=== PATIENT | male | born 1935 | race Caucasian/White ===

== ENCOUNTER 2016-09-17 17:05 | Inpatient (IN) | payer MEDICARE ==
--- NOTE | 2016-09-17 17:33 | ED ---
General Adult HPI - General Chief complaint: Chest Pain Stated complaint: chest tightness, pain, heart Hx Time Seen by Provider: 09/17/16 17:14 Source: patient, RN notes reviewed, old records reviewed Mode of arrival: wheelchair Limitations: no limitations - History of Present Illness Initial comments: This is an 78-year-old male here with chest pain. Patient has a significant heart disease, history of heart disease, history of A. fib, patient coming in for chest pain. No recent crit headache evaluation for chest pain or some possible admission for chest pain. Patient is not currently having chest pain had chest pain earlier with symptoms radiating down left arm. Patient did have stress test within the last 2 years. No significant distress of breath no diaphoresis with pain. No modifying factors for symptoms - Related Data Home Medications Medication Instructions Recorded Confirmed Levothyroxine Sodium [Synthroid] 88 mcg PO MOTUWETHFRSA 01/30/14 09/17/16 Multivitamins, Thera [Multivitamin] 1 tab PO DAILY 01/30/14 09/17/16 Nitroglycerin Sl Tabs [Nitrostat] 0.4 mg SUBLINGUAL Q5M PRN 01/30/14 09/17/16 metFORMIN HCL [Glucophage] 1,000 mg PO DAILY@1700 01/30/14 09/17/16 Fesoterodine Fumarate [Toviaz] 4 mg PO DAILY@1700 08/19/14 09/17/16 hydrALAZINE HCL [Apresoline] 150 mg PO BID 08/19/14 09/17/16 Glimepiride [Amaryl] 0.5 mg PO W/SUPPER 08/27/14 09/17/16 Glimepiride [Amaryl] 1 mg PO AC-BRKFST 08/31/14 09/17/16 ALPRAZolam [Xanax] 0.25 mg PO BID@0800,2200 08/28/15 09/17/16 Furosemide [Lasix] 20 mg PO DAILY 08/28/15 09/17/16 Omeprazole [PriLOSEC] 20 mg PO DAILY@1700 08/28/15 09/17/16 amLODIPine [Norvasc] 5 mg PO BID@0800,2200 08/28/15 09/17/16 metFORMIN HCL [Glucophage] 500 mg PO DAILY@0800 08/28/15 09/17/16 Isosorbide Mononitrate ER [Imdur] 60 mg PO DAILY@1700 03/29/16 09/17/16 Melatonin 5 mg PO HS 03/29/16 09/17/16 sitaGLIPtin [Januvia] 100 mg PO DAILY 09/17/16 09/17/16 Previous Rx's Medication Instructions Recorded Aspirin 81 mg PO DAILY #30 chew 09/20/16 Atorvastatin [Lipitor] 40 mg PO HS #30 tab 09/20/16 Clopidogrel [Plavix] 75 mg PO DAILY #30 tab 09/20/16 Metoprolol Tartrate [Lopressor] 12.5 mg PO BID #60 tab 09/20/16 Warfarin [Coumadin] 2.5 mg PO DAILY@1800 #30 tab 09/20/16 Allergies Allergy/AdvReac Type Severity Reaction Status Date / Time albuterol Allergy Severe tachycardia Verified 09/17/16 21:12 MELISSA Inhibitors Allergy Angioedema Verified 09/17/16 21:12 aspirin Allergy Swelling Verified 09/17/16 21:12 clonidine HCl [From Catapres] Allergy facial Verified 09/17/16 21:12 swelling flurbiprofen Allergy angioedema Verified 09/17/16 21:12 hydrochlorothiazide Allergy Anaphylaxis Verified 09/17/16 21:12 levofloxacin [From Levaquin] Allergy facial and Verified 09/17/16 21:12 neck swelling losartan potassium Allergy Anaphylaxis Verified 09/17/16 21:12 [From Cozaar] ofloxacin Allergy angioedema Verified 09/17/16 21:12 doxycycline AdvReac SHORTNESS Verified 09/17/16 21:12 OF BREATH Tetracyclines AdvReac Swelling Verified 09/17/16 21:12 FEATHERS Allergy SINUS Uncoded 09/17/16 21:12 DRAINAGE NOSE AND EYES Review of Systems ROS Statement: Those systems with pertinent positive or pertinent negative responses have been documented in the HPI. ROS Other: All systems not noted in ROS Statement are negative. Past Medical History Past Medical History: Atrial Fibrillation, Coronary Artery Disease (CAD), Cancer , Diabetes Mellitus, GERD/Reflux, GI Bleed, Hyperlipidemia, Hypertension, Myocardial Infarction (MA), Osteoarthritis (OA), Prostate Disorder, Thyroid Disorder Additional Past Medical History / Comment(s): hx vocal cord(tx with radiation) and PROSTATE CANCER, varicose veins, hx ulcer, Last Myocardial Infarction Date:: 08/2014 History of Any Multi-Drug Resistant Organisms: MRSA Date of last positivie culture/infection: 01/15/2012 MDRO Source:: Unknown Past Surgical History: Coronary Bypass/CABG, Heart Catheterization With Stent, Hernia Repair, Prostate Surgery, Tonsillectomy Additional Past Surgical History / Comment(s): vocal cord biopsy with vocal cord surgery ,CABG 2013, total 4 stents, philipp cataracts Past Anesthesia/Blood Transfusion Reactions: Motion Sickness Additional Past Anesthesia/Blood Transfusion Reaction / Comment(s): hx diff intubation with previous vocal cord surgery-anesthesia record on chart Date of Last Stent Placement:: 2005 Past Psychological History: No Psychological Hx Reported Smoking Status: Former smoker Past Alcohol Use History: Occasional Additional Past Alcohol Use History / Comment(s): quit smoking 45 years ago, smoked for 20 yrs- 1PPD Past Drug Use History: None Reported - Past Family History Sister(s) Family Medical History: Cancer Father Family Medical History: Deep Vein Thrombosis (DVT) Mother Family Medical History: Cancer Additional Family Medical History / Comment(s): CERVICAL Brother(s) Family Medical History: Coronary Artery Disease (CAD) Additional Family Medical History / Comment(s): He has one brother that has with history of coronary artery disease and alcohol abuse. General Exam Limitations: no limitations General appearance: alert, in no apparent distress, anxious Head exam: Present: atraumatic, normocephalic, normal inspection Eye exam: Present: normal appearance, PERRL, EOMI. Absent: scleral icterus, conjunctival injection, periorbital swelling ENT exam: Present: normal exam, mucous membranes moist Neck exam: Present: normal inspection. Absent: tenderness, meningismus, lymphadenopathy Respiratory exam: Present: normal lung sounds bilaterally. Absent: respiratory distress, wheezes, rales, rhonchi, stridor Cardiovascular Exam: Present: regular rate, normal rhythm, normal heart sounds. Absent: systolic murmur, diastolic murmur, rubs, gallop, clicks GI/Abdominal exam: Present: soft, normal bowel sounds. Absent: distended, tenderness, guarding, rebound, rigid Extremities exam: Present: normal inspection, full ROM, normal capillary refill. Absent: tenderness, pedal edema, joint swelling, calf tenderness Back exam: Present: normal inspection Neurological exam: Present: alert, oriented X3, CN II-XII intact Psychiatric exam: Present: normal affect, normal mood Skin exam: Present: warm, dry, intact, normal color. Absent: rash Course Vital Signs 09/17/16 09/17/16 09/17/16 17:10 17:22 18:28 Temperature 98.4 F Pulse Rate 84 79 66 Respiratory 20 18 Rate Blood Pressure 168/82 174/98 143/88 O2 Sat by Pulse 97 99 98 Oximetry 09/17/16 09/17/16 09/17/16 18:58 19:25 20:33 Temperature 97.8 F Pulse Rate 64 74 68 Respiratory 16 Rate Blood Pressure 144/84 140/102 144/91 O2 Sat by Pulse 98 97 98 Oximetry - Reevaluation(s) Reevaluation #1: 09/17/16 17:32 Patient is on Ahlquist EKG Findings - EKG Comments: EKG Findings:: EKG shows a flutter rate of 69, AR 94, QRS 4:30 Medical Decision Making - Medical Decision Making 81 male the ER for evaluation of A. fib, nonaffiliated MA elevated troponin, shortness of breath and weakness. Patient's rate is controlled perfectly at this time is on anticoagulation, patient be admitted for further cardiac observation and monitoring - Lab Data Result diagrams: 09/20/16 05:42 09/20/16 05:42 Lab Results 09/17/16 09/17/16 09/17/16 Range/Units 17:35 17:35 17:35 WBC 7.2 (3.8-10.6) k/uL RBC 4.46 (4.30-5.90) m/uL Hgb 14.5 (13.0-17.5) gm/dL Hct 44.1 (39.0-53.0) % MCV 99.0 (80.0-100.0) fL MCH 32.5 (25.0-35.0) pg MCHC 32.8 (31.0-37.0) g/dL RDW 13.7 (11.5-15.5) % Plt Count 230 (150-450) k/uL Neutrophils % 67 % Lymphocytes % 16 % Monocytes % 12 % Eosinophils % 3 % Basophils % 1 % Neutrophils # 4.8 (1.3-7.7) k/uL Lymphocytes # 1.1 (1.0-4.8) k/uL Monocytes # 0.9 (0-1.0) k/uL Eosinophils # 0.2 (0-0.7) k/uL Basophils # 0.1 (0-0.2) k/uL PT (9.0-12.0) sec INR (<1.1) APTT (22.0-30.0) sec Sodium 145 (137-145) mmol/L Potassium 3.6 (3.5-5.1) mmol/L Chloride 100 (98-107) mmol/L Carbon Dioxide 30 (22-30) mmol/L Anion Gap 15 mmol/L BUN 13 (9-20) mg/dL Creatinine 0.93 (0.66-1.25) mg/dL Est GFR (MDRD) Af Amer >60 (>60 ml/min/1.73 sqM) Est GFR (MDRD) Non-Af >60 (>60 ml/min/1.73 sqM) Glucose 174 H (74-99) mg/dL Calcium 10.1 (8.4-10.2) mg/dL Magnesium 1.8 (1.6-2.3) mg/dL Total Bilirubin 0.6 (0.2-1.3) mg/dL AST 18 (17-59) U/L ALT 30 (21-72) U/L Alkaline Phosphatase 83 (38-126) U/L Total Creatine Kinase 49 L (55-170) U/L CK-MB (CK-2) 1.2 (0.0-2.4) ng/mL CK-MB (CK-2) Rel Index 2.4 Troponin I 0.082 H* (0.000-0.034) ng/mL NT-Pro-B Natriuret Pep pg/mL Total Protein 7.6 (6.3-8.2) g/dL Albumin 4.9 (3.5-5.0) g/dL Lipase 137 (23-300) U/L 09/17/16 09/17/16 Range/Units 17:35 17:35 WBC (3.8-10.6) k/uL RBC (4.30-5.90) m/uL Hgb (13.0-17.5) gm/dL Hct (39.0-53.0) % MCV (80.0-100.0) fL MCH (25.0-35.0) pg MCHC (31.0-37.0) g/dL RDW (11.5-15.5) % Plt Count (150-450) k/uL Neutrophils % % Lymphocytes % % Monocytes % % Eosinophils % % Basophils % % Neutrophils # (1.3-7.7) k/uL Lymphocytes # (1.0-4.8) k/uL Monocytes # (0-1.0) k/uL Eosinophils # (0-0.7) k/uL Basophils # (0-0.2) k/uL PT 11.0 (9.0-12.0) sec INR 1.1 (<1.1) APTT 25.3 (22.0-30.0) sec Sodium (137-145) mmol/L Potassium (3.5-5.1) mmol/L Chloride (98-107) mmol/L Carbon Dioxide (22-30) mmol/L Anion Gap mmol/L BUN (9-20) mg/dL Creatinine (0.66-1.25) mg/dL Est GFR (MDRD) Af Amer (>60 ml/min/1.73 sqM) Est GFR (MDRD) Non-Af (>60 ml/min/1.73 sqM) Glucose (74-99) mg/dL Calcium (8.4-10.2) mg/dL Magnesium (1.6-2.3) mg/dL Total Bilirubin (0.2-1.3) mg/dL AST (17-59) U/L ALT (21-72) U/L Alkaline Phosphatase (38-126) U/L Total Creatine Kinase (55-170) U/L CK-MB (CK-2) (0.0-2.4) ng/mL CK-MB (CK-2) Rel Index Troponin I (0.000-0.034) ng/mL NT-Pro-B Natriuret Pep 559 pg/mL Total Protein (6.3-8.2) g/dL Albumin (3.5-5.0) g/dL Lipase (23-300) U/L - Radiology Data Radiology results: report reviewed (Chest x-ray negative for acute disease), image reviewed Critical Care Time Critical Care Time: Yes Total Critical Care Time: 31 Disposition Clinical Impression: Chest pain, Afib, Unstable angina pectoris, NSTEMI (non-ST elevated myocardial infarction) Disposition: ADMITTED IP TO THIS HOSP Condition: Good
[2016-09-17 17:49] LABS: Basophils # (A) 0.1 k/uL (0-0.2); Basophils % (A) 1 %; CH 33.5; CHCM 34.1; Eosinophils # (A) 0.2 k/uL (0-0.7); Eosinophils % (A) 3 %; HCT 44.1 % (39.0-53.0); HDW 2.42; HGB 14.5 gm/dL (13.0-17.5); Luc # (Auto) 0.12; Luc % (Auto) 2; Lymphocytes # (A) 1.1 k/uL (1.0-4.8); Lymphocytes % (A) 16 %; MCH 32.5 pg (25.0-35.0); MCHC 32.8 g/dL (31.0-37.0); Mean Platelet Volume 8.2; Monocytes # (A) 0.9 k/uL (0-1.0); Monocytes % (A) 12 %; Neutrophils # (A) 4.8 k/uL (1.3-7.7); Neutrophils % (A) 67 %; RBC 4.46 m/uL (4.30-5.90); RDW 13.7 % (11.5-15.5); WBC 7.2 k/uL (3.8-10.6); WBC (Perox) 7.08
[2016-09-17 17:58] LABS: INR 1.1 (<1.1); Partial Thromboplastin Time 25.3 sec (22.0-30.0)
[2016-09-17 17:59] LABS: ALT 30 U/L (21-72); AST 18 U/L (17-59); Alkaline Phosphatase 83 U/L (38-126); Anion Gap 15 mmol/L; Blood Urea Nitrogen 13 mg/dL (9-20); Calcium 10.1 mg/dL (8.4-10.2); Carbon Dioxide 30 mmol/L (22-30); Chloride 100 mmol/L (98-107); Glucose 174 mg/dL (74-99); Magnesium 1.8 mg/dL (1.6-2.3); Non-African American GFR(MDRD) >60 (>60 ml/min/1.73 sqM); Potassium 3.6 mmol/L (3.5-5.1); Sodium 145 mmol/L (137-145); Total Bilirubin 0.6 mg/dL (0.2-1.3); Total Protein 7.6 g/dL (6.3-8.2)
--- NOTE | 2016-09-17 18:15 | XR ---
EXAMINATION TYPE: XR chest 1V portable DATE OF EXAM: 09/17/2016 6:10 PM COMPARISON: 08/28/2015 HISTORY: Chest tightness TECHNIQUE: Single frontal view of the chest is obtained. FINDINGS: There is no heart failure nor confluent pneumonic infiltrate. There are sternal wires. The re are chest leads. There are no hilar masses. Costophrenic angles are clear. IMPRESSION: No active cardiopulmonary disease. No change.
[2016-09-17 18:22] LABS: Creatine Kinase MB 1.2 ng/mL (0.0-2.4)
[2016-09-17 18:23] LABS: Troponin I 0.082 ng/mL (0.000-0.034)
[2016-09-17] MEDS ORDERED: ASPIRIN 81 MG CHEW PO STA (18:43)
[2016-09-17] MEDS ORDERED: NITROGLYCERIN SL TABS 0.4 MG TAB SUBLINGUAL PRN (18:43)
[2016-09-17] MEDS ORDERED: MORPHINE SULFATE 4 MG/ML SYRINGE IV PRN (18:43)
[2016-09-17] MEDS: SODIUM CHLORIDE 0.9% 1,000 ML IV SCH (20:33)
[2016-09-17 21:37] VITALS: BMI 22.8
[2016-09-17] MEDS ORDERED: ATORVASTATIN 40 MG TAB PO SCH (22:00)
[2016-09-17 22:14] LABS: Glucose,Whole Blood 264 mg/dL (75-99)
[2016-09-17] MEDS: CARVEDILOL 3.125 MG TAB PO SCH (22:31)
[2016-09-17] MEDS: ALPRAZolam 0.25 MG TAB PO SCH (22:31)
[2016-09-17] MEDS: hydrALAZINE HCL 50 MG TAB PO SCH (22:31)
[2016-09-17] MEDS: amLODIPine 5 MG TAB PO SCH (22:31)
[2016-09-17] MEDS: APIXABAN 2.5 MG TABLET PO SCH (22:31)
[2016-09-17] MEDS: MELATONIN 5 MG TABLET PO SCH (22:32)
[2016-09-17] MEDS: ISOSORBIDE MONONITRATE ER 60 MG TAB.ER.24H PO SCH (22:32)
[2016-09-17] MEDS: PANTOPRAZOLE 40 MG TABLET PO SCH (22:33)
[2016-09-17] MEDS: GLIMEPIRIDE 1 MG TAB PO SCH (22:34)
[2016-09-17] MEDS: metFORMIN 500 MG TAB PO SCH (22:34)
[2016-09-17] MEDS: OXYBUTYNIN XL 5 MG TAB.ER.24 PO SCH (22:35)
[2016-09-18 00:22] LABS: Creatine Kinase MB 1.2 ng/mL (0.0-2.4)
[2016-09-18 00:26] LABS: Troponin I 0.287 ng/mL (0.000-0.034)
[2016-09-18 05:57] LABS: Cholesterol 92 mg/dL (<200); HDL Cholesterol 39 mg/dL (40-60); Triglycerides 166 mg/dL (<150)
[2016-09-18 06:14] LABS: Troponin I 0.27 ng/mL (0.000-0.034)
[2016-09-18 06:17] LABS: Glucose,Whole Blood 115 mg/dL (75-99)
[2016-09-18] MEDS: LEVOTHYROXINE 88 MCG TAB PO SCH (06:26)
[2016-09-18] MEDS: SODIUM CHLORIDE 0.9% 1,000 ML IV SCH ×2 (06:26→17:00)
[2016-09-18] MEDS: LINAGLIPTIN 5 MG TABLET PO SCH ×2 (07:49→12:06)
[2016-09-18] MEDS: metFORMIN 500 MG TAB PO SCH ×2 (07:49→16:57)
[2016-09-18] MEDS: GLIMEPIRIDE 1 MG TAB PO SCH ×2 (07:49→16:57)
[2016-09-18] MEDS: ALPRAZolam 0.25 MG TAB PO SCH ×2 (08:00→21:32)
[2016-09-18] MEDS: hydrALAZINE HCL 50 MG TAB PO SCH ×2 (08:00→20:51)
[2016-09-18] MEDS: amLODIPine 5 MG TAB PO SCH ×2 (08:01→21:32)
[2016-09-18] MEDS: FUROSEMIDE 20 MG TAB PO SCH (08:01)
[2016-09-18] MEDS: APIXABAN 2.5 MG TABLET PO SCH (08:01)
[2016-09-18] MEDS: CARVEDILOL 3.125 MG TAB PO SCH (08:02)
[2016-09-18] MEDS: MULTIVITAMINS, THERA 1 EACH TAB PO SCH (08:02)
[2016-09-18] MEDS ORDERED: ASPIRIN 325 MG TAB PO SCH (09:00)
--- NOTE | 2016-09-18 09:19 | P.CRDCN ---
History of Present Illness Consult date: 09/18/16 Chief complaint: Chest discomfort History of present illness: This is a pleasant 80-year-old gentleman who sees Dr. TACOS Bolden as an outpatient with known history of CAD and prior CABG, hypertension, dyslipidemia, and chronic atrial fibrillation, presented to the emergency room complaining of chest discomfort. He was in the [employer]ology yesterday when he started experiencing funny feeling in the chest. He decided to go home. Then he decided to come to the emergency room. In the ER he was experiencing tightness across the chest. The discomfort radiated to his left arm. It lasted about 20 minutes. The EKG showed atrial fibrillation with non-specific changes. The cardiac enzymes came in to be abnormal. He underwent a heart catheterization in August 2015 and that showed non- dominant right coronary artery with patent DOMÍNGUEZ to LAD and patent SVG to LCX. I recommended proceeding with heart catheterization to rule out any severe underlying CAD. Please note that the patient had an episode of sinus pauses of 4 seconds this fairly morning. I am going to DC the Coreg at this point and we' ll continue monitor the heart rhythm. Past Medical History Past Medical History: Atrial Fibrillation, Coronary Artery Disease (CAD), Cancer , Diabetes Mellitus, GERD/Reflux, GI Bleed, Hyperlipidemia, Hypertension, Myocardial Infarction (AL), Osteoarthritis (OA), Prostate Disorder, Thyroid Disorder Additional Past Medical History / Comment(s): hx vocal cord(tx with radiation) and PROSTATE CANCER, varicose veins, hx ulcer, Last Myocardial Infarction Date:: 08/2014 History of Any Multi-Drug Resistant Organisms: MRSA Date of last positivie culture/infection: 01/15/2012 MDRO Source:: Unknown Past Surgical History: Coronary Bypass/CABG, Heart Catheterization With Stent, Hernia Repair, Prostate Surgery, Tonsillectomy Additional Past Surgical History / Comment(s): vocal cord biopsy with vocal cord surgery ,CABG 2011, total 4 stents, philipp cataracts Past Anesthesia/Blood Transfusion Reactions: Motion Sickness Additional Past Anesthesia/Blood Transfusion Reaction / Comment(s): hx diff intubation with previous vocal cord surgery-anesthesia record on chart Date of Last Stent Placement:: 2005 Past Psychological History: No Psychological Hx Reported Smoking Status: Former smoker Past Alcohol Use History: Occasional Additional Past Alcohol Use History / Comment(s): quit smoking 45 years ago, smoked for 20 yrs- 1PPD Past Drug Use History: None Reported - Past Family History Sister(s) Family Medical History: Cancer Father Family Medical History: Deep Vein Thrombosis (DVT) Brother(s) Family Medical History: Coronary Artery Disease (CAD) Mother Family Medical History: Cancer Additional Family Medical History / Comment(s): CERVICAL Medications and Allergies Home Medications Medication Instructions Recorded Confirmed Type Levothyroxine Sodium [Synthroid] 88 mcg PO MOTUWETHFRSA 01/30/14 09/17/16 History Multivitamins, Thera [Multivitamin] 1 tab PO DAILY 01/30/14 09/17/16 History Nitroglycerin Sl Tabs [Nitrostat] 0.4 mg SUBLINGUAL Q5M PRN 01/30/14 09/17/16 History metFORMIN HCL [Glucophage] 1,000 mg PO DAILY@1700 01/30/14 09/17/16 History Fesoterodine Fumarate [Toviaz] 4 mg PO DAILY@1700 08/19/14 09/17/16 History hydrALAZINE HCL [Apresoline] 150 mg PO BID 08/19/14 09/17/16 History Glimepiride [Amaryl] 0.5 mg PO W/SUPPER 08/27/14 09/17/16 History Glimepiride [Amaryl] 1 mg PO AC-BRKFST 08/31/14 09/17/16 History ALPRAZolam [Xanax] 0.25 mg PO BID@0800,2200 08/28/15 09/17/16 History Apixaban [Eliquis] 2.5 mg PO 0800,1700 08/28/15 09/17/16 History Atorvastatin [Lipitor] 20 mg PO HS 08/28/15 09/17/16 History Furosemide [Lasix] 20 mg PO DAILY 08/28/15 09/17/16 History Omeprazole [PriLOSEC] 20 mg PO DAILY@1700 08/28/15 09/17/16 History amLODIPine [Norvasc] 5 mg PO BID@0800,2200 08/28/15 09/17/16 History metFORMIN HCL [Glucophage] 500 mg PO DAILY@0800 08/28/15 09/17/16 History Carvedilol [Coreg] 3.125 mg PO BID@0800,2030 03/29/16 09/17/16 History Isosorbide Mononitrate ER [Imdur] 60 mg PO DAILY@1700 03/29/16 09/17/16 History Melatonin 5 mg PO HS 03/29/16 09/17/16 History sitaGLIPtin [Januvia] 100 mg PO DAILY 09/17/16 09/17/16 History Allergies Allergy/AdvReac Type Severity Reaction Status Date / Time albuterol Allergy Severe tachycardia Verified 09/17/16 21:12 MELISSA Inhibitors Allergy Angioedema Verified 09/17/16 21:12 aspirin Allergy Swelling Verified 09/17/16 21:12 clonidine HCl [From Catapres] Allergy facial Verified 09/17/16 21:12 swelling flurbiprofen Allergy angioedema Verified 09/17/16 21:12 hydrochlorothiazide Allergy Anaphylaxis Verified 09/17/16 21:12 levofloxacin [From Levaquin] Allergy facial and Verified 09/17/16 21:12 neck swelling losartan potassium Allergy Anaphylaxis Verified 09/17/16 21:12 [From Cozaar] ofloxacin Allergy angioedema Verified 09/17/16 21:12 doxycycline AdvReac SHORTNESS Verified 09/17/16 21:12 OF BREATH Tetracyclines AdvReac Swelling Verified 09/17/16 21:12 FEATHERS Allergy SINUS Uncoded 09/17/16 21:12 DRAINAGE NOSE AND EYES Physical Exam Vitals: Vital Signs Temp Pulse Pulse Resp BP BP Pulse Ox 09/18/16 04:00 98.6 F 72 18 127/95 97 09/18/16 00:00 98.3 F 68 18 109/68 98 09/17/16 23:14 95 09/17/16 20:33 97.8 F 68 16 144/91 98 09/17/16 19:25 74 140/102 97 09/17/16 18:58 64 144/84 98 Intake and Output 09/17/16 09/18/16 09/18/16 22:59 06:59 14:59 Intake Total 800 Balance 800 Intake: IV 800 Sodium Chloride 0.9% 1, 800 000 ml @ 100 mls/hr IV . Q10H [facility] Rx#:[id number] Other: Voiding Method Toilet # Voids 1 Weight 76.5 kg 76.5 kg - Constitutional General appearance: no acute distress - Respiratory Respiratory: bilateral: CTA - Cardiovascular Rhythm: irregularly irregular Heart sounds: normal: S1, S2 Results 09/17/16 17:35 09/17/16 17:35 Cardiac Enzymes 09/17/16 09/18/16 Range/Units 23:38 05:24 CK-MB (CK-2) 1.2 1.0 (0.0-2.4) ng/mL Troponin I 0.287 H* 0.270 H* (0.000-0.034) ng/mL Lipids 09/18/16 Range/Units 05:24 Triglycerides 166 H (<150) mg/dL Cholesterol 92 (<200) mg/dL HDL Cholesterol 39 L (40-60) mg/dL Current Medications Generic Name Dose Route Start Last Admin Trade Name Naveenq PRN Reason Stop Dose Admin Alprazolam 0.25 mg 09/17/16 22:00 09/18/16 08:00 Xanax PO 0.25 mg BID@0800,2200 NIYAH Administration Amlodipine Besylate 5 mg 09/17/16 22:00 09/18/16 08:01 Norvasc PO 5 mg BID@0800,2200 NIYAH Administration Apixaban 2.5 mg 09/17/16 22:00 09/18/16 08:01 Eliquis PO 2.5 mg 0800,1700 NIYAH Administration Atorvastatin Calcium 20 mg 09/17/16 22:00 09/17/16 22:31 Lipitor PO 20 mg HS NIYAH Administration Carvedilol 3.125 mg 09/17/16 22:00 09/18/16 08:02 Coreg PO 3.125 mg BID@0800,2030 NIYAH Administration Furosemide 20 mg 09/18/16 09:00 09/18/16 08:01 Lasix PO 20 mg DAILY NIYAH Administration Glimepiride 1 mg 09/18/16 07:30 09/18/16 07:49 Amaryl PO Not Given AC-BRKFST NIYAH Glimepiride 0.5 mg 09/17/16 22:00 09/17/16 22:34 Amaryl PO 0.5 mg W/SUPPER NIYAH Administration Hydralazine HCl 150 mg 09/17/16 22:00 09/18/16 08:00 Apresoline PO 150 mg BID NIYAH Administration Sodium Chloride 1,000 mls @ 100 mls/hr 09/17/16 18:45 09/18/16 06:26 Saline 0.9% IV 100 mls/hr .Q10H NIYAH Administration Isosorbide Mononitrate 60 mg 09/17/16 22:00 09/17/16 22:32 Imdur PO 60 mg DAILY@1700 NIYAH Administration Levothyroxine Sodium 88 mcg 09/18/16 06:30 09/18/16 06:26 Synthroid PO 88 mcg MOTUWETHFRSA NIYAH Administration Linagliptin 5 mg 09/18/16 09:00 09/18/16 07:49 Tradjenta PO Not Given DAILY NIYAH Melatonin 5 mg 09/17/16 22:00 09/17/16 22:32 Melatonin PO 5 mg HS NIYAH Administration Metformin HCl 500 mg 09/18/16 08:00 09/18/16 07:49 Glucophage PO Not Given DAILY@0800 NIYAH Metformin HCl 1,000 mg 09/17/16 22:00 09/17/16 22:34 Glucophage PO 1,000 mg DAILY@1700 NIYAH Administration Morphine Sulfate 4 mg 09/17/16 18:43 Morphine Sulfate (Inj) IV Q4HR PRN Chest Pain Multivitamins 1 each 09/18/16 09:00 09/18/16 08:02 Theragran PO 1 each DAILY [facility] Administration Nitroglycerin 0.4 mg 09/17/16 18:43 Nitrostat SUBLINGUAL Q5M PRN Chest Pain Oxybutynin Chloride 10 mg 09/17/16 22:00 09/17/16 22:35 Ditropan Xl PO 10 mg DAILY@1700 NIYAH Administration Pantoprazole Sodium 40 mg 09/17/16 22:00 09/17/16 22:33 Protonix PO 40 mg DAILY@1700 NIYAH Administration Intake and Output 09/17/16 09/18/16 09/18/16 22:59 06:59 14:59 Intake Total 800 Balance 800 Intake: IV 800 Sodium Chloride 0.9% 1, 800 000 ml @ 100 mls/hr IV . Q10H [facility] Rx#:[id number] Other: Voiding Method Toilet # Voids 1 Weight 76.5 kg 76.5 kg Assessment and Plan Plan: Assessment #1 acute non-STEMI #2 known CAD as described above #3 chronic atrial fibrillation #4 an episode of sinus positive for seconds #5 multiple comorbid conditions Plan #1 DC the Coreg #2 watch the rhythm very closely to rule out any tachybradycardia syndrome #3 the patient need to undergo a heart catheterization #4 follow-up with
[2016-09-18] MEDS ORDERED: ALPRAZolam 0.5 MG TAB PO PRN (09:43)
[2016-09-18] MEDS ORDERED: ASPIRIN 325 MG TAB PO STA (09:43)
[2016-09-18] MEDS ORDERED: NITROGLYCERIN SL TABS 0.4 MG TAB SUBLINGUAL PRN (09:43)
[2016-09-18] MEDS ORDERED: ATORVASTATIN 80 MG TAB PO STA (09:43)
[2016-09-18] MEDS ORDERED: ALPRAZolam 0.25 MG TAB PO PRN (09:43)
[2016-09-18] MEDS ORDERED: SODIUM CHLORIDE 0.9% 1,000 ML in EMPTY BAG 1 BAG IV ONE (09:43)
[2016-09-18 11:54] LABS: Glucose,Whole Blood 229 mg/dL (75-99)
[2016-09-18] MEDS: INSULIN LISPRO (humaLOG) 300 UNIT/3 ML VIAL SQ SCH ×3 (12:08→21:32)
--- NOTE | 2016-09-18 12:27 | P.HPIM ---
History of Present Illness H&P Date: 09/18/16 Chief Complaint: Left arm and shoulder ache This is an 80-year-old male. His primary care physician is Dr. Corona and his drug abuse program coordinator is Dr. TACOS Bolden. He has a past medical history for coronary artery disease status post CABG three-vessel in April 2012 with previous 4 cardiac stents between 2003 and 2005, diabetes mellitus type 2, hypertension, right vocal cord cell carcinoma in 2008, completed radiation, chronic atrial fibrillation on eliquis with previous cardioversion, Cobb's esophagus, prostate cancer. He was in restorationist yesterday and he developed left arm and shoulder ache and didn't feel well in general. He denied having any lightheadedness or dizziness. No nausea or vomiting. Not sure if he had any palpitations. Patient is driving himself home and he sells himself in a chair and the feeling faded away. Unfortunately, the discomfort returned later in the day but not as bad as the first episode. His ended up bringing him into [facility] emergency center for evaluation his troponins were 0.082, 0.287, 0.270. Chest x-ray showed no acute findings. Triglycerides 166, cholesterol 92, HDL 20, LDL 39. EKG showed atrial fibrillation with nonspecific changes. Patient was admitted to the selective care unit and cardiology consult was obtained with plan for heart catheterization tomorrow. Patient had a 4 second positive for which Coreg has been discontinued by cardiology. Patient was previously set up for heart catheterization on September [address] TACOS Bolden. Review of Systems All systems: negative Constitutional: Denies chills, Denies fever Eyes: denies blurred vision, denies pain Ears, nose, mouth and throat: Denies headache, Denies sore throat Cardiovascular: Reports chest pain, Denies decreased exercise tolerance, Denies dyspnea on exertion, Denies edema, Denies leg edema, Denies lightheadedness, Denies orthopnea, Denies palpitations, Denies paroxysmal nocturnal dyspnea, Denies rapid heart beat, Denies shortness of breath Respiratory: Denies cough Gastrointestinal: Denies abdominal pain, Denies diarrhea, Denies nausea, Denies vomiting Musculoskeletal: Denies myalgias Integumentary: Denies pruritus, Denies rash Neurological: Denies numbness, Denies weakness Psychiatric: Denies anxiety, Denies depression Endocrine: Denies fatigue, Denies weight change Past Medical History Past Medical History: Atrial Fibrillation, Coronary Artery Disease (CAD), Cancer , Diabetes Mellitus, GERD/Reflux, GI Bleed, Hyperlipidemia, Hypertension, Myocardial Infarction (IA), Osteoarthritis (OA), Prostate Disorder, Thyroid Disorder Additional Past Medical History / Comment(s): hx vocal cord(tx with radiation) and PROSTATE CANCER, varicose veins, Cobb's esophagus Last Myocardial Infarction Date:: 08/2014 History of Any Multi-Drug Resistant Organisms: MRSA Date of last positivie culture/infection: 01/15/2012 MDRO Source:: Unknown Past Surgical History: Coronary Bypass/CABG, Heart Catheterization With Stent, Hernia Repair, Prostate Surgery, Tonsillectomy Additional Past Surgical History / Comment(s): vocal cord biopsy with vocal cord surgery ,CABG 2011, total 4 stents, philipp cataracts Past Anesthesia/Blood Transfusion Reactions: Motion Sickness Additional Past Anesthesia/Blood Transfusion Reaction / Comment(s): hx diff intubation with previous vocal cord surgery-anesthesia record on chart Date of Last Stent Placement:: 2005 Past Psychological History: No Psychological Hx Reported Smoking Status: Former smoker Past Alcohol Use History: Occasional Additional Past Alcohol Use History / Comment(s): quit smoking 45 years ago, smoked for 20 yrs- 1PPD. No marijuana or street drug use. Occasional alcohol use. He wears a brace on the left ankle. Past Drug Use History: None Reported - Past Family History Sister(s) Family Medical History: Cancer Additional Family Medical History / Comment(s): Patient has one sister that is 89 years old with history of breast cancer and osteoarthritis of the knees. Father Family Medical History: Deep Vein Thrombosis (DVT) Additional Family Medical History / Comment(s): Father at age 75 with history of diabetes, coronary artery disease, pacemaker. Brother(s) Family Medical History: Coronary Artery Disease (CAD) Additional Family Medical History / Comment(s): He has one brother that has with history of coronary artery disease and alcohol abuse. Mother Family Medical History: Cancer Additional Family Medical History / Comment(s): Mother at age 39 from cervical cancer. Medications and Allergies Home Medications Medication Instructions Recorded Confirmed Type Levothyroxine Sodium [Synthroid] 88 mcg PO MOTUWETHFRSA 01/30/14 09/17/16 History Multivitamins, Thera [Multivitamin] 1 tab PO DAILY 01/30/14 09/17/16 History Nitroglycerin Sl Tabs [Nitrostat] 0.4 mg SUBLINGUAL Q5M PRN 01/30/14 09/17/16 History metFORMIN HCL [Glucophage] 1,000 mg PO DAILY@1700 01/30/14 09/17/16 History Fesoterodine Fumarate [Toviaz] 4 mg PO DAILY@1700 08/19/14 09/17/16 History hydrALAZINE HCL [Apresoline] 150 mg PO BID 08/19/14 09/17/16 History Glimepiride [Amaryl] 0.5 mg PO W/SUPPER 08/27/14 09/17/16 History Glimepiride [Amaryl] 1 mg PO AC-BRKFST 08/31/14 09/17/16 History ALPRAZolam [Xanax] 0.25 mg PO BID@0800,2200 08/28/15 09/17/16 History Apixaban [Eliquis] 2.5 mg PO 0800,1700 08/28/15 09/17/16 History Atorvastatin [Lipitor] 20 mg PO HS 08/28/15 09/17/16 History Furosemide [Lasix] 20 mg PO DAILY 08/28/15 09/17/16 History Omeprazole [PriLOSEC] 20 mg PO DAILY@1700 08/28/15 09/17/16 History amLODIPine [Norvasc] 5 mg PO BID@0800,2200 08/28/15 09/17/16 History metFORMIN HCL [Glucophage] 500 mg PO DAILY@0800 08/28/15 09/17/16 History Carvedilol [Coreg] 3.125 mg PO BID@0800,2030 03/29/16 09/17/16 History Isosorbide Mononitrate ER [Imdur] 60 mg PO DAILY@1700 03/29/16 09/17/16 History Melatonin 5 mg PO HS 03/29/16 09/17/16 History sitaGLIPtin [Januvia] 100 mg PO DAILY 09/17/16 09/17/16 History Allergies Allergy/AdvReac Type Severity Reaction Status Date / Time albuterol Allergy Severe tachycardia Verified 09/17/16 21:12 MELISSA Inhibitors Allergy Angioedema Verified 09/17/16 21:12 aspirin Allergy Swelling Verified 09/17/16 21:12 clonidine HCl [From Catapres] Allergy facial Verified 09/17/16 21:12 swelling flurbiprofen Allergy angioedema Verified 09/17/16 21:12 hydrochlorothiazide Allergy Anaphylaxis Verified 09/17/16 21:12 levofloxacin [From Levaquin] Allergy facial and Verified 09/17/16 21:12 neck swelling losartan potassium Allergy Anaphylaxis Verified 09/17/16 21:12 [From Cozaar] ofloxacin Allergy angioedema Verified 09/17/16 21:12 doxycycline AdvReac SHORTNESS Verified 09/17/16 21:12 OF BREATH Tetracyclines AdvReac Swelling Verified 09/17/16 21:12 FEATHERS Allergy SINUS Uncoded 09/17/16 21:12 DRAINAGE NOSE AND EYES Physical Exam Vitals: Vital Signs Temp Pulse Pulse Resp BP BP Pulse Ox 09/18/16 04:00 98.6 F 72 18 127/95 97 09/18/16 00:00 98.3 F 68 18 109/68 98 09/17/16 23:14 95 09/17/16 20:33 97.8 F 68 16 144/91 98 09/17/16 19:25 74 140/102 97 09/17/16 18:58 64 144/84 98 Intake and Output 09/17/16 09/18/16 09/18/16 22:59 06:59 14:59 Intake Total 800 Balance 800 Intake: IV 800 Sodium Chloride 0.9% 1, 800 000 ml @ 100 mls/hr IV . Q10H [facility] Rx#:[id number] Other: Voiding Method Toilet # Voids 1 Weight 76.5 kg 76.5 kg Gen: This is an 80-year-old male. He is sitting up in bed and appears to be in no acute distress. He denies any chest pain at this time. HEENT: Head is atraumatic, normocephalic. Pupils equal, round. Sclerae is anicteric. NECK: Supple. No JVD. No lymphadenopathy. No thyromegaly. LUNGS: Clear to auscultation. No wheezes or rhonchi. No intercostal retractions. HEART: Irregularly irregular. No murmur. ABDOMEN: Soft. Bowel sounds are present. No masses. No tenderness. EXTREMITIES: No pedal edema. No calf tenderness. Dorsalis pedis weak bilaterally. NEUROLOGICAL: Patient is awake, alert and oriented x3. Cranial nerves 2 through 12 are grossly intact. Results CBC & Chem 7: 09/17/16 17:35 09/17/16 17:35 Labs: Abnormal Lab Results - Last 24 Hours (Table) 09/17/16 09/17/16 09/18/16 Range/Units 22:12 23:38 05:24 POC Glucose (mg/dL) 264 H (75-99) mg/dL Total Creatine Kinase 44 L 35 L (55-170) U/L Troponin I 0.287 H* 0.270 H* (0.000-0.034) ng/mL Triglycerides (<150) mg/dL HDL Cholesterol (40-60) mg/dL 09/18/16 09/18/16 Range/Units 05:24 06:16 POC Glucose (mg/dL) 115 H (75-99) mg/dL Total Creatine Kinase (55-170) U/L Troponin I (0.000-0.034) ng/mL Triglycerides 166 H (<150) mg/dL HDL Cholesterol 39 L (40-60) mg/dL Thrombosis Risk Factor Assmnt - DVT/VTE Prophylaxis DVT/VTE Prophylaxis: Pharmacologic Prophylaxis ordered - Choose All That Apply Any of the Below Risk Factors Present?: Yes Each Factor Represents 1 point: Minor surgery planned Other Risk Factors: Yes Each Risk Factor Represents 3 Points: Age 75 years or older, Family history of DVT/PE Other congenital or acquired thrombophilia - If yes, enter type in comment: No Thrombosis Risk Factor Assessment Total Risk Factor Score: 7 Thrombosis Risk Factor Assessment Level: High Risk Assessment and Plan Plan: 1. Acute non-ST elevated myocardial infarction. Cardiology consult appreciated. Patient planned for heart catheterization tomorrow. Continue Lipitor 20 mg at bedtime, Imdur 60 mg daily. 2. Known history of coronary artery disease status post CABG and stent. Continue as in #1. 3. Episode of sinus pause for 4 seconds. Coreg discontinued by cardiology. 4. Chronic atrial fibrillation with previous cardioversion in 2011. Patient is normally on eliquis and Coreg. Coreg is on hold due to sinus pause. 5. Diabetes mellitus type 2. Patient is normally on Januvia 100 mg daily, metformin 500 mg in the morning and 1000 mg at supper, glimepiride 1 mg at breakfast and 0.5 mg with supper. Metformin is currently on hold for heart catheterization. Humalog scale before meals and at bedtime added. 6. Hypertension, hypertensive cardiovascular disease. Coreg is on hold. Continue hydralazine 150 mg twice daily, Norvasc 5 mg twice daily 7. History of GI bleed in 2013 with distal esophagitis and short segment of Cobb's esophagus, sigmoid diverticulosis, stable. 8. History of right vocal cord cell carcinoma in 2008, completed radiation and follows regularly with Dr. Parra. 9. History of prostate cancer, stable. 10. Hypothyroidism. Continue levothyroxine. 11. GI prophylaxis. Protonix daily 12. DVT prophylaxis. Patient is on eliquis. Patient will be admitted to the hospital for a minimum of 2 night stay. Discharge plan: Return home Impression and plan of care have been directed as dictated by the signing physician. Heather Bishop nurse practitioner acting as scribe for signing physician. Time with Patient: Greater than 30
[2016-09-18 16:56] LABS: Glucose,Whole Blood 125 mg/dL (75-99)
[2016-09-18] MEDS: PANTOPRAZOLE 40 MG TABLET PO SCH (16:57)
[2016-09-18] MEDS: OXYBUTYNIN XL 5 MG TAB.ER.24 PO SCH (16:57)
[2016-09-18] MEDS: ISOSORBIDE MONONITRATE ER 60 MG TAB.ER.24H PO SCH (16:57)
[2016-09-18 21:00] LABS: Glucose,Whole Blood 198 mg/dL (75-99)
[2016-09-18] MEDS: MELATONIN 5 MG TABLET PO SCH (21:32)
[2016-09-19] MEDS: SODIUM CHLORIDE 0.9% 1,000 ML IV SCH ×3 (02:06→13:40)
[2016-09-19 06:07] LABS: Glucose,Whole Blood 137 mg/dL (75-99)
[2016-09-19] MEDS: LEVOTHYROXINE 88 MCG TAB PO SCH (06:54)
[2016-09-19] MEDS: amLODIPine 5 MG TAB PO SCH ×2 (06:54→22:47)
[2016-09-19] MEDS: INSULIN LISPRO (humaLOG) 300 UNIT/3 ML VIAL SQ SCH ×4 (06:55→22:57)
[2016-09-19] MEDS: hydrALAZINE HCL 50 MG TAB PO SCH ×2 (06:55→22:47)
[2016-09-19] MEDS: ALPRAZolam 0.25 MG TAB PO SCH ×2 (08:05→22:47)
[2016-09-19] MEDS: MULTIVITAMINS, THERA 1 EACH TAB PO SCH ×2 (08:05→13:39)
[2016-09-19 08:08] VITALS: RESP 18
[2016-09-19] MEDS: metFORMIN 500 MG TAB PO SCH (10:33)
[2016-09-19] MEDS ORDERED: IV FLUID CONTINUATION 1,000 ML IV ONE (10:44)
[2016-09-19] MEDS ORDERED: diphenhydrAMINE 50 MG/ML 1 ML VIAL IVP ONE (11:09)
[2016-09-19] MEDS: MIDAZOLAM 2 MG/2 ML VIAL IV ONE ×2 (11:09→11:13)
[2016-09-19] MEDS: LIDOCAINE 2% INJ 20 MG/ML SQ ONE ×2 (11:13→11:16)
[2016-09-19] MEDS: GLIMEPIRIDE 1 MG TAB PO SCH ×2 (11:20→17:25)
[2016-09-19] MEDS ORDERED: NITROGLYCERIN SL TABS 0.4 MG TAB SUBLINGUAL ONE (11:22)
[2016-09-19] MEDS ORDERED: METOPROLOL TARTRATE 5 MG/5 ML VIAL IVP ONE (11:29)
[2016-09-19] MEDS ORDERED: BIVALIRUDIN 250 MG in SODIUM CHLORIDE 0.9% 50 ML IV ONE (11:53)
[2016-09-19] MEDS ORDERED: BIVALIRUDIN BOLUS 250 MG/50 ML IV ONE (11:53)
[2016-09-19] MEDS: NITROGLYCERIN 1000MCG/10ML SYRINGE INTRACORON ONE ×2 (12:11→12:19)
[2016-09-19] MEDS ORDERED: IOHEXOL 350 MG/ML 100 ML BOTTLE INJ ONE (12:20)
[2016-09-19] MEDS ORDERED: CLOPIDOGREL 75 MG TAB PO ONE (12:36)
[2016-09-19] MEDS ORDERED: SODIUM CHLORIDE 0.9% 1,000 ML IV SCH (13:15)
[2016-09-19] MEDS: FUROSEMIDE 20 MG TAB PO SCH (13:39)
[2016-09-19] MEDS: LINAGLIPTIN 5 MG TABLET PO SCH (13:39)
[2016-09-19 13:48] LABS: Glucose,Whole Blood 162 mg/dL (75-99)
--- NOTE | 2016-09-19 14:06 | P.PN ---
Subjective This is an 80-year-old male. His primary care physician is Dr. Corona and his factorer is Dr. TACOS Bolden. He has a past medical history for coronary artery disease status post CABG three-vessel in April 2012 with previous 4 cardiac stents between 2003 and 2005, diabetes mellitus type 2, hypertension, right vocal cord cell carcinoma in 2008, completed radiation, chronic atrial fibrillation on eliquis with previous cardioversion, Cobb's esophagus, prostate cancer. He was in buddhism yesterday and he developed left arm and shoulder ache and didn't feel well in general. He denied having any lightheadedness or dizziness. No nausea or vomiting. Not sure if he had any palpitations. Patient is driving himself home and he sells himself in a chair and the feeling faded away. Unfortunately, the discomfort returned later in the day but not as bad as the first episode. His ended up bringing him into [facility] emergency center for evaluation his troponins were 0.082, 0.287, 0.270. Chest x-ray showed no acute findings. Triglycerides 166, cholesterol 92, HDL 20, LDL 39. EKG showed atrial fibrillation with nonspecific changes. Patient was admitted to the selective care unit and cardiology consult was obtained with plan for heart catheterization tomorrow. Patient had a 4 second positive for which Coreg has been discontinued by cardiology. Patient was previously set up for heart catheterization on September [address] TACOS Bolden. 09/19: She underwent heart catheterization and stent placement today. He denies any chest pain or shortness of breath. He has been started on Plavix. Objective - Vital Signs Vital signs: Vital Signs Temp 97 F L 09/19/16 08:07 Pulse 75 09/19/16 08:07 Resp 18 09/19/16 08:07 BP 135/71 09/19/16 08:07 Pulse Ox 98 09/19/16 08:07 Intake & Output 09/18/16 09/19/16 09/19/16 18:59 06:59 18:59 Intake Total 1680 765 Balance 1680 765 Weight 137 kg 78.018 kg Intake: IV 300 765 Sodium Chloride 0.9% 1, 300 765 000 ml @ 100 mls/hr IV . Q10H [facility] Rx#:[id number] Intake, IV Titration 300 Amount Sodium Chloride 0.9% 1, 300 000 ml In Empty Bag 1 bag @ 1 ML/KG/HR 76.5 mls/hr IV .Q13H5M ONE Rx#: [id number] Oral 1080 Other: Voiding Method Toilet Toilet Toilet # Voids 1 - Exam Gen: This is an 80-year-old male. He is sitting up in bed and appears to be in no acute distress. He denies any chest pain at this time. HEENT: Head is atraumatic, normocephalic. Pupils equal, round. Sclerae is anicteric. NECK: Supple. No JVD. No lymphadenopathy. No thyromegaly. LUNGS: Clear to auscultation. No wheezes or rhonchi. No intercostal retractions. HEART: Irregularly irregular. No murmur. ABDOMEN: Soft. Bowel sounds are present. No masses. No tenderness. EXTREMITIES: No pedal edema. No calf tenderness. Dorsalis pedis weak bilaterally. NEUROLOGICAL: Patient is awake, alert and oriented x3. Cranial nerves 2 through 12 are grossly intact. - Labs CBC & Chem 7: 09/17/16 17:35 09/17/16 17:35 Labs: Abnormal Lab Results - Last 24 Hours (Table) 09/18/16 09/18/16 09/18/16 Range/Units 05:24 11:36 16:53 POC Glucose (mg/dL) 229 H 125 H (75-99) mg/dL Hemoglobin A1c 8.0 H (4.2-6.1) % 09/18/16 09/19/16 Range/Units 20:59 06:03 POC Glucose (mg/dL) 198 H 137 H (75-99) mg/dL Hemoglobin A1c (4.2-6.1) % Assessment and Plan Plan: 1. Acute non-ST elevated myocardial infarction. Cardiology consult appreciated. S/p heart catheterization and stent. Continue Lipitor 20 mg at bedtime, Imdur 60 mg daily, Plavix. 2. Known history of coronary artery disease status post CABG and stent. Continue as in #1. 3. Episode of sinus pause for 4 seconds. Coreg discontinued by cardiology. 4. Chronic atrial fibrillation with previous cardioversion in 2011. Patient is normally on eliquis and Coreg. Coreg is on hold due to sinus pause. 5. Diabetes mellitus type 2. Patient is normally on Januvia 100 mg daily, metformin 500 mg in the morning and 1000 mg at supper, glimepiride 1 mg at breakfast and 0.5 mg with supper. Metformin is currently on hold for heart catheterization. Humalog scale before meals and at bedtime added. 6. Hypertension, hypertensive cardiovascular disease. Coreg is on hold. Continue hydralazine 150 mg twice daily, Norvasc 5 mg twice daily 7. History of GI bleed in 2013 with distal esophagitis and short segment of Cobb's esophagus, sigmoid diverticulosis, stable. 8. History of right vocal cord cell carcinoma in 2008, completed radiation and follows regularly with Dr. Parra. 9. History of prostate cancer, stable. 10. Hypothyroidism. Continue levothyroxine. 11. GI prophylaxis. Protonix daily 12. DVT prophylaxis. Discharge plan: Return home Impression and plan of care have been directed as dictated by the signing physician. Heather Bishop nurse practitioner acting as scribe for signing physician. Time with Patient: Greater than 30
[2016-09-19] MEDS ORDERED: ATROPINE SULFATE 0.1 MG/ML 10ML SYRINGE ONE (15:09)
[2016-09-19 16:37] LABS: Glucose,Whole Blood 184 mg/dL (75-99)
--- NOTE | 2016-09-19 17:23 | CC ---
DATE OF SERVICE: 09/19/2016 PROCEDURE: Coronary angiography, selective injection of bypass grafts. PERFORMED BY: Dr. Roverto Bolden. CLINICAL INFORMATION: Mr. Lamont Mishra is an 80-year-old gentleman with a history of type 2 diabetes, hypertension, hypercholesterolemia, CAD, previous PCI and bypass surgery. He also has persistent atrial fibrillation. He was seen by me recently in the office and was advised to have electrical cardioversion. However, patient presented to the hospital with episode of chest pain suggestive of angina with a mild elevation of troponin suggestive of [id number]. He was advised cardiac catheterization. Previous catheterization in August revealed that one of the vein grafts may have been occluded. PROCEDURE NOTE: Under local anesthesia and strict aseptic precautions, a 6 Burkinan introducer was placed in the right femoral artery. There was heavy calcification and I had a lot of difficulty advancing the sheath. I used a stiff Amplatz wire to advance the sheath. Using a standard left Merry catheter, I performed selective coronary angiography of the left system. I used an AR-2 catheter to perform selective injection of the 2 vein grafts and also the [place] RCA. A Diego catheter was used to do a DOMÍNGUEZ injection. Left ventriculogram was not performed and LV pressures were not checked. CORONARY ANGIOGRAPHIC FINDINGS: Left main coronary artery. A short, patent vessel free of significant disease with mild to moderate calcification. It bifurcates into LAD and circumflex. Left anterior descending coronary artery. This vessel is totally occluded in the mid portion after septal and diagonal branch, and this is a chronic occlusion. The DOMÍNGUEZ is patent. Left posterior circumflex coronary artery. Heavily calcified, very dominant vessel. It has an ostial lesion of 70%, eccentric, and a proximal lesion of another 70%, also eccentric. Then the vessel runs down the AV groove and gives off distal posterolateral branches. The obtuse marginal branches are occluded, but there are 2 small obtuse marginal branches that are evident. The 2 obtuse marginal branches have been grafted. Right coronary artery. Non-dominant vessel; has a 90% ostial lesion, and a conus branch also has a tight lesion. Very limited antegrade flow is noted. Saphenous vein graft to the first obtuse marginal. This graft is widely patent at its origin and course, and the opacified obtuse marginal has mild diffuse disease but no significant stenosis. Saphenous vein graft to obtuse marginal 2. This graft is also widely patent at its origin, course and insertion site. Opacified obtuse marginal has diffuse disease but no critical stenosis. Left internal mammary artery graft to LAD: This graft is widely patent at origin, course and insertion site. The opacified LAD is diffusely diseased but has no significant stenosis. Runs all the way towards the apex. Left ventriculogram: This was not performed. FINAL IMPRESSION: This patient has an ostial circumflex and proximal circumflex lesion of about 70% to 80%, calcified and eccentric. The vein grafts and DOMÍNGUEZ are open. RCA is non-dominant, diffusely diseased. LAD is totally occluded with a patent DOMÍNGUEZ. RECOMMENDATIONS: I recommend intervention of the ostial and proximal circumflex and proceeded to perform this in the same setting.
[2016-09-19] MEDS: ISOSORBIDE MONONITRATE ER 60 MG TAB.ER.24H PO SCH (17:24)
[2016-09-19] MEDS: OXYBUTYNIN XL 5 MG TAB.ER.24 PO SCH (17:24)
[2016-09-19] MEDS: PANTOPRAZOLE 40 MG TABLET PO SCH (17:25)
--- NOTE | 2016-09-19 17:25 | PTCA ---
DATE OF SERVICE: 09/19/2016 PROCEDURE: Percutaneous transluminal coronary angioplasty and stenting of ostial and proximal circumflex. PERFORMED BY: Dr. Roverto Bolden. PROCEDURE NOTE: Existing 6 Omani introducer was used to perform the procedure. A standard left Merry-type guide catheter was used to cannulate the left coronary artery. A BMW wire was kept in the distal aspect of the circumflex. Predilatation was performed using a 2.5 caliber, 8 mm long NC Trek balloon, and 2 inflations were given at the ostium and the proximal lesion. I then deployed a 12 mm long, 3.0 caliber Xience stent at 14 atmospheres. Deployment occurred in the proximal lesion. An additional 8 mm long, 3.0 caliber Xience stent was deployed, telescoping it to the previous stent, and this was kept in the ostium of the circumflex. Excellent angiographic result was achieved. Both stents were then dilated using a 3.5 caliber, 20 mm long NC Trek balloon for 45 seconds. Twelve atmospheres pressure was used. Excellent angiographic result without complication was noted. The sheath was sutured and he was sent to the room in stable condition. Findings and results were discussed with the patient and family. He will be on aspirin 81 mg and Plavix 75 mg daily. He received 600 mg of Plavix orally and also received Angiomax bolus and drip as per protocol. Excellent angiographic result without complication was achieved.
[2016-09-19 20:49] LABS: Glucose,Whole Blood 168 mg/dL (75-99)
[2016-09-19] MEDS ORDERED: ATORVASTATIN 40 MG TAB PO SCH (21:00)
[2016-09-19] MEDS ORDERED: ATORVASTATIN 20 MG TAB PO SCH (21:00)
[2016-09-19] MEDS: MELATONIN 5 MG TABLET PO SCH (22:46)
[2016-09-19] MEDS: METOPROLOL TARTRATE 12.5 MG TAB PO SCH (22:47)
[2016-09-19 22:58] LABS: Glucose,Whole Blood 166 mg/dL (75-99)
[2016-09-20] MEDS: SODIUM CHLORIDE 0.9% 1,000 ML IV SCH (05:43)
[2016-09-20 06:21] LABS: Glucose,Whole Blood 137 mg/dL (75-99)
[2016-09-20] MEDS: INSULIN LISPRO (humaLOG) 300 UNIT/3 ML VIAL SQ SCH ×2 (06:21→12:11)
[2016-09-20] MEDS: GLIMEPIRIDE 1 MG TAB PO SCH ×2 (06:23→07:08)
[2016-09-20] MEDS: LEVOTHYROXINE 88 MCG TAB PO SCH (06:23)
[2016-09-20 06:39] LABS: Basophils % (A) 1 %; CH 32.7; CHCM 33.6; Eosinophils # (A) 0.2 k/uL (0-0.7); Eosinophils % (A) 3 %; HCT 38.8 % (39.0-53.0); HDW 2.38; HGB 12.9 gm/dL (13.0-17.5); Luc # (Auto) 0.13; Luc % (Auto) 2; Lymphocytes # (A) 0.8 k/uL (1.0-4.8); Lymphocytes % (A) 11 %; MCH 32.5 pg (25.0-35.0); MCHC 33.2 g/dL (31.0-37.0); MCV 97.9 fL (80.0-100.0); Mean Platelet Volume 7.5; Monocytes # (A) 0.7 k/uL (0-1.0); Monocytes % (A) 10 %; Neutrophils # (A) 5.3 k/uL (1.3-7.7); Neutrophils % (A) 74 %; RBC 3.96 m/uL (4.30-5.90); RDW 13.6 % (11.5-15.5); WBC 7.1 k/uL (3.8-10.6); WBC (Perox) 7.56
[2016-09-20 06:50] LABS: Anion Gap 10 mmol/L; Blood Urea Nitrogen 16 mg/dL (9-20); Calcium 9.5 mg/dL (8.4-10.2); Carbon Dioxide 29 mmol/L (22-30); Chloride 104 mmol/L (98-107); Glucose 137 mg/dL (74-99); Non-African American GFR(MDRD) >60 (>60 ml/min/1.73 sqM); Potassium 3.9 mmol/L (3.5-5.1); Sodium 143 mmol/L (137-145)
[2016-09-20] MEDS: FUROSEMIDE 20 MG TAB PO SCH (08:47)
[2016-09-20] MEDS: hydrALAZINE HCL 50 MG TAB PO SCH (08:47)
[2016-09-20] MEDS: amLODIPine 5 MG TAB PO SCH (08:47)
[2016-09-20] MEDS: ALPRAZolam 0.25 MG TAB PO SCH (08:47)
[2016-09-20] MEDS: LINAGLIPTIN 5 MG TABLET PO SCH (08:48)
[2016-09-20] MEDS: METOPROLOL TARTRATE 12.5 MG TAB PO SCH (08:48)
[2016-09-20] MEDS ORDERED: CLOPIDOGREL 75 MG TAB PO SCH (09:00)
[2016-09-20] MEDS ORDERED: ASPIRIN 81 MG CHEW PO SCH ×2 (09:00)
--- NOTE | 2016-09-20 11:22 | P.PN ---
Subjective Principal diagnosis: Non-STEMI This is a pleasant 80-year-old gentleman who sees Dr. TACOS Bolden as an outpatient with known history of CAD and prior CABG, hypertension, dyslipidemia, and chronic atrial fibrillation, presented to the emergency room complaining of chest discomfort. He ruled in for non-Q-wave myocardial infarction. Patient was taken to the cardiac catheterization lab yesterday where he underwent angioplasty with stent placement of the circumflex artery. He was seen and examined this morning, denied any chest pain or difficulty in breathing. EKG was performed which revealed atrial fibrillation with no acute changes from post -PCI. Patient will be discharged home today. His Eliquis will be discontinued and patient will be discharged home on a baby aspirin, Plavix 75 mg daily, and Coumadin 2-1/2 mg daily. There was a question as to whether or not patient was ALLERGIC to aspirin, he states that he did have angioedema, uncertain as to which medication actually caused it, he had however taken a baby aspirin for years without any problem. He was recommended by Dr. Mara Bolden to take a baby aspirin. Objective - Vital Signs Vital signs: Vital Signs Temp 97.1 F L 09/20/16 08:51 Pulse 77 09/20/16 08:51 Resp 18 09/20/16 08:51 BP 103/51 09/20/16 08:51 Pulse Ox 94 L 09/20/16 08:51 Intake & Output 09/19/16 09/20/16 09/20/16 18:59 06:59 18:59 Intake Total 257 900 180 Output Total 1440 2150 Balance -1183 -1250 180 Weight 78.018 kg 75 kg Intake: IV 137 Intake, IV Titration 900 Amount Sodium Chloride 0.9% 1, 900 000 ml @ 75 mls/hr IV . [id number] Rx#:[id number] Oral 120 180 Output: Urine 1440 2150 Other: Voiding Method Toilet Toilet Toilet # Voids 0 1 - Exam PHYSICAL EXAMINATION: HEENT: Head is atraumatic, normocephalic. Pupils equal, round. Neck is supple. There is no elevated jugular venous pressure. HEART EXAMINATION: Heart S1 and S2 irregular irregular CHEST EXAMINATION: Lungs are clear to auscultation and precussion. No chest wall tenderness is noted on palpation or with deep breathing. ABDOMEN: Soft, nontender. Bowel sounds are heard. No organomegaly noted. Right groin soft, no evidence of any hematoma. EXTREMITIES: 2+ peripheral pulses with no evidence of peripheral edema and no calf tenderness noted. NEUROLOGIC patient is awake, alert and oriented -3. . - Labs CBC & Chem 7: 09/20/16 05:42 09/20/16 05:42 Labs: Abnormal Lab Results - Last 24 Hours (Table) 09/19/16 09/19/16 09/19/16 Range/Units 13:43 16:28 20:28 RBC (4.30-5.90) m/uL Hgb (13.0-17.5) gm/dL Hct (39.0-53.0) % Lymphocytes # (1.0-4.8) k/uL Glucose (74-99) mg/dL POC Glucose (mg/dL) 162 H 184 H 168 H (75-99) mg/dL 09/19/16 09/20/16 09/20/16 Range/Units 22:56 05:42 05:42 RBC 3.96 L (4.30-5.90) m/uL Hgb 12.9 L (13.0-17.5) gm/dL Hct 38.8 L (39.0-53.0) % Lymphocytes # 0.8 L (1.0-4.8) k/uL Glucose 137 H (74-99) mg/dL POC Glucose (mg/dL) 166 H (75-99) mg/dL 09/20/16 Range/Units 06:07 RBC (4.30-5.90) m/uL Hgb (13.0-17.5) gm/dL Hct (39.0-53.0) % Lymphocytes # (1.0-4.8) k/uL Glucose (74-99) mg/dL POC Glucose (mg/dL) 137 H (75-99) mg/dL Assessment and Plan (1) Presence of stent in left circumflex coronary artery Status: Acute (2) Chronic a-fib Status: Acute (3) NSTEMI (non-ST elevated myocardial infarction) Status: Acute (4) Diabetes Status: Acute (5) HTN (hypertension) Status: Acute (6) Hyperlipemia Status: Acute Plan: From cardiology's perspective, patient may be able to be discharged home today. A follow-up appointment will be made for the patient with Dr. Mara Bolden on September 26 in the morning. Patient will be discharged home on aspirin 81 mg daily, Lipitor 40 mg daily, Plavix 75 mg daily, Coumadin 2.5 mg daily, Lopressor 12-1/2 mg one tablet by mouth twice a day, metformin will be resumed in 48 hours, continue glipizide, sublingual nitroglycerin as needed for chest pain. Patient has been provided prescriptions for the new medications and educated regarding them as well. DNP note has been reviewed, I agree with a documented findings and plan of care. Patient was seen and examined.
--- NOTE | 2016-09-20 11:32 | P.DS ---
Providers Date of admission: 09/17/16 18:43 Expected date of discharge: 09/20/16 Attending physician: Ray Corona Primary care physician: [facility] Course: This is an 80-year-old male. His primary care physician is Dr. Corona and his motor tester is Dr. TACOS Bolden. He has a past medical history for coronary artery disease status post CABG three-vessel in April 2012 with previous 4 cardiac stents between 2003 and 2005, diabetes mellitus type 2, hypertension, right vocal cord cell carcinoma in 2008, completed radiation, chronic atrial fibrillation on eliquis with previous cardioversion, Cobb's esophagus, prostate cancer. He was in jainism yesterday and he developed left arm and shoulder ache and didn't feel well in general. He denied having any lightheadedness or dizziness. No nausea or vomiting. Not sure if he had any palpitations. Patient is driving himself home and he sells himself in a chair and the feeling faded away. Unfortunately, the discomfort returned later in the day but not as bad as the first episode. His ended up bringing him into [facility] emergency center for evaluation his troponins were 0.082, 0.287, 0.270. Chest x-ray showed no acute findings. Triglycerides 166, cholesterol 92, HDL 20, LDL 39. EKG showed atrial fibrillation with nonspecific changes. Patient was admitted to the selective care unit and cardiology consult was obtained with plan for heart catheterization tomorrow. Patient had a 4 second positive for which Coreg has been discontinued by cardiology. Patient was previously set up for heart catheterization on September [address] TACOS Bolden. 09/19: He underwent heart catheterization finding of axial circumflex and proximal circumflex lesion of 70-80%. The vein graft and DOMÍNGUEZ are open. RCA is nondominant diffusely diseased. LAD is totally occluded with patent DOMÍNGUEZ. He underwent stenting of the ostial and proximal circumflex today. He denies any chest pain or shortness of breath. He has been started on Plavix. 09/20: Patient has been cleared by cardiology for discharge. Cardiology has ordered meds for home. Patient has been started on Coumadin along with Plavix. He is off Coreg and started on low-dose metoprolol 12.5 mg twice daily. Lipitor dosing increased to 40 mg daily. Patient is being discharged home today in stable condition. He denies having any chest pain or shortness of breath and is anxious to go home. Discharge Diagnoses: 1. Acute non-ST elevated myocardial infarction. 2. Known history of coronary artery disease status post CABG and stent. 3. Episode of sinus pause for 4 seconds. Coreg discontinued by cardiology. 4. Chronic atrial fibrillation with previous cardioversion in 2011. 5. Diabetes mellitus type 2. 6. Hypertension, hypertensive cardiovascular disease. 7. History of GI bleed in 2013 with distal esophagitis and short segment of Cobb's esophagus, sigmoid diverticulosis, stable. 8. History of right vocal cord carcinoma in 2008, completed radiation and follows regularly with Dr. Parra. 9. History of prostate cancer, stable. 10. Hypothyroidism. Discharge plan: Return home Impression and plan of care have been directed as dictated by the signing physician. Heather Bishop nurse practitioner acting as scribe for signing physician. Patient Condition at Discharge: Good Plan - Discharge Summary New Discharge Prescriptions: Aspirin 81 mg PO DAILY #30 chew Atorvastatin [Lipitor] 40 mg PO HS #30 tab Clopidogrel [Plavix] 75 mg PO DAILY #30 tab Metoprolol Tartrate [Lopressor] 12.5 mg PO BID #60 tab Warfarin [Coumadin] 2.5 mg PO DAILY@1800 #30 tab Discharge Medication List Levothyroxine Sodium [Synthroid] 88 mcg PO MOTUWETHFRSA 01/30/14 [History] Multivitamins, Thera [Multivitamin] 1 tab PO DAILY 01/30/14 [History] Nitroglycerin Sl Tabs [Nitrostat] 0.4 mg SUBLINGUAL Q5M PRN 01/30/14 [History] metFORMIN HCL [Glucophage] 1,000 mg PO DAILY@1700 01/30/14 [History] Fesoterodine Fumarate [Toviaz] 4 mg PO DAILY@1700 08/19/14 [History] hydrALAZINE HCL [Apresoline] 150 mg PO BID 08/19/14 [History] Glimepiride [Amaryl] 0.5 mg PO W/SUPPER 08/27/14 [History] Glimepiride [Amaryl] 1 mg PO AC-BRKFST 08/31/14 [History] ALPRAZolam [Xanax] 0.25 mg PO BID@0800,2200 08/28/15 [History] Furosemide [Lasix] 20 mg PO DAILY 08/28/15 [History] Omeprazole [PriLOSEC] 20 mg PO DAILY@1700 08/28/15 [History] amLODIPine [Norvasc] 5 mg PO BID@0800,2200 08/28/15 [History] metFORMIN HCL [Glucophage] 500 mg PO DAILY@0800 08/28/15 [History] Isosorbide Mononitrate ER [Imdur] 60 mg PO DAILY@1700 03/29/16 [History] Melatonin 5 mg PO HS 03/29/16 [History] sitaGLIPtin [Januvia] 100 mg PO DAILY 09/17/16 [History] Aspirin 81 mg PO DAILY #30 chew 09/20/16 [Rx] Atorvastatin [Lipitor] 40 mg PO HS #30 tab 09/20/16 [Rx] Clopidogrel [Plavix] 75 mg PO DAILY #30 tab 09/20/16 [Rx] Metoprolol Tartrate [Lopressor] 12.5 mg PO BID #60 tab 09/20/16 [Rx] Warfarin [Coumadin] 2.5 mg PO DAILY@1800 #30 tab 09/20/16 [Rx] Follow up Appointment(s)/Referral(s): Cindy Bolden MD [STAFF PHYSICIAN] - 09/26/16 8:15 am Ray Corona MD [Primary Care Provider] - 09/28/16 10:00 am Patient Instructions/Handouts: After Heart Catheterization - Contact [employer] Discharge Disposition: HOME SELF-CARE
[2016-09-20 11:57] VITALS: BP 110/72; PULSE 85; TEMP 97.5
[2016-09-20 12:00] LABS: Glucose,Whole Blood 150 mg/dL (75-99)
[2016-09-20] MEDS: MULTIVITAMINS, THERA 1 EACH TAB PO SCH (12:11)
[2016-09-20] MEDS ORDERED: WARFARIN 2.5 MG TAB PO SCH (18:00)
== END 2016-09-20 13:22 | disposition home or self-care (01) | DRG 247 ==
LOC: EC 17:05 → 6SEL 18:43
PROVIDERS: ADMIT Internal Medicine Geriatric Medicine; ATTEND Internal Medicine Geriatric Medicine
PROC: B2111ZZ Fluoroscopy of Multiple Coronary Arteries using Low Osmolar Contrast (ICD-10-PCS; 2016-09-19)
PROC: B2131ZZ Fluoroscopy of Multiple Coronary Artery Bypass Grafts using Low Osmolar Contrast (ICD-10-PCS; 2016-09-19)
PROC: 027035Z Dilation of Coronary Artery, One Artery with Two Drug-eluting Intraluminal Devices, Percutaneous Approach (ICD-10-PCS; principal; 2016-09-19 10:25)
PROC: 4A023N7 Measurement of Cardiac Sampling and Pressure, Left Heart, Percutaneous Approach (ICD-10-PCS; 2016-09-19 10:25)
DX: I21.4 Non-ST elevation (NSTEMI) myocardial infarction (principal); I11.9 Hypertensive heart disease without heart failure; I48.2 Chronic atrial fibrillation; E11.9 Type 2 diabetes mellitus without complications; E03.9 Hypothyroidism, unspecified; E78.5 Hyperlipidemia, unspecified; I25.2 Old myocardial infarction; K21.9 Gastro-esophageal reflux disease without esophagitis; K22.70 Barrett's esophagus without dysplasia; K57.30 Diverticulosis of large intestine without perforation or abscess without bleeding; M19.90 Unspecified osteoarthritis, unspecified site; I83.90 Asymptomatic varicose veins of unspecified lower extremity; N42.9 Disorder of prostate, unspecified; I25.10 Atherosclerotic heart disease of native coronary artery without angina pectoris; I45.5 Other specified heart block; Z79.02 Long term (current) use of antithrombotics/antiplatelets; Z79.84 Long term (current) use of oral hypoglycemic drugs; Z79.899 Other long term (current) drug therapy; Z88.1 Allergy status to other antibiotic agents; Z88.8 Allergy status to other drugs, medicaments and biological substances; Z85.21 Personal history of malignant neoplasm of larynx; Z85.46 Personal history of malignant neoplasm of prostate; Z87.891 Personal history of nicotine dependence; Z95.1 Presence of aortocoronary bypass graft; Z95.5 Presence of coronary angioplasty implant and graft; Z82.49 Family history of ischemic heart disease and other diseases of the circulatory system
CPT/HCPCS: 36415; 71010; 80048; 80053; 80061; 82550; 82553; 83036; 83690; 83735; 83880; 84484; 85025; 85610; 85730; 93005; 93455; 94760; 99285

== ENCOUNTER → 2016-10-05 | Outpatient (CLI) | payer MEDICARE ==
[2016-10-05 09:27] LABS: Basophils # (A) 0.1 k/uL (0-0.2); Basophils % (A) 1 %; CH 32.3; CHCM 33.1; Eosinophils # (A) 0.2 k/uL (0-0.7); Eosinophils % (A) 3 %; HCT 41.1 % (39.0-53.0); HDW 2.46; HGB 13.6 gm/dL (13.0-17.5); Luc # (Auto) 0.13; Luc % (Auto) 2; Lymphocytes % (A) 12 %; MCH 32.5 pg (25.0-35.0); MCHC 33.1 g/dL (31.0-37.0); MCV 98.1 fL (80.0-100.0); Mean Platelet Volume 7.1; Monocytes # (A) 0.6 k/uL (0-1.0); Monocytes % (A) 8 %; Neutrophils # (A) 6.3 k/uL (1.3-7.7); Neutrophils % (A) 76 %; RBC 4.19 m/uL (4.30-5.90); RDW 13.4 % (11.5-15.5); WBC 8.3 k/uL (3.8-10.6); WBC (Perox) 8.63
[2016-10-05 12:58] LABS: ALT 30 U/L (21-72); AST 15 U/L (17-59); Alkaline Phosphatase 86 U/L (38-126); Anion Gap 12 mmol/L; Blood Urea Nitrogen 11 mg/dL (9-20); Calcium 9.1 mg/dL (8.4-10.2); Carbon Dioxide 27 mmol/L (22-30); Chloride 104 mmol/L (98-107); Cholesterol 99 mg/dL (<200); Glucose 139 mg/dL (74-99); HDL Cholesterol 44 mg/dL (40-60); Non-African American GFR(MDRD) >60 (>60 ml/min/1.73 sqM); Potassium 3.5 mmol/L (3.5-5.1); Sodium 143 mmol/L (137-145); Total Bilirubin 0.4 mg/dL (0.2-1.3); Total Protein 6.2 g/dL (6.3-8.2); Triglycerides 232 mg/dL (<150)
[2016-10-05 13:21] LABS: Vitamin B12 293 pg/mL
[2016-10-05 15:50] LABS: Hemoglobin A1C 8.4 % (4.2-6.1)
[2016-10-09 09:13] LABS: Mis test requested (Non-blood) UPEP
== END | disposition home or self-care (01) ==
LOC: LABWHC1 08:17
PROVIDERS: ATTEND Internal Medicine Geriatric Medicine
DX: E03.9 Hypothyroidism, unspecified (principal); E11.9 Type 2 diabetes mellitus without complications; E78.00 Pure hypercholesterolemia, unspecified; R79.9 Abnormal finding of blood chemistry, unspecified; I10 Essential (primary) hypertension
CPT/HCPCS: 36415; 80053; 80061; 82306; 82607; 83036; 84166; 84439; 84443; 85025

== ENCOUNTER → 2017-09-14 | Outpatient (CLI) | payer MEDICARE ==
[2017-09-14 09:31] LABS: Basophils # (A) 0.1 k/uL (0-0.2); Basophils % (A) 1 %; Eosinophils # (A) 0.3 k/uL (0-0.7); Eosinophils % (A) 4 %; HCT 40.9 % (39.0-53.0); HGB 13.4 gm/dL (13.0-17.5); Lymphocytes % (A) 15 %; MCH 31.6 pg (25.0-35.0); MCHC 32.7 g/dL (31.0-37.0); MCV 96.6 fL (80.0-100.0); Monocytes # (A) 0.6 k/uL (0-1.0); Monocytes % (A) 9 %; Neutrophils # (A) 4.5 k/uL (1.3-7.7); Neutrophils % (A) 68 %; Platelet Count 275 k/uL (150-450); RBC 4.23 m/uL (4.30-5.90); RDW 15.2 % (11.5-15.5); WBC 6.6 k/uL (3.8-10.6)
[2017-09-14 09:40] LABS: ALT 34 U/L (21-72); AST 18 U/L (17-59); Albumin 4.1 g/dL (3.5-5.0); Alkaline Phosphatase 69 U/L (38-126); Anion Gap 13 mmol/L; Blood Urea Nitrogen 17 mg/dL (9-20); Calcium 9.9 mg/dL (8.4-10.2); Carbon Dioxide 28 mmol/L (22-30); Chloride 101 mmol/L (98-107); Cholesterol 95 mg/dL (<200); Glucose 129 mg/dL (74-99); HDL Cholesterol 44 mg/dL (40-60); LDL Cholesterol,Calculated 30 mg/dL (0-99); Potassium 3.8 mmol/L (3.5-5.1); Sodium 142 mmol/L (137-145); Total Bilirubin 0.5 mg/dL (0.2-1.3); Total Protein 6.6 g/dL (6.3-8.2); Triglycerides 106 mg/dL (<150)
[2017-09-14 09:56] LABS: T4, Free (Free Thyroxine) 1.36 ng/dL (0.78-2.19)
[2017-09-14 18:52] LABS: Hemoglobin A1C 7.5 % (4.0-6.0)
== END | disposition home or self-care (01) ==
LOC: LABWHC1 08:53
PROVIDERS: ATTEND Internal Medicine Geriatric Medicine
DX: E03.9 Hypothyroidism, unspecified (principal); E78.00 Pure hypercholesterolemia, unspecified; E11.42 Type 2 diabetes mellitus with diabetic polyneuropathy; I48.0 Paroxysmal atrial fibrillation; R79.9 Abnormal finding of blood chemistry, unspecified
CPT/HCPCS: 36415; 80053; 80061; 83036; 84439; 84443; 85025

== ENCOUNTER → 2018-01-17 | Outpatient (CLI) | payer MEDICARE ==
[2018-01-17 10:23] LABS: Basophils # (A) 0.1 k/uL (0-0.2); Basophils % (A) 1 %; Eosinophils # (A) 0.2 k/uL (0-0.7); Eosinophils % (A) 3 %; HCT 37.8 % (39.0-53.0); HGB 12.8 gm/dL (13.0-17.5); Lymphocytes # (A) 0.8 k/uL (1.0-4.8); Lymphocytes % (A) 13 %; MCH 31.2 pg (25.0-35.0); MCHC 33.8 g/dL (31.0-37.0); MCV 92.4 fL (80.0-100.0); Mean Platelet Volume 7.5; Monocytes # (A) 0.6 k/uL (0-1.0); Monocytes % (A) 11 %; Neutrophils % (A) 69 %; Platelet Count 215 k/uL (150-450); RBC 4.09 m/uL (4.30-5.90); RDW 14.5 % (11.5-15.5); WBC 5.8 k/uL (3.8-10.6)
[2018-01-17 10:33] LABS: ALT 19 U/L (21-72); AST 18 U/L (17-59); Alkaline Phosphatase 74 U/L (38-126); Anion Gap 11 mmol/L; Blood Urea Nitrogen 18 mg/dL (9-20); Calcium 9.5 mg/dL (8.4-10.2); Carbon Dioxide 30 mmol/L (22-30); Chloride 103 mmol/L (98-107); Cholesterol 96 mg/dL (<200); Glucose 145 mg/dL (74-99); HDL Cholesterol 43 mg/dL (40-60); LDL Cholesterol,Calculated 30 mg/dL (0-99); Potassium 3.6 mmol/L (3.5-5.1); Sodium 144 mmol/L (137-145); Total Bilirubin 0.5 mg/dL (0.2-1.3); Total Protein 6.3 g/dL (6.3-8.2); Triglycerides 113 mg/dL (<150)
[2018-01-17 10:49] LABS: T4, Free (Free Thyroxine) 1.18 ng/dL (0.78-2.19)
[2018-01-17 11:06] LABS: Prostate Specific Antigen <0.10 ng/mL (0.00-4.00)
[2018-01-17 20:10] LABS: Hemoglobin A1C 8.5 % (4.0-6.0)
== END | disposition home or self-care (01) ==
LOC: LABWHC1 09:27
PROVIDERS: ATTEND Internal Medicine Geriatric Medicine
DX: E11.42 Type 2 diabetes mellitus with diabetic polyneuropathy (principal); E78.00 Pure hypercholesterolemia, unspecified; N40.0 Benign prostatic hyperplasia without lower urinary tract symptoms; E03.9 Hypothyroidism, unspecified
CPT/HCPCS: 36415; 80053; 80061; 82043; 82570; 83036; 84153; 84439; 84443; 85025

== ENCOUNTER → 2018-05-24 | Outpatient (CLI) | payer MEDICARE ==
[2018-05-24 08:54] LABS: Basophils # (A) 0.1 k/uL (0-0.2); Basophils % (A) 1 %; Eosinophils # (A) 0.3 k/uL (0-0.7); Eosinophils % (A) 4 %; HCT 40.2 % (39.0-53.0); HGB 13.2 gm/dL (13.0-17.5); Lymphocytes % (A) 14 %; MCH 31.2 pg (25.0-35.0); MCHC 32.8 g/dL (31.0-37.0); MCV 95.2 fL (80.0-100.0); Mean Platelet Volume 8.1; Monocytes # (A) 0.6 k/uL (0-1.0); Monocytes % (A) 9 %; Neutrophils # (A) 4.8 k/uL (1.3-7.7); Neutrophils % (A) 70 %; Platelet Count 239 k/uL (150-450); RBC 4.22 m/uL (4.30-5.90); RDW 14.2 % (11.5-15.5); WBC 6.9 k/uL (3.8-10.6)
[2018-05-24 09:41] LABS: ALT 31 U/L (21-72); AST 20 U/L (17-59); Alkaline Phosphatase 65 U/L (38-126); Anion Gap 11 mmol/L; Blood Urea Nitrogen 12 mg/dL (9-20); Calcium 9.1 mg/dL (8.4-10.2); Carbon Dioxide 29 mmol/L (22-30); Chloride 100 mmol/L (98-107); Cholesterol 96 mg/dL (<200); Glucose 109 mg/dL (74-99); HDL Cholesterol 45 mg/dL (40-60); LDL Cholesterol,Calculated 18 mg/dL (0-99); Potassium 3.7 mmol/L (3.5-5.1); Sodium 140 mmol/L (137-145); Total Bilirubin 0.6 mg/dL (0.2-1.3); Total Protein 6.6 g/dL (6.3-8.2); Triglycerides 164 mg/dL (<150)
[2018-05-24 09:55] LABS: T4, Free (Free Thyroxine) 1.18 ng/dL (0.78-2.19)
== END ==
LOC: LABWHC1 08:38
PROVIDERS: ATTEND Internal Medicine Geriatric Medicine
DX: E11.42 Type 2 diabetes mellitus with diabetic polyneuropathy (principal); I48.0 Paroxysmal atrial fibrillation; E11.65 Type 2 diabetes mellitus with hyperglycemia
CPT/HCPCS: 36415; 80053; 80061; 82043; 82570; 83036; 84439; 84443; 85025

== ENCOUNTER 2018-06-17 01:52 | Inpatient (IN) | payer MEDICARE ==
--- NOTE | 2018-06-17 02:10 | ED ---
General Adult HPI - General Chief complaint: Chest Pain Stated complaint: Chest Pain Source: patient Limitations: no limitations - History of Present Illness Initial comments: Dictation was produced using [employer] dictation software. please excuse any grammatical, word or spelling errors. Chief Complaint: 82-year-old male past medical history of atrial fibrillation, coronary artery disease, diabetes, other comorbidities presents with episode of chest pressure. History of Present Illness: Patient states that over the last couple days he's been feeling more malaise. He states she's been having exacerbation of his reflux. He's been taking more antacids over the last 2-3 days. Patient also been complaining of a lingering cough. Denies any overt sick contacts. Today he was at home when he was at rest. He experienced a short episode of anterior chest pressure. Denies any radiation to the shoulder or the neck. Patient states that he has had multiple cardiac interventions secondary to silent MIs. Has a history of atrial fibrillation for which she takes Coumadin. Patient has history of atrial fibrillation and is on rate controlling medications. Patient states he has been taking his medications per usual. Denies any constitutional symptoms. Patient denies any history of COPD or asthma. Denies any symptoms of orthopnea. The ROS documented in this emergency department record has been reviewed and confirmed by me. Those systems with pertinent positive or negative responses have been documented in the HPI. All other systems are other negative and/or noncontributory. - Related Data Home Medications Medication Instructions Recorded Confirmed Levothyroxine Sodium [Synthroid] 88 mcg PO MOTUWETHFRSA 01/30/14 09/17/16 Multivitamins, Thera [Multivitamin 1 tab PO DAILY 01/30/14 09/17/16 (formulary)] Nitroglycerin Sl Tabs [Nitrostat] 0.4 mg SUBLINGUAL Q5M PRN 01/30/14 09/17/16 metFORMIN HCL [Glucophage] 1,000 mg PO DAILY@1700 01/30/14 09/17/16 Fesoterodine Fumarate [Toviaz] 4 mg PO DAILY@1700 08/19/14 09/17/16 hydrALAZINE HCL [Apresoline] 150 mg PO BID 08/19/14 09/17/16 Glimepiride [Amaryl] 0.5 mg PO W/SUPPER 08/27/14 09/17/16 Glimepiride [Amaryl] 1 mg PO AC-BRKFST 08/31/14 09/17/16 ALPRAZolam [Xanax] 0.25 mg PO BID@0800,2200 08/28/15 09/17/16 Furosemide [Lasix] 20 mg PO DAILY 08/28/15 09/17/16 Omeprazole [PriLOSEC] 20 mg PO DAILY@1700 08/28/15 09/17/16 amLODIPine [Norvasc] 5 mg PO BID@0800,2200 08/28/15 09/17/16 metFORMIN HCL [Glucophage] 500 mg PO DAILY@0800 08/28/15 09/17/16 Isosorbide Mononitrate ER [Imdur] 60 mg PO DAILY@1700 03/29/16 09/17/16 Melatonin 5 mg PO HS 03/29/16 09/17/16 sitaGLIPtin [Januvia] 100 mg PO DAILY 09/17/16 09/17/16 Previous Rx's Medication Instructions Recorded Aspirin 81 mg PO DAILY #30 chew 09/20/16 Atorvastatin [Lipitor] 40 mg PO HS #30 tab 09/20/16 Clopidogrel [Plavix] 75 mg PO DAILY #30 tab 09/20/16 Metoprolol Tartrate [Lopressor] 12.5 mg PO BID #60 tab 09/20/16 Warfarin [Coumadin] 2.5 mg PO DAILY@1800 #30 tab 09/20/16 Allergies Allergy/AdvReac Type Severity Reaction Status Date / Time albuterol Allergy Severe tachycardia Verified 09/17/16 21:12 MELISSA Inhibitors Allergy Angioedema Verified 09/17/16 21:12 aspirin Allergy Swelling Verified 09/17/16 21:12 clonidine HCl [From Catapres] Allergy facial Verified 09/17/16 21:12 swelling flurbiprofen Allergy angioedema Verified 09/17/16 21:12 hydrochlorothiazide Allergy Anaphylaxis Verified 09/17/16 21:12 levofloxacin [From Levaquin] Allergy facial and Verified 09/17/16 21:12 neck swelling losartan potassium Allergy Anaphylaxis Verified 09/17/16 21:12 [From Cozaar] ofloxacin Allergy angioedema Verified 09/17/16 21:12 doxycycline AdvReac SHORTNESS Verified 09/17/16 21:12 OF BREATH Tetracyclines AdvReac Swelling Verified 09/17/16 21:12 FEATHERS Allergy SINUS Uncoded 09/17/16 21:12 DRAINAGE NOSE AND EYES Review of Systems ROS Statement: Those systems with pertinent positive or pertinent negative responses have been documented in the HPI. ROS Other: All systems not noted in ROS Statement are negative. Past Medical History Past Medical History: Coronary Artery Disease (CAD), Diabetes Mellitus, Hypertension Additional Past Medical History / Comment(s): hx vocal cord(tx with radiation) and PROSTATE CANCER, varicose veins, Cobb's esophagus Last Myocardial Infarction Date:: 08/2014 History of Any Multi-Drug Resistant Organisms: MRSA Date of last positivie culture/infection: 01/15/2012 MDRO Source:: Unknown Past Surgical History: Coronary Bypass/CABG Additional Past Surgical History / Comment(s): vocal cord biopsy with vocal cord surgery ,CABG 2011, total 4 stents, philipp cataracts Past Anesthesia/Blood Transfusion Reactions: Motion Sickness Additional Past Anesthesia/Blood Transfusion Reaction / Comment(s): hx diff intubation with previous vocal cord surgery-anesthesia record on chart Date of Last Stent Placement:: 2005 Past Psychological History: No Psychological Hx Reported Smoking Status: Former smoker Past Alcohol Use History: Occasional Past Drug Use History: None Reported - Past Family History Sister(s) Family Medical History: Cancer Additional Family Medical History / Comment(s): Patient has one sister that is 89 years old with history of breast cancer and osteoarthritis of the knees. Father Family Medical History: Deep Vein Thrombosis (DVT) Additional Family Medical History / Comment(s): Father at age 75 with history of diabetes, coronary artery disease, pacemaker. Brother(s) Family Medical History: Coronary Artery Disease (CAD) Additional Family Medical History / Comment(s): He has one brother that has with history of coronary artery disease and alcohol abuse. Mother Family Medical History: Cancer Additional Family Medical History / Comment(s): CERVICAL General Exam - General Exam Comments Initial Comments: PHYSICAL EXAM: General Impression: Alert and oriented x3, not in acute distress HEENT: Normocephalic atraumatic, extra-ocular movements intact, pupils equal and reactive to light bilaterally, mucous membranes moist. Cardiovascular: Heart regular rate and rhythm, S1&S2 audible, no murmurs, rubs or gallops Chest: Bilateral lung wheezing mild and with end expiration Abdomen: Bowel sounds present, abdomen soft, non-tender, non-distended, no organomegaly Musculoskeletal: Pulses present and equal in all extremities, no peripheral edema Motor: Power 5/5 bilaterally, no focal deficits noted Neurological: CN II-XII grossly intact, no focal motor or sensory deficits noted Skin: Intact with no visualized rashes Psych: Normal affect and mood Limitations: no limitations Course Vital Signs 06/17/18 01:54 Temperature 98.5 F Pulse Rate 127 H Respiratory 20 Rate Blood Pressure 156/100 O2 Sat by Pulse 99 Oximetry Medical Decision Making - Medical Decision Making ED course: 82-year-old male presents with episode of chest pressure today. He has been having constitutional symptoms the last 2-3 days. Patient also has been having a cough. Physical examination is positive for wheezing. All signs upon arrival shows findings within acceptable limits. I bedside patient will have atrial fibrillation with rates in the 110s and 120s intermittently. Patient appears to be in no acute distress. EMS reports that by the time they arrived patient's chest pressure had subsided. Patient's clinical presentation consistent with atypical chest pain with typical features. Patient has extensive cardiac history. Laboratory evaluation obtained showing no acute processes. Cardiac enzymes are negative. Patient reevaluated with no chest pain at this moment. Patient is ALLERGIC to aspirin and given 300 mg by mouth Plavix. Patient be admitted for observation with cardiology consult. EKG Interpretation: A 12 lead EKG was obtained. It was interpreted by myself and attending physician. There is a P wave before every QRS complex. Rate is 103. Rhythm is atrial fibrillation, QRS 80, QTc 448. QT is not prolonged. No ST segment depression or elevation. . Overall, this EKG is unremarkable - Lab Data Result diagrams: 06/17/18 02:15 06/17/18 02:15 Lab Results 06/17/18 06/17/18 06/17/18 Range/Units 02:15 02:15 02:15 WBC 8.8 (3.8-10.6) k/uL RBC 4.33 (4.30-5.90) m/uL Hgb 13.7 (13.0-17.5) gm/dL Hct 41.3 (39.0-53.0) % MCV 95.5 (80.0-100.0) fL MCH 31.6 (25.0-35.0) pg MCHC 33.1 (31.0-37.0) g/dL RDW 14.3 (11.5-15.5) % Plt Count 227 (150-450) k/uL Neutrophils % 72 % Lymphocytes % 12 % Monocytes % 10 % Eosinophils % 3 % Basophils % 1 % Neutrophils # 6.3 (1.3-7.7) k/uL Lymphocytes # 1.1 (1.0-4.8) k/uL Monocytes # 0.9 (0-1.0) k/uL Eosinophils # 0.3 (0-0.7) k/uL Basophils # 0.1 (0-0.2) k/uL PT (9.0-12.0) sec INR (<1.2) APTT (22.0-30.0) sec Sodium 139 (137-145) mmol/L Potassium 3.6 (3.5-5.1) mmol/L Chloride 101 (98-107) mmol/L Carbon Dioxide 26 (22-30) mmol/L Anion Gap 12 mmol/L BUN 17 (9-20) mg/dL Creatinine 0.83 (0.66-1.25) mg/dL Est GFR (CKD-EPI)AfAm >90 (>60 ml/min/1.73 sqM) Est GFR (CKD-EPI)NonAf 81 (>60 ml/min/1.73 sqM) Glucose 147 H (74-99) mg/dL Calcium 9.4 (8.4-10.2) mg/dL Magnesium 1.6 (1.6-2.3) mg/dL Total Bilirubin 0.6 (0.2-1.3) mg/dL AST 22 (17-59) U/L ALT 28 (21-72) U/L Alkaline Phosphatase 100 (38-126) U/L Total Creatine Kinase 55 (55-170) U/L CK-MB (CK-2) 1.8 (0.0-2.4) ng/mL CK-MB (CK-2) Rel Index 3.3 Troponin I <0.012 (0.000-0.034) ng/mL Total Protein 7.1 (6.3-8.2) g/dL Albumin 4.4 (3.5-5.0) g/dL 06/17/18 Range/Units 02:15 WBC (3.8-10.6) k/uL RBC (4.30-5.90) m/uL Hgb (13.0-17.5) gm/dL Hct (39.0-53.0) % MCV (80.0-100.0) fL MCH (25.0-35.0) pg MCHC (31.0-37.0) g/dL RDW (11.5-15.5) % Plt Count (150-450) k/uL Neutrophils % % Lymphocytes % % Monocytes % % Eosinophils % % Basophils % % Neutrophils # (1.3-7.7) k/uL Lymphocytes # (1.0-4.8) k/uL Monocytes # (0-1.0) k/uL Eosinophils # (0-0.7) k/uL Basophils # (0-0.2) k/uL PT 27.3 H (9.0-12.0) sec INR 3.0 H (<1.2) APTT 36.1 H (22.0-30.0) sec Sodium (137-145) mmol/L Potassium (3.5-5.1) mmol/L Chloride (98-107) mmol/L Carbon Dioxide (22-30) mmol/L Anion Gap mmol/L BUN (9-20) mg/dL Creatinine (0.66-1.25) mg/dL Est GFR (CKD-EPI)AfAm (>60 ml/min/1.73 sqM) Est GFR (CKD-EPI)NonAf (>60 ml/min/1.73 sqM) Glucose (74-99) mg/dL Calcium (8.4-10.2) mg/dL Magnesium (1.6-2.3) mg/dL Total Bilirubin (0.2-1.3) mg/dL AST (17-59) U/L ALT (21-72) U/L Alkaline Phosphatase (38-126) U/L Total Creatine Kinase (55-170) U/L CK-MB (CK-2) (0.0-2.4) ng/mL CK-MB (CK-2) Rel Index Troponin I (0.000-0.034) ng/mL Total Protein (6.3-8.2) g/dL Albumin (3.5-5.0) g/dL Disposition Clinical Impression: Chest pain Disposition: ADMITTED IP TO THIS HOSP Condition: Fair Referrals: Ray Corona MD [Primary Care Provider] - 1-2 days Decision Time: 03:31
[2018-06-17 02:37] LABS: HCT 41.3 % (39.0-53.0); HGB 13.7 gm/dL (13.0-17.5); MCV 95.5 fL (80.0-100.0); RBC 4.33 m/uL (4.30-5.90); WBC 8.8 k/uL (3.8-10.6)
[2018-06-17 02:38] LABS: Basophils # (A) 0.1 k/uL (0-0.2); Basophils % (A) 1 %; Eosinophils # (A) 0.3 k/uL (0-0.7); Eosinophils % (A) 3 %; Lymphocytes # (A) 1.1 k/uL (1.0-4.8); Lymphocytes % (A) 12 %; MCH 31.6 pg (25.0-35.0); MCHC 33.1 g/dL (31.0-37.0); Mean Platelet Volume 7.4; Monocytes # (A) 0.9 k/uL (0-1.0); Monocytes % (A) 10 %; Neutrophils # (A) 6.3 k/uL (1.3-7.7); Neutrophils % (A) 72 %; Platelet Count 227 k/uL (150-450); RDW 14.3 % (11.5-15.5)
--- NOTE | 2018-06-17 02:43 | XR ---
EXAMINATION TYPE: XR chest 2V DATE OF EXAM: 06/17/2018 COMPARISON: 09/17/2016 HISTORY: Chest pain TECHNIQUE: Frontal and lateral views of the chest are obtained. FINDINGS: There is no heart failure nor confluent pneumonic infiltrate. Heart size is normal. There are sternal wires. There are chest leads. Costophrenic angles are clear. Bony thorax appears intact. IMPRESSION: No active cardiopulmonary disease. No change compared to 09/17/2016.
[2018-06-17 02:51] LABS: Prothrombin Time 27.3 sec (9.0-12.0)
[2018-06-17 02:52] LABS: Partial Thromboplastin Time 36.1 sec (22.0-30.0)
[2018-06-17 03:01] LABS: Albumin 4.4 g/dL (3.5-5.0)
[2018-06-17 03:02] LABS: ALT 28 U/L (21-72); AST 22 U/L (17-59); Alkaline Phosphatase 100 U/L (38-126); Anion Gap 12 mmol/L; Blood Urea Nitrogen 17 mg/dL (9-20); Calcium 9.4 mg/dL (8.4-10.2); Carbon Dioxide 26 mmol/L (22-30); Chloride 101 mmol/L (98-107); Glucose 147 mg/dL (74-99); Magnesium 1.6 mg/dL (1.6-2.3); Potassium 3.6 mmol/L (3.5-5.1); Sodium 139 mmol/L (137-145); Total Bilirubin 0.6 mg/dL (0.2-1.3); Total Protein 7.1 g/dL (6.3-8.2)
[2018-06-17 03:11] LABS: Creatine Kinase 55 U/L (55-170)
[2018-06-17 03:24] LABS: Creatine Kinase MB 1.8 ng/mL (0.0-2.4); Troponin I <0.012 ng/mL (0.000-0.034)
[2018-06-17] MEDS ORDERED: CLOPIDOGREL 75 MG TAB PO STA (03:29)
[2018-06-17] MEDS ORDERED: NALOXONE 0.4 MG/ML 1 ML VIAL IV PRN (03:31)
[2018-06-17] MEDS ORDERED: NITROGLYCERIN SL TABS 0.4 MG TAB SUBLINGUAL PRN ×2 (03:32→10:26)
[2018-06-17 08:17] VITALS: BMI 25.7
[2018-06-17 08:19] LABS: Creatine Kinase 46 U/L (55-170)
[2018-06-17 08:31] LABS: Creatine Kinase MB 1.4 ng/mL (0.0-2.4); Troponin I <0.012 ng/mL (0.000-0.034)
[2018-06-17] MEDS ORDERED: METOPROLOL TARTRATE 12.5 MG TAB PO SCH (09:00)
[2018-06-17] MEDS ORDERED: METOPROLOL TARTRATE 12.5 MG TAB PO STA (10:27)
--- NOTE | 2018-06-17 10:32 | CONS ---
CONSULTATION CHIEF COMPLAINT: Chest pain. This is an 82-year-old gentleman with history of coronary artery disease, status post CABG, hypertension, dyslipidemia, chronic atrial fibrillation who presented to hospital complaining of chest discomfort. He describes it at as chest pressure associated with some epigastric discomfort. This has been going on for the last several days and he had taken TUMS without much of an improvement in his symptoms. He comes in and is admitted with a diagnosis of unstable angina At the time of my evaluation this morning, he appears comfortable at rest and free of chest pain. His INR is at 3.0. EKG shows sinus atrial fibrillation with nonspecific ST-T wave changes. The first set of troponin is negative. Potassium is 3.6, creatinine is 0.9, hemoglobin is normal at 13.7. Patient's clinical presentation is consistent with a diagnosis of unstable angina. Patient has known coronary artery disease and had angioplasty of sokaogon circumflex coronary artery in 2017. Patient had bypass surgery with DOMÍNGUEZ to LAD and venous graft to circumflex. His last cardiac catheterization was in February of 2017. His sokaogon LAD is totally occluded and venous graft to OM 1 and OM 2 were widely patent. Right coronary artery was a small nondominant vessel. PAST MEDICAL HISTORY: Significant for coronary artery disease, status post CABG, hypertension, chronic atrial fibrillation. MEDICATIONS: Include amlodipine 5 mg b.i.d., Lipitor 40 q. daily, Plavix 75 q. daily, Amaryl, Apresoline, Imdur, Synthroid, Lopressor, and Coumadin. He had multiple drug allergies they are reviewed and charted. FAMILY HISTORY: Negative for premature coronary artery disease. SOCIAL HISTORY: Negative for current smoking, EtOH abuse, or drug abuse. REVIEW OF SYSTEMS: HEENT is unremarkable. CARDIAC: As described above. RESPIRATORY: Negative. GI: Negative. GENITOURINARY: Negative. ALLERGY/IMMUNOLOGY: Negative. SKIN: Negative. MUSCULOSKELETAL: Significant for arthritis. PSYCHOSOCIAL: Negative. ENDOCRINE: Negative. DERM: Negative. CONSTITUTIONAL: Negative. HEMATOLOGIC: Negative. The rest of the system review is not relevant. PHYSICAL EXAM: Patient is comfortable at rest. Afebrile. Heart rate is 70 beats per minute. Blood pressure is 160/79, respiratory rate is 18. Chest exam reveals diminished air entry at the bases. Heart exam reveals first and second heart sounds. No gallop. Abdomen is soft, nontender. Exam of extremities did not reveal any edema. Peripheral pulses are felt. ASSESSMENT: 1. Unstable angina. 2. Coronary artery disease, status post CABG, status post prior angioplasty of sokaogon circumflex coronary artery. 3. Ksq-dfjxpbv-krthjbtne diabetes. 4. Uncontrolled hypertension. 5. Chronic atrial fibrillation. PLAN: Patient will benefit from a cardiac catheterization. His INR is elevated. We can probably go through cardiac cath either tomorrow or the day after and if Dr. Roverto Bolden is here, he will do it. If not, I am going to perform his heart catheterization. MMODL / IJN: [id number] /
[2018-06-17] MEDS: CLOPIDOGREL 75 MG TAB PO SCH (11:00)
[2018-06-17] MEDS: FUROSEMIDE 20 MG TAB PO SCH (11:10)
[2018-06-17] MEDS: amLODIPine 5 MG TAB PO SCH ×2 (11:11→22:08)
[2018-06-17] MEDS: hydrALAZINE HCL 50 MG TAB PO SCH ×2 (11:11→22:08)
[2018-06-17] MEDS: DOXAZOSIN 4 MG TAB PO SCH (11:11)
[2018-06-17] MEDS: AMOXIC-POT CLAV 875-125MG 1 EACH TAB PO SCH ×2 (11:12→22:27)
[2018-06-17] MEDS: GLIMEPIRIDE 1 MG TAB PO SCH ×2 (11:15→17:51)
[2018-06-17] MEDS: LEVOTHYROXINE 88 MCG TAB PO SCH (11:15)
--- NOTE | 2018-06-17 13:06 | ECHOF ---
Referral Reason:chest pain MEASUREMENTS -------- HEIGHT: 182.9 cm WEIGHT: 83.9 kg BP: IVSd: 1.4 cm (0.6 - 1.1) LVIDd: 3.1 cm (3.9 - 5.3) LVPWd: 1.4 cm (0.6 - 1.1) IVSs: 1.7 cm LVIDs: 1.9 cm LVPWs: 1.4 cm LAESV Index (A-L): 35.76 ml/m Ao Diam: 3.5 cm (2.0 - 3.7) AV Cusp: 2.1 cm (1.5 - 2.6) LA Diam: 3.7 cm (2.7 - 3.8) MV EXCURSION: 11.800 mm (> 18.000) MV EF SLOPE: 90 mm/s (70 - 150) EPSS: 0.5 cm RAP: 5.00 mmHg RVSP: 41.26 mmHg FINDINGS -------- Atrial fibrillation. This was a technically good study. The left ventricular size is normal. There is moderate concentric left ventricular hypertrophy. O verall left ventricular systolic function is low-normal with, an EF between 50 - 55 %. Basal inferi or LV wall motion is hypokinetic. The right ventricle is normal in size and function. LA is moderately dilated 34-39 ml/m2 The right atrium is normal in size. The aortic valve is trileaflet and appears structurally normal. The mitral valve leaflets are mildly thickened. Mild mitral regurgitation is present. [id number] tricuspid regurgitation present. There is mild pulmonary hypertension. The right ventricular systolic pressure, as measured by Doppler, is 41.26mmHg. Pulmonic valve appears structurally normal. The aortic root size is normal. Normal inferior vena cava with normal inspiratory collapse consistent with estimated right atrial pre ssure of 5 mmHg. The pericardium is normal. CONCLUSIONS -------- 1. Atrial fibrillation. 2. This was a technically good study. 3. The left ventricular size is normal. 4. There is moderate concentric left ventricular hypertrophy. 5. Overall left ventricular systolic function is low-normal with, an EF between 50 - 55 %. 6. Basal inferior LV wall motion is hypokinetic. 7. The right ventricle is normal in size and function. 8. LA is moderately dilated 34-39 ml/m2 9. The right atrium is normal in size. 10. The aortic valve is trileaflet and appears structurally normal. 11. The mitral valve leaflets are mildly thickened. 12. Mild mitral regurgitation is present. 13. [id number] tricuspid regurgitation present. 14. There is mild pulmonary hypertension. 15. The right ventricular systolic pressure, as measured by Doppler, is 41.26mmHg. 16. Pulmonic valve appears structurally normal. 17. The aortic root size is normal. 18. Normal inferior vena cava with normal inspiratory collapse consistent with estimated right atrial pressure of 5 mmHg. 19. The pericardium is normal. CLERICAL ASSISTANT: Gayathri Stahl RDCS
--- NOTE | 2018-06-17 15:05 | P.HPIM ---
History of Present Illness H&P Date: 06/17/18 This is an 82-year-old male. His primary care physician is Dr. Corona and his peat shredder tender is Dr. TACOS Bolden. He has a past medical history for coronary artery disease status post CABG three-vessel in April 2012 with previous 4 cardiac stents between 2003 and 2005, acute non-ST elevated myocardial infarction in September 2016 status post 2 stents, cardioversion 2 in 2013 for chronic atrial fibrillation currently on Coumadin, diabetes mellitus type 2, hypertension, right vocal cord cell carcinoma in 2008, completed radiation, Cobb's esophagus, prostate cancer. Patient states that he has a discomfort in his chest for the past 3 days along with a little cough. He has been taking and assess after he eats due to heartburn. He denies having any fever or chills but states he has sweats in the morning and he thought it was related to a blood sugar drop. He has had 2 episodes over 3 weeks worries had low blood sugar, 57. He has been following with Dr. Swapnil Bolden for this. Patient presented to [facility] emergency center with the above concerns. EKG was atrial fibrillation with RVR at [address] changes. INR 3.0. Troponins have been negative on 2 draws. Patient was placed on the selective care unit and cardiology consult requested. Echocardiogram reveals atrial fibrillation, moderate concentric left ventricular hypertrophy, EF 50-55%, only moderately dilated 34-39, mild mitral regurgitation, moderate tricuspid regurgitation, mild pulmonary hypertension. Patient has been seen by Dr. Parker, cardiology, with recommendations for heart catheterization on Sunday or Sunday with Dr. TACOS Bolden. Review of Systems All systems: negative Constitutional: Reports sweats, Denies chills, Denies fever, Denies poor appetite, Denies weakness Eyes: denies blurred vision, denies pain Ears, nose, mouth and throat: Denies headache, Denies sore throat Cardiovascular: Reports chest pain, Denies dyspnea on exertion, Denies leg edema , Denies lightheadedness, Denies shortness of breath, Denies syncope Respiratory: Denies cough, Denies cough with sputum, Denies dyspnea, Denies excessive sputum, Denies hemoptysis, Denies home oxygen, Denies wheezing Gastrointestinal: Denies abdominal pain, Denies diarrhea, Denies loss of appetite, Denies nausea, Denies vomiting Genitourinary: Denies dysuria Musculoskeletal: Denies myalgias Integumentary: Denies pruritus, Denies rash Neurological: Denies numbness, Denies weakness Psychiatric: Denies anxiety, Denies depression Endocrine: Denies fatigue, Denies weight change Past Medical History Past Medical History: Coronary Artery Disease (CAD), Diabetes Mellitus, Hypertension Additional Past Medical History / Comment(s): hx vocal cord(tx with radiation) and PROSTATE CANCER, varicose veins, Cobb's esophagus Last Myocardial Infarction Date:: 08/2014 History of Any Multi-Drug Resistant Organisms: MRSA Date of last positivie culture/infection: 01/15/2012 MDRO Source:: Unknown Past Surgical History: Coronary Bypass/CABG Additional Past Surgical History / Comment(s): vocal cord biopsy with vocal cord surgery ,CABG 2011, total 4 stents, [place] cataracts Past Anesthesia/Blood Transfusion Reactions: Motion Sickness Additional Past Anesthesia/Blood Transfusion Reaction / Comment(s): hx diff intubation with previous vocal cord surgery-anesthesia record on chart Date of Last Stent Placement:: 2005 Past Psychological History: No Psychological Hx Reported Smoking Status: Former smoker Past Alcohol Use History: Occasional Additional Past Alcohol Use History / Comment(s): quit smoking 45 years ago, smoked for 20 yrs- 1PPD. No marijuana or street drug use. Occasional alcohol use. He wears a brace on the left ankle. Past Drug Use History: None Reported - Past Family History Sister(s) Family Medical History: Cancer Additional Family Medical History / Comment(s): Patient has one sister that is 89 years old with history of breast cancer and osteoarthritis of the knees. Father Family Medical History: Deep Vein Thrombosis (DVT) Additional Family Medical History / Comment(s): Father at age 75 with history of diabetes, coronary artery disease, pacemaker. Brother(s) Family Medical History: Coronary Artery Disease (CAD) Additional Family Medical History / Comment(s): He has one brother that has with history of coronary artery disease and alcohol abuse. Mother Family Medical History: Cancer Additional Family Medical History / Comment(s): Mother at age 39 from cervical cancer. Medications and Allergies Home Medications Medication Instructions Recorded Confirmed Type Levothyroxine Sodium [Synthroid] 88 mcg PO MOTUWETHFRSA 01/30/14 06/17/18 History Multivitamins, Thera [Multivitamin 1 tab PO DAILY@1700 01/30/14 06/17/18 History (formulary)] Nitroglycerin Sl Tabs [Nitrostat] 0.4 mg SUBLINGUAL Q5M PRN 01/30/14 06/17/18 History metFORMIN HCL [Glucophage] 1,000 mg PO DAILY@1700 01/30/14 06/17/18 History Fesoterodine Fumarate [Toviaz] 4 mg PO DAILY@1700 08/19/14 06/17/18 History hydrALAZINE HCL [Apresoline] 100 mg PO TID@0800,1700,2200 08/19/14 06/17/18 History Glimepiride [Amaryl] 1 mg PO DAILY PRN 08/31/14 06/17/18 History ALPRAZolam [Xanax] 0.25 mg PO BID@0800,2200 08/28/15 06/17/18 History Furosemide [Lasix] 20 mg PO DAILY 08/28/15 06/17/18 History Omeprazole [PriLOSEC] 20 mg PO DAILY@1700 08/28/15 06/17/18 History amLODIPine [Norvasc] 2.5 - 5 mg PO BID@0800,2200 08/28/15 06/17/18 History metFORMIN HCL [Glucophage] 500 mg PO DAILY@0800 08/28/15 06/17/18 History Isosorbide Mononitrate ER [Imdur] 60 mg PO DAILY@1700 03/29/16 06/17/18 History Melatonin 5 mg PO HS 03/29/16 06/17/18 History sitaGLIPtin [Januvia] 100 mg PO DAILY 09/17/16 06/17/18 History Atorvastatin [Lipitor] 40 mg PO HS #30 tab 09/20/16 06/17/18 Rx Clopidogrel [Plavix] 75 mg PO DAILY #30 tab 09/20/16 06/17/18 Rx Amoxic-Pot Clav 875-125Mg 1 tab PO Q12HR #14 tablet 06/17/18 Rx [Augmentin 875-125] Metoprolol Tartrate [Lopressor] 12.5 mg PO BID@0800,1700 06/17/18 06/17/18 History Repaglinide [Prandin] 0.5 mg PO DAILY 06/17/18 06/17/18 History Warfarin [Coumadin] 7.5 mg PO DAILY@1700 06/17/18 06/17/18 History methylPREDNISolone Dose Pack 4 mg PO DIRECTED #21 package 06/17/18 Rx [Medrol Dose Pack] Allergies Allergy/AdvReac Type Severity Reaction Status Date / Time albuterol Allergy Severe tachycardia Verified 06/17/18 07:09 MELISSA Inhibitors Allergy Angioedema Verified 06/17/18 07:09 aspirin Allergy Swelling Verified 06/17/18 07:09 clonidine HCl [From Catapres] Allergy facial Verified 06/17/18 07:09 swelling flurbiprofen Allergy angioedema Verified 06/17/18 07:09 hydrochlorothiazide Allergy Anaphylaxis Verified 06/17/18 07:09 levofloxacin [From Levaquin] Allergy facial and Verified 06/17/18 07:09 neck swelling losartan potassium Allergy Anaphylaxis Verified 06/17/18 07:09 [From Cozaar] ofloxacin Allergy angioedema Verified 06/17/18 07:09 doxycycline AdvReac SHORTNESS Verified 06/17/18 07:09 OF BREATH rivaroxaban [From Xarelto] AdvReac gi bleed Verified 06/17/18 07:09 Tetracyclines AdvReac Swelling Verified 06/17/18 07:09 FEATHERS Allergy SINUS Uncoded 09/17/16 21:12 DRAINAGE NOSE AND EYES Physical Exam Vitals: Vital Signs Temp Pulse Resp BP Pulse Ox 06/17/18 07:07 75 20 164/79 96 06/17/18 05:00 77 20 142/96 96 06/17/18 03:49 92 20 133/86 93 L 06/17/18 01:54 98.5 F 127 H 20 156/100 99 Intake and Output 06/16/18 06/17/18 06/17/18 22:59 06:59 14:59 Intake Total 50 Balance 50 Intake: Amount of Fluid Infused ( 50 ml) Other: Weight 83.915 kg Gen: This is an 82-year-old male. He is sitting up in bed and appears to be in no acute distress. He denies any chest pain at this time. HEENT: Head is atraumatic, normocephalic. Pupils equal, round. Sclerae is anicteric. NECK: Supple. No JVD. No lymphadenopathy. No thyromegaly. LUNGS: Clear to auscultation. No wheezes or rhonchi. No intercostal retractions. HEART: Irregularly irregular. No murmur. ABDOMEN: Soft. Bowel sounds are present. No masses. No tenderness. EXTREMITIES: No pedal edema. No calf tenderness. Dorsalis pedis weak bilaterally. NEUROLOGICAL: Patient is awake, alert and oriented x3. Cranial nerves 2 through 12 are grossly intact. Results CBC & Chem 7: 06/17/18 02:15 06/17/18 02:15 Labs: Abnormal Lab Results - Last 24 Hours (Table) 06/17/18 06/17/18 06/17/18 Range/Units 02:15 02:15 07:43 PT 27.3 H (9.0-12.0) sec INR 3.0 H (<1.2) APTT 36.1 H (22.0-30.0) sec Glucose 147 H (74-99) mg/dL Total Creatine Kinase 46 L (55-170) U/L Thrombosis Risk Factor Assmnt - DVT/VTE Prophylaxis DVT/VTE Prophylaxis: Pharmacologic Prophylaxis ordered Assessment and Plan Plan: 1. Chest plain with normal troponins. Cardiology consult appreciated. Patient planned for heart catheterization tomorrow or Sunday. Continue Lipitor 20 mg at bedtime, Imdur 60 mg daily, Plavix 75 mg daily, Lopressor 25 mg twice daily. 2. Known history of coronary artery disease status post CABG and stents. Continue as in #1. 3. Hypothyroidism. Continue levothyroxine 88 g unspecified days. TSH and free T4 ordered. 4. Chronic atrial fibrillation with previous cardioversion in 2011 presented with A. fib with RVR. Patient is normally on Coumadin and Lopressor. 5. Diabetes mellitus type 2. Patient is normally on Januvia 100 mg daily, metformin 500 mg in the morning and 1000 mg at supper, glimepiride 1 mg at breakfast as needed. Prandin 0.5 mg daily. Humalog scale before meals and at bedtime added. 6. Hypertension, hypertensive cardiovascular disease. Lopressor 25 mg twice daily. Continue hydralazine 150 mg twice daily, Norvasc 5 mg twice daily, hydralazine 100 mg 3 times daily 7. History of GI bleed in 2013 with distal esophagitis and short segment of Cobb's esophagus, sigmoid diverticulosis, stable. 8. History of right vocal cord cell carcinoma in 2009, completed radiation and follows regularly with Dr. Parra. 9. History of prostate cancer, stable. 10. GI prophylaxis. Protonix daily 11. DVT prophylaxis. Patient is on Coumadin. Patient placed as an observation status. Discharge plan: Return home Impression and plan of care have been directed as dictated by the signing physician. Heather Bishop nurse practitioner acting as scribe for signing physician.
[2018-06-17 15:07] LABS: Creatine Kinase 44 U/L (55-170)
[2018-06-17 15:20] LABS: Creatine Kinase MB 1.4 ng/mL (0.0-2.4); Troponin I <0.012 ng/mL (0.000-0.034)
[2018-06-17] MEDS: MULTIVITAMINS, THERA 1 EACH TAB PO SCH (16:42)
[2018-06-17] MEDS: PANTOPRAZOLE 40 MG TABLET PO SCH (16:42)
[2018-06-17] MEDS: TROSPIUM CHLORIDE 20 MG TABLET PO SCH (16:42)
[2018-06-17 17:21] LABS: Glucose,Whole Blood 143 mg/dL (75-99)
[2018-06-17] MEDS: ISOSORBIDE MONONITRATE ER 60 MG TAB.ER.24H PO SCH (17:52)
[2018-06-17] MEDS ORDERED: WARFARIN 2.5 MG TAB PO SCH (18:00)
[2018-06-17] MEDS: ALPRAZolam 0.25 MG TAB PO SCH (22:07)
[2018-06-17] MEDS: ATORVASTATIN 40 MG TAB PO SCH (22:08)
[2018-06-17] MEDS: METOPROLOL TARTRATE 25 MG TAB PO SCH (22:08)
[2018-06-17] MEDS: MELATONIN 5 MG TABLET PO SCH (22:27)
[2018-06-18 02:28] LABS: Cholesterol 108 mg/dL (<200); HDL Cholesterol 46 mg/dL (40-60); LDL Cholesterol,Calculated 22 mg/dL (0-99); Triglycerides 202 mg/dL (<150)
[2018-06-18 06:06] LABS: Glucose,Whole Blood 117 mg/dL (75-99)
[2018-06-18] MEDS: GLIMEPIRIDE 1 MG TAB PO SCH ×3 (06:29→17:23)
[2018-06-18] MEDS: LEVOTHYROXINE 88 MCG TAB PO SCH (06:29)
[2018-06-18 06:36] LABS: INR 2.4 (<1.2); Prothrombin Time 21.4 sec (9.0-12.0)
[2018-06-18] MEDS ORDERED: ALPRAZolam 0.25 MG TAB PO PRN (08:25)
[2018-06-18] MEDS ORDERED: ALPRAZolam 0.5 MG TAB PO PRN (08:25)
[2018-06-18] MEDS ORDERED: ATORVASTATIN 80 MG TAB PO STA (08:25)
[2018-06-18] MEDS ORDERED: NITROGLYCERIN SL TABS 0.4 MG TAB SUBLINGUAL PRN (08:25)
[2018-06-18] MEDS ORDERED: SODIUM CHLORIDE 0.9% 1,000 ML in EMPTY BAG 1 BAG IV ONE (08:25)
[2018-06-18] MEDS: hydrALAZINE HCL 50 MG TAB PO SCH ×2 (08:42→19:59)
[2018-06-18] MEDS: CLOPIDOGREL 75 MG TAB PO SCH (08:43)
[2018-06-18] MEDS: amLODIPine 5 MG TAB PO SCH ×2 (08:43→22:24)
[2018-06-18] MEDS: ISOSORBIDE MONONITRATE ER 60 MG TAB.ER.24H PO SCH (08:43)
[2018-06-18] MEDS: DOXAZOSIN 4 MG TAB PO SCH (08:43)
[2018-06-18] MEDS: AMOXIC-POT CLAV 875-125MG 1 EACH TAB PO SCH ×2 (08:43→19:59)
[2018-06-18] MEDS: FUROSEMIDE 20 MG TAB PO SCH (08:43)
[2018-06-18] MEDS: METOPROLOL TARTRATE 25 MG TAB PO SCH ×2 (08:44→19:59)
[2018-06-18] MEDS: ALPRAZolam 0.25 MG TAB PO SCH ×2 (11:58→22:24)
[2018-06-18] MEDS: LACTOBACILLUS ACIDOPH & BULGAR 1 EACH PACKET PO SCH (11:58)
[2018-06-18 12:10] LABS: Glucose,Whole Blood 172 mg/dL (75-99)
--- NOTE | 2018-06-18 12:27 | P.PN ---
Subjective Progress Note Date: 06/18/18 This is an 82-year-old male. His primary care physician is Dr. Corona and his line supply is Dr. TACOS Bolden. He has a past medical history for coronary artery disease status post CABG three-vessel in April 2012 with previous 4 cardiac stents between 2003 and 2005, acute non-ST elevated myocardial infarction in September 2016 status post 2 stents, cardioversion 2 in 2013 for chronic atrial fibrillation currently on Coumadin, diabetes mellitus type 2, hypertension, right vocal cord cell carcinoma in 2008, completed radiation, Cobb's esophagus, prostate cancer. Patient states that he has a discomfort in his chest for the past 3 days along with a little cough. He has been taking and assess after he eats due to heartburn. He denies having any fever or chills but states he has sweats in the morning and he thought it was related to a blood sugar drop. He has had 2 episodes over 3 weeks worries had low blood sugar, 57. He has been following with Dr. Swapnil Bolden for this. Patient presented to [facility] emergency center with the above concerns. EKG was atrial fibrillation with RVR at [address] changes. INR 3.0. Troponins have been negative on 2 draws. Patient was placed on the selective care unit and cardiology consult requested. Echocardiogram reveals atrial fibrillation, moderate concentric left ventricular hypertrophy, EF 50-55%, only moderately dilated 34-39, mild mitral regurgitation, moderate tricuspid regurgitation, mild pulmonary hypertension. Patient has been seen by Dr. Parker, cardiology, with recommendations for heart catheterization on Sunday or Sunday with Dr. TACOS Bolden. 06/18: Kaveh have been negative on 3 draws. Patient is scheduled for heart catheterization tomorrow. INR is 2.4 and patient did not receive Coumadin last night. Patient does relate that he is having frequent bowel movements but small in caliber. MiraLAX and probiotic ordered. Patient to increase fiber at home. Objective - Vital Signs Vital signs: ROS: Constitutional: No fever, no chills, no night sweats. No weight change. No weakness, fatigue or lethargy. No daytime sleepiness. EENT: No headache. No blurred vision or double vision, no loss of vision. No loss of Hearing, no ringing in the ears, no dizziness. No nasal drainage or congestion. No epistaxis. No sore throat. Lungs: No shortness of breath, cough, no sputum production. No wheezing. Cardiovascular: No chest pain, no lower extremity edema. No palpitations. No paroxysmal nocturnal dyspnea. No orthopnea. No lightheadedness or dizziness. No syncopal episodes. Abdominal: No abdominal pain. No nausea, vomiting. No diarrhea. No constipation. No bloody or tarry stools.. No loss of appetite. Genitourinary: No dysuria, increased frequency, urgency. No urinary retention. Musculoskeletal: No myalgias. No muscle weakness, no gait dysfunction, no frequent falls. No back pain. No neck pain. Integumentary: No wounds, no lesions. No rash or pruritus. No unusual bruising. No change in hair or nails. Psychiatric: No depression. No anxiety. No mood swings. Endocrine: Blood sugars as above. No weight change. No excessive sweating or thirst. No cold intolerance. No weight change. Vital Signs Temp 96.7 F L 06/18/18 04:00 Pulse 77 06/18/18 04:00 Resp 16 06/18/18 04:00 BP 119/71 06/18/18 04:00 Pulse Ox 93 L 06/18/18 04:00 Intake & Output 06/17/18 06/18/18 06/18/18 18:59 06:59 18:59 Intake Total 290 600 Balance 290 600 Weight 79.3 kg Intake: Amount of Fluid Infused ( 50 ml) Oral 240 600 Other: # Voids 1 - Exam Gen: This is an 82-year-old male. He is sitting up in bed and appears to be in no acute distress. He denies any chest pain at this time. HEENT: Head is atraumatic, normocephalic. Pupils equal, round. Sclerae is anicteric. NECK: Supple. No JVD. No lymphadenopathy. No thyromegaly. LUNGS: Clear to auscultation. No wheezes or rhonchi. No intercostal retractions. HEART: Irregularly irregular. No murmur. ABDOMEN: Soft. Bowel sounds are present. No masses. No tenderness. EXTREMITIES: No pedal edema. No calf tenderness. Dorsalis pedis weak bilaterally. NEUROLOGICAL: Patient is awake, alert and oriented x3. Cranial nerves 2 through 12 are grossly intact. - Labs CBC & Chem 7: 06/17/18 02:15 06/17/18 02:15 Labs: Abnormal Lab Results - Last 24 Hours (Table) 06/17/18 06/17/18 06/17/18 Range/Units 02:19 07:43 14:23 PT (9.0-12.0) sec INR (<1.2) POC Glucose (mg/dL) (75-99) mg/dL Total Creatine Kinase 46 L 44 L (55-170) U/L Triglycerides 202 H (<150) mg/dL 06/17/18 06/18/18 06/18/18 Range/Units 16:49 06:04 06:08 PT 21.4 H (9.0-12.0) sec INR 2.4 H (<1.2) POC Glucose (mg/dL) 143 H 117 H (75-99) mg/dL Total Creatine Kinase (55-170) U/L Triglycerides (<150) mg/dL Assessment and Plan Plan: 1. Chest plain with normal troponins. Cardiology consult appreciated. Patient planned for heart catheterization on Sunday. Continue Lipitor 20 mg at bedtime, Imdur 60 mg daily, Plavix 75 mg daily, Lopressor 25 mg twice daily. 2. Known history of coronary artery disease status post CABG and stents. Continue as in #1. 3. Hypothyroidism. Continue levothyroxine 88 g unspecified days. TSH and free T4 ordered. 4. Chronic atrial fibrillation with previous cardioversion in 2011 presented with A. fib with RVR. Patient is normally on Coumadin and Lopressor. 5. Diabetes mellitus type 2. Patient is normally on Januvia 100 mg daily, metformin 500 mg in the morning and 1000 mg at supper, glimepiride 1 mg at breakfast as needed. Prandin 0.5 mg daily. Humalog scale before meals and at bedtime added. 6. Hypertension, hypertensive cardiovascular disease. Lopressor 25 mg twice daily. Continue hydralazine 150 mg twice daily, Norvasc 5 mg twice daily, hydralazine 100 mg 3 times daily 7. History of GI bleed in 2013 with distal esophagitis and short segment of Cobb's esophagus, sigmoid diverticulosis, stable. 8. History of right vocal cord cell carcinoma in 2008, completed radiation and follows regularly with Dr. Parra. 9. History of prostate cancer, stable. 10. GI prophylaxis. Protonix daily 11. DVT prophylaxis. Patient is on Coumadin. 12. Generalized anxiety disorder, stable. Continue home dose of Xanax as needed. Discharge plan: Return home Impression and plan of care have been directed as dictated by the signing physician. Heather Bishop nurse practitioner acting as scribe for signing physician.
--- NOTE | 2018-06-18 13:41 | P.PN ---
Subjective Progress Note Date: 06/18/18 this is an 82-year-old gentleman with known history of coronary artery disease and prior bypass surgery, hypertension, hyperlipidemia, chronic persistent atrial fibrillation who presented to the hospital with complaints of chest discomfort. Patient was seen in consultation by Dr. Anand and advised to undergo cardiac catheterization by Dr. Mara Bolden, because of the elevated INR the decision was made to schedule the patient for Sunday of this week. He was seen and examined this morning, denied any chest discomfort and breathing overall has been stable. Blood pressure 98/54, heart rate in the 70s, 94% on room air. INR today was 2.4. Objective - Vital Signs Vital signs: Vital Signs Temp 96.7 F L 06/18/18 04:00 Pulse 78 06/18/18 11:51 Resp 16 06/18/18 11:51 BP 91/54 06/18/18 11:51 Pulse Ox 94 L 06/18/18 11:51 Intake & Output 06/17/18 06/18/18 06/18/18 18:59 06:59 18:59 Intake Total 290 600 Balance 290 600 Weight 79.3 kg Intake: Amount of Fluid Infused ( 50 ml) Oral 240 600 Other: # Voids 1 - Exam PHYSICAL EXAMINATION: GENERAL: 82-year-old gentleman in no acute distress at the time of my examination HEENT: Head is atraumatic, normocephalic. Pupils equal, round. Sclera anicteric. Conjunctiva are clear. Mucous membranes of the mouth are moist. Neck is supple. There is no elevated jugular venous pressure. No carotid bruit is heard. HEART EXAMINATION: Heart S1, S2 normal. No murmur or gallop heard. CHEST EXAMINATION: Lungs are clear to auscultation and precussion. No chest wall tenderness is noted on palpation or with deep breathing. ABDOMEN: Soft, nontender. Bowel sounds are heard. No organomegaly noted. EXTREMITIES: 2+ peripheral pulses with no evidence of peripheral edema and no calf tenderness noted. NEUROLOGIC patient is awake, alert and oriented ?-3. . - Labs CBC & Chem 7: 06/17/18 02:15 06/17/18 02:15 Labs: Abnormal Lab Results - Last 24 Hours (Table) 06/17/18 06/17/18 06/17/18 Range/Units 02:19 14:23 16:49 PT (9.0-12.0) sec INR (<1.2) POC Glucose (mg/dL) 143 H (75-99) mg/dL Total Creatine Kinase 44 L (55-170) U/L Triglycerides 202 H (<150) mg/dL 06/18/18 06/18/18 06/18/18 Range/Units 06:04 06:08 12:09 PT 21.4 H (9.0-12.0) sec INR 2.4 H (<1.2) POC Glucose (mg/dL) 117 H 172 H (75-99) mg/dL Total Creatine Kinase (55-170) U/L Triglycerides (<150) mg/dL Assessment and Plan Plan: Assessment and plan #1 unstable angina #2 known history of coronary artery disease with prior bypass surgery, status post prior angioplasty of [place] circumflex #3 [id number] diabetes #4 hypertension #5 hyperlipidemia #6 chronic persistent atrial fibrillation Plan We will continue to hold the patient's Coumadin, check PT/INR early tomorrow morning. Schedule patient for cardiac catheterization tomorrow with Dr. Mara Bolden. Risks and benefits were explained to the patient in detail and he is willing to pursue DNP note has been reviewed, I agree with a documented findings and plan of care. Patient was seen and examined.
[2018-06-18 17:08] LABS: Glucose,Whole Blood 138 mg/dL (75-99)
[2018-06-18] MEDS: POLYETHYLENE GLYCOL 3350 17 GM POWD.PACK PO SCH (17:20)
[2018-06-18] MEDS: TROSPIUM CHLORIDE 20 MG TABLET PO SCH (17:21)
[2018-06-18] MEDS: MULTIVITAMINS, THERA 1 EACH TAB PO SCH (17:22)
[2018-06-18] MEDS: PANTOPRAZOLE 40 MG TABLET PO SCH (17:22)
[2018-06-18] MEDS: ATORVASTATIN 40 MG TAB PO SCH (19:59)
[2018-06-18 21:06] LABS: Glucose,Whole Blood 216 mg/dL (75-99)
[2018-06-18] MEDS: MELATONIN 5 MG TABLET PO SCH (22:24)
[2018-06-19] MEDS ORDERED: ATORVASTATIN 80 MG TAB PO ONE (06:00)
[2018-06-19 06:26] LABS: Glucose,Whole Blood 136 mg/dL (75-99)
[2018-06-19] MEDS: LEVOTHYROXINE 88 MCG TAB PO SCH (06:34)
[2018-06-19] MEDS: ASPIRIN 325 MG TAB PO ONE ×2 (06:37→08:44)
[2018-06-19 06:51] LABS: INR 1.5 (<1.2); Prothrombin Time 14.3 sec (9.0-12.0)
[2018-06-19 07:01] LABS: Potassium 3.7 mmol/L (3.5-5.1)
[2018-06-19] MEDS: amLODIPine 5 MG TAB PO SCH ×2 (07:03→21:59)
[2018-06-19] MEDS: AMOXIC-POT CLAV 875-125MG 1 EACH TAB PO SCH ×2 (07:03→21:57)
[2018-06-19] MEDS: hydrALAZINE HCL 50 MG TAB PO SCH ×2 (07:04→21:57)
[2018-06-19] MEDS: METOPROLOL TARTRATE 25 MG TAB PO SCH ×2 (07:04→21:59)
[2018-06-19] MEDS: DOXAZOSIN 4 MG TAB PO SCH (07:04)
[2018-06-19] MEDS: CLOPIDOGREL 75 MG TAB PO SCH (07:05)
[2018-06-19] MEDS: POLYETHYLENE GLYCOL 3350 17 GM POWD.PACK PO SCH (08:08)
[2018-06-19] MEDS: LACTOBACILLUS ACIDOPH & BULGAR 1 EACH PACKET PO SCH (08:08)
[2018-06-19] MEDS: ALPRAZolam 0.25 MG TAB PO SCH ×2 (08:43→21:59)
[2018-06-19] MEDS: FUROSEMIDE 20 MG TAB PO SCH (08:43)
[2018-06-19] MEDS ORDERED: LACTOBACILLUS ACIDOPH & BULGAR 1 EACH PACKET PO SCH (09:00)
[2018-06-19 10:43] VITALS: RESP 18
[2018-06-19 12:10] LABS: Glucose,Whole Blood 138 mg/dL (75-99)
--- NOTE | 2018-06-19 13:39 | P.PN ---
Subjective Progress Note Date: 06/19/18 This is an 82-year-old male. His primary care physician is Dr. Corona and his boat hop is Dr. TACOS Bolden. He has a past medical history for coronary artery disease status post CABG three-vessel in April 2012 with previous 4 cardiac stents between 2003 and 2005, acute non-ST elevated myocardial infarction in September 2016 status post 2 stents, cardioversion 2 in 2013 for chronic atrial fibrillation currently on Coumadin, diabetes mellitus type 2, hypertension, right vocal cord cell carcinoma in 2008, completed radiation, Cobb's esophagus, prostate cancer. Patient states that he has a discomfort in his chest for the past 3 days along with a little cough. He has been taking and assess after he eats due to heartburn. He denies having any fever or chills but states he has sweats in the morning and he thought it was related to a blood sugar drop. He has had 2 episodes over 3 weeks worries had low blood sugar, 57. He has been following with Dr. Swapnil Bolden for this. Patient presented to [facility] emergency center with the above concerns. EKG was atrial fibrillation with RVR at [address] changes. INR 3.0. Troponins have been negative on 2 draws. Patient was placed on the selective care unit and cardiology consult requested. Echocardiogram reveals atrial fibrillation, moderate concentric left ventricular hypertrophy, EF 50-55%, only moderately dilated 34-39, mild mitral regurgitation, moderate tricuspid regurgitation, mild pulmonary hypertension. Patient has been seen by Dr. Parker, cardiology, with recommendations for heart catheterization on Sunday or Sunday with Dr. TACOS Bolden. 06/18: Troponins have been negative on 3 draws. Patient is scheduled for heart catheterization tomorrow. INR is 2.4 and patient did not receive Coumadin last night. Patient does relate that he is having frequent bowel movements but small in caliber. MiraLAX and probiotic ordered. Patient to increase fiber at home. 06/19: Patient remains chest pain-free. Amaryl will be held this morning as he is nothing by mouth for heart catheterization today. INR is 1.5. Sugars are between 136 and 216. Patient denies any new concerns or complaints. ROS: Constitutional: No fever, no chills, no night sweats. No weight change. No weakness, fatigue or lethargy. No daytime sleepiness. EENT: No headache. No blurred vision or double vision, no loss of vision. No loss of Hearing, no ringing in the ears, no dizziness. No nasal drainage or congestion. No epistaxis. No sore throat. Lungs: No shortness of breath, cough, no sputum production. No wheezing. Cardiovascular: No chest pain, no lower extremity edema. No palpitations. No paroxysmal nocturnal dyspnea. No orthopnea. No lightheadedness or dizziness. No syncopal episodes. Abdominal: No abdominal pain. No nausea, vomiting. No diarrhea. No constipation. No bloody or tarry stools.. No loss of appetite. Genitourinary: No dysuria, increased frequency, urgency. No urinary retention. Musculoskeletal: No myalgias. No muscle weakness, no gait dysfunction, no frequent falls. No back pain. No neck pain. Integumentary: No wounds, no lesions. No rash or pruritus. No unusual bruising. No change in hair or nails. Psychiatric: No depression. No anxiety. No mood swings. Objective - Vital Signs Vital signs: Vital Signs Temp 98.5 F 06/19/18 04:00 Pulse 80 06/19/18 04:00 Resp 16 06/19/18 04:00 BP 117/67 06/19/18 04:00 Pulse Ox 94 L 06/19/18 04:00 Intake & Output 06/18/18 06/19/18 06/19/18 18:59 06:59 18:59 Intake Total 1040 711 Balance 1040 711 Weight 80.2 kg Intake: IV 711 0.9 @79mls/hr 711 Intake, IV Titration 320 Amount Sodium Chloride 0.9% 1, 320 000 ml In Empty Bag 1 bag @ 1 ML/KG/HR 79.3 mls/hr IV .[id number] ONE Rx#: [id number] Oral 720 Other: Voiding Method Toilet # Voids 1 - Exam Gen: This is an 82-year-old male. He is sitting up in chair and appears to be in no acute distress. He denies any chest pain at this time. HEENT: Head is atraumatic, normocephalic. Pupils equal, round. Sclerae is anicteric. NECK: Supple. No JVD. No lymphadenopathy. No thyromegaly. LUNGS: Clear to auscultation. No wheezes or rhonchi. No intercostal retractions. HEART: Irregularly irregular. No murmur. ABDOMEN: Soft. Bowel sounds are present. No masses. No tenderness. EXTREMITIES: No pedal edema. No calf tenderness. Dorsalis pedis weak bilaterally. NEUROLOGICAL: Patient is awake, alert and oriented x3. Cranial nerves 2 through 12 are grossly intact. - Labs CBC & Chem 7: 06/17/18 02:15 06/19/18 06:28 Labs: Abnormal Lab Results - Last 24 Hours (Table) 06/18/18 06/18/18 06/18/18 Range/Units 12:09 17:00 21:05 PT (9.0-12.0) sec INR (<1.2) Glucose (74-99) mg/dL POC Glucose (mg/dL) 172 H 138 H 216 H (75-99) mg/dL 06/19/18 06/19/18 06/19/18 Range/Units 06:24 06:28 06:28 PT 14.3 H (9.0-12.0) sec INR 1.5 H (<1.2) Glucose 125 H (74-99) mg/dL POC Glucose (mg/dL) 136 H (75-99) mg/dL Assessment and Plan Plan: 1. Chest plain with normal troponins. Cardiology consult appreciated. Patient planned for heart catheterization today. Continue Lipitor 20 mg at bedtime, Imdur 60 mg daily, Plavix 75 mg daily, Lopressor 25 mg twice daily. 2. Known history of coronary artery disease status post CABG and stents. Continue as in #1. 3. Hypothyroidism. Continue levothyroxine 88 g unspecified days. TSH and free T4 ordered. 4. Chronic atrial fibrillation with previous cardioversion in 2011 presented with A. fib with RVR. Patient is normally on Coumadin and Lopressor. 5. Diabetes mellitus type 2. Patient is normally on Januvia 100 mg daily, metformin 500 mg in the morning and 1000 mg at supper, glimepiride 1 mg at breakfast as needed. Prandin 0.5 mg daily. Humalog scale before meals and at bedtime added. 6. Hypertension, hypertensive cardiovascular disease. Lopressor 25 mg twice daily. Continue hydralazine 150 mg twice daily, Norvasc 5 mg twice daily, hydralazine 100 mg 3 times daily 7. History of GI bleed in 2013 with distal esophagitis and short segment of Cobb's esophagus, sigmoid diverticulosis, stable. 8. History of right vocal cord cell carcinoma in 2008, completed radiation and follows regularly with Dr. Parra. 9. History of prostate cancer, stable. 10. GI prophylaxis. Protonix daily 11. DVT prophylaxis. Patient is on Coumadin. 12. Generalized anxiety disorder, stable. Continue home dose of Xanax as needed. 13. Bronchitis. Augmentin and Medrol Dosepak Discharge plan: Return home Impression and plan of care have been directed as dictated by the signing physician. Heather Bishop nurse practitioner acting as scribe for signing physician.
[2018-06-19] MEDS ORDERED: SODIUM CHLORIDE 0.9% 1,000 ML IV SCH (13:55)
[2018-06-19 13:59] LABS: Hemoglobin A1C 7.8 % (4.0-6.0)
[2018-06-19] MEDS ORDERED: IV FLUID CONTINUATION 1,000 ML IV ONE (14:24)
[2018-06-19] MEDS ORDERED: LIDOCAINE 1% INJ 10MG/ML (20 ML MDV) ONE (14:28)
[2018-06-19] MEDS ORDERED: MIDAZOLAM 2 MG/2 ML VIAL ONE (14:28)
[2018-06-19] MEDS ORDERED: diphenhydrAMINE 50 MG/ML 1 ML VIAL ONE (14:28)
[2018-06-19] MEDS ORDERED: MIDAZOLAM 2 MG/2 ML VIAL IV ONE (14:30)
[2018-06-19] MEDS ORDERED: diphenhydrAMINE 50 MG/ML 1 ML VIAL IVP ONE (14:30)
[2018-06-19] MEDS ORDERED: LIDOCAINE 1% INJ 10MG/ML (20 ML MDV) SQ ONE (14:47)
[2018-06-19] MEDS ORDERED: IOPAMIDOL-370 100ML BTL INJ ONE ×2 (15:08→15:20)
[2018-06-19] MEDS ORDERED: NITROGLYCERIN SL TABS 0.4 MG TAB SUBLINGUAL ONE ×2 (15:18→15:19)
[2018-06-19] MEDS ORDERED: amLODIPine 5 MG TAB ONE (15:22)
[2018-06-19] MEDS ORDERED: amLODIPine 5 MG TAB PO ONE (15:23)
[2018-06-19 17:07] LABS: Glucose,Whole Blood 218 mg/dL (75-99)
[2018-06-19] MEDS: ISOSORBIDE MONONITRATE ER 60 MG TAB.ER.24H PO SCH (17:13)
[2018-06-19] MEDS: PANTOPRAZOLE 40 MG TABLET PO SCH (17:13)
[2018-06-19] MEDS: MULTIVITAMINS, THERA 1 EACH TAB PO SCH (17:13)
[2018-06-19] MEDS: GLIMEPIRIDE 1 MG TAB PO SCH (17:14)
[2018-06-19] MEDS: TROSPIUM CHLORIDE 20 MG TABLET PO SCH (17:14)
[2018-06-19] MEDS ORDERED: WARFARIN 5 MG TAB PO ONE (19:45)
--- NOTE | 2018-06-19 20:01 | CC ---
CARDIAC CATHETERIZATION REPORT DATE OF SERVICE: 06/19/2018. PROCEDURE: Coronary angiography and selective injection of bypass grafts. PERFORMED BY: Dr. Mara Bolden. Moderate conscious sedation time was 33 minutes. Patient was administered Versed and Benadryl and his oxygen saturation, hemodynamics and EKG were watched closely. CLINICAL INFORMATION: Mr. Lamont Mishra is an 82-year-old gentleman with history of CAD, previous myocardial infarction, type 2 diabetes, hypertension, hyperlipidemia. Several years ago he underwent aortocoronary bypass surgery with 3 grafts. The DOMÍNGUEZ was placed to the LAD and 2 separate vein grafts were placed to the 2 branches of obtuse marginal branch of circumflex. His RCA was nondominant and was not grafted. In September of 2016, I performed coronary angiography and went and stented the [place] tribe circumflex in its ostium and proximal portion. Since then he has done well. He also has chronic persistent atrial fibrillation for which he is on Eliquis and Plavix. He is ALLERGIC TO ASPIRIN. He came into the hospital with symptoms suggestive of unstable angina with a negative troponin, but because of his symptoms and known previous intervention, he was advised cardiac catheterization. The patient also has peripheral artery disease with heavy calcification and access issues were there during the last procedure as well. PROCEDURE NOTE: Under local anesthesia and strict aseptic precautions, a 6-Lebanese introducer was placed in the right femoral artery. There was heavy calcification and I used a stiff Amplatz wire to gain access and gradually used a 5-Lebanese and 6-Lebanese dilators. A 6-Lebanese introducer was placed in the right femoral artery. I used a standard left Merry catheter to perform selective coronary angiography of the left coronary artery. I used a AR 2 catheter to perform selective coronary angiography of the 2 vein grafts in the [place] tribe RCA. A Diego catheter was used to do a DOMÍNGUEZ injection. LV gram was not performed and LV pressures were not checked. CORONARY ANGIOGRAPHY FINDINGS: LEFT MAIN CORONARY ARTERY: This is a short, patent, disease-free vessel that immediately bifurcates into LAD and circumflex. There is some calcification in the distal left main noted. LEFT ANTERIOR DESCENDING CORONARY ARTERY: This vessel is totally occluded in the midportion, but in the proximal portion, there is some progression of disease with nearly 60-70 percent narrowing. After a septal and diagonal branch the LAD is totally occluded. There is a calcification in the LAD in the proximal portion also just at the bifurcation. LEFT POSTERIOR CIRCUMFLEX CORONARY ARTERY: The ostium of circumflex and proximal portion of circumflex was stented in September 2016. This area is widely patent. In the mid circumflex, there is about a 50% lesion with brisk flow. The obtuse marginal branches are totally occluded. RIGHT CORONARY ARTERY: This vessel is nondominant, has diffuse disease and appears to be a nondominant vessel with limited antegrade flow. There is some disease at the ostium. The conus branch has mild diffuse disease and the amount of myocardium supplied by the RCA appears to be small and there is diffuse disease in the nondominant RCA. LEFT INTERNAL MAMMARY ARTERY GRAFT TO LAD: This graft is widely patent in its origin, course, and insertion site. Opacified LAD has mild diffuse disease but no significant lesions are noted. SAPHENOUS VEIN GRAFT TO THE OBTUSE MARGINAL BRANCH OF CIRCUMFLEX: This graft is widely patent at its origin, course and insertion site. Beyond the insertion there is diffuse disease in the obtuse marginal, but no focal stenosis is noted. The obtuse marginal branch after the insertion site as well as the additional branch proximal to the anastomotic site has now very limited flow and this represents a progression of disease within the [place] tribe branches, but the graft itself is free of significant disease. There is therefore progression of disease after the insertion site of the obtuse marginal graft. SAPHENOUS VEIN GRAFT TO THE OBTUSE MARGINAL 2: This graft is widely patent at its origin, course and insertion site. Beyond the insertion site there is some diffuse disease within the [place] tribe branches. However, the graft itself has minor irregularities but the body of the graft has minor irregularities but the [place] obtuse marginal after the insertion site has developed some additional disease. There is progression of disease in the [place] tribe obtuse marginal beyond insertion site. LEFT VENTRICULOGRAM: This was not performed. FINAL IMPRESSION: This patient has totally occluded mid LAD, previously stented ostial circumflex and proximal circumflex is widely patent. The vein graft to the obtuse marginal are patent, but beyond the insertion site there is progression of disease within the obtuse marginal branches compared to the previous study from September. RCA is nondominant, has diffuse disease, but is a nondominant vessel without significant amount of myocardium being supplied by it. LV gram was not performed and LV pressures were not checked. RECOMMENDATION: Findings were discussed with the patient and family members. I am recommending aggressive medical therapy with the understanding that he will still have angina with moderate effort given the diffuse nature of disease in the s[place] tribe branches. However, aggressive medical therapy with risk factor modification is advised and patient can be discharged tomorrow. The sheath was pulled manually and hemostasis was secured and FemoStop applied. CHARMAINE / CARA: [id number] /
[2018-06-19] MEDS: MELATONIN 5 MG TABLET PO SCH (21:57)
[2018-06-19] MEDS: ATORVASTATIN 40 MG TAB PO SCH (21:58)
[2018-06-20] MEDS: INSULIN ASPART 100 UNIT/ML 1 ML 10 ML VIAL SQ SCH ×2 (06:45→06:56)
[2018-06-20 06:51] LABS: Glucose,Whole Blood 121 mg/dL (75-99)
[2018-06-20] MEDS: LEVOTHYROXINE 88 MCG TAB PO SCH (06:59)
[2018-06-20 07:31] LABS: INR 1.3 (<1.2); Prothrombin Time 12.6 sec (9.0-12.0)
[2018-06-20] MEDS: POLYETHYLENE GLYCOL 3350 17 GM POWD.PACK PO SCH (08:40)
[2018-06-20] MEDS: amLODIPine 5 MG TAB PO SCH (08:40)
[2018-06-20] MEDS: AMOXIC-POT CLAV 875-125MG 1 EACH TAB PO SCH (08:40)
[2018-06-20] MEDS: METOPROLOL TARTRATE 25 MG TAB PO SCH (08:41)
[2018-06-20] MEDS: CLOPIDOGREL 75 MG TAB PO SCH (08:41)
[2018-06-20] MEDS: hydrALAZINE HCL 50 MG TAB PO SCH (08:41)
[2018-06-20] MEDS: LACTOBACILLUS ACIDOPH & BULGAR 1 EACH PACKET PO SCH (08:41)
[2018-06-20] MEDS: FUROSEMIDE 20 MG TAB PO SCH (08:42)
[2018-06-20] MEDS: DOXAZOSIN 4 MG TAB PO SCH (08:42)
[2018-06-20] MEDS: ALPRAZolam 0.25 MG TAB PO SCH (08:46)
[2018-06-20 08:53] LABS: Basophils # (A) 0.1 k/uL (0-0.2); Basophils % (A) 1 %; Eosinophils # (A) 0.2 k/uL (0-0.7); Eosinophils % (A) 4 %; HCT 34.6 % (39.0-53.0); HGB 11.6 gm/dL (13.0-17.5); Lymphocytes # (A) 0.6 k/uL (1.0-4.8); Lymphocytes % (A) 10 %; MCH 32.4 pg (25.0-35.0); MCHC 33.6 g/dL (31.0-37.0); MCV 96.3 fL (80.0-100.0); Mean Platelet Volume 7.7; Monocytes # (A) 0.7 k/uL (0-1.0); Monocytes % (A) 11 %; Neutrophils # (A) 4.4 k/uL (1.3-7.7); Neutrophils % (A) 73 %; Platelet Count 231 k/uL (150-450); RBC 3.59 m/uL (4.30-5.90); RDW 14.3 % (11.5-15.5)
[2018-06-20 11:54] VITALS: BP 111/71; PULSE 76; TEMP 97.5
--- NOTE | 2018-06-20 12:04 | P.DS ---
Providers Date of admission: 06/19/18 08:13 Attending physician: Ray Corona Consults: 06/17/18 02:16 Consult Physician Routine Consulting Provider: Cindy Bolden Consult Reason/Comments: chest pain Do you want consulting provider notified?: Yes, Notify in am Primary care physician: Ray Corona [facility] Course: This is an 82-year-old male. His primary care physician is Dr. Corona and his graduate engineer is Dr. TACOS Bolden. He has a past medical history for coronary artery disease status post CABG three-vessel in April 2012 with previous 4 cardiac stents between 2003 and 2005, acute non-ST elevated myocardial infarction in September 2016 status post 2 stents, cardioversion 2 in 2013 for chronic atrial fibrillation currently on Coumadin, diabetes mellitus type 2, hypertension, right vocal cord cell carcinoma in 2008, completed radiation, Cobb's esophagus, prostate cancer. Patient states that he has a discomfort in his chest for the past 3 days along with a little cough. He has been taking and assess after he eats due to heartburn. He denies having any fever or chills but states he has sweats in the morning and he thought it was related to a blood sugar drop. He has had 2 episodes over 3 weeks worries had low blood sugar, 57. He has been following with Dr. Swapnil Bolden for this. Patient presented to [facility] emergency center with the above concerns. EKG was atrial fibrillation with RVR at [address] changes. INR 3.0. Troponins have been negative on 2 draws. Patient was placed on the selective care unit and cardiology consult requested. Echocardiogram reveals atrial fibrillation, moderate concentric left ventricular hypertrophy, EF 50-55%, only moderately dilated 34-39, mild mitral regurgitation, moderate tricuspid regurgitation, mild pulmonary hypertension. Patient has been seen by Dr. Parker, cardiology, with recommendations for heart catheterization on Sunday or Sunday with Dr. TACOS Bolden. 06/18: Troponins have been negative on 3 draws. Patient is scheduled for heart catheterization tomorrow. INR is 2.4 and patient did not receive Coumadin last night. Patient does relate that he is having frequent bowel movements but small in caliber. MiraLAX and probiotic ordered. Patient to increase fiber at home. 06/19: Patient remains chest pain-free. Amaryl will be held this morning as he is nothing by mouth for heart catheterization today. INR is 1.5. Sugars are between 136 and 216. Patient denies any new concerns or complaints. ROS: Constitutional: No fever, no chills, no night sweats. No weight change. No weakness, fatigue or lethargy. No daytime sleepiness. EENT: No headache. No blurred vision or double vision, no loss of vision. No loss of Hearing, no ringing in the ears, no dizziness. No nasal drainage or congestion. No epistaxis. No sore throat. Lungs: No shortness of breath, cough, no sputum production. No wheezing. Cardiovascular: No chest pain, no lower extremity edema. No palpitations. No paroxysmal nocturnal dyspnea. No orthopnea. No lightheadedness or dizziness. No syncopal episodes. Abdominal: No abdominal pain. No nausea, vomiting. No diarrhea. No constipation. No bloody or tarry stools.. No loss of appetite. Genitourinary: No dysuria, increased frequency, urgency. No urinary retention. Musculoskeletal: No myalgias. No muscle weakness, no gait dysfunction, no frequent falls. No back pain. No neck pain. Integumentary: No wounds, no lesions. No rash or pruritus. No unusual bruising. No change in hair or nails. Psychiatric: No depression. No anxiety. No mood swings. Exam Gen: This is an 82-year-old male. He is sitting up in chair and appears to be in no acute distress. He denies any chest pain at this time. HEENT: Head is atraumatic, normocephalic. Pupils equal, round. Sclerae is anicteric. NECK: Supple. No JVD. No lymphadenopathy. No thyromegaly. LUNGS: Clear to auscultation. No wheezes or rhonchi. No intercostal retractions. HEART: Irregularly irregular. No murmur. ABDOMEN: Soft. Bowel sounds are present. No masses. No tenderness. EXTREMITIES: No pedal edema. No calf tenderness. Dorsalis pedis weak bilaterally. NEUROLOGICAL: Patient is awake, alert and oriented x3. Cranial nerves 2 through 12 are grossly intact. Assessment and Plan Plan: 1. Chest plain with normal troponins. Cardiac cath did not show any new blockage the original graft still patent with small blockage and it only does not require any intervention ideology decided to continue medical management for now.. Continue Lipitor 20 mg at bedtime, Imdur 60 mg daily, Plavix 75 mg daily, Lopressor 25 mg twice daily. 2. Known history of coronary artery disease status post CABG and stents. Continue as in #1. 3. Hypothyroidism. Continue levothyroxine 88 g unspecified days. TSH and free T4 ordered. 4. Chronic atrial fibrillation with previous cardioversion in 2011 presented with A. shai with RVR. Patient is normally on Coumadin and Lopressor. 5. Diabetes mellitus type 2. Patient is normally on Januvia 100 mg daily, metformin 500 mg in the morning and 1000 mg at supper, glimepiride 1 mg at breakfast as needed. Prandin 0.5 mg daily. Humalog scale before meals and at bedtime added. 6. Hypertension, hypertensive cardiovascular disease. Lopressor 25 mg twice daily. Continue hydralazine 150 mg twice daily, Norvasc 5 mg twice daily, hydralazine 100 mg 3 times daily 7. History of GI bleed in 2013 with distal esophagitis and short segment of Cobb's esophagus, sigmoid diverticulosis, stable. 8. History of right vocal cord cell carcinoma in 2008, completed radiation and follows regularly with Dr. Parra. 9. History of prostate cancer, stable. 10. GI prophylaxis. Protonix daily 11. DVT prophylaxis. Patient is on Coumadin. 12. Generalized anxiety disorder, stable. Continue home dose of Xanax as needed. 13. Bronchitis. Augmentin and Medrol Dosepak, will finish Medrol Dosepak incomplete but patient will continue Augmentin for total of 7 days. Discharge planning: Patient be discharged home today with follow-up with Dr. Corona and cardiology in the next few days continue secondary prevention and recheck on his bronchitis in the next 3-5 days. Patient Condition at Discharge: Fair Plan - Discharge Summary New Discharge Prescriptions: New Amoxic-Pot Clav 875-125Mg [Augmentin 875-125] 1 tab PO Q12HR #14 tablet methylPREDNISolone Dose Pack [Medrol Dose Pack] 4 mg PO DIRECTED #21 package Amoxic-Pot Clav 875-125Mg [Augmentin 875-125] 1 each PO Q12HR #14 tab Doxazosin [Cardura] 4 mg PO DAILY #30 tab Polyethylene Glycol 3350 [Miralax] 17 gm PO DAILY #0 powd.pack Continue Nitroglycerin Sl Tabs [Nitrostat] 0.4 mg SUBLINGUAL Q5M PRN PRN Reason: Chest Pain Levothyroxine Sodium [Synthroid] 88 mcg PO MOTUWETHFRSA metFORMIN HCL [Glucophage] 1,000 mg PO DAILY@1700 Multivitamins, Thera [Multivitamin (formulary)] 1 tab PO DAILY@1700 Fesoterodine Fumarate [Toviaz] 4 mg PO DAILY@1700 hydrALAZINE HCL [Apresoline] 100 mg PO TID@0800,1700,2200 Glimepiride [Amaryl] 1 mg PO DAILY PRN PRN Reason: Blood Sugar - High amLODIPine [Norvasc] 2.5 - 5 mg PO BID@0800,2200 ALPRAZolam [Xanax] 0.25 mg PO BID@0800,2200 Omeprazole [PriLOSEC] 20 mg PO DAILY@1700 Furosemide [Lasix] 20 mg PO DAILY metFORMIN HCL [Glucophage] 500 mg PO DAILY@0800 Isosorbide Mononitrate ER [Imdur] 60 mg PO DAILY@1700 Melatonin 5 mg PO HS sitaGLIPtin [Januvia] 100 mg PO DAILY Atorvastatin [Lipitor] 40 mg PO HS #30 tab Clopidogrel [Plavix] 75 mg PO DAILY #30 tab Metoprolol Tartrate [Lopressor] 12.5 mg PO BID@0800,1700 Repaglinide [Prandin] 0.5 mg PO DAILY Warfarin [Coumadin] 7.5 mg PO DAILY@1700 Discharge Medication List Levothyroxine Sodium [Synthroid] 88 mcg PO MOTUWETHFRSA 01/30/14 [History] Multivitamins, Thera [Multivitamin (formulary)] 1 tab PO DAILY@17001/30/14 [ History] Nitroglycerin Sl Tabs [Nitrostat] 0.4 mg SUBLINGUAL Q5M PRN 01/30/14 [History] metFORMIN HCL [Glucophage] 1,000 mg PO DAILY@17001/30/14 [History] Fesoterodine Fumarate [Toviaz] 4 mg PO DAILY@1700 08/19/14 [History] hydrALAZINE HCL [Apresoline] 100 mg PO TID@0800,1700,2200 08/19/14 [History] Glimepiride [Amaryl] 1 mg PO DAILY PRN 08/31/14 [History] ALPRAZolam [Xanax] 0.25 mg PO BID@0800,0 08/28/15 [History] Furosemide [Lasix] 20 mg PO DAILY 08/28/15 [History] Omeprazole [PriLOSEC] 20 mg PO DAILY@1700 08/28/15 [History] amLODIPine [Norvasc] 2.5 - 5 mg PO BID@0800,219908/28/15 [History] metFORMIN HCL [Glucophage] 500 mg PO DAILY@0800 08/28/15 [History] Isosorbide Mononitrate ER [Imdur] 60 mg PO DAILY@1700 03/29/16 [History] Melatonin 5 mg PO HS 03/29/16 [History] sitaGLIPtin [Januvia] 100 mg PO DAILY 09/17/16 [History] Atorvastatin [Lipitor] 40 mg PO HS #30 tab 09/20/16 [Rx] Clopidogrel [Plavix] 75 mg PO DAILY #30 tab 09/20/16 [Rx] Amoxic-Pot Clav 875-125Mg [Augmentin 875-125] 1 tab PO Q12HR #14 tablet [Rx] Metoprolol Tartrate [Lopressor] 12.5 mg PO BID@0800,1700 06/17/18 [History] Repaglinide [Prandin] 0.5 mg PO DAILY 06/17/18 [History] Warfarin [Coumadin] 7.5 mg PO DAILY@1700 06/17/18 [History] methylPREDNISolone Dose Pack [Medrol Dose Pack] 4 mg PO DIRECTED #21 package 06/17/18 [Rx] Amoxic-Pot Clav 875-125Mg [Augmentin 875-125] 1 each PO Q12HR #14 tab 06/20/18 [ Rx] Doxazosin [Cardura] 4 mg PO DAILY #30 tab 06/20/18 [Rx] Polyethylene Glycol 3350 [Miralax] 17 gm PO DAILY #0 powd.pack 06/20/18 [Rx] Follow up Appointment(s)/Referral(s): Cindy Bolden MD [STAFF PHYSICIAN] - 06/26/18 9:30 am (Sunday) Ray Corona MD [Primary Care Provider] - 06/26/18 11:45 am (SUNDAY WITH COMPLETIONS ENGINEER) Patient Instructions/Handouts: *Surgery [facility] - After Heart Catheterization - Behavioral Health Professional Instructions, Left Heart Catheterization (DC) Discharge Disposition: HOME WITH HOME HEALTH SERVICES
[2018-06-20 12:31] LABS: Glucose,Whole Blood 168 mg/dL (75-99)
--- NOTE | 2018-06-20 15:21 | P.PN ---
Subjective Progress Note Date: 06/20/18 This is a pleasant 82-year-old gentleman with known history of coronary artery disease and prior bypass surgery, hypertension, hyperlipidemia, chronic persistent atrial fibrillation who presented to the hospital with complaints of chest discomfort. Patient was seen in consultation by Dr. Anand and advised to undergo cardiac catheterization by Dr. Mara Bolden, because of the elevated INR the decision was made to schedule the patient for Sunday. Cardiac catheterization findings include totally occluded mid LAD, previously stented ostial circumflex and proximal circumflex is widely patent. The vein graft to the obtuse marginal are patent, but beyond the insertion site there is progression of disease within the obtuse marginal branch as compared to the previous study from September. RCA is nondominant, has diffuse disease but is nondominant vessel without significant amount of myocardium being supplied by it. LV gram was not performed and only pressures were not checked. Patient was advised maximize medical therapy and aggressive risk factor modification. Upon examination today, patient is resting comfortably in bed. Denies further complaints of chest discomfort but realizes that he may continue to have chest discomfort due to the nature of his disease. He is anticipating discharge today. Objective - Vital Signs Vital signs: Vital Signs Temp 97.5 F L 06/20/18 11:52 Pulse 76 06/20/18 11:58 Resp 18 06/20/18 11:58 BP 111/71 06/20/18 11:52 Pulse Ox 93 L 06/20/18 11:52 Intake & Output 06/19/18 06/20/18 06/20/18 18:59 06:59 18:59 Intake Total 1025 480 Output Total 525 Balance 500 480 Weight 78.1 kg Intake: IV 803 0.9 @79mls/hr 553 Oral 222 480 Output: Urine 525 Other: Voiding Method Toilet Urinal Urinal # Voids 3 1 - Exam PHYSICAL EXAMINATION: HEENT: Head is atraumatic, normocephalic. Pupils equal, round. Neck is supple. There is no elevated jugular venous pressure. HEART EXAMINATION: Heart sounds irregularly irregular, S1 and S2 normal. No murmur or gallop heard. CHEST EXAMINATION: Lungs are clear to auscultation and precussion. No chest wall tenderness is noted on palpation or with deep breathing. ABDOMEN: Soft, nontender. Bowel sounds are heard. No organomegaly noted. EXTREMITIES: 2+ peripheral pulses with no evidence of peripheral edema and no calf tenderness noted. Right femoral puncture site is soft without ecchymosis or hematoma.. NEUROLOGIC patient is awake, alert and oriented x3. . . - Labs CBC & Chem 7: 06/20/18 06:45 06/19/18 06:28 Labs: Abnormal Lab Results - Last 24 Hours (Table) 06/19/18 06/20/18 06/20/18 Range/Units 17:03 06:44 06:45 RBC 3.59 L (4.30-5.90) m/uL Hgb 11.6 L (13.0-17.5) gm/dL Hct 34.6 L (39.0-53.0) % Lymphocytes # 0.6 L (1.0-4.8) k/uL PT 12.6 H (9.0-12.0) sec INR 1.3 H (<1.2) POC Glucose (mg/dL) 218 H (75-99) mg/dL 06/20/18 06/20/18 Range/Units 06:50 12:29 RBC (4.30-5.90) m/uL Hgb (13.0-17.5) gm/dL Hct (39.0-53.0) % Lymphocytes # (1.0-4.8) k/uL PT (9.0-12.0) sec INR (<1.2) POC Glucose (mg/dL) 121 H 168 H (75-99) mg/dL Assessment and Plan Assessment: #1 unstable angina #2 known history of coronary artery disease with prior bypass surgery, status post prior angioplasty of [place] circumflex, with diffuse disease in [place] branches #3 [id number] diabetes #4 hypertension #5 hyperlipidemia #6 chronic persistent atrial fibrillation Plan: From overseamer perspective, we recommend aggressive medical therapy with risk factor modification. Patient has been advised that he will still have angina with moderate effort given the nature of his disease. From our standpoint, patient may be discharged home today. He will follow-up as an outpatient with Dr. Bolden. The above dictated assessment and findings were discussed with signing physician. The impression and plan of care have been directed as dictated. Shanelle Perez, Nurse Practitioner, acting as scribe for signing physician.
[2018-06-20] MEDS ORDERED: WARFARIN 7.5 MG TAB PO SCH (18:00)
== END 2018-06-20 13:24 | disposition home or self-care (01) | DRG 287 ==
LOC: EC 01:52 → 3OBS 03:31 → 6SEL 06:51 → OBSVTOIN 06-19 08:13
PROVIDERS: ADMIT Internal Medicine Geriatric Medicine; ATTEND Internal Medicine Geriatric Medicine
PROC: B213YZZ Fluoroscopy of Multiple Coronary Artery Bypass Grafts using Other Contrast (ICD-10-PCS; 2018-06-19)
PROC: B211YZZ Fluoroscopy of Multiple Coronary Arteries using Other Contrast (ICD-10-PCS; 2018-06-19)
PROC: B218YZZ Fluoroscopy of Left Internal Mammary Bypass Graft using Other Contrast (ICD-10-PCS; principal; 2018-06-19 14:23)
DX: I25.110 Atherosclerotic heart disease of native coronary artery with unstable angina pectoris (principal); I25.82 Chronic total occlusion of coronary artery; I08.1 Rheumatic disorders of both mitral and tricuspid valves; I27.20 Pulmonary hypertension, unspecified; I48.2 Chronic atrial fibrillation; E11.9 Type 2 diabetes mellitus without complications; I11.9 Hypertensive heart disease without heart failure; E78.5 Hyperlipidemia, unspecified; F41.1 Generalized anxiety disorder; R79.1 Abnormal coagulation profile; T45.515A Adverse effect of anticoagulants, initial encounter; E03.9 Hypothyroidism, unspecified; K22.70 Barrett's esophagus without dysplasia; K21.9 Gastro-esophageal reflux disease without esophagitis; J40 Bronchitis, not specified as acute or chronic; I25.2 Old myocardial infarction; I83.90 Asymptomatic varicose veins of unspecified lower extremity; Z79.02 Long term (current) use of antithrombotics/antiplatelets; Z79.84 Long term (current) use of oral hypoglycemic drugs; Z79.01 Long term (current) use of anticoagulants; Z79.82 Long term (current) use of aspirin; Z79.890 Hormone replacement therapy; Z79.899 Other long term (current) drug therapy; Z87.891 Personal history of nicotine dependence; Z85.21 Personal history of malignant neoplasm of larynx; Z95.1 Presence of aortocoronary bypass graft; Z95.5 Presence of coronary angioplasty implant and graft; Z85.46 Personal history of malignant neoplasm of prostate; Z92.3 Personal history of irradiation; Z86.14 Personal history of Methicillin resistant Staphylococcus aureus infection; Z87.19 Personal history of other diseases of the digestive system; Z98.42 Cataract extraction status, left eye; Z98.41 Cataract extraction status, right eye; Z88.6 Allergy status to analgesic agent; Z88.1 Allergy status to other antibiotic agents; Z88.8 Allergy status to other drugs, medicaments and biological substances; Z80.3 Family history of malignant neoplasm of breast; Z82.61 Family history of arthritis; Z82.49 Family history of ischemic heart disease and other diseases of the circulatory system; Z81.1 Family history of alcohol abuse and dependence; Z83.3 Family history of diabetes mellitus; Z83.2 Family history of diseases of the blood and blood-forming organs and certain disorders involving the immune mechanism; Z80.49 Family history of malignant neoplasm of other genital organs
CPT/HCPCS: 36415; 71046; 80048; 80053; 80061; 82550; 82553; 83036; 83735; 84443; 84484; 85025; 85610; 85730; 93005; 93306; 93455; 99285

== ENCOUNTER → 2018-08-05 | Outpatient (CLI) | payer MEDICARE ==
[2018-08-05 16:09] LABS: Albumin 4.2 g/dL (3.80-4.90); Albumin/Globulin Ratio 2.8 (1.20-2.10); Anion Gap 6.7 mmol/L (4.00-12.00); Calcium 9.1 mg/dL (8.7-10.3); Carbon Dioxide 28.3 mmol/L (21.6-31.8); Globulin 1.5 g/dL (2.1-3.7); Potassium 3.5 mmol/L (3.5-5.5); Total Bilirubin 0.9 mg/dL (0.3-1.2); Total Protein 5.7 g/dL (6.2-8.2)
[2018-08-05 17:19] LABS: Hemoglobin A1C 7.7 % (4.0-6.0)
== END | disposition home or self-care (01) ==
LOC: LABWHC1 07:59
PROVIDERS: ATTEND Internal Medicine Geriatric Medicine
DX: E11.42 Type 2 diabetes mellitus with diabetic polyneuropathy (principal)
CPT/HCPCS: 36415; 80053; 83036

== ENCOUNTER → 2018-11-25 | Outpatient (CLI) | payer MEDICARE ==
[2018-11-25 09:21] LABS: Basophils # (A) 0.1 k/uL (0-0.2); Basophils % (A) 1 %; Eosinophils # (A) 0.2 k/uL (0-0.7); Eosinophils % (A) 3 %; HCT 35.6 % (39.0-53.0); HGB 11.5 gm/dL (13.0-17.5); Lymphocytes # (A) 0.6 k/uL (1.0-4.8); Lymphocytes % (A) 10 %; MCHC 32.3 g/dL (31.0-37.0); MCV 89.8 fL (80.0-100.0); Monocytes # (A) 0.6 k/uL (0-1.0); Monocytes % (A) 9 %; Neutrophils # (A) 4.6 k/uL (1.3-7.7); Neutrophils % (A) 74 %; Platelet Count 235 k/uL (150-450); RBC 3.96 m/uL (4.30-5.90); RDW 15.6 % (11.5-15.5); WBC 6.2 k/uL (3.8-10.6)
[2018-11-25 09:22] LABS: INR 2.2 (<1.2); Prothrombin Time 21.8 sec (9.0-12.0)
[2018-11-25 16:26] LABS: T4, Free (Free Thyroxine) 1.2 ng/dL (0.80-1.80)
[2018-11-25 16:38] LABS: Albumin 4.3 g/dL (3.80-4.90); Albumin/Globulin Ratio 2.87 (1.60-3.17); Anion Gap 13.6 mmol/L (4.00-12.00); Calcium 9.4 mg/dL (8.7-10.3); Carbon Dioxide 26.4 mmol/L (21.6-31.8); Globulin 1.5 g/dL (1.6-3.3); LDL Cholesterol,Calculated 30.2 mg/dL (0.0-131.0); Potassium 3.7 mmol/L (3.5-5.5); Total Bilirubin 0.6 mg/dL (0.2-1.2); Total Protein 5.8 g/dL (6.2-8.2); VLDL Calculation 24.8 mg/dL (5.00-40.00)
[2018-11-25 18:46] LABS: Hemoglobin A1C 7.7 % (4.0-6.0)
== END | disposition home or self-care (01) ==
LOC: LABWHC1 08:24
PROVIDERS: ATTEND Internal Medicine Geriatric Medicine
DX: E03.9 Hypothyroidism, unspecified (principal); E11.9 Type 2 diabetes mellitus without complications; I48.2 Chronic atrial fibrillation
CPT/HCPCS: 36415; 80053; 80061; 83036; 84439; 84443; 85025; 85610

== ENCOUNTER 2019-01-27 08:27 | Day surgery (SDC) | payer MEDICARE ==
[2019-01-22 13:22] VITALS: BMI 24.4
--- NOTE | 2019-01-26 21:56 | HP ---
HISTORY AND PHYSICAL CHIEF COMPLAINT: Chronic laryngitis, squamous cell carcinoma of the larynx. HISTORY OF PRESENT ILLNESS: This patient is a pleasant 83-year-old male who was recently seen in my office complaining having recent chronic laryngitis. 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 He has since passed his 5 year anniversary since completion of his radiation and has done well and maintained his weight. Recently he noticed that he was experiencing intermittent laryngitis, which has become more chronic. He denies any dysphagia, referred otalgia or any pain in his throat. Of course, he has not been exposed to any type of tobacco either first-hand or secondhand. At the time that the patient was seen in my office an attempted indirect laryngoscopy was not complete because of a hyperactive gag reflex and a overhanging epiglottis. It was therefore recommend the patient undergo a suspension microlaryngoscopy with possible biopsy of any lesions found in the larynx at the time of the surgery. PAST MEDICAL HISTORY: Past medical history reveals that he has: ALLERGIES: TO TETRACYCLINES, ALBUTEROL, LEVAQUIN, DOXYCYCLINE, COZAAR, OFLOXACIN, and HYDROCHLOROTHIAZIDE. HE IS ALSO ALLERGIC TO ASPIRIN. CURRENT MEDICATIONS: Include Plavix, Norvasc, metoprolol, Xanax, metformin, Amaryl, Januvia, Lasix, Synthroid, Prandin, Prandin, Cardura. He has history of type 1 diabetes mellitus and hypertension and ASHD. REVIEW OF SYSTEMS: CARDIOVASCULAR: Is positive for hypertension and ASHD. RESPIRATORY is negative. GASTROINTESTINAL: Positive for GERD. The patient is currently on Prilosec. METABOLIC, ENDOCRINE system is positive for type 1 diabetes mellitus, hypothyroidism, and hypercholesteremia. MUSCULOSKELETAL SYSTEM is positive for osteoarthritis. The remainder of the review of systems is unremarkable. Additional medications include Prilosec, Imdur, Toviaz, multivitamins, hydralazine, and warfarin. PHYSICAL EXAMINATION: GENERAL: This patient is a very pleasant 83-year-old male who was alert and cooperative. It is interesting to note that this patient on previous surgeries has been noted to be a somewhat difficult intubation because of inability to flex his neck in a slight receding chin line. HEENT examination: Patient is normocephalic. Tympanic membranes are normal. Middle ear spaces are free of any fluid or infection. Pupils equal, round, react to light and accommodation. Extraocular movements are within normal limits. Intranasal examination reveals moderate to severe septal deviation with compensatory hypertrophy of the inferior turbinates and a moderate amount of mucus on the mucous membranes and draining down the posterior pharynx. Examination of oropharynx including indirect laryngoscopy (which is incomplete) reveals no evidence of any suspicious lesions on the right or left piriform sinus or base of tongue or epiglottis. Both true vocal cords are not fully visualized because of the overhanging epiglottis and because of a hyperactive gag reflex. Deep palpation of the neck is negative for neck masses or lymphadenopathy. Cranial nerves 2 through 12 and remainder of the head and neck exam are within normal limits. CHEST/CARDIOVASCULAR: Both lung [place] are clear to percussion and auscultation. The patient is in regular sinus rhythm. S1 and S2 are present. No murmurs S3s or S4s. Peripheral pulses are bilaterally symmetrical and within normal limits. ABDOMEN: There is no evidence of any masses, megaly, or tenderness. Abdomen soft. SKIN is unremarkable. MUSCULOSKELETAL and NEUROLOGICAL are within normal limits. RECTAL examination exam is deferred at this time because the patient has this done on a regular basis at his family physician's office. The remainder of physical exam is unremarkable. 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 PLAN: The patient is scheduled undergo a suspension microlaryngoscopy with possible biopsy of any lesions found in the larynx/hypopharynx under general anesthesia in a.m. Attention RNs in the pre-surgical area: I have not ordered any pre-surgical prophylactic antibiotics for this patient. If the pharmacy department sends any pre- surgical prophylactic antibiotics to the pre-surgical area for this patient, that medication should be returned to the pharmacy and the order should be cancelled. Please make sure that the patient's account is credited appropriately. I have discussed the risks, benefits and alternative therapies for the above-mentioned procedure and for both sedation/analgesia as well as necessary blood product administration, if indicated, as they pertain to this patient. The patient has indicated his or her understanding and acceptance of the risks and procedures discussed. MMODL / IJN: [id number] /
[~2019-01-27 08:27] MED LIST: HYDROmorphone 0.5 MG/0.5 ML SYRINGE IVP PRN; LACTATED RINGERS 1,000 ML IV SCH; MIDAZOLAM 2 MG/2 ML VIAL IV PRN; ONDANSETRON 4 MG/2 ML VIAL IVP ONE; Pre Op ABX Message 1 EACH MISC MISCELLANE ONE
[2019-01-27] MEDS ORDERED: LIDOCAINE 2% (PF) 20 MG/ML 5 ML VIAL INHALATION ONE (08:51)
[2019-01-27] MEDS ORDERED: LIDOCAINE 1% 20 ML VIAL (10MG/ML) FOR IV START INTRADERMA ONE (09:22)
[2019-01-27 09:30] LABS: Glucose,Whole Blood 138 mg/dL (75-99)
[2019-01-27 09:41] LABS: INR 2.7 (<1.2); Prothrombin Time 26.1 sec (9.0-12.0)
[2019-01-27] MEDS ORDERED: DEXAMETHASONE SOD PHOS (MDV) 100 MG/10 ML VIAL ONE (09:56)
[2019-01-27] MEDS ORDERED: GLYCOPYRROLATE 0.2 MG/ML 2 ML VIAL ONE (09:56)
[2019-01-27] MEDS ORDERED: PROPOFOL 10 MG/ML 20 ML VIAL IV ONE (09:56)
[2019-01-27] MEDS ORDERED: SUCCINYLCHOLINE CHLORIDE 100 MG/5 ML SYR IV ONE (09:56)
[2019-01-27] MEDS ORDERED: fentaNYL (PF) 50 MCG/ML 2 ML AMP ONE (09:56)
[2019-01-27] MEDS ORDERED: LIDOCAINE 1% INJ 10MG/ML (20 ML MDV) ONE (09:56)
[2019-01-27] MEDS ORDERED: ROCURONIUM BROMIDE 10 MG/ML 10 ML VIAL IV ONE (09:56)
[2019-01-27] MEDS ORDERED: NEOSTIGMINE 1 MG/ML 10 ML VIAL ONE (09:56)
[2019-01-27 10:49] VITALS: TEMP 97.9
[2019-01-27 11:07] VITALS: RESP 16
[2019-01-27] MEDS ORDERED: LACTATED RINGERS 1,000 ML IV ONE (11:07)
[2019-01-27 11:52] VITALS: BP 122/72; PULSE 47
[2019-01-27 12:02] LABS: Glucose,Whole Blood 122 mg/dL (75-99)
--- NOTE | 2019-01-27 23:41 | OP ---
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 ANESTHESIA: General. OPERATIVE PROCEDURE: Suspension microlaryngoscopy. SURGEON: Dr. Parra. COMPLICATIONS: None. ESTIMATED BLOOD LOSS: Zero. PROCEDURE: The patient was placed on operating table in supine position and after uneventful induction and endotracheal intubation, satisfactory general anesthesia was obtained. Next, the patient was draped in usual customary fashion, following which, the laryngoscope was introduced into the patient's oropharynx in the usual fashion and the entire hypopharynx including the right and left piriform sinuses, base of tongue, vallecula, and epiglottis were inspected and found to be free of any suspicious lesions. It was noted that there was significant mucus pooling and postradiation changes of the mucous membrane. Next, the tip of the laryngoscope was introduced into the introduced into the laryngeal introitus. Next, the Flinto apparatus was attached to the handle of the laryngoscope and the laryngoscope was suspended on the patient's chest. Next, using the Zeiss operating microscope and under magnified visualization, inspection of the patient's larynx proper revealed no suspicious lesions on the right or left true vocal cord. There was, however, some mild erythema of the mucous membranes and soft tissues which may be secondary to the patient's GERD (gastroesophageal reflux disorder). The patient was given 10 mg of Decadron intraoperatively to reduce any postop operative laryngeal edema. At this point, the procedure was terminated. There were no intraoperative complications. No suspicious lesions were found at this examination. The patient tolerated the procedure well and was returned to the recovery room in satisfactory condition. MMODL / IJN: [id number] /
== END 2019-01-27 12:06 | disposition home or self-care (01) ==
LOC: OR 08:27
PROVIDERS: ATTEND Otolaryngology
DX: J37.0 Chronic laryngitis (principal); E10.9 Type 1 diabetes mellitus without complications; I10 Essential (primary) hypertension; I25.10 Atherosclerotic heart disease of native coronary artery without angina pectoris; E03.9 Hypothyroidism, unspecified; M19.90 Unspecified osteoarthritis, unspecified site; E78.00 Pure hypercholesterolemia, unspecified; K21.9 Gastro-esophageal reflux disease without esophagitis; Z92.3 Personal history of irradiation; Z85.21 Personal history of malignant neoplasm of larynx; Z88.6 Allergy status to analgesic agent; Z88.1 Allergy status to other antibiotic agents; Z88.8 Allergy status to other drugs, medicaments and biological substances; Z79.84 Long term (current) use of oral hypoglycemic drugs; Z79.02 Long term (current) use of antithrombotics/antiplatelets; Z79.890 Hormone replacement therapy; Z79.899 Other long term (current) drug therapy
CPT/HCPCS: 94640; 85610; 31526; J2710; J2405; J2001 ×2; J3010; J1100; J0330; J2704

== ENCOUNTER → 2019-03-27 | Outpatient (CLI) | payer MEDICARE ==
[2019-03-27 08:59] LABS: Anisocytosis Slight; Basophils # (A) 0.1 k/uL (0-0.2); Basophils % (A) 1 %; Eosinophils # (A) 0.3 k/uL (0-0.7); Eosinophils % (A) 5 %; HCT 34.4 % (39.0-53.0); HGB 11.3 gm/dL (13.0-17.5); Lymphocytes # (A) 0.7 k/uL (1.0-4.8); Lymphocytes % (A) 11 %; MCH 29.4 pg (25.0-35.0); MCV 89.2 fL (80.0-100.0); Mean Platelet Volume 8.1; Monocytes # (A) 0.6 k/uL (0-1.0); Monocytes % (A) 9 %; Neutrophils # (A) 4.6 k/uL (1.3-7.7); Neutrophils % (A) 71 %; Platelet Count 214 k/uL (150-450); RBC 3.85 m/uL (4.30-5.90); RDW 16.3 % (11.5-15.5); WBC 6.5 k/uL (3.8-10.6)
[2019-03-27 16:49] LABS: T4, Free (Free Thyroxine) 1.3 ng/dL (0.80-1.80)
[2019-03-27 16:55] LABS: African American GFR (CKD) 79.2 (60.0-200.0); Albumin 4.3 g/dL (3.80-4.90); Albumin/Globulin Ratio 2.53 (1.60-3.17); Anion Gap 8.7 mmol/L (4.00-12.00); Calcium 9.1 mg/dL (8.7-10.3); Carbon Dioxide 28.3 mmol/L (21.6-31.8); Globulin 1.7 g/dL (1.6-3.3); LDL Cholesterol,Calculated 28.8 mg/dL (0.0-131.0); Potassium 3.8 mmol/L (3.5-5.5); Total Bilirubin 0.5 mg/dL (0.3-1.2); VLDL Calculation 21.2 mg/dL (5.00-40.00)
[2019-03-27 19:00] LABS: Hemoglobin A1C 7.6 % (4.0-6.0)
== END | disposition home or self-care (01) ==
LOC: LABWHC1 08:01
PROVIDERS: ATTEND Internal Medicine Geriatric Medicine
DX: I25.810 Atherosclerosis of coronary artery bypass graft(s) without angina pectoris (principal); E03.9 Hypothyroidism, unspecified; E78.2 Mixed hyperlipidemia; E11.40 Type 2 diabetes mellitus with diabetic neuropathy, unspecified
CPT/HCPCS: 36415; 80053; 80061; 83036; 84439; 84443; 85025

== ENCOUNTER → 2019-05-28 | Outpatient (CLI) | payer MEDICARE ==
[2019-05-28 16:55] LABS: Anisocytosis Slight; Basophils # (A) 0.1 k/uL (0-0.2); Basophils % (A) 1 %; Eosinophils # (A) 0.3 k/uL (0-0.7); Eosinophils % (A) 4 %; HCT 33.9 % (39.0-53.0); HGB 11.3 gm/dL (13.0-17.5); Lymphocytes # (A) 0.7 k/uL (1.0-4.8); Lymphocytes % (A) 12 %; MCH 29.4 pg (25.0-35.0); MCHC 33.2 g/dL (31.0-37.0); MCV 88.6 fL (80.0-100.0); Mean Platelet Volume 7.6; Monocytes # (A) 0.7 k/uL (0-1.0); Monocytes % (A) 12 %; Neutrophils # (A) 4.2 k/uL (1.3-7.7); Neutrophils % (A) 68 %; Platelet Count 269 k/uL (150-450); RBC 3.83 m/uL (4.30-5.90); WBC 6.2 k/uL (3.8-10.6)
[2019-05-28 23:20] LABS: African American GFR (CKD) 70.6 (60.0-200.0); Albumin 4.3 g/dL (3.80-4.90); Albumin/Globulin Ratio 2.53 (1.60-3.17); Anion Gap 12.2 mmol/L (4.00-12.00); BUN/Creat Ratio 14.55 Ratio (12.00-20.00); Calcium 9.5 mg/dL (8.7-10.3); Carbon Dioxide 27.8 mmol/L (21.6-31.8); Globulin 1.7 g/dL (1.6-3.3); Potassium 3.9 mmol/L (3.5-5.5); Total Bilirubin 0.5 mg/dL (0.2-1.2)
--- NOTE | 2019-05-29 18:08 | XR ---
EXAMINATION TYPE: XR chest 2V DATE OF EXAM: 05/28/2019 COMPARISON: 06/17/2018 HISTORY: Cough and congestion TECHNIQUE: Frontal and lateral views of the chest are obtained. FINDINGS: There is increased coarse interstitial density in the left lung compared to the right. The re is no heart failure. There is no pleural effusion. There are sternal wires. There is slight anteri or wedging of mid thoracic vertebra. Unchanged. There is osteopenia. IMPRESSION: Slight increased interstitial density on the left side compared to old exam consistent w ith mild interstitial pneumonia. No heart failure seen.
== END | disposition home or self-care (01) ==
LOC: LABWHC1 15:35
PROVIDERS: ATTEND Nurse Practitioner Family
DX: J98.4 Other disorders of lung (principal); J06.9 Acute upper respiratory infection, unspecified
CPT/HCPCS: 36415; 71046; 80053; 85025

== ENCOUNTER → 2019-07-15 | Outpatient (CLI) | payer MEDICARE ==
[2019-07-15 16:49] LABS: African American GFR (CKD) 79.2 (60.0-200.0); Albumin 4.1 g/dL (3.80-4.90); Albumin/Globulin Ratio 2.41 (1.60-3.17); Anion Gap 8.1 mmol/L (4.00-12.00); Calcium 8.8 mg/dL (8.7-10.3); Carbon Dioxide 28.9 mmol/L (21.6-31.8); Chol/HDL Ratio 2.19; Globulin 1.7 g/dL (1.6-3.3); LDL Cholesterol,Calculated 28.4 mg/dL (0.0-131.0); Potassium 3.8 mmol/L (3.5-5.5); Total Bilirubin 0.7 mg/dL (0.3-1.2); Total Protein 5.8 g/dL (6.2-8.2); VLDL Calculation 15.6 mg/dL (5.00-40.00)
[2019-07-15 17:27] LABS: Hemoglobin A1C 7.6 % (4.0-6.0)
== END | disposition home or self-care (01) ==
LOC: LABWHC1 09:17
PROVIDERS: ATTEND Internal Medicine Geriatric Medicine
DX: Z00.00 Encounter for general adult medical examination without abnormal findings (principal); E11.42 Type 2 diabetes mellitus with diabetic polyneuropathy; I48.0 Paroxysmal atrial fibrillation
CPT/HCPCS: 36415; 80053; 80061; 83036; 84443

== ENCOUNTER → 2019-07-24 | Outpatient (CLI) | payer MEDICARE ==
--- NOTE | 2019-07-24 15:10 | XR ---
EXAMINATION TYPE: XR chest 2V DATE OF EXAM: 07/24/2019 COMPARISON: NONE HISTORY: Shortness of breath TECHNIQUE: Frontal and lateral views of the chest are obtained. FINDINGS: Scattered senescent parenchymal changes noted. Hyperinflation compatible with COPD. Left hilar mass with Large left upper lobe opacity ,retraction of the left hemidiaphragm and left ple ural effusion. Suspect underlying neoplasm with associated volume loss. Postobstructive pneumonitis n ot excluded. CT of the chest is recommended. Heart size is stable. Mediastinal structures are stable and grossly unremarkable. No evidence for hilar prominence. Degenerative changes dorsal spine. IMPRESSION: 1. Left hilar mass with Large left upper lobe opacity ,retraction of the left hemidiaphragm and left pleural effusion. Suspect underlying neoplasm with associated volume loss. Postobstructive pneumoniti s not excluded. CT of the chest is recommended.
== END | disposition home or self-care (01) ==
LOC: RADXRMAIN 14:35
PROVIDERS: ATTEND Internal Medicine Geriatric Medicine
DX: J90 Pleural effusion, not elsewhere classified (principal); R91.8 Other nonspecific abnormal finding of lung field; J98.59 Other diseases of mediastinum, not elsewhere classified
CPT/HCPCS: 71046

== ENCOUNTER → 2019-07-30 | Outpatient (CLI) | payer MEDICARE ==
[2019-07-30 10:59] LABS: African American GFR (CKD) >90 (>60 ml/min/1.73 sqM); Blood Urea Nitrogen 13 mg/dL (9-20); Non-African American GFR(CKD) 78 (>60 ml/min/1.73 sqM)
--- NOTE | 2019-07-30 12:03 | CT ---
EXAMINATION TYPE: CT chest w con DATE OF EXAM: 07/30/2019 COMPARISON: 08/31/2014 HISTORY: Worsening pneumonia, unresponsive to treatment CT DLP: 347.2 mGycm Automated exposure control for dose reduction was used. CONTRAST: CT scan of the chest is performed with IV Contrast, patient injected with 100 mL of Isovue 300. FINDINGS: LUNGS: There is a large area of left upper lobe consolidation extending to the hilum. Air bronchogram s are noted. Small moderate left-sided pleural effusion noted. There is a 1 cm pleural based nodule right middle lobe. Underlying COPD suspected. Additional areas of subsegmental consolidation are more typical of atelect asis. MEDIASTINUM: Heart is enlarged and there is dense coronary artery calcification. Small pericardial ef fusion is seen and there are sternotomy wires atherosclerotic change aorta. OTHER: Kyphosis of the spine with hypertrophic and degenerative changes noted. Bilateral adrenal gla nd nodularity measuring approximately 1.2 cm. IMPRESSION: 1. Large area of consolidation involving the left upper lobe extending to the left hilum. Air broncho grams are seen in the artery may be related to narrowing of the secondary branch of the left upper lo be bronchus. This could be related to the inflammatory change or atelectasis. Neoplastic process not excluded consider bronchoscopy. 2. Small to moderate left pleural effusion. 3. There is a 1 cm peripheral based right middle lobe nodule which does have somewhat irregular borde rs for which PET scan is recommended to assess for malignancy. 4. Global cardiomegaly with dense coronary artery calcification. 5. Nonspecific bilateral adrenal gland nodularity measuring approximately 1.2 cm 2 small to character ize.
== END | disposition home or self-care (01) ==
LOC: RADCTMAIN 10:07
PROVIDERS: ATTEND Internal Medicine Geriatric Medicine
DX: J90 Pleural effusion, not elsewhere classified (principal); I25.10 Atherosclerotic heart disease of native coronary artery without angina pectoris; I11.0 Hypertensive heart disease with heart failure; I50.9 Heart failure, unspecified
CPT/HCPCS: 82565; 84520; 71260; 36415; Q9967

== ENCOUNTER 2019-08-12 08:27 | Inpatient (IN) | payer MEDICARE ==
--- NOTE | 2019-08-12 09:44 | ED ---
Chest Pain HPI - General Chief Complaint: Chest Pain Stated Complaint: Chest pressure Time Seen by Provider: 08/12/19 08:30 Source: patient, EMS Mode of arrival: EMS Limitations: no limitations - History of Present Illness Initial Comments: The patient is an 83-year-old male past history of coronary artery disease with bypass, diabetes, hypertension and hyperlipidemia presents to emergency room with reported chest pain. The patient states that the pain came on this morning after he had awoken from sleep. He describes it as chest pressure with asso ciated shortness of breath. History of CABG with stent placement. States that he normally does not get chest pain. Admits to a nonproductive cough and chills. No recent travel or sick contacts. He does have a known left upper lobe mass. He was supposed to be seen by Dr. Morgan today in office however because the symptoms called EMS instead. He is on Coumadin for A. fib. Denies missing any doses. The calf pain or swelling. No history of DVT or PE. Denies any nausea or vomiting. No hemoptysis. Patient did take 2 of his nitro at home which took his pain from a 7 to 0. He arrives and is saturating 84% on room air. He denies oxygen at home. There are no other alleviating, precipitating or modifying factors - Related Data Home Medications Medication Instructions Recorded Confirmed Levothyroxine Sodium [Synthroid] 88 mcg PO MOTUWETHFRSA 01/30/14 08/12/19 Multivitamins, Thera [Multivitamin 1 tab PO DAILY@1700 01/30/14 08/12/19 (formulary)] metFORMIN HCL [Glucophage] 1,000 mg PO DAILY@17001/30/14 08/12/19 Fesoterodine Fumarate [Toviaz] 4 mg PO DAILY@1700 08/19/14 08/12/19 hydrALAZINE HCL [Apresoline] 100 mg PO TID@0800,1700,2200 08/19/14 08/12/19 ALPRAZolam [Xanax] 0.25 mg PO BID@0800,2200 08/28/15 08/12/19 Furosemide [Lasix] 20 mg PO DAILY@0800 08/28/15 08/12/19 metFORMIN HCL [Glucophage] 500 mg PO DAILY@0800 08/28/15 08/12/19 Isosorbide Mononitrate ER [Imdur] 60 mg PO DAILY@1700 03/29/16 08/12/19 Melatonin 5 mg PO HS 03/29/16 08/12/19 sitaGLIPtin [Januvia] 100 mg PO DAILY@0800 09/17/16 08/12/19 Warfarin [Coumadin] 7.5 mg PO SUTUTHFRSA 06/17/18 08/12/19 Repaglinide [Prandin] 1 mg PO DAILY 01/22/19 08/12/19 Atorvastatin [Lipitor] 40 mg PO HS@2200 08/12/19 08/12/19 Metoprolol Tartrate [Lopressor] 50 mg PO BID 08/12/19 08/12/19 Pantoprazole Sodium [Protonix] 40 mg PO DAILY@0800 08/12/19 08/12/19 Warfarin [Coumadin] 3.75 mg PO MOWE 08/12/19 08/12/19 amLODIPine [Norvasc] 2.5 mg PO BID@0800,2200 08/12/19 08/12/19 Previous Rx's Medication Instructions Recorded Clopidogrel [Plavix] 75 mg PO DAILY #30 tab 09/20/16 Doxazosin [Cardura] 4 mg PO DAILY #30 tab 06/20/18 Amoxicillin/Potassium Clav 1 each PO Q12HR #20 tab 08/16/19 [Augmentin 875-125 Tablet] Docusate [Colace] 100 mg PO BID cap 08/16/19 predniSONE 0 mg PO DIRECTED #30 tab 08/16/19 Allergies Allergy/AdvReac Type Severity Reaction Status Date / Time clonidine HCl [From Catapres] Allergy facial Verified 08/12/19 09:25 swelling hydrochlorothiazide Allergy Anaphylaxis Verified 08/12/19 09:25 levofloxacin [From Levaquin] Allergy facial and Verified 08/12/19 09:25 neck swelling losartan potassium Allergy Anaphylaxis Verified 08/12/19 09:25 [From Cozaar] albuterol AdvReac Severe tachycardia Verified 08/12/19 09:25 MLEISSA Inhibitors AdvReac Angioedema Verified 08/12/19 09:25 aspirin AdvReac angioedema Verified 08/12/19 09:25 doxycycline AdvReac SHORTNESS Verified 08/12/19 09:25 OF BREATH flurbiprofen AdvReac angioedema Verified 08/12/19 09:25 ofloxacin AdvReac angioedema Verified 08/12/19 09:25 rivaroxaban [From Xarelto] AdvReac gi bleed Verified 08/12/19 09:25 Tetracyclines AdvReac Swelling Verified 08/12/19 09:25 FEATHERS AdvReac SINUS Uncoded 08/12/19 09:25 DRAINAGE NOSE AND EYES Review of Systems ROS Statement: Those systems with pertinent positive or pertinent negative responses have been documented in the HPI. ROS Other: All systems not noted in ROS Statement are negative. EKG Findings - EKG Comments: EKG Findings:: EKG demonstrates H fibrillation with a rate of 91. QRS 90. QTC of 462. No acute ST segment elevations or depressions concerning for ischemic changes. EKG compared to old EKG and appears with similar morphology Past Medical History Past Medical History: Atrial Fibrillation, Coronary Artery Disease (CAD), Cancer, Diabetes Mellitus, Hyperlipidemia, Hypertension, Myocardial Infarction (NC), Thyroid Disorder Additional Past Medical History / Comment(s): current hoarseness, dysphagia, hx vocal cord ca(tx with radiation) 2009 and PROSTATE CANCER 2001, varicose veins, Cobb's esophagus, wears brace on left ankle, uses a cane Last Myocardial Infarction Date:: unknown History of Any Multi-Drug Resistant Organisms: MRSA Date of last positivie culture/infection: 01/15/2012 MDRO Source:: Unknown Past Surgical History: Coronary Bypass/CABG, Heart Catheterization With Stent Additional Past Surgical History / Comment(s): vocal cord biopsy with vocal cord [id number], total 6-7 stents, philipp cataracts, cardioversion Past Anesthesia/Blood Transfusion Reactions: Previous Problems w/ Anesthesia Additional Past Anesthesia/Blood Transfusion Reaction / Comment(s): hx diff intubation with previous vocal cord surgery Date of Last Stent Placement:: ?2017 Past Psychological History: Anxiety Smoking Status: Former smoker - Past Family History Sister(s) Family Medical History: Cancer Additional Family Medical History / Comment(s): Patient has one sister that is 89 years old with history of breast cancer and osteoarthritis of the knees. Father Family Medical History: Deep Vein Thrombosis (DVT) Additional Family Medical History / Comment(s): Father at age 75 with history of diabetes, coronary artery disease, pacemaker. Brother(s) Family Medical History: Coronary Artery Disease (CAD) Additional Family Medical History / Comment(s): He has one brother that has with history of coronary artery disease and alcohol abuse. Mother Family Medical History: Cancer Additional Family Medical History / Comment(s): Mother at age 39 from cervical cancer. General Exam Limitations: no limitations General appearance: alert, in no apparent distress Head exam: Present: atraumatic, normocephalic, normal inspection Eye exam: Present: normal appearance, PERRL, EOMI. Absent: scleral icterus, conjunctival injection, periorbital swelling ENT exam: Present: normal exam, mucous membranes moist Neck exam: Present: normal inspection. Absent: tenderness, meningismus, lymphadenopathy Respiratory exam: Present: wheezes, rales, accessory muscle use, decreased breath sounds (on the left). Absent: respiratory distress, rhonchi, stridor Cardiovascular Exam: Present: regular rate, normal rhythm, normal heart sounds. Absent: systolic murmur, diastolic murmur, rubs, gallop, clicks GI/Abdominal exam: Present: soft, normal bowel sounds. Absent: distended, tenderness, guarding, rebound, rigid Extremities exam: Present: normal inspection, full ROM, normal capillary refill. Absent: tenderness, pedal edema, joint swelling, calf tenderness Back exam: Present: normal inspection Neurological exam: Present: alert, oriented X3, CN II-XII intact Psychiatric exam: Present: normal affect, normal mood Skin exam: Present: warm, dry, intact, normal color. Absent: rash Course Vital Signs 08/12/19 08/12/19 08/12/19 08:28 09:26 10:00 Temperature 97.9 F Pulse Rate 84 82 Respiratory 20 18 20 Rate Blood Pressure 137/98 139/81 O2 Sat by Pulse 91 L 94 L Oximetry 08/12/19 08/12/19 11:00 13:30 Temperature Pulse Rate 81 87 Respiratory 18 20 Rate Blood Pressure 126/81 O2 Sat by Pulse 92 L 93 L Oximetry Chest Pain MDM - MDM Plan the patient is placed into room 8. A thorough history and physical exam is performed. He is saturating 84% on room air and therefore is placed on 5 L of oxygen. Peripheral IV is established by EMS. He is pain-free at this time. I did recommend laboratory studies which demonstrated a hemoglobin 11.1. INR is subtherapeutic at 1.9. Sodium low at 126 and a chloride of 89. Creatinine is 0.6. Magnesium 1.4. BNP 1240. Troponin is negative. Chest x-ray does demonstrate worsening moderate sized left pleural effusion worsening left hilar masslike consolidation with an underlying central neoplasm possible new right medial basilar infiltrate and/or atelectasis. I did recommend hospital admission for which the patient did agree. A call discuss case with Dr. Mcknight who accepted admission. He does request I order ultrasound for thoracentesis an d place Dr. Graves on consult. I do provide the patient with antibiotics and steroids. He is unable to receive breathing treatments because of this history of reaction to albuterol. I will hold his Coumadin for planned procedure. He will be allowed to eat today. The patient remained in stable condition awaiting transport to the floor Disposition Clinical Impression: Hypoxia, Pleural effusion, Chest pain, Pneumonia Disposition: ADMITTED IP TO THIS HOSP Condition: Good Is patient prescribed a controlled substance at d/c from ED?: No Decision to Admit Reason: Admit from EC Decision Date: 08/12/19 Decision Time: 12:39
[2019-08-12 10:03] LABS: Basophils % (A) 0 %; Eosinophils # (A) 0.1 k/uL (0-0.7); Eosinophils % (A) 1 %; HCT 33.6 % (39.0-53.0); HGB 11.1 gm/dL (13.0-17.5); Lymphocytes # (A) 0.4 k/uL (1.0-4.8); Lymphocytes % (A) 4 %; MCH 28.4 pg (25.0-35.0); MCV 86.2 fL (80.0-100.0); Mean Platelet Volume 6.7; Monocytes # (A) 0.8 k/uL (0-1.0); Monocytes % (A) 9 %; Neutrophils # (A) 7.4 k/uL (1.3-7.7); Neutrophils % (A) 84 %; Platelet Count 335 k/uL (150-450); RDW 15.3 % (11.5-15.5); WBC 8.8 k/uL (3.8-10.6)
[2019-08-12 10:14] LABS: ALT 20 U/L (21-72); AST 29 U/L (17-59); African American GFR (CKD) >90 (>60 ml/min/1.73 sqM); Albumin 3.6 g/dL (3.5-5.0); Alkaline Phosphatase 75 U/L (38-126); Anion Gap 12 mmol/L; Blood Urea Nitrogen 12 mg/dL (9-20); Calcium 8.9 mg/dL (8.4-10.2); Carbon Dioxide 25 mmol/L (22-30); Chloride 89 mmol/L (98-107); Glucose 188 mg/dL (74-99); Magnesium 1.4 mg/dL (1.6-2.3); Non-African American GFR(CKD) 89 (>60 ml/min/1.73 sqM); Sodium 126 mmol/L (137-145); Total Bilirubin 1.1 mg/dL (0.2-1.3); Total Protein 6.4 g/dL (6.3-8.2)
[2019-08-12 10:16] LABS: Potassium 4.5 mmol/L (3.5-5.1)
--- NOTE | 2019-08-12 10:23 | XR ---
EXAMINATION TYPE: XR chest 2V DATE OF EXAM: 08/12/2019 COMPARISON: Chest x-ray July 24, 2019. CT chest July 30, 2019 And older studies. HISTORY: Chest pain and hypoxia. TECHNIQUE: Frontal and lateral views of the chest are obtained. FINDINGS: There is Chronic emphysematous change with moderate left-sided pleural effusion both increased in size from pr ior and persistent left suprahilar masslike consolidation. Underlying central mass or neoplasm needs to be considered. New right medial basilar acute infiltrate and atelectasis. Overlying sternal wires and mediastinal clips redemonstrated. The cardiac silhouette size remains enlarged with atherosclerot ic aorta. The osseous structures are intact. IMPRESSION: Worsening moderate size left pleural effusion. Worsening left suprahilar masslike consol idation, underlying central neoplasm excluded. New right medial basilar infiltrate and/or atelectasis and chronic emphysematous change along with cardiomegaly are all redemonstrated.
[2019-08-12 10:58] LABS: D-Dimer 0.48 mg/L FEU (<0.60); INR 1.9 (<1.2); Partial Thromboplastin Time 37.5 sec (22.0-30.0); Prothrombin Time 18.4 sec (9.0-12.0)
[2019-08-12] MEDS ORDERED: methylPREDNISolone SOD SUCCI 125 MG/2 ML VIAL IV STA (12:39)
[2019-08-12] MEDS ORDERED: NALOXONE 0.4 MG/ML 1 ML VIAL IV PRN (12:41)
[2019-08-12] MEDS ORDERED: VANCOMYCIN 1,500 MG in SODIUM CHLORIDE 0.9% 250 ML IVPB STA (12:49)
[2019-08-12 17:38] LABS: Glucose,Whole Blood 234 mg/dL (75-99)
[2019-08-12] MEDS: INSULIN ASPART (NovoLOG) 100 UNIT/ML VIAL SQ SCH ×2 (17:46→21:14)
[2019-08-12] MEDS: ISOSORBIDE MONONITRATE ER 60 MG TAB.ER.24H PO SCH (17:47)
[2019-08-12] MEDS: hydrALAZINE HCL 50 MG TAB PO SCH ×2 (17:47→21:06)
[2019-08-12] MEDS: PIPERACILLIN-TAZOBACTAM 3.375 GM in SODIUM CHLORIDE 0.9% 100 ML IVPB SCH ×2 (17:49→23:21)
[2019-08-12] MEDS: methylPREDNISolone SOD SUCCI 40 MG/ML 1 ML VIAL IV SCH ×2 (17:50→23:11)
[2019-08-12] MEDS: LEVOTHYROXINE 88 MCG TAB PO SCH (17:51)
[2019-08-12] MEDS ORDERED: Magnesium Replacement Protocol 1 EACH MISC MISCELLANE PRN (18:27)
[2019-08-12 20:40] LABS: Glucose,Whole Blood 281 mg/dL (75-99)
[2019-08-12] MEDS: MAGNESIUM SULFATE-D5W PMX 1 GM in DEXTROSE/WATER 1 100ML.BAG IVPB SCH ×2 (21:06→23:12)
[2019-08-12] MEDS: ALPRAZolam 0.25 MG TAB PO SCH (21:06)
[2019-08-12] MEDS: amLODIPine 2.5 MG TAB PO SCH (21:06)
[2019-08-12] MEDS: ATORVASTATIN 40 MG TAB PO SCH (21:06)
[2019-08-12] MEDS: METOPROLOL TARTRATE 50 MG TAB PO SCH (21:06)
[2019-08-12] MEDS: TROSPIUM CHLORIDE 20 MG TABLET PO SCH (21:14)
[2019-08-13] MEDS: VANCOMYCIN 1,500 MG in SODIUM CHLORIDE 0.9% 250 ML IVPB SCH ×3 (00:54→23:37)
[2019-08-13 06:14] LABS: Basophils % (A) 0 %; Eosinophils % (A) 0 %; HCT 32.4 % (39.0-53.0); HGB 10.9 gm/dL (13.0-17.5); Lymphocytes # (A) 0.3 k/uL (1.0-4.8); Lymphocytes % (A) 4 %; MCH 28.8 pg (25.0-35.0); MCHC 33.7 g/dL (31.0-37.0); MCV 85.6 fL (80.0-100.0); Mean Platelet Volume 5.9; Monocytes # (A) 0.3 k/uL (0-1.0); Monocytes % (A) 4 %; Neutrophils # (A) 6.7 k/uL (1.3-7.7); Neutrophils % (A) 91 %; Platelet Count 364 k/uL (150-450); RBC 3.78 m/uL (4.30-5.90); RDW 15.1 % (11.5-15.5); WBC 7.3 k/uL (3.8-10.6)
[2019-08-13 06:22] LABS: Glucose,Whole Blood 223 mg/dL (75-99)
[2019-08-13 06:23] LABS: INR 1.8 (<1.2); Prothrombin Time 17.4 sec (9.0-12.0)
[2019-08-13 06:34] LABS: African American GFR (CKD) >90 (>60 ml/min/1.73 sqM); Anion Gap 9 mmol/L; Blood Urea Nitrogen 16 mg/dL (9-20); Calcium 8.7 mg/dL (8.4-10.2); Carbon Dioxide 27 mmol/L (22-30); Chloride 90 mmol/L (98-107); Glucose 220 mg/dL (74-99); Magnesium 1.9 mg/dL (1.6-2.3); Non-African American GFR(CKD) 86 (>60 ml/min/1.73 sqM); Potassium 4.8 mmol/L (3.5-5.1); Sodium 126 mmol/L (137-145)
[2019-08-13] MEDS: MAGNESIUM SULFATE-D5W PMX 1 GM in DEXTROSE/WATER 1 100ML.BAG IVPB SCH ×3 (06:50→10:23)
[2019-08-13] MEDS: REPAGLINIDE 1 MG TAB PO SCH (06:56)
[2019-08-13] MEDS: LEVOTHYROXINE 88 MCG TAB PO SCH (06:56)
[2019-08-13] MEDS: INSULIN ASPART (NovoLOG) 100 UNIT/ML VIAL SQ SCH ×4 (06:57→20:36)
--- NOTE | 2019-08-13 08:06 | US ---
EXAMINATION TYPE: US chest DATE OF EXAM: 08/13/2019 COMPARISON: NONE CLINICAL HISTORY: Markings for thoracentesis by pulmonary staff. TECHNIQUE: Targeted ultrasound of the posterior lower bilateral hemithoraces EXAM MEASUREMENTS: Left Pleural Effusion pocket size: 12.8 cm Left skin surface to fluid distance: 2.0 cm Right side NOT marked for possible thoracentesis outside the dept. Left side marked for possible thoracentesis outside the dept. Pulmonologists are able to review the images in the patient?s EMR. IMPRESSIONS: Recurrent left pleural effusion, moderate. No significant right pleural effusion.
[2019-08-13] MEDS ORDERED: PHYTONADIONE ORAL 5 MG/5 ML ORAL.SYRG PO STA (08:38)
[2019-08-13] MEDS: FUROSEMIDE 20 MG TAB PO SCH (09:29)
[2019-08-13] MEDS: PANTOPRAZOLE 40 MG TABLET PO SCH (09:29)
[2019-08-13] MEDS: METOPROLOL TARTRATE 50 MG TAB PO SCH ×2 (09:29→20:36)
[2019-08-13] MEDS: LINAGLIPTIN 5 MG TABLET PO SCH (09:29)
[2019-08-13] MEDS: hydrALAZINE HCL 50 MG TAB PO SCH ×3 (09:30→20:36)
[2019-08-13] MEDS: ALPRAZolam 0.25 MG TAB PO SCH ×2 (09:30→20:37)
[2019-08-13] MEDS: DOXAZOSIN 4 MG TAB PO SCH (09:30)
[2019-08-13] MEDS: methylPREDNISolone SOD SUCCI 40 MG/ML 1 ML VIAL IV SCH ×3 (09:30→23:31)
[2019-08-13] MEDS: PIPERACILLIN-TAZOBACTAM 3.375 GM in SODIUM CHLORIDE 0.9% 100 ML IVPB SCH ×3 (09:31→23:33)
[2019-08-13] MEDS: amLODIPine 2.5 MG TAB PO SCH ×2 (09:43→20:36)
--- NOTE | 2019-08-13 11:58 | P.CNPUL ---
History of Present Illness Consult date: 08/13/19 Requesting physician: Ray Corona Reason for consult: dyspnea, pleural effusion, abnormal CXR/CT Chief complaint: Shortness of breath, chest pain History of present illness: This 83-year-old white male patient of Dr. Corona, with past medical history of chronic atrial fibrillation on Coumadin, coronary artery disease with previous bypass grafting, diabetes mellitus with peripheral neuropathy, hypothyroidism, hypercholesterolemia, BPH, osteoarthritis, remote history of smoking, in remission for the last 60 years, did smoke for approximately 20 years, 1 pack a day, denies any history of chronic lung disease. Patient was seen by his primary care physician with complaints of cough, and left upper lobe lung mass was found on diagnostic imaging and patient was referred to Dr. Morgan for possi ble bronchoscopy and biopsy. Patient actually had an appointment with Dr. Morgan yesterday on 08/12/2019, however in view of his increasing shortness of breath and chest pain he ended up, to the emergency department. Patient has had a nonproductive cough and chills, denies any hemoptysis. In addition he has been having chest pain at home and has been taking nitro. His pulse ox is 84% on room air and he normally does not wear oxygen. 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 Parra. Chest x-ray in the ER showed a worsening moderate-sized left pleural effusion, and worsening left suprahilar masslike consolidation underlying central neoplasm not excluded, new right medial basilar infiltrate and/or atelectasis. Lab work showed no leukocytosis, white blood cell count was 8.8, hemoglobin 11.1, INR is 1.9, d-dimer was negative at 0.48, sodium was 126, potassium is 4.5, chloride was 89, CO2 is 25, BUN is 12 creatinine 0.65, magnesium was 1.4, AST is 29, ALT was 20, alk phos was 75, troponins negative 3, proBNP was 1240. Ultrasound of the chest was completed showing left pleural effusion pocket of 12.8 cm. Review of Systems All systems: negative Constitutional: Reports chills, Denies fever Eyes: denies blurred vision, denies pain Ears, nose, mouth and throat: Denies headache, Denies sore throat Cardiovascular: Reports chest pain, Reports irregular heart beat, Denies shortness of breath Respiratory: Reports dyspnea, Denies cough Gastrointestinal: Denies abdominal pain, Denies diarrhea, Denies nausea, Denies vomiting Musculoskeletal: Denies myalgias Integumentary: Denies pruritus, Denies rash Neurological: Denies numbness, Denies weakness Psychiatric: Denies anxiety, Denies depression Endocrine: Denies fatigue, Denies weight change Past Medical History Past Medical History: Atrial Fibrillation, Coronary Artery Disease (CAD), Cancer, Diabetes Mellitus, GERD/Reflux, GI Bleed, Hyperlipidemia, Hypertension, Myocardial Infarction (AK), Pneumonia, Thyroid Disorder, Vascular Disorder Additional Past Medical History / Comment(s): 2009 R vocal cord cancer with radiation, occasional dysphagia, Cobb's esophagus, peptic ulcer, lower GI bleed, 2001 prostate cancer with surgery, NIDDM type II, bronchitis, varicosities. Last Myocardial Infarction Date:: 2016 History of Any Multi-Drug Resistant Organisms: MRSA Date of last positivie culture/infection: 01/15/2012 MDRO Source:: lung Past Surgical History: Adenoidectomy, Coronary Bypass/CABG, Heart Catheterization, Heart Catheterization With Stent, Hernia Repair, Prostate Surgery, Tonsillectomy Additional Past Surgical History / Comment(s): R vocal cord biopsy, microlaryngoscopies, triple endoscopy, 2011 CABG 3 vessel, PCIs with stents, cardioversions x 2, prostatectomy, philipp cataracts, EGD, colonoscopy, bilateral cataract removals/lens implants, Past Anesthesia/Blood Transfusion Reactions: Previous Problems w/ Anesthesia Additional Past Anesthesia/Blood Transfusion Reaction / Comment(s): hx diff [facility] with previous vocal cord surgery Date of Last Stent Placement:: 2016 Smoking Status: Former smoker - Past Family History Sister(s) Family Medical History: Cancer, Osteoarthritis (OA) Additional Family Medical History / Comment(s): Patient has one sister that is 84 years old with history of breast cancer and osteoarthritis of the knees. Father Family Medical History: Coronary Artery Disease (CAD), Diabetes Mellitus, Deep Vein Thrombosis (DVT) Additional Family Medical History / Comment(s): Father at age 75 with history of diabetes, coronary artery disease, pacemaker. Brother(s) Family Medical History: Coronary Artery Disease (CAD) Additional Family Medical History / Comment(s): He has one brother that has with history of coronary artery disease and alcohol abuse. Mother Family Medical History: Cancer Additional Family Medical History / Comment(s): Mother at age 39 from cervical cancer. Medications and Allergies Home Medications Medication Instructions Recorded Confirmed Type Levothyroxine Sodium [Synthroid] 88 mcg PO MOTUWETHFRSA 01/30/14 08/12/19 History Multivitamins, Thera [Multivitamin 1 tab PO DAILY@1700 01/30/14 08/12/19 History (formulary)] metFORMIN HCL [Glucophage] 1,000 mg PO DAILY@1700 01/30/14 08/12/19 History Fesoterodine Fumarate [Toviaz] 4 mg PO DAILY@1700 08/19/14 08/12/19 History hydrALAZINE HCL [Apresoline] 100 mg PO TID@0800,1700,2200 08/19/14 08/12/19 History ALPRAZolam [Xanax] 0.25 mg PO BID@0800,2200 08/28/15 08/12/19 History Furosemide [Lasix] 20 mg PO DAILY@0800 08/28/15 08/12/19 History metFORMIN HCL [Glucophage] 500 mg PO DAILY@0800 08/28/15 08/12/19 History Isosorbide Mononitrate ER [Imdur] 60 mg PO DAILY@1700 03/29/16 08/12/19 History Melatonin 5 mg PO HS 03/29/16 08/12/19 History sitaGLIPtin [Januvia] 100 mg PO DAILY@0800 09/17/16 08/12/19 History Clopidogrel [Plavix] 75 mg PO DAILY #30 tab 09/20/16 08/12/19 Rx Warfarin [Coumadin] 7.5 mg PO SUTUTHFRSA 06/17/18 08/12/19 History Doxazosin [Cardura] 4 mg PO DAILY #30 tab 06/20/18 08/12/19 Rx Repaglinide [Prandin] 1 mg PO DAILY 01/22/19 08/12/19 History Atorvastatin [Lipitor] 40 mg PO HS@2200 08/12/19 08/12/19 History Metoprolol Tartrate [Lopressor] 50 mg PO BID 08/12/19 08/12/19 History Pantoprazole Sodium [Protonix] 40 mg PO DAILY@0800 08/12/19 08/12/19 History Warfarin [Coumadin] 3.75 mg PO MOWE 08/12/19 08/12/19 History amLODIPine [Norvasc] 2.5 mg PO BID@0800,2200 08/12/19 08/12/19 History Allergies Allergy/AdvReac Type Severity Reaction Status Date / Time clonidine HCl [From Catapres] Allergy facial Verified 08/12/19 09:25 swelling hydrochlorothiazide Allergy Anaphylaxis Verified 08/12/19 09:25 levofloxacin [From Levaquin] Allergy facial and Verified 08/12/19 09:25 neck swelling losartan potassium Allergy Anaphylaxis Verified 08/12/19 09:25 [From Cozaar] albuterol AdvReac Severe tachycardia Verified 08/12/19 09:25 MELISSA Inhibitors AdvReac Angioedema Verified 08/12/19 09:25 aspirin AdvReac angioedema Verified 08/12/19 09:25 doxycycline AdvReac SHORTNESS Verified 08/12/19 09:25 OF BREATH flurbiprofen AdvReac angioedema Verified 08/12/19 09:25 ofloxacin AdvReac angioedema Verified 08/12/19 09:25 rivaroxaban [From Xarelto] AdvReac gi bleed Verified 08/12/19 09:25 Tetracyclines AdvReac Swelling Verified 08/12/19 09:25 FEATHERS AdvReac SINUS Uncoded 08/12/19 09:25 DRAINAGE NOSE AND EYES Physical Exam Vitals: Vital Signs Temp Pulse Pulse Resp BP BP Pulse Ox 08/13/19 04:00 98.7 F 92 17 116/77 93 L 08/13/19 00:00 98.5 F 83 20 125/77 92 L 08/12/19 20:00 98.8 F 102 H 22 135/78 90 L 08/12/19 16:00 97.5 F L 87 22 154/94 93 L 08/12/19 15:05 82 20 132/86 92 L 08/12/19 13:30 87 20 126/81 93 L Intake and Output 08/12/19 08/13/19 08/13/19 22:59 06:59 14:59 Intake Total 790 480 Output Total 400 200 Balance -400 590 480 Intake: Intake, IV Titration 550 Amount Magnesium Sulfate-D5w Pmx 200 1 gm In Dextrose/Water 1 100ml.bag @ 100 mls/hr IVPB Q1H NIYAH Rx#: [id number] Piperacillin-Tazobactam 3 100 .375 gm In Sodium Chloride 0.9% 100 ml @ 25 mls/hr IVPB Q8HR NIYAH Rx# :[id number] Vancomycin 1,500 mg In 250 Sodium Chloride 0.9% 250 ml @ 125 mls/hr IVPB Q12H NIYAH Rx#:[id number] Oral 240 480 Output: Urine 400 200 Other: Voiding Method Urinal Toilet Urinal # Voids 1 4 # Bowel Movements 1 Weight 79.2 kg GENERAL EXAM: Alert, very pleasant, 83-year-old white male, on 6 L of oxygen with a pulse ox of 93%, mildly short of breath with conversation comfortable in no apparent distress. HEAD: Normocephalic/atraumatic. EYES: Normal reaction of pupils, equal size. Conjunctiva pink, sclera white. NOSE: Clear with pink turbinates. THROAT: No erythema or exudates. NECK: No masses, no JVD, no thyroid enlargement, no adenopathy. Possible shotty adenopathy in the left supraclavicular area CHEST: No chest wall deformity. Symmetrical expansion. LUNGS: Equal air entry with diminished breath sounds over left lower lobe, and diffuse crackles over right lower lobe, and left upper lobe CVS: Irregular rate and rhythm, normal S1 and S2, no gallops, no murmurs, no rubs ABDOMEN: Soft, nontender. No hepatosplenomegaly, normal bowel sounds, no guarding or rigidity. EXTREMITIES: No clubbing, no edema, no cyanosis, 2+ pulses and upper and lower extremities. MUSCULOSKELETAL: Muscle strength and tone normal. SPINE: No scoliosis or deformity SKIN: No rashes CENTRAL NERVOUS SYSTEM: Alert and oriented -3. No focal deficits, tone is normal in all 4 extremities. PSYCHIATRIC: Alert and oriented -3. Appropriate affect. Intact judgment and insight. Results - Laboratory Findings CBC and BMP: 08/13/19 05:47 08/13/19 05:47 PT/INR, D-dimer PT 17.4 sec (9.0-12.0) H 08/13/19 05:47 INR 1.8 (<1.2) H 08/13/19 05:47 D-Dimer 0.48 mg/L FEU (<0.60) 08/12/19 08:38 Abnormal lab findings: Abnormal Labs 08/12/19 08/12/19 08/12/19 08:38 08:38 08:38 RBC 3.90 L Hgb 11.1 L Hct 33.6 L Lymphocytes # 0.4 L PT 18.4 H INR 1.9 H APTT 37.5 H Sodium 126 L Chloride 89 L Creatinine 0.65 L Glucose 188 H POC Glucose (mg/dL) Magnesium 1.4 L ALT 20 L Total Protein 08/12/19 08/12/19 08/13/19 17:04 20:38 05:47 RBC 3.78 L Hgb 10.9 L Hct 32.4 L Lymphocytes # 0.3 L PT INR APTT Sodium Chloride Creatinine Glucose POC Glucose (mg/dL) 234 H 281 H Magnesium ALT Total Protein 08/13/19 08/13/19 08/13/19 05:47 05:47 05:47 RBC Hgb Hct Lymphocytes # PT 17.4 H INR 1.8 H APTT Sodium 126 L Chloride 90 L Creatinine Glucose 220 H POC Glucose (mg/dL) Magnesium ALT Total Protein 6.0 L 08/13/19 06:21 RBC Hgb Hct Lymphocytes # PT INR APTT Sodium Chloride Creatinine Glucose POC Glucose (mg/dL) 223 H Magnesium ALT Total Protein - Diagnostic Findings Chest x-ray: report reviewed, image reviewed Additional studies: Ultrasound of the chest reviewed, EKG reviewed Assessment and Plan Plan: Assessment: #1. Acute hypoxic respiratory failure secondary to large left-sided pleural effusion and left upper lobe mass extending to the left hilum, suspicious for underlying malignancy. Most recent CT chest on 07/30/2019 showed the above- mentioned left upper lobe mass, and an additional 1 cm pleural-based nodule in the right middle lobe #2. Dyspnea, cough and chest pain, likely related to the above. Troponins were negative 3, EKG without acute ischemic changes #3. Remote history of smoking, in remission for the past 60 years, patient did smoke a pack a day for 20 years #4. 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 History of prostate cancer with surgical resection #6. Coronary artery disease with previous bypass and stenting #7. 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 Hypothyroidism #9. Hypercholesterolemia #10. Previous episode of myocardial infarction #11. Chronic atrial fibrillation on Coumadin #12. BPH #13. GERD/reflux #14. Previous history of MRSA infection Plan: We'll give the patient 5 mg of vitamin K, we will proceed with left-sided thoracentesis and pleural fluid will be sent for cytology, cultures, and pleural fluid analysis. Patient will also need bronchoscopy with biopsies were investigation of the left upper lobe mass, suspicious for malignancy. Hold Coumadin. The plan was discussed with the patient and he is agreeable to proceed. Denies any chest pain today, denies any hemoptysis, denies any recent weight loss. I performed a history & physical examination of the patient and discussed their management with my nurse practitioner, Griselda Funez. I reviewed the nurse practitioner's note and agree with the documented findings and plan of care. Lung sounds are positive for diminished breath sounds over left lower lobe. The findings and the impression was discussed with the patient. I attest to the documentation by the nurse practitioner. Time with Patient: Greater than 30
[2019-08-13 12:26] LABS: Glucose,Whole Blood 257 mg/dL (75-99)
--- NOTE | 2019-08-13 14:06 | P.HPIM ---
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 fib, mild COPD, known to have peripheral neuropathy with dropping foot in the left side with history of diabetes hypertension hyperlipidemia who was complaining of intractable cough for the last few weeks ended up been treated for pneumonia 3 around with no effect chest x-ray showed slight abnormality and up X of the left side was referred to have a CT came back with the slight abnormality with quite bit vague. Patient was supposed to see Dr. Morgan for consultation and possible bronchoscopy and biopsy ended up having more dyspnea and shortness of breath cough wheezes and worsening respiratory failure his brought him to the emergency department at [facility] where was seen and evaluated he was running low on pulse ox and mild tachycardia as well chest x-ray showed large pleural effusion of the left side with large mass on the left upper lobe had mild hyponatremia and significant hypomagnesemia suspicions for pneumonia as well patient was started on IV antibiotic steroid O2 updraft treatment admit patient to the hospital will consult pulmonary plan to do thoracentesis and possible biopsy. Review of Systems CONSTITUTIONAL: Well-developed no acute respiratory distress. EYES: No icterus sclerae, no conjunctivitis. EARS, NOSE, MOUTH, THROAT, and FACE: No sore throat, lymphadenopathy, carotid bruits or deformity. RESPIRATORY: Positive shortness of breath cough wheezes with pleural effusion mass in the left side of the lung. CARDIOVASCULAR: Positive PND orthopnea no angina. GASTROINTESTINAL: No Abd pain, Nausea or vomiting, no Diarrhea or constipation, No GI Bleed, no distention or masses. GENITOURINARY: Negative for Hematuria or UTI, no kidney stones. INTEGUMENT/BREAST: Negative for any muscular injury with mild osteoarthritis.. HEMATOLOGIC/LYMPHATIC: Negative for bleed or purpura. MUSCULOSKELTAL: Negative for Myalgia or arthralgia. NEURLOGICAL: No LOC, Sz or syncope, blurred vision dizziness or abnormality.. BEHAVIORAL/PSYCH: Negative. ENDOCRINE: Negative. 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 Last Myocardial Infarction Date:: 2016 History of Any Multi-Drug Resistant Organisms: MRSA Date of last positivie culture/infection: 01/15/2012 MDRO Source:: lung Past Surgical History: Adenoidectomy, Coronary Bypass/CABG, Heart Catheterization, Heart Catheterization With Stent, Hernia Repair, Prostate Surgery, Tonsillectomy Additional Past Surgical History / Comment(s): R vocal cord biopsy, microlaryngoscopies, triple endoscopy, 2011 CABG 3 vessel, PCIs with stents, cardioversions x 2, prostatectomy, philipp cataracts, EGD, colonoscopy, bilateral cataract removals/lens implants, Past Anesthesia/Blood Transfusion Reactions: Previous Problems w/ Anesthesia Additional Past Anesthesia/Blood Transfusion Reaction / Comment(s): hx diff intubation with previous vocal cord surgery Date of Last Stent Placement:: 2016 Smoking Status: Former smoker - Past Family History Sister(s) Family Medical History: Cancer, Osteoarthritis (OA) Additional Family Medical History / Comment(s): Patient has one sister that is 84 years old with history of breast cancer and osteoarthritis of the knees. Father Family Medical History: Coronary Artery Disease (CAD), Diabetes Mellitus, Deep Vein Thrombosis (DVT) Additional Family Medical History / Comment(s): Father at age 75 with history of diabetes, coronary artery disease, pacemaker. Brother(s) Family Medical History: Coronary Artery Disease (CAD) Additional Family Medical History / Comment(s): He has one brother that has with history of coronary artery disease and alcohol abuse. Mother Family Medical History: Cancer Additional Family Medical History / Comment(s): Mother at age 39 from cervical cancer. Medications and Allergies Home Medications Medication Instructions Recorded Confirmed Type Levothyroxine Sodium [Synthroid] 88 mcg PO MOTUWETHFRSA 01/30/14 08/12/19 History Multivitamins, Thera [Multivitamin 1 tab PO DAILY@169901/30/14 08/12/19 History (formulary)] metFORMIN HCL [Glucophage] 1,000 mg PO DAILY@169901/30/14 08/12/19 History Fesoterodine Fumarate [Toviaz] 4 mg PO DAILY@1700 08/19/14 08/12/19 History hydrALAZINE HCL [Apresoline] 100 mg PO TID@0800,1700,2200 08/19/14 08/12/19 History ALPRAZolam [Xanax] 0.25 mg PO BID@0800,2200 08/28/15 08/12/19 History Furosemide [Lasix] 20 mg PO DAILY@0800 08/28/15 08/12/19 History metFORMIN HCL [Glucophage] 500 mg PO DAILY@0800 08/28/15 08/12/19 History Isosorbide Mononitrate ER [Imdur] 60 mg PO DAILY@1700 03/29/16 08/12/19 History Melatonin 5 mg PO HS 03/29/16 08/12/19 History sitaGLIPtin [Januvia] 100 mg PO DAILY@0800 09/17/16 08/12/19 History Clopidogrel [Plavix] 75 mg PO DAILY #30 tab 09/20/16 08/12/19 Rx Warfarin [Coumadin] 7.5 mg PO SUTUTHFRSA 06/17/18 08/12/19 History Doxazosin [Cardura] 4 mg PO DAILY #30 tab 06/20/18 08/12/19 Rx Repaglinide [Prandin] 1 mg PO DAILY 01/22/19 08/12/19 History Atorvastatin [Lipitor] 40 mg PO HS@2200 08/12/19 08/12/19 History Metoprolol Tartrate [Lopressor] 50 mg PO BID 08/12/19 08/12/19 History Pantoprazole Sodium [Protonix] 40 mg PO DAILY@0800 08/12/19 08/12/19 History Warfarin [Coumadin] 3.75 mg PO MOWE 08/12/19 08/12/19 History amLODIPine [Norvasc] 2.5 mg PO BID@0800,2200 08/12/19 08/12/19 History Allergies Allergy/AdvReac Type Severity Reaction Status Date / Time clonidine HCl [From Catapres] Allergy facial Verified 08/12/19 09:25 swelling hydrochlorothiazide Allergy Anaphylaxis Verified 08/12/19 09:25 levofloxacin [From Levaquin] Allergy facial and Verified 08/12/19 09:25 neck swelling losartan potassium Allergy Anaphylaxis Verified 08/12/19 09:25 [From Cozaar] albuterol AdvReac Severe tachycardia Verified 08/12/19 09:25 MELISSA Inhibitors AdvReac Angioedema Verified 08/12/19 09:25 aspirin AdvReac angioedema Verified 08/12/19 09:25 doxycycline AdvReac SHORTNESS Verified 08/12/19 09:25 OF BREATH flurbiprofen AdvReac angioedema Verified 08/12/19 09:25 ofloxacin AdvReac angioedema Verified 08/12/19 09:25 rivaroxaban [From Xarelto] AdvReac gi bleed Verified 08/12/19 09:25 Tetracyclines AdvReac Swelling Verified 08/12/19 09:25 FEATHERS AdvReac SINUS Uncoded 08/12/19 09:25 DRAINAGE NOSE AND EYES Physical Exam Vitals: Vital Signs Temp Pulse Resp BP Pulse Ox 08/12/19 15:05 82 20 132/86 92 L 08/12/19 13:30 87 20 126/81 93 L 08/12/19 11:00 81 18 92 L 08/12/19 10:00 82 20 139/81 94 L 08/12/19 09:26 18 08/12/19 08:28 97.9 F 84 20 137/98 91 L Intake and Output 08/12/19 08/12/19 08/12/19 06:59 14:59 22:59 Other: Weight 81.647 kg General Appearance: Alert, cooperative, no distress, appears stated age. Neck HEENT: Supple, no lymphadenopathy, no thyroid enlargement, no carotid bruits. Lungs: Decreased breath some bilaterally worse in the left side not able to hear any breath sounds all the way to the [place], positive rhonchi and crackles in the left upper side also had mild crackle on the right base. Chest Wall: Decrease expansion with deep inspiration no tenderness and no deformity was found on exam, no costochondral pain or discomfort. Heart: Irregular rate and rhythm, S1, S2 positive history positive systolic murmur no rub or gallop. Back: Symmetric, no curvature, ROM normal, no CVA tenderness. Abdomen: Soft, non-tender, bowel sounds active all four quadrants, no masses, no organomegaly. Extremities: Extremities normal, atraumatic, no cyanosis or edema. Positive dropping foot the left side with brace. Pulses: 2+ and symmetric. Skin: Skin color, texture, tugor normal, no rashes or lesions. Neurologic: Alert oriented x3 cranial nerves II through XII intact, positive dropping foot in the left side with brace with slight weakness in the left leg compared to the side, slight decreased sensation and the lower extremity from the knee down with significant neuropathy worse on the left. Results CBC & Chem 7: 08/13/19 05:47 08/13/19 05:47 Labs: Abnormal Lab Results - Last 24 Hours (Table) 08/12/19 08/12/19 08/12/19 Range/Units 08:38 08:38 08:38 RBC 3.90 L (4.30-5.90) m/uL Hgb 11.1 L (13.0-17.5) gm/dL Hct 33.6 L (39.0-53.0) % Lymphocytes # 0.4 L (1.0-4.8) k/uL PT 18.4 H (9.0-12.0) sec INR 1.9 H (<1.2) APTT 37.5 H (22.0-30.0) sec Sodium 126 L (137-145) mmol/L Chloride 89 L (98-107) mmol/L Creatinine 0.65 L (0.66-1.25) mg/dL Glucose 188 H (74-99) mg/dL POC Glucose (mg/dL) (75-99) mg/dL Magnesium 1.4 L (1.6-2.3) mg/dL ALT 20 L (21-72) U/L 08/12/19 Range/Units 17:04 RBC (4.30-5.90) m/uL Hgb (13.0-17.5) gm/dL Hct (39.0-53.0) % Lymphocytes # (1.0-4.8) k/uL PT (9.0-12.0) sec INR (<1.2) APTT (22.0-30.0) sec Sodium (137-145) mmol/L Chloride (98-107) mmol/L Creatinine (0.66-1.25) mg/dL Glucose (74-99) mg/dL POC Glucose (mg/dL) 234 H (75-99) mg/dL Magnesium (1.6-2.3) mg/dL ALT (21-72) U/L Thrombosis Risk Factor Assmnt - DVT/VTE Prophylaxis DVT/VTE Prophylaxis: Pharmacologic Prophylaxis ordered, Mechanical Prophylaxis ordered - Choose All That Apply Any of the Below Risk Factors Present?: Yes Other Risk Factors: Yes Each Risk Factor Represents 2 Points: Malignancy Each Risk Factor Represents 3 Points: Age 75 years or older, Family history of DVT/PE Other congenital or acquired thrombophilia - If yes, enter type in comment: No Thrombosis Risk Factor Assessment Total Risk Factor Score: 8 Thrombosis Risk Factor Assessment Level: High Risk Assessment and Plan Plan: 1 acute hypoxic respiratory failure: Secondary to large pleural effusion, lung mass and possible gram-negative pneumonia. 2 large pleural effusion of the left side: Patient be going for thoracentesis and analysis for any malignant cell. 3 large mass in the left upper lobe: Patient will be going for biopsy with bronchoscopy with pulmonary if pleural effusion analysis came back negative for cancer cell. 4 gram-negative pneumonia: Patient will be on double antibiotic with vancomycin and Zosyn for now consult pulmonary if any results from sputum culture possible changes antibiotic currently. 5 A. fib with RVR: Patient remain on warfarin INR has been therapeutic continue beta alexis will hold warfarin for now till after the testing is complete. 6 chronic systolic congestive heart failure: Seen cardiology regular basis still been treated for cardiomyopathy. Still on metoprolol 50 twice a day, furosemide 20 mg daily, isosorbide 60 mg a day and hydralazine 100 mg 3 times a day 7 type 2 diabetes continue patient on insulin continue Accu-Chek with sliding scale coverage, continue patient on metformin along with Prandin and Januvia and insulin. 8 hypothyroidism: Continue levothyroxine 88 g daily. 9 hyperlipidemia: Remain on atorvastatin 40 mg daily. 10 hypertension: Remain on Cardura 40 mg a day, amlodipine 2.5 mg twice a day, metoprolol 50 mg twice a day, hydralazine 100 mg 3 times a day. 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 12 DVT prophylaxis: Remain on anticoagulation. 13 GI prophylaxis: Remain on pantoprazole 40 mg daily. CODE STATUS: Full code. Admit patient to inpatient status for more than 2 nights.
--- NOTE | 2019-08-13 15:32 | XR ---
EXAMINATION TYPE: XR chest 1V portable DATE OF EXAM: 08/13/2019 COMPARISON: 08/12/2019 HISTORY: Post left thoracentesis TECHNIQUE: Single frontal view of the chest is obtained. FINDINGS: Bilateral areas of consolidation and pleural effusion are noted. Large area of consolidati on noted on the left is stable. No sizable pneumothorax. Postsurgical changes and atherosclerotic jm nge aorta. Underlying venous congestion not excluded. Findings suspicious for underlying COPD and chr onic interstitial lung disease. IMPRESSION: 1. No pneumothorax postthoracentesis. Small amount residual pleural fluid and large area of consolida tion persist.
--- NOTE | 2019-08-13 15:34 | P.PN ---
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 fib, mild COPD, known to have peripheral neuropathy with dropping foot in the left side with history of diabetes hypertension hyperlipidemia who was complaining of intractable cough for the last few weeks ended up been treated for pneumonia 3 around with no effect chest x-ray showed slight abnormality and up X of the left side was referred to have a CT came back with the slight abnormality with quite bit vague. Patient was supposed to see Dr. Morgan for consultation and possible bronchoscopy and biopsy ended up having more dyspnea and shortness of breath cough wheezes and worsening respiratory failure his brought him to the emergency department at [facility] where was seen and evaluated he was running low on pulse ox and mild tachycardia as well chest x-ray showed large pleural effusion of the left side with large mass on the left upper lobe had mild hyponatremia and significant hypomagnesemia suspicions for pneumonia as well patient was started on IV antibiotic steroid O2 updraft treatment admit patient to the hospital will consult pulmonary plan to do thoracentesis and possible biopsy. 08/13: Patient has been seen by Dr. Tracey with plan for thoracentesis today and depending on results possible bronchoscopy for tomorrow. Patient has been afebrile, blood pressure 116/77, pulse 92, pulse ox 93% on 5 L nasal cannula. Patient has less wheezing noted today from yesterday. Blood sugars are running in the 200s secondary to steroids. WBC 7.3, hemoglobin 10.9, platelet count 364. Sodium 126, potassium 4.8, chloride 90, CO2 27, BUN 16, creatinine 0.71. Chest ultrasound revealed left pleural effusion 12.8 cm. Review of Systems CONSTITUTIONAL: Well-developed no acute respiratory distress. Denies fever, denies chills. EYES: No icterus sclerae, no conjunctivitis. EARS, NOSE, MOUTH, THROAT, and FACE: No sore throat, lymphadenopathy, carotid bruits or deformity. RESPIRATORY: Positive shortness of breath cough wheezes with pleural effusion mass in the left side of the lung. CARDIOVASCULAR: Positive PND orthopnea no angina. GASTROINTESTINAL: No Abd pain, Nausea or vomiting, no Diarrhea or constipation, No GI Bleed, no distention or masses. GENITOURINARY: Negative for Hematuria or UTI, no kidney stones. INTEGUMENT/BREAST: Negative for any muscular injury with mild osteoarthritis.. HEMATOLOGIC/LYMPHATIC: Negative for bleed or purpura. MUSCULOSKELTAL: Negative for Myalgia or arthralgia. NEURLOGICAL: No LOC, Sz or syncope, blurred vision dizziness or abnormality.. BEHAVIORAL/PSYCH: Negative. ENDOCRINE: Negative. Objective - Vital Signs Vital signs: Vital Signs Temp 98.7 F 08/13/19 04:00 Pulse 92 08/13/19 04:00 Resp 20 08/13/19 04:00 BP 116/77 08/13/19 04:00 Pulse Ox 93 L 08/13/19 04:00 Intake & Output 08/12/19 08/13/19 08/13/19 18:59 06:59 18:59 Intake Total 790 600 Output Total 200 400 Balance -200 390 600 Weight 81.647 kg 79.2 kg Intake: Intake, IV Titration 550 Amount Magnesium Sulfate-D5w Pmx 200 1 gm In Dextrose/Water 1 100ml.bag @ 100 mls/hr IVPB Q1H [facility] Rx#: [id number] Piperacillin-Tazobactam 3 100 .375 gm In Sodium Chloride 0.9% 100 ml @ 25 mls/hr IVPB Q8HR [facility] Rx# :[id number] Vancomycin 1,500 mg In 250 Sodium Chloride 0.9% 250 ml @ 125 mls/hr IVPB Q12H [facility] Rx#:[id number] Oral 240 600 Output: Urine 200 400 Other: Voiding Method Urinal Toilet Urinal # Voids 4 0 # Bowel Movements 1 - Exam General Appearance: Alert, cooperative, no distress, appears stated age. A shunt resting and recliner. Appears to be comfortable. Neck HEENT: Supple, no lymphadenopathy, no thyroid enlargement, no carotid bruits. Lungs: Decreased breath some bilaterally worse in the left side not able to hear any breath sounds all the way to the [place], positive rhonchi and crackles in the left upper side also had mild crackle on the right base. Chest Wall: Decrease expansion with deep inspiration no tenderness and no deformity was found on exam, no costochondral pain or discomfort. Heart: Irregular rate and rhythm, S1, S2 positive history positive systolic murmur no rub or gallop. Back: Symmetric, no curvature, ROM normal, no CVA tenderness. Abdomen: Soft, non-tender, bowel sounds active all four quadrants, no masses, no organomegaly. Extremities: Extremities normal, atraumatic, no cyanosis or edema. Positive dropping foot the left side with brace. Pulses: 2+ and symmetric. Skin: Skin color, texture, tugor normal, no rashes or lesions. Neurologic: Alert oriented x3 cranial nerves II through XII intact, positive dropping foot in the left side with brace with slight weakness in the left leg compared to the side, slight decreased sensation and the lower extremity from the knee down with significant neuropathy worse on the left. - Labs CBC & Chem 7: 08/13/19 05:47 08/13/19 05:47 Labs: Abnormal Lab Results - Last 24 Hours (Table) 08/12/19 08/12/19 08/13/19 Range/Units 17:04 20:38 05:47 RBC 3.78 L (4.30-5.90) m/uL Hgb 10.9 L (13.0-17.5) gm/dL Hct 32.4 L (39.0-53.0) % Lymphocytes # 0.3 L (1.0-4.8) k/uL PT (9.0-12.0) sec INR (<1.2) Sodium (137-145) mmol/L Chloride (98-107) mmol/L Glucose (74-99) mg/dL POC Glucose (mg/dL) 234 H 281 H (75-99) mg/dL Total Protein (6.3-8.2) g/dL 08/13/19 08/13/19 08/13/19 Range/Units 05:47 05:47 05:47 RBC (4.30-5.90) m/uL Hgb (13.0-17.5) gm/dL Hct (39.0-53.0) % Lymphocytes # (1.0-4.8) k/uL PT 17.4 H (9.0-12.0) sec INR 1.8 H (<1.2) Sodium 126 L (137-145) mmol/L Chloride 90 L (98-107) mmol/L Glucose 220 H (74-99) mg/dL POC Glucose (mg/dL) (75-99) mg/dL Total Protein 6.0 L (6.3-8.2) g/dL 08/13/19 08/13/19 Range/Units 06:21 11:37 RBC (4.30-5.90) m/uL Hgb (13.0-17.5) gm/dL Hct (39.0-53.0) % Lymphocytes # (1.0-4.8) k/uL PT (9.0-12.0) sec INR (<1.2) Sodium (137-145) mmol/L Chloride (98-107) mmol/L Glucose (74-99) mg/dL POC Glucose (mg/dL) 223 H 257 H (75-99) mg/dL Total Protein (6.3-8.2) g/dL Assessment and Plan Plan: 1 acute hypoxic respiratory failure: Secondary to large pleural effusion, lung mass and possible gram-negative pneumonia. Consult with Dr. Bo lopez. Patient is scheduled for left thoracentesis and may require bronchoscopy depending on results of thoracentesis. Coumadin on hold 2 large pleural effusion of the left side: Patient be going for thoracentesis and analysis for any malignant cell. 3 large mass in the left upper lobe: Patient will be going for biopsy with bronchoscopy with pulmonary if pleural effusion analysis came back negative for cancer cell. 4 gram-negative pneumonia: Patient will be on double antibiotic with vancomycin and Zosyn for now consult pulmonary if any results from sputum culture possible changes antibiotic currently. 5 A. fib with RVR: Patient remain on warfarin INR has been therapeutic continue beta alxeis will hold warfarin for now till after the testing is complete. 6 chronic systolic congestive heart failure: Seen cardiology regular basis still been treated for cardiomyopathy. Still on metoprolol 50 twice a day, furosemide 20 mg daily, isosorbide 60 mg a day and hydralazine 100 mg 3 times a day 7 type 2 diabetes continue patient on insulin continue Accu-Chek with sliding scale coverage, continue patient on metformin along with Prandin and Januvia and insulin. 8 hypothyroidism: Continue levothyroxine 88 g daily. 9 hyperlipidemia: Remain on atorvastatin 40 mg daily. 10 hypertension: Remain on Cardura 40 mg a day, amlodipine 2.5 mg twice a day, metoprolol 50 mg twice a day, hydralazine 100 mg 3 times a day. 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 12 DVT prophylaxis: Remain on anticoagulation. 13 GI prophylaxis: Remain on pantoprazole 40 mg daily. CODE STATUS: Full code. Discharge plan: Most likely home Impression and plan of care have been directed as dictated by the signing physician. Heather Bishop nurse practitioner acting as scribe for signing physician.
[2019-08-13] MEDS: ISOSORBIDE MONONITRATE ER 60 MG TAB.ER.24H PO SCH (16:27)
[2019-08-13 16:53] LABS: Glucose,Whole Blood 226 mg/dL (75-99)
--- NOTE | 2019-08-13 17:33 | OP ---
OPERATIVE REPORT PROCEDURE PERFORMED: Left-sided thoracentesis. PREOPERATIVE DIAGNOSIS: Left pleural effusion. POSTOPERATIVE DIAGNOSIS: Left pleural effusion. ANESTHESIA USED: 2 mL of 1% lidocaine. PROCEDURE: The patient was placed in a sitting upright position. The area below the left scapula was prepared in a sterile fashion and drapes were applied. At the level of the 8th intercostal space and tip of the scapula, and that is the level where the marking from the ultrasound was placed, the area was locally anesthetized with lidocaine. Then a 26- gauge needle was inserted at the same site and advanced into the pleural space until the fluid was localized with the needle. After localization with the needle, a small tiny incision was made at the same site, and a thoracentesis catheter and needle were used, advanced into the same site, into the pleural space, and as soon as the fluid was obtained, the catheter was advanced off the needle into the pleural space, and the needle was pulled out of the pleural space. Freely flowing fluid was removed. The fluid was dark yellow in color, and it was freely flowing. I removed roughly about 1000 mL of fluid from the pleural space. Fluid was sent for different diagnostic studies. Chest x-ray was ordered postoperatively. No evidence of any immediate complications. MMODL / IJN: [id number] /
[2019-08-13] MEDS: TROSPIUM CHLORIDE 20 MG TABLET PO SCH (17:42)
[2019-08-13 20:34] LABS: Glucose,Whole Blood 317 mg/dL (75-99)
[2019-08-13 20:34] LABS: Glucose,Whole Blood 345 mg/dL (75-99)
[2019-08-13] MEDS: ATORVASTATIN 40 MG TAB PO SCH (20:36)
[2019-08-13 21:01] LABS: Appearance,BF Hazy; Color,BF Yellow; Nucleated Cells, Body Fluid 880 /uL; RBC, Body Fluid 2475 /uL
[2019-08-13 21:02] LABS: Mononuclear WBC,Body Fluid 96 %; Polynuclear WBC,Body Fluid 4 %; Total Cells Counted,Body Fluid 100
[2019-08-14 01:36] LABS: Glucose, BF Source Pleural Fluid; Glucose, Body Fluid 241 mg/dL; LDH, Body Fluid Source Pleural Fluid
[2019-08-14 06:07] LABS: Glucose,Whole Blood 250 mg/dL (75-99)
[2019-08-14] MEDS: INSULIN ASPART (NovoLOG) 100 UNIT/ML VIAL SQ SCH ×4 (07:06→21:10)
[2019-08-14] MEDS: REPAGLINIDE 1 MG TAB PO SCH (07:06)
[2019-08-14] MEDS: LEVOTHYROXINE 88 MCG TAB PO SCH (07:06)
[2019-08-14] MEDS: ALPRAZolam 0.25 MG TAB PO SCH ×2 (08:51→21:09)
[2019-08-14] MEDS: amLODIPine 2.5 MG TAB PO SCH ×2 (08:51→21:09)
[2019-08-14] MEDS: PANTOPRAZOLE 40 MG TABLET PO SCH (08:51)
[2019-08-14] MEDS: hydrALAZINE HCL 50 MG TAB PO SCH ×3 (08:51→21:09)
[2019-08-14] MEDS: LINAGLIPTIN 5 MG TABLET PO SCH (08:51)
[2019-08-14] MEDS: METOPROLOL TARTRATE 50 MG TAB PO SCH ×2 (08:51→21:09)
[2019-08-14] MEDS: FUROSEMIDE 20 MG TAB PO SCH (08:51)
[2019-08-14] MEDS: DOXAZOSIN 4 MG TAB PO SCH (08:51)
[2019-08-14] MEDS: methylPREDNISolone SOD SUCCI 40 MG/ML 1 ML VIAL IV SCH ×3 (08:52→23:49)
[2019-08-14] MEDS: PIPERACILLIN-TAZOBACTAM 3.375 GM in SODIUM CHLORIDE 0.9% 100 ML IVPB SCH ×3 (08:52→23:56)
--- NOTE | 2019-08-14 10:40 | P.PN ---
Subjective Progress Note Date: 08/14/19 Principal diagnosis: Dyspnea, pleural effusion, left upper lobe mass This 83-year-old white male patient of Dr. Corona, with past medical history of chronic atrial fibrillation on Coumadin, coronary artery disease with previous bypass grafting, diabetes mellitus with peripheral neuropathy, hypothyroidism, hypercholesterolemia, BPH, osteoarthritis, remote history of smoking, in r emission for the last 60 years, did smoke for approximately 20 years, 1 pack a day, denies any history of chronic lung disease. Patient was seen by his primary care physician with complaints of cough, and left upper lobe lung mass was found on diagnostic imaging and patient was referred to Dr. Morgan for possible bronchoscopy and biopsy. Patient actually had an appointment with Dr. Morgan yesterday on 08/12/2019, however in view of his increasing shortness of breath and chest pain he ended up, to the emergency department. Patient has had a nonproductive cough and chills, denies any hemoptysis. In addition he has been having chest pain at home and has been taking nitro. His pulse ox is 84% on room air and he normally does not wear oxygen. 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 Parra. Chest x-ray in the ER showed a worsening moderate-sized left pleural effusion, and worsening left suprahilar masslike consolidation underlying central neoplasm not excluded, new right medial basilar infiltrate and/or atelectasis. Lab work showed no leukocytosis, white blood cell count was 8.8, hemoglobin 11.1, INR is 1.9, d-dimer was negative at 0.48, sodium was 126, potassium is 4.5, chloride was 89, CO2 is 25, BUN is 12 creatinine 0.65, magnesium was 1.4, AST is 29, ALT was 20, alk phos was 75, troponins negative 3, proBNP was 1240. Ultrasound of the chest was completed showing left pleural effusion pocket of 12.8 cm. On 08/14/2019 patient seen in follow-up on selective care unit. That is post left-sided thoracentesis yesterday would removal of 1 L of pleural fluid which was sent for analysis, which shows transudative fluid, with many mesothelial cells. Cytology is pending. Cultures are pending, patient has been afebrile, no complaints of chest pain, his breathing has improved since the thoracentesis, lung sounds reveal diminished breath sounds over left lower and middle lobe. Patient remains on antibiotic coverage with Zosyn and vancomycin. No cough or congestion, awaiting today's labs to check patient's INR, for possibility of b ronchoscopy and biopsies of the left upper lobe mass possibly tomorrow Objective - Vital Signs Vital signs: Vital Signs Temp 97.7 F 08/13/19 23:37 Pulse 62 08/14/19 03:30 Resp 20 08/14/19 03:30 BP 123/78 08/14/19 03:30 Pulse Ox 95 08/14/19 03:30 Intake & Output 08/13/19 08/14/19 08/14/19 18:59 06:59 18:59 Intake Total 840 350 240 Balance 840 350 240 Weight 78.4 kg Intake: Intake, IV Titration 350 Amount Piperacillin-Tazobactam 3 100 .375 gm In Sodium Chloride 0.9% 100 ml @ 25 mls/hr IVPB Q8HR [facility] Rx# :[id number] Vancomycin 1,500 mg In 250 Sodium Chloride 0.9% 250 ml @ 125 mls/hr IVPB Q12H [facility] Rx#:[id number] Oral 840 240 Other: Voiding Method Toilet Toilet Urinal Urinal # Voids 1 2 # Bowel Movements 1 - Exam GENERAL EXAM: Alert, very pleasant, 83-year-old white male, on 5 L of oxygen with a pulse ox of 93%, mildly short of breath with conversation comfortable in no apparent distress. HEAD: Normocephalic/atraumatic. EYES: Normal reaction of pupils, equal size. Conjunctiva pink, sclera white. NOSE: Clear with pink turbinates. THROAT: No erythema or exudates. NECK: No masses, no JVD, no thyroid enlargement, no adenopathy. Possible shotty adenopathy in the left supraclavicular area CHEST: No chest wall deformity. Symmetrical expansion. LUNGS: Equal air entry with diminished breath sounds over left lower lobe, and diffuse crackles over right lower lobe, and left upper lobe CVS: Irregular rate and rhythm, normal S1 and S2, no gallops, no murmurs, no rubs ABDOMEN: Soft, nontender. No hepatosplenomegaly, normal bowel sounds, no guarding or rigidity. EXTREMITIES: No clubbing, no edema, no cyanosis, 2+ pulses and upper and lower extremities. MUSCULOSKELETAL: Muscle strength and tone normal. SPINE: No scoliosis or deformity SKIN: No rashes CENTRAL NERVOUS SYSTEM: Alert and oriented -3. No focal deficits, tone is nor mal in all 4 extremities. PSYCHIATRIC: Alert and oriented -3. Appropriate affect. Intact judgment and insight. - Labs CBC & Chem 7: 08/13/19 05:47 08/13/19 05:47 Labs: Abnormal Lab Results - Last 24 Hours (Table) 08/13/19 08/13/19 08/13/19 Range/Units 11:37 16:51 20:32 POC Glucose (mg/dL) 257 H 226 H 345 H (75-99) mg/dL 08/13/19 08/14/19 Range/Units 20:33 06:05 POC Glucose (mg/dL) 317 H 250 H (75-99) mg/dL Microbiology - Last 24 Hours (Table) 08/13/19 15:04 Gram Stain - Preliminary Pleural Fluid Body Fluid Culture - Preliminary 08/13/19 15:04 Acid Fast Bacilli Culture - Preliminary Pleural Fluid 08/13/19 15:04 Anaerobic Culture - Preliminary Pleural Fluid 08/13/19 15:04 Fungal Culture - Preliminary Pleural Fluid 08/12/19 12:54 Blood Culture - Preliminary Blood No Growth after 24 hours Assessment and Plan Plan: Assessment: #1. Acute hypoxic respiratory failure secondary to large left-sided pleural effusion and left upper lobe mass extending to the left hilum, suspicious for underlying malignancy. Most recent CT chest on 07/30/2019 showed the above- mentioned left upper lobe mass, and an additional 1 cm pleural-based nodule in the right middle lobe. Patient is status post left sided thoracentesis on 08/13/2019 would removal of 1 L of pleural fluid, was transudative in nature, cytology and cultures pending #2. Dyspnea, cough and chest pain, likely related to the above. Troponins were negative 3, EKG without acute ischemic changes #3. Remote history of smoking, in remission for the past 60 years, patient did smoke a pack a day for 20 years #4. 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 History of prostate cancer with surgical resection #6. Coronary artery disease with previous bypass and stenting #7. 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 Hypothyroidism #9. Hypercholesterolemia #10. Previous episode of myocardial infarction #11. Chronic atrial fibrillation on Coumadin #12. BPH #13. GERD/reflux #14. Previous history of MRSA infection Plan: Awaiting the results of the pleural fluid cytology, the fluid was transudative. Awaiting today's labs, to check the INR. Patient's breathing has improved since the thoracentesis, is clinically stable, may consider bronchoscopy with left upper lobe biopsy inpatient. We'll continue to follow. I performed a history & physical examination of the patient and discussed their management with my nurse practitioner, Griselda Funez. I reviewed the nurse practitioner's note and agree with the documented findings and plan of care. Lung sounds are positive for diminished breath sounds over left lower lobe. The findings and the impression was discussed with the patient. I attest to the documentation by the nurse practitioner. Time with Patient: Less than 30
[2019-08-14] MEDS ORDERED: VANCOMYCIN TROUGH DUE 1 EACH MISC MISCELLANE ONE (11:00)
[2019-08-14 11:47] LABS: INR 1.2 (<1.2); Prothrombin Time 12.7 sec (9.0-12.0)
[2019-08-14 11:59] LABS: Glucose,Whole Blood 209 mg/dL (75-99)
[2019-08-14] MEDS: VANCOMYCIN 1,500 MG in SODIUM CHLORIDE 0.9% 250 ML IVPB SCH ×2 (13:00→23:49)
--- NOTE | 2019-08-14 13:37 | P.PN ---
Subjective Progress Note Date: 08/14/19 Principal diagnosis: Severe dyspnea and respiratory failure, large pleural effusion, large left apical mass most likely cancer, A. 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 fib, mild COPD, known to have peripheral neuropathy with dropping foot in the left side with history of diabetes hypertension hyperlipidemia who was complaining of intractable cough for the last few weeks ended up been treated for pneumonia 3 around with no effect chest x-ray showed slight abnormality and up X of the left side was referred to have a CT came back with the slight abnormality with quite bit vague. Patient was supposed to see Dr. Morgan for consultation and possible bronchoscopy and biopsy ended up having more dyspnea and shortness of breath cough wheezes and worsening respiratory failure his brought him to the emergency department at [facility] where was seen and evaluated he was running low on pulse ox and mild tachycardia as well chest x-ray showed large pleural effusion of the left side with large mass on the left upper lobe had mild hyponatremia and significant hypomagnesemia suspicions for pneumonia as well patient was started on IV antibiotic steroid O2 updraft treatment admit patient to the hospital will consult pulmonary plan to do thoracentesis and possible biopsy. 08/14: Patient had thoracentesis yesterday came back as transudate, results still pending at this point specially for cell analysis, patient remain off an ticoagulation for now we'll plan for bronchoscopy with Dr. Soriano tomorrow before going back on anticoagulation. I have full explanation to the patient is process was bone on expectation and prognosis. Objective - Vital Signs Vital signs: Vital Signs Temp 97.7 F 08/13/19 23:37 Pulse 62 08/14/19 03:30 Resp 20 08/14/19 03:30 BP 123/78 08/14/19 03:30 Pulse Ox 95 08/14/19 03:30 Intake & Output 08/13/19 08/14/19 08/14/19 18:59 06:59 18:59 Intake Total 840 350 480 Balance 840 350 480 Weight 78.4 kg Intake: Intake, IV Titration 350 Amount Piperacillin-Tazobactam 3 100 .375 gm In Sodium Chloride 0.9% 100 ml @ 25 mls/hr IVPB Q8HR [facility] Rx# :[id number] Vancomycin 1,500 mg In 250 Sodium Chloride 0.9% 250 ml @ 125 mls/hr IVPB Q12H [facility] Rx#:[id number] Oral 840 480 Other: Voiding Method Toilet Toilet Urinal Urinal # Voids 1 2 0 # Bowel Movements 1 - Exam Review of Systems CONSTITUTIONAL: Well-developed no acute respiratory distress. EYES: No icterus sclerae, no conjunctivitis. EARS, NOSE, MOUTH, THROAT, and FACE: No sore throat, lymphadenopathy, carotid bruits or deformity. RESPIRATORY: Positive shortness of breath cough wheezes with pleural effusion mass in the left side of the lung. CARDIOVASCULAR: Positive PND orthopnea no angina. GASTROINTESTINAL: No Abd pain, Nausea or vomiting, no Diarrhea or constipation, No GI Bleed, no distention or masses. GENITOURINARY: Negative for Hematuria or UTI, no kidney stones. INTEGUMENT/BREAST: Negative for any muscular injury with mild osteoarthritis.. HEMATOLOGIC/LYMPHATIC: Negative for bleed or purpura. MUSCULOSKELTAL: Negative for Myalgia or arthralgia. NEURLOGICAL: No LOC, Sz or syncope, blurred vision dizziness or abnormality.. BEHAVIORAL/PSYCH: Negative. ENDOCRINE: Negative. Physical Exam General Appearance: Alert, cooperative, no distress, appears stated age. Neck HEENT: Supple, no lymphadenopathy, no thyroid enlargement, no carotid bruits. Lungs: Decreased breath some bilaterally worse in the left side not able to hear any breath sounds all the way to the [place], positive rhonchi and crackles in the left upper side also had mild crackle on the right base. Chest Wall: Decrease expansion with deep inspiration no tenderness and no deformity was found on exam, no costochondral pain or discomfort. Heart: Irregular rate and rhythm, S1, S2 positive history positive systolic murmur no rub or gallop. Back: Symmetric, no curvature, ROM normal, no CVA tenderness. Abdomen: Soft, non-tender, bowel sounds active all four quadrants, no masses, no organomegaly. Extremities: Extremities normal, atraumatic, no cyanosis or edema. Positive dropping foot the left side with brace. Pulses: 2+ and symmetric. Skin: Skin color, texture, tugor normal, no rashes or lesions. Neurologic: Alert oriented x3 cranial nerves II through XII intact, positive dropping foot in the left side with brace with slight weakness in the left leg compared to the side, slight decreased sensation and the lower extremity from the knee down with significant neuropathy worse on the left. - Labs CBC & Chem 7: 08/13/19 05:47 08/13/19 05:47 Labs: Abnormal Lab Results - Last 24 Hours (Table) 08/13/19 08/13/19 08/13/19 Range/Units 16:51 20:32 20:33 PT (9.0-12.0) sec INR (<1.2) POC Glucose (mg/dL) 226 H 345 H 317 H (75-99) mg/dL 08/14/19 08/14/19 08/14/19 Range/Units 06:05 11:07 11:58 PT 12.7 H (9.0-12.0) sec INR 1.2 H (<1.2) POC Glucose (mg/dL) 250 H 209 H (75-99) mg/dL Microbiology - Last 24 Hours (Table) 08/13/19 15:04 Gram Stain - Preliminary Pleural Fluid Body Fluid Culture - Preliminary 08/13/19 15:04 Acid Fast Bacilli Culture - Preliminary Pleural Fluid 08/13/19 15:04 Anaerobic Culture - Preliminary Pleural Fluid 08/13/19 15:04 Fungal Culture - Preliminary Pleural Fluid 08/12/19 12:54 Blood Culture - Preliminary Blood No Growth after 24 hours Assessment and Plan Plan: 1 respiratory failure: Patient is doing much better after thoracentesis continue antibiotic for treatment of pneumonia as well continue COPD management still seen pulmonary. 2 large pleural effusion: Post thoracentesis is doing well continue current management. 3 severe pneumonia possibly gram-negative: Patient remain on vancomycin and Zosyn for now. 4 possible lung cancer: Will be going for bronchoscopy tomorrow with biopsy. 5 A. fib: Pulse rate remained well-controlled patient is off anticoagulation to his complete testing. 6 CHF: Remain on [place] along with but beta alexis patient still on diuretics. 7 Atherosclerotic heart disease: 8 CK D: Still stable at this point with no significant change in GFR. 9 Left sided dropping foot: Secondary to severe neuropathy and back problem has not changed lately.
--- NOTE | 2019-08-14 14:05 | CDI ---
Documentation Clarification Form Date: 08/14/2019 2:00:35 PM From: Samantha Calderon RN, CCDS Admit Date: 08/12/2019 12:41:00 PM Patient Name: Lamont Mishra Visit Number: [id number] ATTENTION: The Clinical Documentation Specialists (CDI) and [facility] Coding Staff appreciate your assistance in clarifying documentation. Please respond to the clarification below the line at the bottom and electronically sign. The CDI & [facility] Coding staff will review the response and follow-up if needed. Please note: Queries are made part of the Legal Health Record. If you have any questions, please contact the author of this message via ITS. Dr. Ray Shelton declining Hgb and Hct have been noted and lacks specificity to accurately reflect your patients severity of condition and clarification is needed. History/Risk Factors: chronic atrial fib on home Coumadin, chronic systolic CHF, DM2, HTN, hx of vocal cord CA Clinical indicators: Hemoglobin: 11.1/10.9 Hematocrit: 33.6/32.4 Treatment: monitoring labs In order to capture the severity of condition, please clarify the clinical significance of the declining Hgb and Hct and etiology if known: Acute on chronic blood loss anemia Chronic blood loss anemia Iron deficiency anemia Drug induced anemia Anemia due to malignancy Nutritional anemia Anemia of chronic disease Unable to determine Other, please specify (Last Revision: June 2017) Iron deficiency anemia, _Anemia of chronic disease _ MTDD
[2019-08-14] MEDS: TROSPIUM CHLORIDE 20 MG TABLET PO SCH (16:32)
[2019-08-14] MEDS: ISOSORBIDE MONONITRATE ER 60 MG TAB.ER.24H PO SCH (16:32)
[2019-08-14 16:34] LABS: Glucose,Whole Blood 360 mg/dL (75-99)
[2019-08-14] MEDS: DOCUSATE 100 MG CAP PO SCH ×2 (16:43→21:09)
[2019-08-14 20:55] LABS: Glucose,Whole Blood 218 mg/dL (75-99)
[2019-08-14] MEDS: ATORVASTATIN 40 MG TAB PO SCH (21:09)
[2019-08-15 06:22] LABS: Glucose,Whole Blood 160 mg/dL (75-99)
[2019-08-15 06:45] LABS: INR 1.2 (<1.2); Prothrombin Time 12.8 sec (9.0-12.0)
[2019-08-15 06:59] LABS: African American GFR (CKD) >90 (>60 ml/min/1.73 sqM); Anion Gap 9 mmol/L; Blood Urea Nitrogen 17 mg/dL (9-20); Calcium 8.7 mg/dL (8.4-10.2); Carbon Dioxide 28 mmol/L (22-30); Chloride 97 mmol/L (98-107); Glucose 154 mg/dL (74-99); Non-African American GFR(CKD) 84 (>60 ml/min/1.73 sqM); Potassium 4.6 mmol/L (3.5-5.1); Sodium 134 mmol/L (137-145)
[2019-08-15] MEDS: LEVOTHYROXINE 88 MCG TAB PO SCH (08:20)
[2019-08-15] MEDS: INSULIN ASPART (NovoLOG) 100 UNIT/ML VIAL SQ SCH ×4 (08:21→20:57)
[2019-08-15] MEDS: REPAGLINIDE 1 MG TAB PO SCH (08:21)
[2019-08-15] MEDS: PIPERACILLIN-TAZOBACTAM 3.375 GM in SODIUM CHLORIDE 0.9% 100 ML IVPB SCH ×3 (11:26→22:51)
[2019-08-15] MEDS: VANCOMYCIN 1,500 MG in SODIUM CHLORIDE 0.9% 250 ML IVPB SCH ×2 (11:49→22:51)
[2019-08-15 12:26] LABS: Glucose,Whole Blood 184 mg/dL (75-99)
[2019-08-15] MEDS ORDERED: INSULIN REGULAR 100 UNIT/ML VIAL SQ ONE (13:00)
[2019-08-15] MEDS ORDERED: KETAMINE 10 MG/ML 20 ML VIAL ONE (13:21)
[2019-08-15] MEDS ORDERED: PROPOFOL 10 MG/ML 20 ML VIAL IV ONE (13:21)
[2019-08-15] MEDS ORDERED: MIDAZOLAM 2 MG/2 ML VIAL ONE (13:21)
[2019-08-15] MEDS ORDERED: IV FLUID CONTINUATION 250 ML IV ONE (13:23)
[2019-08-15 13:34] VITALS: RESP 20
[2019-08-15] MEDS ORDERED: LIDOCAINE 2% INJ 20 MG/ML INTRATRACH ONE (13:34)
[2019-08-15] MEDS ORDERED: SODIUM CHLORIDE 0.9% 500 ML 1,000 ML IV ONE (14:07)
--- NOTE | 2019-08-15 14:16 | P.PN ---
Subjective Progress Note Date: 08/15/19 Principal diagnosis: Dyspnea, pleural effusion, left upper lobe mass This 83-year-old white male patient of Dr. Corona, with past medical history of chronic atrial fibrillation on Coumadin, coronary artery disease with previous bypass grafting, diabetes mellitus with peripheral neuropathy, hypothyroidism, hypercholesterolemia, BPH, osteoarthritis, remote history of smoking, in r emission for the last 60 years, did smoke for approximately 20 years, 1 pack a day, denies any history of chronic lung disease. Patient was seen by his primary care physician with complaints of cough, and left upper lobe lung mass was found on diagnostic imaging and patient was referred to Dr. Morgan for possible bronchoscopy and biopsy. Patient actually had an appointment with Dr. Morgan yesterday on 08/12/2019, however in view of his increasing shortness of breath and chest pain he ended up, to the emergency department. Patient has had a nonproductive cough and chills, denies any hemoptysis. In addition he has been having chest pain at home and has been taking nitro. His pulse ox is 84% on room air and he normally does not wear oxygen. 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 Parra. Chest x-ray in the ER showed a worsening moderate-sized left pleural effusion, and worsening left suprahilar masslike consolidation underlying central neoplasm not excluded, new right medial basilar infiltrate and/or atelectasis. Lab work showed no leukocytosis, white blood cell count was 8.8, hemoglobin 11.1, INR is 1.9, d-dimer was negative at 0.48, sodium was 126, potassium is 4.5, chloride was 89, CO2 is 25, BUN is 12 creatinine 0.65, magnesium was 1.4, AST is 29, ALT was 20, alk phos was 75, troponins negative 3, proBNP was 1240. Ultrasound of the chest was completed showing left pleural effusion pocket of 12.8 cm. On 08/14/2019 patient seen in follow-up on selective care unit. That is post left-sided thoracentesis yesterday would removal of 1 L of pleural fluid which was sent for analysis, which shows transudative fluid, with many mesothelial cells. Cytology is pending. Cultures are pending, patient has been afebrile, no complaints of chest pain, his breathing has improved since the thoracentesis, lung sounds reveal diminished breath sounds over left lower and middle lobe. Patient remains on antibiotic coverage with Zosyn and vancomycin. No cough or congestion, awaiting today's labs to check patient's INR, for possibility of b ronchoscopy and biopsies of the left upper lobe mass possibly tomorrow On 08/15/2019 patient seen in follow-up on selective care unit, he sitting up in the chair, in no acute distress, no worsening dyspnea, no fever or chills, remains on 2 L of oxygen, with a pulse ox of 93%, hemodynamically stable, lung sounds reveal diminished breath sounds at the bases, no rhonchi, no wheezing, pleural fluid cultures are pending, pleural fluid cytology was exudative in nature based on the pleural fluid protein in the total serum protein. Patient has been nothing by mouth after midnight, Coumadin on hold, today's INR 1.2, and patient is awaiting his bronchoscopy with biopsy of the left upper lobe mass Objective - Vital Signs Vital signs: Vital Signs Temp 97.6 F 08/15/19 08:15 Pulse 93 08/15/19 11:30 Resp 20 08/15/19 11:30 BP 145/85 08/15/19 11:30 Pulse Ox 93 L 08/15/19 11:30 Intake & Output 08/14/19 08/15/19 08/15/19 18:59 06:59 18:59 Intake Total 480 250 400 Output Total 700 Balance 480 -450 400 Weight 79.2 kg Intake: IV 400 Intake, IV Titration 250 Amount Vancomycin 1,500 mg In 250 Sodium Chloride 0.9% 250 ml @ 125 mls/hr IVPB Q12H [facility] Rx#:[id number] Oral 480 Output: Urine 700 Other: Voiding Method Toilet Toilet Toilet Urinal Urinal Urinal # Voids 1 3 - Exam GENERAL EXAM: Alert, very pleasant, 83-year-old white male, on 2 L of oxygen with a pulse ox of 93%, mildly short of breath with conversation comfortable in no apparent distress. HEAD: Normocephalic/atraumatic. EYES: Normal reaction of pupils, equal size. Conjunctiva pink, sclera white. NOSE: Clear with pink turbinates. THROAT: No erythema or exudates. NECK: No masses, no JVD, no thyroid enlargement, no adenopathy. Possible shotty adenopathy in the left supraclavicular area CHEST: No chest wall deformity. Symmetrical expansion. LUNGS: Equal air entry with diminished breath sounds over left lower lobe, and diffuse crackles over right lower lobe, and left upper lobe CVS: Irregular rate and rhythm, normal S1 and S2, no gallops, no murmurs, no rubs ABDOMEN: Soft, nontender. No hepatosplenomegaly, normal bowel sounds, no guarding or rigidity. EXTREMITIES: No clubbing, no edema, no cyanosis, 2+ pulses and upper and lower extremities. MUSCULOSKELETAL: Muscle strength and tone normal. SPINE: No scoliosis or deformity SKIN: No rashes CENTRAL NERVOUS SYSTEM: Alert and oriented -3. No focal deficits, tone is normal in all 4 extremities. PSYCHIATRIC: Alert and oriented -3. Appropriate affect. Intact judgment and insight. - Labs CBC & Chem 7: 08/13/19 05:47 08/15/19 06:18 Labs: Abnormal Lab Results - Last 24 Hours (Table) 08/14/19 08/14/19 08/15/19 Range/Units 16:32 20:54 06:18 PT 12.8 H (9.0-12.0) sec INR 1.2 H (<1.2) Sodium (137-145) mmol/L Chloride (98-107) mmol/L Glucose (74-99) mg/dL POC Glucose (mg/dL) 360 H 218 H (75-99) mg/dL 08/15/19 08/15/19 08/15/19 Range/Units 06:18 06:20 11:56 PT (9.0-12.0) sec INR (<1.2) Sodium 134 L (137-145) mmol/L Chloride 97 L (98-107) mmol/L Glucose 154 H (74-99) mg/dL POC Glucose (mg/dL) 160 H 184 H (75-99) mg/dL Microbiology - Last 24 Hours (Table) 08/13/19 15:04 Gram Stain - Preliminary Pleural Fluid Body Fluid Culture - Preliminary 08/13/19 15:04 Acid Fast Bacilli Smear - Final Pleural Fluid Acid Fast Bacilli Culture - Preliminary 08/13/19 15:04 Anaerobic Culture - Preliminary Pleural Fluid 08/12/19 12:54 Blood Culture - Preliminary Blood No Growth after 48 hours Assessment and Plan Plan: Assessment: #1. Acute hypoxic respiratory failure secondary to large left-sided pleural effusion and left upper lobe mass extending to the left hilum, suspicious for underlying malignancy. Most recent CT chest on 07/30/2019 showed the above- mentioned left upper lobe mass, and an additional 1 cm pleural-based nodule in the right middle lobe. Patient is status post left sided thoracentesis on 08/13/2019 would removal of 1 L of pleural fluid, was exudative based on the pleural fluid protein, cytology and cultures pending #2. Dyspnea, cough and chest pain, likely related to the above. Troponins were negative 3, EKG without acute ischemic changes #3. Remote history of smoking, in remission for the past 60 years, patient did smoke a pack a day for 20 years #4. 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 History of prostate cancer with surgical resection #6. Coronary artery disease with previous bypass and stenting #7. 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 Hypothyroidism #9. Hypercholesterolemia #10. Previous episode of myocardial infarction #11. Chronic atrial fibrillation on Coumadin #12. BPH #13. GERD/reflux #14. Previous history of MRSA infection Plan: We'll proceed with bronchoscopy and biopsy of the left upper lobe mass today, may resume Coumadin tonight after bronchoscopy if doing well, will continue with current medical treatment, pleural fluid cytology is still pending, cultures are pending. We will continue to follow, likely patient has remained stable, there have been no fever or chills, no worsening dyspnea. May consider discharge home in next 24 hours if continues to do well after the bronchoscopy. And he will need to follow-up in the office with Dr. Morgan/Dr. Soriano in regards to the transbronchial biopsies of the left upper lobe I performed a history & physical examination of the patient and discussed their management with my nurse practitioner, Griselda Funez. I reviewed the nurse practitioner's note and agree with the documented findings and plan of care. Lung sounds are positive for diminished breath sounds over left lower lobe. The findings and the impression was discussed with the patient. I attest to the documentation by the nurse practitioner. Time with Patient: Less than 30
--- NOTE | 2019-08-15 14:40 | P.PN ---
Subjective Progress Note Date: 08/15/19 Principal diagnosis: Severe dyspnea and respiratory failure, large pleural effusion, large left apical mass most likely cancer, A. 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 fib, mild COPD, known to have peripheral neuropathy with dropping foot in the left side with history of diabetes hypertension hyperlipidemia who was complaining of intractable cough for the last few weeks ended up been treated for pneumonia 3 around with no effect chest x-ray showed slight abnormality and up X of the left side was referred to have a CT came back with the slight abnormality with quite bit vague. Patient was supposed to see Dr. Morgan for consultation and possible bronchoscopy and biopsy ended up having more dyspnea and shortness of breath cough wheezes and worsening respiratory failure his brought him to the emergency department at [facility] where was seen and evaluated he was running low on pulse ox and mild tachycardia as well chest x-ray showed large pleural effusion of the left side with large mass on the left upper lobe had mild hyponatremia and significant hypomagnesemia suspicions for pneumonia as well patient was started on IV antibiotic steroid O2 updraft treatment admit patient to the hospital will consult pulmonary plan to do thoracentesis and possible biopsy. 08/14: Patient had thoracentesis yesterday came back as transudate, results still pending at this point specially for cell analysis, patient remain off an ticoagulation for now we'll plan for bronchoscopy with Dr. Soriano tomorrow before going back on anticoagulation. I have full explanation to the patient is process was bone on expectation and prognosis. 08/15 patient surrounded by's family sons and his answer all the question he is going for bronchoscopy today no pathology from the pleural fluid at this point the expectation with the bronchoscopy and biopsy to be with positive lung cancer and the management need to be discussed after the result is complete. Objective - Vital Signs Vital signs: Vital Signs Temp 97.6 F 08/15/19 08:15 Pulse 93 08/15/19 11:30 Resp 20 08/15/19 11:30 BP 145/85 08/15/19 11:30 Pulse Ox 93 L 08/15/19 11:30 Intake & Output 08/14/19 08/15/19 08/15/19 18:59 06:59 18:59 Intake Total 480 250 400 Output Total 700 Balance 480 -450 400 Weight 79.2 kg Intake: IV 400 Intake, IV Titration 250 Amount Vancomycin 1,500 mg In 250 Sodium Chloride 0.9% 250 ml @ 125 mls/hr IVPB Q12H [facility] Rx#:[id number] Oral 480 Output: Urine 700 Other: Voiding Method Toilet Toilet Toilet Urinal Urinal Urinal # Voids 1 3 - Exam Review of Systems CONSTITUTIONAL: Well-developed no acute respiratory distress. EYES: No icterus sclerae, no conjunctivitis. EARS, NOSE, MOUTH, THROAT, and FACE: No sore throat, lymphadenopathy, carotid bruits or deformity. RESPIRATORY: Positive shortness of breath cough wheezes with pleural effusion mass in the left side of the lung. CARDIOVASCULAR: Positive PND orthopnea no angina. GASTROINTESTINAL: No Abd pain, Nausea or vomiting, no Diarrhea or constipation, No GI Bleed, no distention or masses. GENITOURINARY: Negative for Hematuria or UTI, no kidney stones. INTEGUMENT/BREAST: Negative for any muscular injury with mild osteoarthritis.. HEMATOLOGIC/LYMPHATIC: Negative for bleed or purpura. MUSCULOSKELTAL: Negative for Myalgia or arthralgia. NEURLOGICAL: No LOC, Sz or syncope, blurred vision dizziness or abnormality.. BEHAVIORAL/PSYCH: Negative. ENDOCRINE: Negative. Physical Exam General Appearance: Alert, cooperative, no distress, appears stated age. Neck HEENT: Supple, no lymphadenopathy, no thyroid enlargement, no carotid bruits. Lungs: Decreased breath some bilaterally worse in the left side not able to hear any breath sounds all the way to the [place], positive rhonchi and crackles in the left upper side also had mild crackle on the right base. Chest Wall: Decrease expansion with deep inspiration no tenderness and no deformity was found on exam, no costochondral pain or discomfort. Heart: Irregular rate and rhythm, S1, S2 positive history positive systolic murmur no rub or gallop. Back: Symmetric, no curvature, ROM normal, no CVA tenderness. Abdomen: Soft, non-tender, bowel sounds active all four quadrants, no masses, no organomegaly. Extremities: Extremities normal, atraumatic, no cyanosis or edema. Positive dropping foot the left side with brace. Pulses: 2+ and symmetric. Skin: Skin color, texture, tugor normal, no rashes or lesions. Neurologic: Alert oriented x3 cranial nerves II through XII intact, positive dropping foot in the left side with brace with slight weakness in the left leg compared to the side, slight decreased sensation and the lower extremity from the knee down with significant neuropathy worse on the left. - Labs CBC & Chem 7: 08/13/19 05:47 08/15/19 06:18 Labs: Abnormal Lab Results - Last 24 Hours (Table) 08/14/19 08/14/19 08/15/19 Range/Units 16:32 20:54 06:18 PT 12.8 H (9.0-12.0) sec INR 1.2 H (<1.2) Sodium (137-145) mmol/L Chloride (98-107) mmol/L Glucose (74-99) mg/dL POC Glucose (mg/dL) 360 H 218 H (75-99) mg/dL 08/15/19 08/15/19 08/15/19 Range/Units 06:18 06:20 11:56 PT (9.0-12.0) sec INR (<1.2) Sodium 134 L (137-145) mmol/L Chloride 97 L (98-107) mmol/L Glucose 154 H (74-99) mg/dL POC Glucose (mg/dL) 160 H 184 H (75-99) mg/dL Microbiology - Last 24 Hours (Table) 08/13/19 15:04 Gram Stain - Preliminary Pleural Fluid Body Fluid Culture - Preliminary 08/13/19 15:04 Acid Fast Bacilli Smear - Final Pleural Fluid Acid Fast Bacilli Culture - Preliminary 08/13/19 15:04 Anaerobic Culture - Preliminary Pleural Fluid 08/12/19 12:54 Blood Culture - Preliminary Blood No Growth after 48 hours Assessment and Plan Plan: 1 acute hypoxic respiratory failure: Secondary to large pleural effusion, lung mass and possible gram-negative pneumonia. 2 large pleural effusion of the left side: Patient be going for thoracentesis and analysis for any malignant cell. 3 large mass in the left upper lobe: Patient will be going for biopsy with bronchoscopy with pulmonary if pleural effusion analysis came back negative for cancer cell. 4 gram-negative pneumonia: Patient will be on double antibiotic with vancomycin and Zosyn for now consult pulmonary if any results from sputum culture possible changes antibiotic currently. 5 A. fib with RVR: Patient remain on warfarin INR has been therapeutic continue beta alexis will hold warfarin for now till after the testing is complete. 6 chronic systolic congestive heart failure: Seen cardiology regular basis still been treated for cardiomyopathy. Still on metoprolol 50 twice a day, furosemide 20 mg daily, isosorbide 60 mg a day and hydralazine 100 mg 3 times a day 7 type 2 diabetes continue patient on insulin continue Accu-Chek with sliding scale coverage, continue patient on metformin along with Prandin and Januvia and insulin. 8 hypothyroidism: Continue levothyroxine 88 g daily. 9 hyperlipidemia: Remain on atorvastatin 40 mg daily. 10 hypertension: Remain on Cardura 40 mg a day, amlodipine 2.5 mg twice a day, metoprolol 50 mg twice a day, hydralazine 100 mg 3 times a day. 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 Patient is going for bronchoscopy today continue current antibiotic continue current management for COPD and infection if his stable between today and Sunday might be discharged home to follow the result of his biopsy as an outpatient
--- NOTE | 2019-08-15 15:49 | FL ---
EXAMINATION TYPE: FL barium swallow w video DATE OF EXAM: 08/15/2019 MODIFIED SWALLOW / DEGLUTITION STUDY CLINICAL HISTORY: Dysphagia. TECHNIQUE: Deglutition study is performed utilizing thin liquid barium, honey and nectar thick liqui d barium, barium thick applesauce, and barium coated cracker. 1 minute and 22 seconds fluoroscopy nani e was utilized with 0 fluoroscopic images saved as the examination was video recorded. COMPARISON: None. FINDINGS: The oral and pharyngeal phases show satisfactory initiation and propagation with all modali ties tested. There is trace and transient repeat penetration with the thin consistency. With the nec tar thick consistency there is a single episode of deep penetration without cough reflex. This was ej ected without aspiration. Cricopharyngeal spasm is seen. Moderate vallecular residual with nectar thi ck consistency, barium thick applesauce and barium coated cracker. Normal mastication is seen with so lid modalities tested. There is no evidence of penetration or aspiration with any modality tested. No significant pharyngeal residue was appreciated. IMPRESSION: 1. Single episode of deep laryngeal penetration without eliciting a cough reflex subsequently ejected without aspiration. 2. Repeat trace and transient laryngeal penetration with the thin barium consistency. 3. Moderate vallecular residual with increased viscosity consistencies. Please refer to speech therap ist notes for further details if necessary.
[2019-08-15] MEDS: ALPRAZolam 0.25 MG TAB PO SCH ×2 (17:21→20:57)
[2019-08-15] MEDS: METOPROLOL TARTRATE 50 MG TAB PO SCH ×2 (17:22→20:57)
[2019-08-15] MEDS: DOXAZOSIN 4 MG TAB PO SCH (17:22)
[2019-08-15] MEDS: DOCUSATE 100 MG CAP PO SCH ×2 (17:22→20:57)
[2019-08-15] MEDS: PANTOPRAZOLE 40 MG TABLET PO SCH (17:22)
[2019-08-15] MEDS: amLODIPine 2.5 MG TAB PO SCH ×2 (17:22→20:57)
[2019-08-15] MEDS: FUROSEMIDE 20 MG TAB PO SCH (17:22)
[2019-08-15] MEDS: LINAGLIPTIN 5 MG TABLET PO SCH (17:22)
[2019-08-15] MEDS: hydrALAZINE HCL 50 MG TAB PO SCH ×3 (17:22→20:57)
[2019-08-15] MEDS: methylPREDNISolone SOD SUCCI 40 MG/ML 1 ML VIAL IV SCH ×3 (17:22→22:51)
[2019-08-15] MEDS: ISOSORBIDE MONONITRATE ER 60 MG TAB.ER.24H PO SCH (17:32)
[2019-08-15 17:33] LABS: Glucose,Whole Blood 180 mg/dL (75-99)
[2019-08-15] MEDS: TROSPIUM CHLORIDE 20 MG TABLET PO SCH (18:59)
[2019-08-15 20:50] LABS: Glucose,Whole Blood 279 mg/dL (75-99)
[2019-08-15] MEDS: ATORVASTATIN 40 MG TAB PO SCH (20:57)
--- NOTE | 2019-08-15 22:00 | OP ---
OPERATIVE REPORT OPERATIVE REPORT: Bronchoscopy, bronchoalveolar lavage of the left upper lobe, and multiple endobronchial biopsies of left upper lobe bronchus. PREOPERATIVE DIAGNOSIS: Left upper lobe mass. POSTOPERATIVE DIAGNOSIS: Left upper lobe mass. ANESTHESIA USED: IV conscious sedation. PROCEDURE DESCRIPTION: The patient was prepared according to the bronchoscopy protocol. Oxygen was applied via Ventimask over his mouth. The patient was placed in a supine position, and we monitored his oxygen saturation continuously. Blood pressure was intermittently monitored and cardiac rhythm was continuously monitored. After adequate IV conscious sedation, the bronchoscope was inserted through the left naris down to the area of the vocal cords. The vocal cords were noted to be patent; however, they were not symmetrical. There is evidence of some previous changes in the left vocal cord area, believed related to previous surgery on the left vocal cord. The right vocal cord was noted to be completely normal. Lidocaine was applied over the vocal cords, and the bronchoscope was advanced further down. Thorough examination was done of the trachea, sean, right upper lobe, right middle lobe, right lower lobe, left upper lobe, and I could not fully visualize the left upper lobe because of the evidence of very irregular mucosa and prominent mucosa noted to be almost subtotally occluding the left upper lobe bronchus and partially including the lingula. I was able to visualize the left lower lobe bronchus; however, it was extrinsically compressed and I could not go down further to the basilar segments. Then washing/lavage of the left upper lobe was done and multiple endobronchial biopsies were done of the left upper lobe bronchus. The visibility was not optimal. Patient was noted to have significant oozing from each biopsy, and visibility was not at best, not to mention the patient was developing tachycardia and he was in atrial fibrillation. He was also noted to have desaturation intermittently. Multiple biopsies were done from the left upper lobe and these were sent for different diagnostic studies. No brushings were done. Procedure was well tolerated. No evidence of any immediate complications. However, if the bronchoscopy is to be repeated, would strongly recommend repeating the bronchoscopy and biopsy in the operating room. MMODL / IJN: [id number] /
[2019-08-16 06:17] LABS: Glucose,Whole Blood 215 mg/dL (75-99)
[2019-08-16] MEDS: LEVOTHYROXINE 88 MCG TAB PO SCH (06:21)
[2019-08-16] MEDS: INSULIN ASPART (NovoLOG) 100 UNIT/ML VIAL SQ SCH ×2 (06:21→12:23)
[2019-08-16] MEDS: REPAGLINIDE 1 MG TAB PO SCH (06:21)
[2019-08-16 07:17] LABS: INR 1.2 (<1.2); Prothrombin Time 12.2 sec (9.0-12.0)
[2019-08-16] MEDS: hydrALAZINE HCL 50 MG TAB PO SCH (07:56)
[2019-08-16] MEDS: FUROSEMIDE 20 MG TAB PO SCH (07:56)
[2019-08-16] MEDS: METOPROLOL TARTRATE 50 MG TAB PO SCH (07:56)
[2019-08-16] MEDS: ALPRAZolam 0.25 MG TAB PO SCH (07:56)
[2019-08-16] MEDS: DOCUSATE 100 MG CAP PO SCH (07:56)
[2019-08-16] MEDS: amLODIPine 2.5 MG TAB PO SCH (07:56)
[2019-08-16] MEDS: PANTOPRAZOLE 40 MG TABLET PO SCH (07:56)
[2019-08-16] MEDS: LINAGLIPTIN 5 MG TABLET PO SCH (07:56)
[2019-08-16] MEDS: DOXAZOSIN 4 MG TAB PO SCH (07:56)
[2019-08-16] MEDS: PIPERACILLIN-TAZOBACTAM 3.375 GM in SODIUM CHLORIDE 0.9% 100 ML IVPB SCH (07:56)
[2019-08-16] MEDS: methylPREDNISolone SOD SUCCI 40 MG/ML 1 ML VIAL IV SCH (07:57)
[2019-08-16 08:54] VITALS: TEMP 97.7
[2019-08-16 11:06] VITALS: BP 126/75; PULSE 85
[2019-08-16 12:06] LABS: Glucose,Whole Blood 144 mg/dL (75-99)
--- NOTE | 2019-08-16 12:49 | P.PN ---
Subjective Progress Note Date: 08/16/19 Principal diagnosis: Dyspnea, pleural effusion, left upper lobe mass This 83-year-old white male patient of Dr. Corona, with past medical history of chronic atrial fibrillation on Coumadin, coronary artery disease with previous bypass grafting, diabetes mellitus with peripheral neuropathy, hypothyroidism, hypercholesterolemia, BPH, osteoarthritis, remote history of smoking, in r emission for the last 60 years, did smoke for approximately 20 years, 1 pack a day, denies any history of chronic lung disease. Patient was seen by his primary care physician with complaints of cough, and left upper lobe lung mass was found on diagnostic imaging and patient was referred to Dr. Morgan for possible bronchoscopy and biopsy. Patient actually had an appointment with Dr. Morgan yesterday on 08/12/2019, however in view of his increasing shortness of breath and chest pain he ended up, to the emergency department. Patient has had a nonproductive cough and chills, denies any hemoptysis. In addition he has been having chest pain at home and has been taking nitro. His pulse ox is 84% on room air and he normally does not wear oxygen. 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 Parra. Chest x-ray in the ER showed a worsening moderate-sized left pleural effusion, and worsening left suprahilar masslike consolidation underlying central neoplasm not excluded, new right medial basilar infiltrate and/or atelectasis. Lab work showed no leukocytosis, white blood cell count was 8.8, hemoglobin 11.1, INR is 1.9, d-dimer was negative at 0.48, sodium was 126, potassium is 4.5, chloride was 89, CO2 is 25, BUN is 12 creatinine 0.65, magnesium was 1.4, AST is 29, ALT was 20, alk phos was 75, troponins negative 3, proBNP was 1240. Ultrasound of the chest was completed showing left pleural effusion pocket of 12.8 cm. On 08/14/2019 patient seen in follow-up on selective care unit. That is post left-sided thoracentesis yesterday would removal of 1 L of pleural fluid which was sent for analysis, which shows transudative fluid, with many mesothelial cells. Cytology is pending. Cultures are pending, patient has been afebrile, no complaints of chest pain, his breathing has improved since the thoracentesis, lung sounds reveal diminished breath sounds over left lower and middle lobe. Patient remains on antibiotic coverage with Zosyn and vancomycin. No cough or congestion, awaiting today's labs to check patient's INR, for possibility of b ronchoscopy and biopsies of the left upper lobe mass possibly tomorrow On 08/15/2019 patient seen in follow-up on selective care unit, he sitting up in the chair, in no acute distress, no worsening dyspnea, no fever or chills, remains on 2 L of oxygen, with a pulse ox of 93%, hemodynamically stable, lung sounds reveal diminished breath sounds at the bases, no rhonchi, no wheezing, pleural fluid cultures are pending, pleural fluid cytology was exudative in nature based on the pleural fluid protein in the total serum protein. Patient has been nothing by mouth after midnight, Coumadin on hold, today's INR 1.2, and patient is awaiting his bronchoscopy with biopsy of the left upper lobe mass On 08/16/2019 patient seen in follow-up on selective care unit, he is awake and alert, in no acute distress. He is on room air, with a pulse ox of 92-94%, afebrile, hemodynamically stable, lungs reveal minimal crackles over left lower lobe, no rhonchi, or wheezing, patient had a bronchoscopy with left upper lobe biopsy yesterday, biopsy results are pending, BAL cultures are pending, pleural fluid cultures are pending as well. Pleural fluid cytology from 08/14/2019 are still pending as well. From pulmonary perspective patient is stable for discharge home today with outpatient follow-up in regards to the results of the biopsy and the pleural fluid cytology Objective - Vital Signs Vital signs: Vital Signs Temp 97.7 F 08/16/19 08:00 Pulse 85 08/16/19 11:05 Resp 20 08/16/19 11:05 BP 126/75 08/16/19 11:05 Pulse Ox 92 L 08/16/19 11:05 Intake & Output 08/15/19 08/16/19 08/16/19 18:59 06:59 18:59 Intake Total 700 336 Balance 700 336 Weight 79.4 kg Intake: IV 400 Intake, IV Titration 100 100 Amount Piperacillin-Tazobactam 3 100 100 .375 gm In Sodium Chloride 0.9% 100 ml @ 25 mls/hr IVPB Q8HR [facility] Rx# :[id number] Oral 200 236 Other: Voiding Method Toilet Toilet Urinal # Voids 3 1 1 - Exam GENERAL EXAM: Alert, very pleasant, 83-year-old white male, on 2 L of oxygen with a pulse ox of 93%, mildly short of breath with conversation comfortable in no apparent distress. HEAD: Normocephalic/atraumatic. EYES: Normal reaction of pupils, equal size. Conjunctiva pink, sclera white. NOSE: Clear with pink turbinates. THROAT: No erythema or exudates. NECK: No masses, no JVD, no thyroid enlargement, no adenopathy. Possible shotty adenopathy in the left supraclavicular area CHEST: No chest wall deformity. Symmetrical expansion. LUNGS: Equal air entry with diminished breath sounds over left lower lobe, and diffuse crackles over right lower lobe, and left upper lobe CVS: Irregular rate and rhythm, normal S1 and S2, no gallops, no murmurs, no rubs ABDOMEN: Soft, nontender. No hepatosplenomegaly, normal bowel sounds, no guarding or rigidity. EXTREMITIES: No clubbing, no edema, no cyanosis, 2+ pulses and upper and lower extremities. MUSCULOSKELETAL: Muscle strength and tone normal. SPINE: No scoliosis or deformity SKIN: No rashes CENTRAL NERVOUS SYSTEM: Alert and oriented -3. No focal deficits, tone is normal in all 4 extremities. PSYCHIATRIC: Alert and oriented -3. Appropriate affect. Intact judgment and insight. - Labs CBC & Chem 7: 08/13/19 05:47 08/15/19 06:18 Labs: Abnormal Lab Results - Last 24 Hours (Table) 08/15/19 08/15/19 08/16/19 Range/Units 17:23 20:49 06:15 PT (9.0-12.0) sec INR (<1.2) POC Glucose (mg/dL) 180 H 279 H 215 H (75-99) mg/dL 08/16/19 08/16/19 Range/Units 06:26 12:04 PT 12.2 H (9.0-12.0) sec INR 1.2 H (<1.2) POC Glucose (mg/dL) 144 H (75-99) mg/dL Microbiology - Last 24 Hours (Table) 08/15/19 13:35 Gram Stain - Preliminary Bronchoalviolar Lavage - Left Bronchial Washings Culture - Preliminary 08/13/19 15:04 Gram Stain - Preliminary Pleural Fluid Body Fluid Culture - Preliminary 08/12/19 12:54 Blood Culture - Preliminary Blood No Growth after 72 hours Assessment and Plan Plan: Assessment: #1. Acute hypoxic respiratory failure secondary to large left-sided pleural effusion and left upper lobe mass extending to the left hilum, suspicious for underlying malignancy. Most recent CT chest on 07/30/2019 showed the above- mentioned left upper lobe mass, and an additional 1 cm pleural-based nodule in the right middle lobe. Patient is status post left sided thoracentesis on 08/13/2019 with removal of 1 L of pleural fluid, was exudative based on the pleural fluid protein, cytology and cultures pending. Patient is status post bronchoscopy with left upper lobe biopsy on 08/15/2019, absolute results are pending #2. Dyspnea, cough and chest pain, likely related to the above. Troponins were negative 3, EKG without acute ischemic changes #3. Remote history of smoking, in remission for the past 60 years, patient did smoke a pack a day for 20 years #4. 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 History of prostate cancer with surgical resection #6. Coronary artery disease with previous bypass and stenting #7. 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 Hypothyroidism #9. Hypercholesterolemia #10. Previous episode of myocardial infarction #11. Chronic atrial fibrillation on Coumadin #12. BPH #13. GERD/reflux #14. Previous history of MRSA infection Plan: Patient is stable, no complaints of shortness of breath, he is on room air, no acute events overnight, no complaints of cough and shortness of breath and wheezing overnight, his Coumadin can be resumed today, his INR today is 1.2, his left upper lobe transbronchial biopsy results are pending, pleural fluid cytology results are still pending, and cultures are negative thus far, final cultures are pending, pulmonary perspective patient is stable for discharge home today with outpatient follow-up with Dr. Morgan with Dr. Townsend in the office in 1 or 2 weeks in regards to the results of the biopsies of the left upper lobe mass and the pleural fluid cytology I performed a history & physical examination of the patient and discussed their management with my nurse practitioner, Griselda Funez. I reviewed the nurse practitioner's note and agree with the documented findings and plan of care. Lung sounds are positive for diminished breath sounds over left lower lobe. The findings and the impression was discussed with the patient. I attest to the documentation by the nurse practitioner. Time with Patient: Less than 30
[2019-08-16] MEDS: VANCOMYCIN 1,500 MG in SODIUM CHLORIDE 0.9% 250 ML IVPB SCH (12:50)
[2019-08-17] MEDS ORDERED: VANCOMYCIN TROUGH DUE 1 EACH MISC MISCELLANE ONE (11:00)
--- NOTE | 2019-08-20 11:56 | CDI ---
Documentation Clarification Form Date: 08/20/19 From: [address] Phone: If you have a question about this query, please contact Riya Funes Sweater Operator at [phone] between 8am and 5pm. Admit Date: 08/12/19 Discharge Date: 08/16/19 Patient Name: Lamont Mishra Visit Number: [id number] ATTENTION: The Clinical Documentation Specialists (CDI) and [facility] Coding Staff appreciate your assistance in clarifying documentation. Please respond to the clarification below the line at the bottom and electronically sign. The CDI & [facility] Coding staff will review the response and follow-up if needed. Please note: Queries are made part of the Legal Health Record. If you have any questions, please contact the author of this message via ITS. Dear Dr. Ray Corona The final diagnosis of the pleural effusion cytology report states: Positive for non-small cell carcinoma, most consistent with poorly differentiated adenocarcinoma. Documentation states: Large pleural effusion of the left side: Patient be going for thoracentesis and analysis for any malignant cell is documented in your 08/12 - 08/[address] Soriano documented large left sided pleural effusion and left upper lobe mass extending to the left hilum, suspicious for underlying malignancy in his consult note and progress notes. Patient history/risk factors: History of smoking, Clinical Indicators: Shortness of breath, chest pain, hypoxia, Treatment: Bronchoscopy with BAL and biopsies, IV Solu-Medrol In your professional opinion, do you agree with the cytology report specifying the pleural effusion as non-small cell carcinoma, most consistent with poorly differentiated adenocarcinoma? Yes No Other (please specify) Unable to determine YES, THIS IS IN THE DISCHARGE SUMMARY!!! MTDD
--- NOTE | 2019-08-20 12:08 | CDI ---
Documentation Clarification Form Date: 08/20/19 From: Ashley Lane Phone: If you have a question about this query, please contact Riya Funes, Crew Dispatcher at [phone] between 8am and 5pm. Admit Date: 08/12/19 Discharge Date: 08/16/19 Patient Name: Lamont Mishra Visit Number: [id number] ATTENTION: The Clinical Documentation Specialists (CDI) and [facility] Coding Staff appreciate your assistance in clarifying documentation. Please respond to the clarification below the line at the bottom and electronically sign. The CDI & [facility] Coding staff will review the response and follow-up if needed. Please note: Queries are made part of the Legal Health Record. If you have any questions, please contact the author of this message via ITS. Dear Dr. Ray Corona The final diagnosis of the left upper lobe transbronchial pathology report states: Poorly differentiated non-small cell carcinoma, most consistent with poorly differentiated adenocarcinoma. Documentation states: Large left apical mass most likely cancer is documented in your 08/15 progress note. Patient history/risk factors: History of smoking, history of vocal cord cancer, history of prostate cancer Clinical Indicators: Short of breath, cough, chest pain, pleural effusion Treatment: Bronchoscopy with BAL and endobronchial and left upper lobe biopsies In your professional opinion, do you agree with the pathology report specifying the left upper lobe lung mass as poorly differentiated non-small cell carcinoma, most consistent with poorly differentiated adenocarcinoma? Yes No Other (please specify) Unable to determine YES, SEE D/C SUMMARY!!!!! MTDD
--- NOTE | 2019-08-26 15:49 | P.DS ---
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 fib, mild COPD, known to have peripheral neuropathy with dropping foot in the left side with history of diabetes hypertension hyperlipidemia who was complaining of intractable cough for the last few weeks ended up been treated for pneumonia 3 around with no effect chest x-ray showed slight abnormality and up X of the left side was referred to have a CT came back with the slight abnormality with quite bit vague. Patient was supposed to see Dr. Morgan for consultation and possible bronchoscopy and biopsy ended up having more dyspnea and shortness of breath cough wheezes and worsening respiratory failure his brought him to the emergency department at [facility] where was seen and evaluated he was running low on pulse ox and mild tachycardia as well chest x-ray showed large pleural effusion of the left side with large mass on the left upper lobe had mild hyponatremia and significant hypomagnesemia suspicions for pneumonia as well patient was started on IV antibiotic steroid O2 updraft treatment admit patient to the hospital will consult pulmonary plan to do thoracentesis and possible biopsy. 08/13: Patient has been seen by Dr. Tracey with plan for thoracentesis today and depending on results possible bronchoscopy for tomorrow. Patient has been afebrile, blood pressure 116/77, pulse 92, pulse ox 93% on 5 L nasal cannula. Patient has less wheezing noted today from yesterday. Blood sugars are running in the 200s secondary to steroids. WBC 7.3, hemoglobin 10.9, platelet count 364. Sodium 126, potassium 4.8, chloride 90, CO2 27, BUN 16, creatinine 0.71. Chest ultrasound revealed left pleural effusion 12.8 cm. 08/14: Patient had thoracentesis yesterday came back as transudate, results still pending at this point specially for cell analysis, patient remain off anticoagulation for now we'll plan for bronchoscopy with Dr. Soriano tomorrow before going back on anticoagulation. I have full explanation to the patient is process was bone on expectation and prognosis. 08/15 patient surrounded by's family sons and his answer all the question he is going for bronchoscopy today no pathology from the pleural fluid at this point the expectation with the bronchoscopy and biopsy to be with positive lung cancer and the management need to be discussed after the result is complete. 08/16: Patient is now status post thoracentesis and bronchoscopy and pathologies are pending. Pleural fluid is exudative. He has been resumed on Coumadin. Pulse ox is currently 94% on 2 L nasal cannula. He has been afebrile, heart rate 95, blood pressure 153/82. INR 1.2. Blood sugars running 215. Modified barium swallow was completed with recommendations for mechanical soft and thin liquids. Additionally recommendations are for base the tongue exercises, vocal cord adduction exercises, sitting upright at 90, double swallow, small bites and sips. Speech therapy is recommended ENT consultation. patient will be discharged home in stable condition. Pathology report is not available at the time of discharge. Transbronchial lung biopsy [facility] pathology report: Poorly differentiated non-small cell carcinoma, most consistent with poorly differentiated adenocarcinoma. Discharge diagnoses: 1. Acute hypoxic respiratory failure: Secondary to large pleural effusion, lung mass and possible gram-negative pneumonia. 2. Large pleural effusion of the left side. Status post thoracentesis. 3. Large mass in the left upper lobe. Status post biopsy with bronchoscopy positive for non-small cell carcinoma, most consistent with poorly differentiated adenocarcinoma. 4. Gram-negative pneumonia 5. Chronic atrial fibrillation 6. Chronic systolic heart failure 7. type 2 diabetes 8. Hypothyroidism 9. Hyperlipidemia 10. 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 12. History of prostate cancer. 13. History of coronary artery disease status post CABG and stents Discharge plan: home Impression and plan of care have been directed as dictated by the signing physician. Heather Bishop nurse practitioner acting as scribe for signing physician. Patient Condition at Discharge: Good Plan - Discharge Summary Discharge Rx Participant: No New Discharge Prescriptions: New Amoxicillin/Potassium Clav [Augmentin 875-125 Tablet] 1 each PO Q12HR #20 tab Docusate [Colace] 100 mg PO BID cap predniSONE 0 mg PO DIRECTED #30 tab Continue Levothyroxine Sodium [Synthroid] 88 mcg PO MOTUWETHFRSA metFORMIN HCL [Glucophage] 1,000 mg PO DAILY@1700 Multivitamins, Thera [Multivitamin (formulary)] 1 tab PO DAILY@1700 Fesoterodine Fumarate [Toviaz] 4 mg PO DAILY@1700 hydrALAZINE HCL [Apresoline] 100 mg PO TID@0800,1700,2200 ALPRAZolam [Xanax] 0.25 mg PO BID@0800,2200 Furosemide [Lasix] 20 mg PO DAILY@0800 metFORMIN HCL [Glucophage] 500 mg PO DAILY@0800 Isosorbide Mononitrate ER [Imdur] 60 mg PO DAILY@1700 Melatonin 5 mg PO HS sitaGLIPtin [Januvia] 100 mg PO DAILY@0800 Clopidogrel [Plavix] 75 mg PO DAILY #30 tab Warfarin [Coumadin] 7.5 mg PO SUTUTHFRSA Doxazosin [Cardura] 4 mg PO DAILY #30 tab Repaglinide [Prandin] 1 mg PO DAILY amLODIPine [Norvasc] 2.5 mg PO BID@0800,2200 Atorvastatin [Lipitor] 40 mg PO HS@2200 Metoprolol Tartrate [Lopressor] 50 mg PO BID Pantoprazole Sodium [Protonix] 40 mg PO DAILY@0800 Warfarin [Coumadin] 3.75 mg PO MOWE Discharge Medication List Levothyroxine Sodium [Synthroid] 88 mcg PO MOTUWETHFRSA 01/30/14 [History] Multivitamins, Thera [Multivitamin (formulary)] 1 tab PO DAILY@17001/30/14 [History] metFORMIN HCL [Glucophage] 1,000 mg PO DAILY@17001/30/14 [History] Fesoterodine Fumarate [Toviaz] 4 mg PO DAILY@1700 08/19/14 [History] hydrALAZINE HCL [Apresoline] 100 mg PO TID@0800,1700,2200 08/19/14 [History] ALPRAZolam [Xanax] 0.25 mg PO BID@0800,2200 08/28/15 [History] Furosemide [Lasix] 20 mg PO DAILY@0800 08/28/15 [History] metFORMIN HCL [Glucophage] 500 mg PO DAILY@0800 08/28/15 [History] Isosorbide Mononitrate ER [Imdur] 60 mg PO DAILY@1700 03/29/16 [History] Melatonin 5 mg PO HS 03/29/16 [History] sitaGLIPtin [Januvia] 100 mg PO DAILY@0800 09/17/16 [History] Clopidogrel [Plavix] 75 mg PO DAILY #30 tab 09/20/16 [Rx] Warfarin [Coumadin] 7.5 mg PO SUTUTHFRSA 06/17/18 [History] Doxazosin [Cardura] 4 mg PO DAILY #30 tab 06/20/18 [Rx] Repaglinide [Prandin] 1 mg PO DAILY 01/22/19 [History] Atorvastatin [Lipitor] 40 mg PO HS@2200 08/12/19 [History] Metoprolol Tartrate [Lopressor] 50 mg PO BID 08/12/19 [History] Pantoprazole Sodium [Protonix] 40 mg PO DAILY@0800 08/12/19 [History] Warfarin [Coumadin] 3.75 mg PO MOWE 08/12/19 [History] amLODIPine [Norvasc] 2.5 mg PO BID@0800,2200 08/12/19 [History] Amoxicillin/Potassium Clav [Augmentin 875-125 Tablet] 1 each PO Q12HR #20 tab 08/16/19 [Rx] Docusate [Colace] 100 mg PO BID cap 08/16/19 [Rx] predniSONE 0 mg PO DIRECTED #30 tab 08/16/19 [Rx] Follow up Appointment(s)/Referral(s): Yasir Soriano MD [STAFF PHYSICIAN] - 1 Week (please call and make follow up appointment Sunday for 1-2 weeks away) Ray Corona MD [Primary Care Provider] - 1 Week (Please call and make follow up appointment Sunday) Patient Instructions/Handouts: Aspiration Precautions (DC), Thoracentesis (DC) Activity/Diet/Wound Care/Special Instructions: Follow up with ENT. Diet: Mechanical soft and thin liquids. Speech therapy recommendations: Base the tongue exercises, vocal cord adduction exercises, sitting upright at 90, double swallow, small bites and sips. Discharge Disposition: HOME SELF-CARE
== END 2019-08-16 14:15 | disposition home or self-care (01) | DRG 180 ==
LOC: EC 08:27 → 3SCARD 12:41
PROVIDERS: ADMIT Internal Medicine Geriatric Medicine; ATTEND Internal Medicine Geriatric Medicine
PROC: 0W9B3ZX Drainage of Left Pleural Cavity, Percutaneous Approach, Diagnostic (ICD-10-PCS; 2019-08-13)
PROC: 0BBG8ZZ Excision of Left Upper Lung Lobe, Via Natural or Artificial Opening Endoscopic (ICD-10-PCS; 2019-08-15)
PROC: 0B9G8ZX Drainage of Left Upper Lung Lobe, Via Natural or Artificial Opening Endoscopic, Diagnostic (ICD-10-PCS; principal; 2019-08-15 07:30)
PROC: 0BB88ZX Excision of Left Upper Lobe Bronchus, Via Natural or Artificial Opening Endoscopic, Diagnostic (ICD-10-PCS; 2019-08-15 07:30)
DX: C34.12 Malignant neoplasm of upper lobe, left bronchus or lung (principal); J15.6 Pneumonia due to other Gram-negative bacteria; J96.01 Acute respiratory failure with hypoxia; E87.1 Hypo-osmolality and hyponatremia; I42.9 Cardiomyopathy, unspecified; I48.20 Chronic atrial fibrillation, unspecified; I50.22 Chronic systolic (congestive) heart failure; J44.0 Chronic obstructive pulmonary disease with (acute) lower respiratory infection; J91.0 Malignant pleural effusion; D63.8 Anemia in other chronic diseases classified elsewhere; E11.42 Type 2 diabetes mellitus with diabetic polyneuropathy; I11.0 Hypertensive heart disease with heart failure; E03.9 Hypothyroidism, unspecified; E83.42 Hypomagnesemia; E11.65 Type 2 diabetes mellitus with hyperglycemia; I25.10 Atherosclerotic heart disease of native coronary artery without angina pectoris; E78.00 Pure hypercholesterolemia, unspecified; E78.5 Hyperlipidemia, unspecified; I25.2 Old myocardial infarction; K21.9 Gastro-esophageal reflux disease without esophagitis; K22.70 Barrett's esophagus without dysplasia; N40.0 Benign prostatic hyperplasia without lower urinary tract symptoms; T38.0X5A Adverse effect of glucocorticoids and synthetic analogues, initial encounter; F41.9 Anxiety disorder, unspecified; I83.90 Asymptomatic varicose veins of unspecified lower extremity; M19.90 Unspecified osteoarthritis, unspecified site; M21.372 Foot drop, left foot; D50.9 Iron deficiency anemia, unspecified; R01.1 Cardiac murmur, unspecified; Z79.01 Long term (current) use of anticoagulants; Z79.02 Long term (current) use of antithrombotics/antiplatelets; Z79.84 Long term (current) use of oral hypoglycemic drugs; Z79.890 Hormone replacement therapy; Z79.899 Other long term (current) drug therapy; Z79.52 Long term (current) use of systemic steroids; Z85.21 Personal history of malignant neoplasm of larynx; Z85.46 Personal history of malignant neoplasm of prostate; Z86.14 Personal history of Methicillin resistant Staphylococcus aureus infection; Z87.11 Personal history of peptic ulcer disease; Z87.891 Personal history of nicotine dependence; Z92.3 Personal history of irradiation; Z95.1 Presence of aortocoronary bypass graft; Z95.5 Presence of coronary angioplasty implant and graft; Z87.01 Personal history of pneumonia (recurrent); Z88.1 Allergy status to other antibiotic agents; Z88.8 Allergy status to other drugs, medicaments and biological substances; Z91.048 Other nonmedicinal substance allergy status; Z98.42 Cataract extraction status, left eye; Z98.41 Cataract extraction status, right eye; Z96.1 Presence of intraocular lens; Z90.79 Acquired absence of other genital organ(s); Z83.3 Family history of diabetes mellitus; Z82.49 Family history of ischemic heart disease and other diseases of the circulatory system; Z82.61 Family history of arthritis; Z80.3 Family history of malignant neoplasm of breast; Z80.49 Family history of malignant neoplasm of other genital organs
CPT/HCPCS: 31624; 31625; 36415; 71045; 71046; 74230; 76604; 80048; 80053; 80202; 82945; 83615; 83735; 83880; 84155; 84157; 84484; 85025; 85379; 85610; 85730; 87040; 87070; 87075; 87102; 87116; 87205; 87206; 87252; 87496; 87498; 87502; 87529; 87634; 87798; 88108; 88305; 88341; 88342; 89050; 93005; 96365; 96375; 99285

== ENCOUNTER → 2019-08-30 | Outpatient (CLI) | payer MEDICARE ==
--- NOTE | 2019-09-02 09:29 | PE ---
Nuclear medicine PET/CT HISTORY: Lung mass, initial Patient received 13.7 mCi F-18 FDG intravenously in delayed scanning was performed from the skull bas e to the mid thighs. Localization and attenuation correction CT scan was performed. Correlation to chest CT 07/30/2019 Neck and chest: Patient is post median sternotomy. There is a left pleural effusion. Pleural-based ma ss in the left upper lobe is present and measures approximately 11 cm in AP dimension, there is assoc iated hypermetabolic uptake, SUV 7. There is groundglass opacity in the right lower lung, only mild u ptake. Retrocaval pretracheal node shows only mild uptake, SUV 2.7. Right hilar node shows uptake, EVANS V 3.1. Along the anterior aspect of the right ventricle near the pulmonary outflow tract there is a f ocus of activity present SUV 4.1. Along the posterior left hemithorax there are foci of activity pres ent at the dependent portion of the pleural effusion, SUV only approximately 2-2.2 ABDOMEN: No evident adrenal mass or hypermetabolic uptake. No retroperitoneal adenopathy. No evident liver mass. Gallbladder, pancreas, spleen are within normal limits. No there is a small hiatal hernia . There is uptake associated with the bowel which may be physiologic. Within the left hemipelvis and anterior pelvis uptake is intense, could be physiologic. Osseous structures show no suspicious hypermetabolic uptake. Urine contamination noted over the penis . IMPRESSION: Pleural effusion and hypermetabolic uptake within the chest as described. Additional find ings above.
== END | disposition home or self-care (01) ==
LOC: RADPETMAIN 11:09
PROVIDERS: ATTEND Internal Medicine Critical Care Medicine
DX: J90 Pleural effusion, not elsewhere classified (principal); R91.1 Solitary pulmonary nodule
CPT/HCPCS: 78815; A9552

== ENCOUNTER 2019-09-03 08:15 | Inpatient (IN) | payer MEDICARE ==
[2019-09-03] MEDS ORDERED: SODIUM CHLORIDE 0.9% 1,000 ML IV STA (08:38)
--- NOTE | 2019-09-03 08:44 | ED ---
General Adult HPI - General Stated complaint: Respitory stress Time Seen by Provider: 09/03/19 08:23 - History of Present Illness Initial comments: Dictation was produced using [employer] dictation software. please excuse any grammatical, word or spelling errors. Chief Complaint: 83-year-old male recently diagnosed lung disease presents with shortness of breath and hypoxia. History of Present Illness: 83-year-old male. He was recently diagnosed with lung disease. Patient was brought in by . Patient has been progressively more short of breath last couple days. Patient is on oxygen at home however has been hypoxic despite home oxygen. Patient's history of pleural effusion requiring thoracentesis. Patient also has history of diabetes, dyslipidemia, hypertension, atrial fibrillation. Patient denies any pain complaints at this time. The ROS documented in this emergency department record has been reviewed and confirmed by me. Those systems with pertinent positive or negative responses have been documented in the HPI. All other systems are other negative and/or noncontributory. PHYSICAL EXAM: General Impression: Alert and oriented x3, dyspneic HEENT: Normocephalic atraumatic, extra-ocular movements intact, pupils equal and reactive to light bilaterally, mucous membranes moist. Cardiovascular: Heart regular rate and rhythm, S1&S2 audible, no murmurs, rubs or gallops Chest: Diminished lung sounds to the left lower lung base. Abdomen: Bowel sounds present, abdomen soft, non-tender, non-distended, no organomegaly Musculoskeletal: Pulses present and equal in all extremities, no peripheral edema Motor: no focal deficits noted Neurological: CN II-XII grossly intact, no focal motor or sensory deficits noted Skin: Intact with no visualized rashes Psych: Normal affect and mood ED course: 83-year-old male presents with chief complaint of dyspnea and hypoxia. Laboratory evaluation obtained. Hemoglobin 10.7. No leukocytosis. INR is greater than 10.0. Blood gases shows pH is 7.29 with a pCO2 of 61. Slipped flex respiratory acidosis. Sodium 133. No anion gap acidosis. Glucose 184, troponin 0.015, prematurity peptide is 2000. X-ray was obtained showing large left-sided opacity. CT was ordered for more diagnostic imaging. There is a new right lower lobe patchy infiltrate concerning for pneumonia. He is also redemonstration of left upper lobe mass. Discussed patient case with Dr. Soriano who is familiar with patient. He requests that cardiothoracic surgery be consulted for possible Pleurx catheter. Patient stable at bedside. Patient is not as dyspneic as upon initial arrival while at rest. Patient oxygen supplementation as downgraded to nasal cannula.pending discussion with on-call hospitalist for Dr. Corona. EKG interpretation: Ventricular rate 106, A. fib with RVR, QS 80, QTc 441. No MD prolongation, no QTC prolongation, no ST or T-wave changes noted. EKG compared to 08/12/2019 showing no changes. Overall, this EKG is unremarkable - Related Data Home Medications Medication Instructions Recorded Confirmed Levothyroxine Sodium [Synthroid] 88 mcg PO MOTUWETHFRSA 01/30/14 09/03/19 Multivitamins, Thera [Multivitamin 1 tab PO DAILY@169901/30/14 09/03/19 (formulary)] metFORMIN HCL [Glucophage] 1,000 mg PO DAILY@1700 01/30/14 09/03/19 Fesoterodine Fumarate [Toviaz] 4 mg PO DAILY@169908/19/14 09/03/19 hydrALAZINE HCL [Apresoline] 100 mg PO TID@0800,1700,0 08/19/14 09/03/19 ALPRAZolam [Xanax] 0.25 mg PO BID@0800,0 08/28/15 09/03/19 Furosemide [Lasix] 20 mg PO DAILY@0800 08/28/15 09/03/19 metFORMIN HCL [Glucophage] 500 mg PO DAILY@0800 08/28/15 09/03/19 Isosorbide Mononitrate ER [Imdur] 60 mg PO DAILY@1700 03/29/16 09/03/19 Melatonin 5 mg PO HS@0 03/29/16 09/03/19 sitaGLIPtin [Januvia] 100 mg PO DAILY@0800 09/17/16 09/03/19 Warfarin [Coumadin] 7.5 mg PO DAILY@1700 06/17/18 09/03/19 Repaglinide [Prandin] 1 mg PO DAILY@0800 01/22/19 09/03/19 Atorvastatin [Lipitor] 40 mg PO HS@0 08/12/19 09/03/19 Metoprolol Tartrate [Lopressor] 50 mg PO BID@0800,1700 08/12/19 09/03/19 Pantoprazole Sodium [Protonix] 40 mg PO DAILY@0800 08/12/19 09/03/19 amLODIPine [Norvasc] 2.5 mg PO BID@0800,2200 08/12/19 09/03/19 Doxazosin [Cardura] 4 mg PO DAILY@0800 09/03/19 09/03/19 Previous Rx's Medication Instructions Recorded Clopidogrel [Plavix] 75 mg PO DAILY #30 tab 09/20/16 Allergies Allergy/AdvReac Type Severity Reaction Status Date / Time clonidine HCl [From Catapres] Allergy facial Verified 09/03/19 10:50 swelling hydrochlorothiazide Allergy Anaphylaxis Verified 09/03/19 10:50 levofloxacin [From Levaquin] Allergy facial and Verified 09/03/19 10:50 neck swelling losartan potassium Allergy Anaphylaxis Verified 09/03/19 10:50 [From Cozaar] albuterol AdvReac Severe tachycardia Verified 09/03/19 10:50 MELISSA Inhibitors AdvReac Angioedema Verified 09/03/19 10:50 aspirin AdvReac angioedema Verified 09/03/19 10:50 doxycycline AdvReac SHORTNESS Verified 09/03/19 10:50 OF BREATH flurbiprofen AdvReac angioedema Verified 09/03/19 10:50 ofloxacin AdvReac angioedema Verified 09/03/19 10:50 rivaroxaban [From Xarelto] AdvReac gi bleed Verified 09/03/19 10:50 Tetracyclines AdvReac Swelling Verified 09/03/19 10:50 FEATHERS AdvReac SINUS Uncoded 08/12/19 09:25 DRAINAGE NOSE AND EYES Review of Systems ROS Statement: Those systems with pertinent positive or pertinent negative responses have been documented in the HPI. ROS Other: All systems not noted in ROS Statement are negative. Past Medical History Past Medical History: Atrial Fibrillation, Coronary Artery Disease (CAD), Cancer, Diabetes Mellitus, Hyperlipidemia, Hypertension, Myocardial Infarction (CT), Thyroid Disorder Additional Past Medical History / Comment(s): current hoarseness, dysphagia, hx vocal cord ca(tx with radiation) 2009 and PROSTATE CANCER 2001, varicose veins, Cobb's esophagus, wears brace on left ankle, uses a cane Last Myocardial Infarction Date:: unknown History of Any Multi-Drug Resistant Organisms: MRSA Date of last positivie culture/infection: 01/15/2012 MDRO Source:: Unknown Past Surgical History: Coronary Bypass/CABG, Heart Catheterization With Stent Additional Past Surgical History / Comment(s): vocal cord biopsy with vocal cord [id number], total 6-7 stents, philipp cataracts, cardioversion Past Anesthesia/Blood Transfusion Reactions: Previous Problems w/ Anesthesia Additional Past Anesthesia/Blood Transfusion Reaction / Comment(s): hx diff intubation with previous vocal cord surgery Date of Last Stent Placement:: ?2017 Past Psychological History: Anxiety Smoking Status: Former smoker - Past Family History Sister(s) Family Medical History: Cancer Additional Family Medical History / Comment(s): Patient has one sister that is 89 years old with history of breast cancer and osteoarthritis of the knees. Father Family Medical History: Deep Vein Thrombosis (DVT) Additional Family Medical History / Comment(s): Father at age 75 with history of diabetes, coronary artery disease, pacemaker. Brother(s) Family Medical History: Coronary Artery Disease (CAD) Additional Family Medical History / Comment(s): He has one brother that has with history of coronary artery disease and alcohol abuse. Mother Family Medical History: Cancer Additional Family Medical History / Comment(s): Mother at age 39 from cervical cancer. Course Vital Signs 09/03/19 09/03/19 09/03/19 08:20 08:52 09:00 Temperature 98.0 F Pulse Rate 103 H 102 H 98 Respiratory 28 H 28 H 30 H Rate Blood Pressure 138/85 127/83 O2 Sat by Pulse 97 94 L 95 Oximetry 09/03/19 09/03/19 09/03/19 09:10 09:20 09:25 Temperature Pulse Rate 110 H 97 Respiratory 40 H 27 H 16 Rate Blood Pressure 125/76 O2 Sat by Pulse 96 97 Oximetry 09/03/19 09/03/19 09/03/19 09:30 09:40 09:44 Temperature Pulse Rate 100 98 Respiratory 34 H 26 H Rate Blood Pressure O2 Sat by Pulse 96 95 91 L Oximetry 09/03/19 09/03/19 10:17 10:55 Temperature Pulse Rate 105 H Respiratory 20 Rate Blood Pressure O2 Sat by Pulse 88 L 89 L Oximetry Medical Decision Making - Lab Data Result diagrams: 09/03/19 08:38 09/03/19 08:38 Lab Results 09/03/19 09/03/19 09/03/19 Range/Units 08:38 08:38 08:38 WBC 10.4 (3.8-10.6) k/uL RBC 3.86 L (4.30-5.90) m/uL Hgb 10.7 L (13.0-17.5) gm/dL Hct 33.3 L (39.0-53.0) % MCV 86.3 (80.0-100.0) fL MCH 27.7 (25.0-35.0) pg MCHC 32.0 (31.0-37.0) g/dL RDW 16.4 H (11.5-15.5) % Plt Count 230 (150-450) k/uL Neutrophils % 85 % Lymphocytes % 4 % Monocytes % 9 % Eosinophils % 1 % Basophils % 1 % Neutrophils # 8.8 H (1.3-7.7) k/uL Lymphocytes # 0.4 L (1.0-4.8) k/uL Monocytes # 0.9 (0-1.0) k/uL Eosinophils # 0.1 (0-0.7) k/uL Basophils # 0.1 (0-0.2) k/uL Anisocytosis Slight PT (9.0-12.0) sec INR (<1.2) APTT (22.0-30.0) sec VBG pH (7.31-7.41) VBG pCO2 (37-51) mmHg VBG HCO3 (24-28) mmol/L Sodium 133 L (137-145) mmol/L Potassium 5.1 (3.5-5.1) mmol/L Chloride 95 L (98-107) mmol/L Carbon Dioxide 30 (22-30) mmol/L Anion Gap 8 mmol/L BUN 28 H (9-20) mg/dL Creatinine 0.95 (0.66-1.25) mg/dL Est GFR (CKD-EPI)AfAm 85 (>60 ml/min/1.73 sqM) Est GFR (CKD-EPI)NonAf 73 (>60 ml/min/1.73 sqM) Glucose 184 H (74-99) mg/dL Plasma Lactic Acid Bruno 1.5 (0.7-2.0) mmol/L Calcium 9.1 (8.4-10.2) mg/dL Magnesium 1.5 L (1.6-2.3) mg/dL Total Bilirubin 0.9 (0.2-1.3) mg/dL AST 27 (17-59) U/L ALT 21 (4-49) U/L Alkaline Phosphatase 93 (38-126) U/L Troponin I (0.000-0.034) ng/mL NT-Pro-B Natriuret Pep pg/mL Total Protein 5.9 L (6.3-8.2) g/dL Albumin 3.2 L (3.5-5.0) g/dL 09/03/19 09/03/19 09/03/19 Range/Units 08:38 08:38 08:38 WBC (3.8-10.6) k/uL RBC (4.30-5.90) m/uL Hgb (13.0-17.5) gm/dL Hct (39.0-53.0) % MCV (80.0-100.0) fL MCH (25.0-35.0) pg MCHC (31.0-37.0) g/dL RDW (11.5-15.5) % Plt Count (150-450) k/uL Neutrophils % % Lymphocytes % % Monocytes % % Eosinophils % % Basophils % % Neutrophils # (1.3-7.7) k/uL Lymphocytes # (1.0-4.8) k/uL Monocytes # (0-1.0) k/uL Eosinophils # (0-0.7) k/uL Basophils # (0-0.2) k/uL Anisocytosis PT 110.3 H (9.0-12.0) sec INR >10.0 H* (<1.2) APTT 52.9 H (22.0-30.0) sec VBG pH (7.31-7.41) VBG pCO2 (37-51) mmHg VBG HCO3 (24-28) mmol/L Sodium (137-145) mmol/L Potassium (3.5-5.1) mmol/L Chloride (98-107) mmol/L Carbon Dioxide (22-30) mmol/L Anion Gap mmol/L BUN (9-20) mg/dL Creatinine (0.66-1.25) mg/dL Est GFR (CKD-EPI)AfAm (>60 ml/min/1.73 sqM) Est GFR (CKD-EPI)NonAf (>60 ml/min/1.73 sqM) Glucose (74-99) mg/dL Plasma Lactic Acid Bruno (0.7-2.0) mmol/L Calcium (8.4-10.2) mg/dL Magnesium (1.6-2.3) mg/dL Total Bilirubin (0.2-1.3) mg/dL AST (17-59) U/L ALT (4-49) U/L Alkaline Phosphatase (38-126) U/L Troponin I 0.015 (0.000-0.034) ng/mL NT-Pro-B Natriuret Pep 2190 pg/mL Total Protein (6.3-8.2) g/dL Albumin (3.5-5.0) g/dL 09/03/19 Range/Units 08:57 WBC (3.8-10.6) k/uL RBC (4.30-5.90) m/uL Hgb (13.0-17.5) gm/dL Hct (39.0-53.0) % MCV (80.0-100.0) fL MCH (25.0-35.0) pg MCHC (31.0-37.0) g/dL RDW (11.5-15.5) % Plt Count (150-450) k/uL Neutrophils % % Lymphocytes % % Monocytes % % Eosinophils % % Basophils % % Neutrophils # (1.3-7.7) k/uL Lymphocytes # (1.0-4.8) k/uL Monocytes # (0-1.0) k/uL Eosinophils # (0-0.7) k/uL Basophils # (0-0.2) k/uL Anisocytosis PT (9.0-12.0) sec INR (<1.2) APTT (22.0-30.0) sec VBG pH 7.29 L (7.31-7.41) VBG pCO2 61 H (37-51) mmHg VBG HCO3 28 (24-28) mmol/L Sodium (137-145) mmol/L Potassium (3.5-5.1) mmol/L Chloride (98-107) mmol/L Carbon Dioxide (22-30) mmol/L Anion Gap mmol/L BUN (9-20) mg/dL Creatinine (0.66-1.25) mg/dL Est GFR (CKD-EPI)AfAm (>60 ml/min/1.73 sqM) Est GFR (CKD-EPI)NonAf (>60 ml/min/1.73 sqM) Glucose (74-99) mg/dL Plasma Lactic Acid Bruno (0.7-2.0) mmol/L Calcium (8.4-10.2) mg/dL Magnesium (1.6-2.3) mg/dL Total Bilirubin (0.2-1.3) mg/dL AST (17-59) U/L ALT (4-49) U/L Alkaline Phosphatase (38-126) U/L Troponin I (0.000-0.034) ng/mL NT-Pro-B Natriuret Pep pg/mL Total Protein (6.3-8.2) g/dL Albumin (3.5-5.0) g/dL Disposition Clinical Impression: Pleural effusion Disposition: ADMITTED IP TO THIS [facility] Condition: Fair Referrals: None,Stated [REFERRING] - 1-2 days Decision Time: 11:23
[2019-09-03 09:01] LABS: Anisocytosis Slight; Basophils # (A) 0.1 k/uL (0-0.2); Basophils % (A) 1 %; Eosinophils # (A) 0.1 k/uL (0-0.7); Eosinophils % (A) 1 %; HCT 33.3 % (39.0-53.0); HGB 10.7 gm/dL (13.0-17.5); Lymphocytes # (A) 0.4 k/uL (1.0-4.8); Lymphocytes % (A) 4 %; MCH 27.7 pg (25.0-35.0); MCV 86.3 fL (80.0-100.0); Mean Platelet Volume 8.2; Monocytes # (A) 0.9 k/uL (0-1.0); Monocytes % (A) 9 %; Neutrophils # (A) 8.8 k/uL (1.3-7.7); Neutrophils % (A) 85 %; Platelet Count 230 k/uL (150-450); RBC 3.86 m/uL (4.30-5.90); RDW 16.4 % (11.5-15.5); WBC 10.4 k/uL (3.8-10.6)
[2019-09-03 09:13] LABS: VBG PH 7.29 (7.31-7.41)
[2019-09-03 09:14] LABS: Partial Thromboplastin Time 52.9 sec (22.0-30.0); Prothrombin Time 110.3 sec (9.0-12.0)
[2019-09-03 09:17] LABS: Albumin 3.2 g/dL (3.5-5.0); Calcium 9.1 mg/dL (8.4-10.2); Magnesium 1.5 mg/dL (1.6-2.3); Potassium 5.1 mmol/L (3.5-5.1); Total Bilirubin 0.9 mg/dL (0.2-1.3); Total Protein 5.9 g/dL (6.3-8.2)
--- NOTE | 2019-09-03 09:26 | XR ---
EXAMINATION TYPE: XR chest 1V portable DATE OF EXAM: 09/03/2019 HISTORY: Shortness of breath. COMPARISON: 08/13/2019 TECHNIQUE: Single view of the chest is submitted. FINDINGS: Demonstrated are scattered senescent parenchymal change. Large left-sided opacity essentially unchanged felt to reflect atelectasis and/or infiltrate with und erlying pleural effusion. Underlying mass is not excluded. Increasing right lower lobe infiltrate may reflect pneumonia or aspiration pneumonia. Hilar and mediastinal structures are table Degenerative changes are seen of the dorsal spine. IMPRESSION: 1. Large left-sided opacity essentially unchanged felt to reflect atelectasis and/or infiltrate with underlying pleural effusion. Underlying mass is not excluded. Increasing right lower lobe infiltrate may reflect pneumonia or aspiration pneumonia.
[2019-09-03 09:28] LABS: INR >10.0 (<1.2)
[2019-09-03] MEDS ORDERED: RX INFO: IV CONTRAST WAS GIVEN 1 EACH MISC MISCELLANE PRN (09:32)
[2019-09-03] MEDS ORDERED: PHYTONADIONE ORAL 5 MG/5 ML ORAL.SYRG PO STA (10:12)
--- NOTE | 2019-09-03 10:29 | CT ---
EXAMINATION TYPE: CT chest w con DATE OF EXAM: 09/03/2019 COMPARISON: 07/30/2019 HISTORY: Hypoxia, Dyspnea CT DLP: 346.4 mGycm Automated exposure control for dose reduction was used. CONTRAST: CT scan of the chest is performed with IV Contrast, patient injected with 100 ml mL of Isovue 300. FINDINGS: LUNGS: Left upper lobe pleural-based mass redemonstrated with mass obscured by underlying pleural eff usion and atelectasis as well as consolidation. Pleural effusion relative to the prior study is small er in size with maximal AP dimension of 3.6 cm versus 7.3 cm previously. There is a new small right-s ided pleural effusion with new right lower lobe airspace consolidation felt to reflect pneumonia. MEDIASTINUM: 1.4 cm low right paratracheal lymph node identified. No pericardial effusion is seen. T horacic aorta is of normal caliber. The heart is not enlarged. UPPER ABDOMEN: No significant abnormality appreciated. OTHER: No additional significant abnormality is seen. IMPRESSION: 1. New right lower lobe patchy infiltrate likely reflective of pneumonia in the appropriate clinical setting. Small pleural effusion noted as well. 2. Pleural-based left upper lobe mass with surrounding consolidation and atelectatic tissue as well a s left-sided pleural effusion. Pleural effusion does appear to be smaller in size relative to the aster or study.
[2019-09-03] MEDS ORDERED: AMPICILLIN-SULBACTAM 3 GM in SODIUM CHLORIDE 0.9% 100 ML IVPB STA (10:40)
[2019-09-03] MEDS: MAGNESIUM SULFATE-D5W PMX 1 GM in DEXTROSE/WATER 1 100ML.BAG IVPB SCH ×2 (10:53→13:40)
[2019-09-03] MEDS ORDERED: NALOXONE 0.4 MG/ML 1 ML VIAL IV PRN (11:16)
--- NOTE | 2019-09-03 12:54 | P.CNPUL ---
History of Present Illness Consult date: 09/03/19 Requesting physician: Cony Reed Reason for consult: dyspnea, abnormal CXR/CT (Large left pleural effusion) Chief complaint: Shortness of breath History of present illness: This is a very pleasant 83-year-old gentleman who follows with Dr. Corona as his primary care physician. He has a history of chronic atrial fibrillation anticoagulated with warfarin, coronary artery disease with previous coronary artery bypass grafting, multiple stent placements, focal cord cancer with surgery, prostate cancer, diabetes mellitus with peripheral neuropathy, hypothyroidism, hyperlipidemia, BPH, osteoarthritis, remote history of smoking. He was diagnosed with stage IV adenocarcinoma of the lung earlier this month. He had undergone biopsy of a pleural-based mass in the left upper lobe measuring 11 cm with associated hypermetabolic uptake SUV of 7. There is groundglass opacities in the right lower lobe as well. He had been seen and evaluated by Dr. Latham and was going to receive radiation treatment. He was due for a computed tomography scan with markings tomorrow. This morning however he developed worsening shortness of breath cough and congestion and presented here to the emergency room. Computed tomography scan shows a new right lower lobe patchy infiltrate suspicious for pneumonia. Small effusion. There is a left upper lobe mass again noted with surrounding consolidation and atelectatic tissue and left-sided pleural effusion. We were consulted for the same. He is seen today in the emergency room. He is currently sitting up on the stretcher. Awake and alert in mild respiratory distress. He is dyspneic with minimal exertion. He is requiring 6 L high flow nasal cannula to maintain O2 saturations in the low 90s. He is afebrile. Slightly tachycardic. Blood pressure stable. White count 10.4. Hemoglobin 10.7. INR greater than 10.0. Sodium 133. Potassium 5.1. Creatinine 0.95. Lactic acid 1.5. Troponin 0.015. ProBNP 2190. He was given vitamin K 2.5 mg orally 1. He received 1 dose of Unasyn. Review of Systems REVIEW OF SYSTEMS: CONSTITUTIONAL: Denies any recent significant weight loss or weight gain. EYES: Denies change in vision. EARS, NOSE, MOUTH, THROAT: Denies headaches, denies sore throat. CARDIOVASCULAR: Denies chest pain, palpitations or syncopal episodes. RESPIRATORY: Positive for shortness of breath, cough, congestion no hemoptysis. GASTROINTESTINAL: Denies change in appetite, denies abdominal pain GENITOURINARY: Denies hematuria, denies infections. MUSKULOSKELETAL: Denies pain, denies swelling. INTEGUMENTARY: Denies rash, denies eczema. NEUROLOGICAL: Denies recent memory loss, no recent seizure activity. PSYCHIATRIC: Denies anxiety, denies depression. HEMATOLOGIC/LYMPHATIC: Denies anemia, denies enlarged lymph nodes. Past Medical History Past Medical History: Atrial Fibrillation, Coronary Artery Disease (CAD), Cancer, Diabetes Mellitus, Hyperlipidemia, Hypertension, Myocardial Infarction ([place]), Thyroid Disorder Additional Past Medical History / Comment(s): current hoarseness, dysphagia, hx vocal cord ca(tx with radiation) 2009 and PROSTATE CANCER 2001, varicose veins, Cobb's esophagus, wears brace on left ankle, uses a cane Last Myocardial Infarction Date:: unknown History of Any Multi-Drug Resistant Organisms: MRSA Date of last positivie culture/infection: 01/15/2012 MDRO Source:: Unknown Past Surgical History: Coronary Bypass/CABG, Heart Catheterization With Stent Additional Past Surgical History / Comment(s): vocal cord biopsy with vocal cord [id number], total 6-7 stents, philipp cataracts, cardioversion Past Anesthesia/Blood Transfusion Reactions: Previous Problems w/ Anesthesia Additional Past Anesthesia/Blood Transfusion Reaction / Comment(s): hx diff intubation with previous vocal cord surgery Date of Last Stent Placement:: ?2017 Past Psychological History: Anxiety Smoking Status: Former smoker - Past Family History Sister(s) Family Medical History: Cancer Additional Family Medical History / Comment(s): Patient has one sister that is 89 years old with history of breast cancer and osteoarthritis of the knees. Father Family Medical History: Deep Vein Thrombosis (DVT) Additional Family Medical History / Comment(s): Father at age 75 with history of diabetes, coronary artery disease, pacemaker. Brother(s) Family Medical History: Coronary Artery Disease (CAD) Additional Family Medical History / Comment(s): He has one brother that has with history of coronary artery disease and alcohol abuse. Mother Family Medical History: Cancer Additional Family Medical History / Comment(s): Mother at age 39 from cervical cancer. Medications and Allergies Home Medications Medication Instructions Recorded Confirmed Type Levothyroxine Sodium [Synthroid] 88 mcg PO MOTUWETHFRSA 01/30/14 09/03/19 History Multivitamins, Thera [Multivitamin 1 tab PO DAILY@1700 01/30/14 09/03/19 History (formulary)] metFORMIN HCL [Glucophage] 1,000 mg PO DAILY@1700 01/30/14 09/03/19 History Fesoterodine Fumarate [Toviaz] 4 mg PO DAILY@1700 08/19/14 09/03/19 History hydrALAZINE HCL [Apresoline] 100 mg PO TID@0800,1700,22008/19/14 09/03/19 History ALPRAZolam [Xanax] 0.25 mg PO BID@0800,2200 08/28/15 09/03/19 History Furosemide [Lasix] 20 mg PO DAILY@0800 08/28/15 09/03/19 History metFORMIN HCL [Glucophage] 500 mg PO DAILY@0800 08/28/15 09/03/19 History Isosorbide Mononitrate ER [Imdur] 60 mg PO DAILY@1700 03/29/16 09/03/19 History Melatonin 5 mg PO HS@219903/29/16 09/03/19 History sitaGLIPtin [Januvia] 100 mg PO DAILY@0800 09/17/16 09/03/19 History Clopidogrel [Plavix] 75 mg PO DAILY #30 tab 09/20/16 09/03/19 Rx Warfarin [Coumadin] 7.5 mg PO DAILY@1700 06/17/18 09/03/19 History Repaglinide [Prandin] 1 mg PO DAILY@0800 01/22/19 09/03/19 History Atorvastatin [Lipitor] 40 mg PO HS@219908/12/19 09/03/19 History Metoprolol Tartrate [Lopressor] 50 mg PO BID@0800,1700 08/12/19 09/03/19 History Pantoprazole Sodium [Protonix] 40 mg PO DAILY@0800 08/12/19 09/03/19 History amLODIPine [Norvasc] 2.5 mg PO BID@0800,2200 08/12/19 09/03/19 History Doxazosin [Cardura] 4 mg PO DAILY@0800 09/03/19 09/03/19 History Allergies Allergy/AdvReac Type Severity Reaction Status Date / Time clonidine HCl [From Catapres] Allergy facial Verified 09/03/19 10:50 swelling hydrochlorothiazide Allergy Anaphylaxis Verified 09/03/19 10:50 levofloxacin [From Levaquin] Allergy facial and Verified 09/03/19 10:50 neck swelling losartan potassium Allergy Anaphylaxis Verified 09/03/19 10:50 [From Cozaar] albuterol AdvReac Severe tachycardia Verified 09/03/19 10:50 MELISSA Inhibitors AdvReac Angioedema Verified 09/03/19 10:50 aspirin AdvReac angioedema Verified 09/03/19 10:50 doxycycline AdvReac SHORTNESS Verified 09/03/19 10:50 OF BREATH flurbiprofen AdvReac angioedema Verified 09/03/19 10:50 ofloxacin AdvReac angioedema Verified 09/03/19 10:50 rivaroxaban [From Xarelto] AdvReac gi bleed Verified 09/03/19 10:50 Tetracyclines AdvReac Swelling Verified 09/03/19 10:50 FEATHERS AdvReac SINUS Uncoded 08/12/19 09:25 DRAINAGE NOSE AND EYES Physical Exam Vitals: Vital Signs Temp Pulse Resp BP Pulse Ox 09/03/19 11:54 105 H 18 125/93 91 L 09/03/19 10:55 105 H 20 89 L 09/03/19 10:17 88 L 09/03/19 09:44 91 L 09/03/19 09:40 98 26 H 95 09/03/19 09:30 100 34 H 96 09/03/19 09:25 16 125/76 09/03/19 09:20 97 27 H 97 09/03/19 09:10 110 H 40 H 96 09/03/19 09:00 98 30 H 95 09/03/19 08:52 102 H 28 H 127/83 94 L 09/03/19 08:20 98.0 F 103 H 28 H 138/85 97 Intake and Output 09/02/19 09/03/19 09/03/19 22:59 06:59 14:59 Other: Weight 77.564 kg GENERAL EXAM: Alert, very pleasant 83-year-old gentleman, weak, on 6 L high flow nasal cannula, dyspneic. HEAD: Normocephalic. EYES: Normal reaction of pupils, equal size. NOSE: Clear with pink turbinates. THROAT: No erythema or exudates. NECK: No masses, no JVD. CHEST: No chest wall deformity. LUNGS: Equal air entry with diminished breath sounds in the left lung, crackles in the right base. CVS: S1 and S2 normal with no audible murmur, regular rhythm. ABDOMEN: No hepatosplenomegaly, normal bowel sounds, no guarding or rigidity. SPINE: No scoliosis or deformity SKIN: No rashes CENTRAL NERVOUS SYSTEM: No focal deficits, tone is normal in all 4 extremities. EXTREMITIES: There is no peripheral edema. No clubbing, no cyanosis. Peripheral pulses are intact. Results - Laboratory Findings CBC and BMP: 09/03/19 08:38 09/03/19 08:38 PT/INR, D-dimer PT 110.3 sec (9.0-12.0) H 09/03/19 08:38 INR >10.0 (<1.2) H* 09/03/19 08:38 Abnormal lab findings: Abnormal Labs 09/03/19 09/03/19 09/03/19 08:38 08:38 08:38 RBC 3.86 L Hgb 10.7 L Hct 33.3 L RDW 16.4 H Neutrophils # 8.8 H Lymphocytes # 0.4 L PT 110.3 H INR >10.0 H* APTT 52.9 H VBG pH VBG pCO2 Sodium 133 L Chloride 95 L BUN 28 H Glucose 184 H Magnesium 1.5 L Total Protein 5.9 L Albumin 3.2 L 09/03/19 08:57 RBC Hgb Hct RDW Neutrophils # Lymphocytes # PT INR APTT VBG pH 7.29 L VBG pCO2 61 H Sodium Chloride BUN Glucose Magnesium Total Protein Albumin - Diagnostic Findings Chest x-ray: image reviewed CT scan - chest: image reviewed Assessment and Plan Assessment: 1 Acute hypoxic respiratory failure secondary to a large left-sided pleural effusion with left upper lobe mass positive for stage IV adenocarcinoma of the lung just diagnosed earlier this month with bronchoscopy and transbronchial biopsy on 08/15/2019 2 Pleural-based mass in the left upper lobe measuring approximately 11 cm with hypermetabolic uptake on PET scan and the plan was for radiation therapy 3 Recurrent left pleural effusion, may benefit from Pleurx catheter placement 4 Remote history of chronic tobacco dependence. 5 History of prostate cancer 6 History of vocal cord cancer with radiation 7 Coronary artery disease with multiple stent placements and coronary artery bypass grafting 8 Chronic atrial fibrillation, anticoagulated with warfarin, supra therapeutic with presenting INR greater than 10 Plan The patient was seen and evaluated by Dr. Soriano. Chest x-ray and CAT scan reviewed Consult cardiothoracic surgery for possible Pleurx catheter placement Vitamin K to reverse supratherapeutic INR DO NOT RESUSCITATE/DO NOT INTUBATE CODE STATUS as discussed with the patient and his Bronchodilators, IV Solu-Medrol The patient's overall prognosis is quite poor Palliative radiation once recovered from this acute episode I, the cosigning physician, performed a history & physical examination of the patient. Lungs sounds diminished in the left lung, crackles in the right base. Maintaining good O2 saturations in the 90s on 6 L high flow nasal cannula. I discussed the assessment and plan of care with my nurse practitioner, Lissa Nichole. I attest to the above consultation as dictated by her. Time with Patient: Greater than 30
[2019-09-03] MEDS ORDERED: PHYTONADIONE ORAL 5 MG/5 ML ORAL.SYRG PO ONE (13:00)
--- NOTE | 2019-09-03 13:09 | P.HPIM ---
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 Morgan, Dr. Tran . He had agitation treatment, August 26, cancer not amenable to chemotherapy at this time. He had recurrent pleural effusion, requires thoracentesis, last one was less than 08/13/2019 1 L exudative, negative fungal cultures, no growth. Currently Patient has hemoptysis, purulent yellow green cough, slight edema, no abdominal pain no diarrhea, he requires O2 2-4 L nasal cannula with increasing requirements, increasing respiratory distress, increasing weakness, requiring now ER evaluation On emergency room evaluation, he is at 7 L O2, chest x-ray shows large left body opacity, new right lower lobe patchy infiltrate concerning for pneumonia, thorac ic ultrasound was requested, consult with Dr. Soriano, thoracic surgery for Pleurx catheter evaluation, IV antibiotics Zosyn and vancomycin, INR is over 10, needs to be reversed with vitamin K Review of Systems Constitutional: Reports as per HPI, Reports fever, Reports malaise, Reports weight loss, Denies anorexia, Denies chills, Denies chronic headaches, Denies chronic pain, Denies daytime sleepiness, Denies fatigue, Denies lethargy, Denies night sweats, Denies poor appetite, Denies sweats, Denies weakness, Denies weight gain Ears, nose, mouth and throat: Reports as per HPI, Reports epistaxis, Reports hoarseness, Denies ant. neck pain, Denies bleeding gums, Denies dental pain, Denies dysphagia, Denies headache, Denies mouth pain, Denies nasal congestion, Denies nasal discharge, Denies neck fullness/pressure, Denies neck lump, Denies nose pain, Denies odynophagia, Denies post-nasal drip, Denies sinus pain, Denies sinus pressure, Denies swelling in mouth, Denies swelling in throat, Denies sore throat, Denies vertigo, Denies voice changes Cardiovascular: Reports as per HPI, Reports decreased exercise tolerance, Reports dyspnea on exertion, Reports shortness of breath, Denies chest pain, Denies claudication, Denies edema, Denies high blood pressure, Denies irregular heart beat, Denies leg edema, Denies lightheadedness, Denies orthopnea, Denies palpitations, Denies paroxysmal nocturnal dyspnea, Denies phlebitis, Denies rapid heart beat, Denies syncope Respiratory: Reports as per HPI, Reports cough with sputum Gastrointestinal: Reports as per HPI, Denies abdominal pain, Denies belching, Denies bloating, Denies BRBPR, Denies change in bowel habits, Denies coffee ground emesis, Denies constipation, Denies diarrhea, Denies dyspepsia, Denies early satiety, Denies excessive gas, Denies heartburn, Denies hematemesis, Denies hematochezia, Denies indigestion, Denies jaundice, Denies lactose intolerance, Denies loss of appetite, Denies melena, Denies nausea, Denies vomiting Genitourinary: Reports as per HPI Musculoskeletal: Reports as per HPI, Denies arm numbness/tingling, Denies atroph y, Denies fractures, Denies frequent falls, Denies gait dysfunction, Denies hot joints, Denies leg numbness/tingling, Denies limitation of motion, Denies loss of height, Denies low back pain, Denies morning stiffness, Denies muscle cramps, Denies muscle weakness, Denies myalgias, Denies neck pain, Denies neck stiffness, Denies prior amputations, Denies redness of joints, Denies shooting arm pain, Denies shooting leg pain Integumentary: Reports as per HPI, Denies acne, Denies boils, Denies brittle nails, Denies change in hair/nails, Denies color changes, Denies darkening of skin, Denies depigmentation, Denies dryness, Denies foot/leg ulcers, Denies growths, Denies hirsutism, Denies lesions, Denies onychomycosis, Denies pruritus, Denies rash, Denies sores, Denies striae, Denies unusual bruising, Denies wounds Neurological: Reports as per HPI, Reports weakness, Denies aphasia, Denies ataxia, Denies balance difficulties, Denies burning pain, Denies change in mentation, Denies change in smell/taste, Denies change in speech, Denies confusion, Denies convulsions, Denies double vision, Denies gait dysfunction, Denies head injury, Denies headaches, Denies hearing difficulties, Denies lack of coordination, Denies loss of vision, Denies memory loss, Denies migraines, Denies motor disturbance, Denies numbness, Denies paralysis, Denies pares thesias, Denies seizures, Denies sensory deficit, Denies spasticity, Denies syncope, Denies tic, Denies tingling, Denies transient paralysis, Denies tremors, Denies vertigo, Denies visual changes Psychiatric: Reports as per HPI, Reports sleep disturbances Endocrine: Reports as per HPI, Denies cold intolerance, Denies deepening of the voice, Denies excessive sweating, Denies excessive thirst, Denies fatigue, Denies flushing, Denies heat intolerance, Denies high blood sugars, Denies increase in ring/shoe/hat size, Denies low blood sugars, Denies nocturia, Denies palpitations, Denies polydipsia, Denies polyphagia, Denies polyuria, Denies proptosis, Denies recent glucocorticoid use, Denies thyroid mass, Denies weight change Hematologic/Lymphatic: Reports as per HPI Allergic/Immunologic: Reports as per HPI Past Medical History Past Medical History: Atrial Fibrillation, Coronary Artery Disease (CAD), Cancer, Diabetes Mellitus, Hyperlipidemia, Hypertension, Myocardial Infarction ([place]), Thyroid Disorder Additional Past Medical History / Comment(s): current hoarseness, dysphagia, hx vocal cord ca(tx with radiation) 2009 and PROSTATE CANCER 2001, varicose veins, Cobb's esophagus, wears brace on left ankle, uses a cane Last Myocardial Infarction Date:: unknown History of Any Multi-Drug Resistant Organisms: MRSA Date of last positivie culture/infection: 01/15/2012 MDRO Source:: Unknown Past Surgical History: Coronary Bypass/CABG, Heart Catheterization With Stent Additional Past Surgical History / Comment(s): vocal cord biopsy with vocal cord [id number], total 6-7 stents, philipp cataracts, cardioversion Past Anesthesia/Blood Transfusion Reactions: Previous Problems w/ Anesthesia Additional Past Anesthesia/Blood Transfusion Reaction / Comment(s): hx diff intubation with previous vocal cord surgery Date of Last Stent Placement:: ?2016 Past Psychological History: Anxiety Smoking Status: Former smoker - Past Family History Sister(s) Family Medical History: Cancer Additional Family Medical History / Comment(s): Patient has one sister that is 89 years old with history of breast cancer and osteoarthritis of the knees. Father Family Medical History: Deep Vein Thrombosis (DVT) Additional Family Medical History / Comment(s): Father at age 75 with history of diabetes, coronary artery disease, pacemaker. Brother(s) Family Medical History: Coronary Artery Disease (CAD) Additional Family Medical History / Comment(s): He has one brother that has with history of coronary artery disease and alcohol abuse. Mother Family Medical History: Cancer Additional Family Medical History / Comment(s): Mother at age 39 from cervical cancer. Medications and Allergies Home Medications Medication Instructions Recorded Confirmed Type Levothyroxine Sodium [Synthroid] 88 mcg PO MOTUWETHFRSA 01/30/14 09/03/19 History Multivitamins, Thera [Multivitamin 1 tab PO DAILY@169901/30/14 09/03/19 History (formulary)] metFORMIN HCL [Glucophage] 1,000 mg PO DAILY@169901/30/14 09/03/19 History Fesoterodine Fumarate [Toviaz] 4 mg PO DAILY@169908/19/14 09/03/19 History hydrALAZINE HCL [Apresoline] 100 mg PO TID@0800,1700,219908/19/14 09/03/19 History ALPRAZolam [Xanax] 0.25 mg PO BID@0800,2200 08/28/15 09/03/19 History Furosemide [Lasix] 20 mg PO DAILY@0808/28/15 09/03/19 History metFORMIN HCL [Glucophage] 500 mg PO DAILY@0808/28/15 09/03/19 History Isosorbide Mononitrate ER [Imdur] 60 mg PO DAILY@1700 03/29/16 09/03/19 History Melatonin 5 mg PO HS@219903/29/16 09/03/19 History sitaGLIPtin [Januvia] 100 mg PO DAILY@0800 09/17/16 09/03/19 History Clopidogrel [Plavix] 75 mg PO DAILY #30 tab 09/20/16 09/03/19 Rx Warfarin [Coumadin] 7.5 mg PO DAILY@1700 06/17/18 09/03/19 History Repaglinide [Prandin] 1 mg PO DAILY@0800 01/22/19 09/03/19 History Atorvastatin [Lipitor] 40 mg PO HS@2200 08/12/19 09/03/19 History Metoprolol Tartrate [Lopressor] 50 mg PO BID@0800,1700 08/12/19 09/03/19 History Pantoprazole Sodium [Protonix] 40 mg PO DAILY@0800 08/12/19 09/03/19 History amLODIPine [Norvasc] 2.5 mg PO BID@0800,2200 08/12/19 09/03/19 History Doxazosin [Cardura] 4 mg PO DAILY@0800 09/03/19 09/03/19 History Allergies Allergy/AdvReac Type Severity Reaction Status Date / Time clonidine HCl [From Catapres] Allergy facial Verified 09/03/19 10:50 swelling hydrochlorothiazide Allergy Anaphylaxis Verified 09/03/19 10:50 levofloxacin [From Levaquin] Allergy facial and Verified 09/03/19 10:50 neck swelling losartan potassium Allergy Anaphylaxis Verified 09/03/19 10:50 [From Cozaar] albuterol AdvReac Severe tachycardia Verified 09/03/19 10:50 MELISSA Inhibitors AdvReac Angioedema Verified 09/03/19 10:50 aspirin AdvReac angioedema Verified 09/03/19 10:50 doxycycline AdvReac SHORTNESS Verified 09/03/19 10:50 OF BREATH flurbiprofen AdvReac angioedema Verified 09/03/19 10:50 ofloxacin AdvReac angioedema Verified 09/03/19 10:50 rivaroxaban [From Xarelto] AdvReac gi bleed Verified 09/03/19 10:50 Tetracyclines AdvReac Swelling Verified 09/03/19 10:50 FEATHERS AdvReac SINUS Uncoded 08/12/19 09:25 DRAINAGE NOSE AND EYES Physical Exam Vitals: Vital Signs Temp Pulse Resp BP Pulse Ox 09/03/19 11:54 105 H 18 125/93 91 L 09/03/19 10:55 105 H 20 89 L 09/03/19 10:17 88 L 09/03/19 09:44 91 L 09/03/19 09:40 98 26 H 95 09/03/19 09:30 100 34 H 96 09/03/19 09:25 16 125/76 09/03/19 09:20 97 27 H 97 09/03/19 09:10 110 H 40 H 96 09/03/19 09:00 98 30 H 95 09/03/19 08:52 102 H 28 H 127/83 94 L 09/03/19 08:20 98.0 F 103 H 28 H 138/85 97 Intake and Output 09/02/19 09/03/19 09/03/19 22:59 06:59 14:59 Other: Weight 77.564 kg - Constitutional General appearance: cooperative, mild distress - EENT Eyes: anicteric sclerae, EOMI, PERRLA, poor dentition, normal appearance ENT: hard of hearing, NA/AT, normal oropharynx - Neck Neck: normal ROM - Respiratory Respiratory: left: dullness, bilateral: CTA, diminished, prolonged expiration, prolonged inspiration, negative: rales - Cardiovascular Rhythm: regular Heart sounds: normal: S1, S2 Abnormal Heart Sounds: no systolic murmur, no diastolic murmur, no rub, no S3 Gallop, no S4 Gallop, no click, no other - Gastrointestinal General gastrointestinal: normal bowel sounds, soft - Integumentary Integumentary: decreased turgor, normal - Neurologic Neurologic: CNII-XII intact - Musculoskeletal Musculoskeletal: generalized weakness, strength equal bilaterally - Psychiatric Psychiatric: A&O x's 3, appropriate affect, intact judgment & insight Results CBC & Chem 7: 09/03/19 08:38 09/03/19 08:38 Labs: Abnormal Lab Results - Last 24 Hours (Table) 09/03/19 09/03/19 09/03/19 Range/Units 08:38 08:38 08:38 RBC 3.86 L (4.30-5.90) m/uL Hgb 10.7 L (13.0-17.5) gm/dL Hct 33.3 L (39.0-53.0) % RDW 16.4 H (11.5-15.5) % Neutrophils # 8.8 H (1.3-7.7) k/uL Lymphocytes # 0.4 L (1.0-4.8) k/uL PT 110.3 H (9.0-12.0) sec INR >10.0 H* (<1.2) APTT 52.9 H (22.0-30.0) sec VBG pH (7.31-7.41) VBG pCO2 (37-51) mmHg Sodium 133 L (137-145) mmol/L Chloride 95 L (98-107) mmol/L BUN 28 H (9-20) mg/dL Glucose 184 H (74-99) mg/dL Magnesium 1.5 L (1.6-2.3) mg/dL Total Protein 5.9 L (6.3-8.2) g/dL Albumin 3.2 L (3.5-5.0) g/dL 09/03/19 Range/Units 08:57 RBC (4.30-5.90) m/uL Hgb (13.0-17.5) gm/dL Hct (39.0-53.0) % RDW (11.5-15.5) % Neutrophils # (1.3-7.7) k/uL Lymphocytes # (1.0-4.8) k/uL PT (9.0-12.0) sec INR (<1.2) APTT (22.0-30.0) sec VBG pH 7.29 L (7.31-7.41) VBG pCO2 61 H (37-51) mmHg Sodium (137-145) mmol/L Chloride (98-107) mmol/L BUN (9-20) mg/dL Glucose (74-99) mg/dL Magnesium (1.6-2.3) mg/dL Total Protein (6.3-8.2) g/dL Albumin (3.5-5.0) g/dL Thrombosis Risk Factor Assmnt - DVT/VTE Prophylaxis DVT/VTE Prophylaxis: Pharmacologic Prophylaxis ordered, Mechanical Prophylaxis ordered - Choose All That Apply Each Factor Represents 1 point: Abnormal pulmonary function (COPD), Sepsis (< 1month), Serious lung disease incl. pneumonia (< 1month) Each Risk Factor Represents 2 Points: Malignancy Each Risk Factor Represents 3 Points: Age 75 years or older Thrombosis Risk Factor Assessment Total Risk Factor Score: 8 Thrombosis Risk Factor Assessment Level: High Risk Assessment and Plan Plan: 1 recurrent pleural effusion, left side with known malignancy, primary poorly differentiated adenocarcinoma of the lung, recent thoracentesis 08/13/2019, with recurrent pleural effusion causing worsening hypoxemia, new right-sided pneumonia, most likely gram-negative, IV Zosyn and IV vancomycin to be started, consult with pulmonary Dr. Soriano, consult with thoracic surgery for Pleurx catheter evaluation. O2 supplementation, nebulized treatment, unable to get to 1 amp secondary to severe tachycardia, would probably allow stat doses of a lbuterol, on maintenance ipratropium 4 times a day 3 left lobe poorly differentiated adenocarcinoma lung status post Bronk 08/16/[address] Tran and Bo, radiation treatment ongoing, per oncology, not a candidate for chemotherapy secondary to poor performance status 4 right lung acute gram-negative pneumonia suspected: Patient will be on double antibiotic with vancomycin and Zosyn empirically., consult pulmonary, sputum culture 5 A. fib with slight elevation of the heart rate, supratherapeutic INR over 10 hold Coumadin reversed with vitamin K, to allow for Pleurx catheter in thoracentesis. continue beta alexis 6 chronic systolic congestive heart failure: Seen cardiology regular basis still been treated for cardiomyopathy. Still on metoprolol 50 twice a day, furosemide 20 mg daily, isosorbide 60 mg a day and hydralazine 100 mg 3 times a day 7 type 2 diabetes continue patient on insulin continue Accu-Chek with sliding scale coverage, continue patient on metformin along with Prandin and Januvia and insulin. 8 hypothyroidism: Continue levothyroxine 88 g daily. 9 hyperlipidemia: Remain on atorvastatin 40 mg daily. 10 hypertension: Remain on Cardura 40 mg a day, amlodipine 2.5 mg twice a day, metoprolol 50 mg twice a day, hydralazine 100 mg 3 times a day. COPD, 11 history of throat cancer: Has been in remission at this point. 12. Coumadin toxicity with INR over 10 on admission, vitamin K was given for reversal, goal INR between 2-3, Coumadin on hold for Pleurx catheter
[2019-09-03] MEDS ORDERED: VANCOMYCIN IV PER PHARMACY 1 EACH MISC MISCELLANE PRN (13:17)
[2019-09-03] MEDS: methylPREDNISolone SOD SUCCI 125 MG/2 ML VIAL IV SCH ×3 (13:39→23:36)
--- NOTE | 2019-09-03 13:41 | US ---
EXAMINATION TYPE: US chest DATE OF EXAM: 09/03/2019 COMPARISON: CT earlier today CLINICAL HISTORY: 83-year-old male effusion. TECHNIQUE: Targeted ultrasound of the posterior lower bilateral hemithoraces FINDINGS: EXAM MEASUREMENTS: Right Pleural Effusion pocket size: No sizable effusion. Left Pleural Effusion pocket size: 6.7 cm Left skin surface to fluid distance: 1.7 cm There are internal echoes within, and there is interposed atelectatic lung seen at a 6 mm depth withi n the fluid Left side marked for possible thoracentesis outside the dept. Pulmonologists are able to review the images in the patient?s EMR. IMPRESSIONS: Moderate left-sided effusion containing debris. Note that while marking has been performed, there is interposed atelectatic lung and any attempt at thoracentesis should proceed with caution.
[2019-09-03] MEDS: SODIUM CHLORIDE 0.9% 1,000 ML IV SCH (13:42)
[2019-09-03] MEDS ORDERED: VANCOMYCIN 1,500 MG in SODIUM CHLORIDE 0.9% 250 ML IVPB ONE (14:00)
[2019-09-03] MEDS: ISOSORBIDE MONONITRATE ER 60 MG TAB.ER.24H PO SCH (14:58)
[2019-09-03] MEDS: TROSPIUM CHLORIDE 20 MG TABLET PO SCH (14:58)
[2019-09-03] MEDS: hydrALAZINE HCL 50 MG TAB PO SCH ×2 (14:58→23:36)
[2019-09-03] MEDS: MULTIVITAMINS, THERA 1 EACH TAB PO SCH (14:58)
[2019-09-03] MEDS: METOPROLOL TARTRATE 50 MG TAB PO SCH (14:58)
[2019-09-03] MEDS: IPRATROPIUM 0.5 MG/2.5 ML NEBU INHALATION SCH ×2 (15:20→19:08)
[2019-09-03] MEDS: INSULIN ASPART (NovoLOG) 100 UNIT/ML VIAL SQ SCH ×2 (16:57→21:07)
[2019-09-03 17:01] LABS: Glucose,Whole Blood 264 mg/dL (75-99)
[2019-09-03] MEDS: BUDESONIDE 1 MG/2 ML NEBU INHALATION SCH (19:08)
[2019-09-03] MEDS: PIPERACILLIN-TAZOBACTAM 3.375 GM in SODIUM CHLORIDE 0.9% 100 ML IVPB SCH (19:54)
[2019-09-03 20:00] LABS: Glucose,Whole Blood 278 mg/dL (75-99)
[2019-09-03] MEDS: ALPRAZolam 0.25 MG TAB PO SCH (21:07)
[2019-09-03] MEDS: ATORVASTATIN 40 MG TAB PO SCH (21:07)
[2019-09-03] MEDS: amLODIPine 2.5 MG TAB PO SCH (21:07)
[2019-09-03] MEDS: MELATONIN 5 MG TABLET PO SCH (23:36)
[2019-09-04] MEDS: VANCOMYCIN 1,500 MG in SODIUM CHLORIDE 0.9% 250 ML IVPB SCH ×3 (00:04→23:52)
[2019-09-04] MEDS: PIPERACILLIN-TAZOBACTAM 3.375 GM in SODIUM CHLORIDE 0.9% 100 ML IVPB SCH ×4 (03:05→23:49)
[2019-09-04 06:19] LABS: Glucose,Whole Blood 234 mg/dL (75-99)
[2019-09-04] MEDS: LEVOTHYROXINE 88 MCG TAB PO SCH (06:41)
[2019-09-04] MEDS: INSULIN ASPART (NovoLOG) 100 UNIT/ML VIAL SQ SCH ×4 (06:41→21:19)
[2019-09-04] MEDS: methylPREDNISolone SOD SUCCI 125 MG/2 ML VIAL IV SCH ×4 (06:41→23:46)
[2019-09-04 06:44] LABS: Anisocytosis Slight; Basophils % (A) 0 %; Eosinophils % (A) 0 %; HCT 31.8 % (39.0-53.0); HGB 10.4 gm/dL (13.0-17.5); Lymphocytes # (A) 0.2 k/uL (1.0-4.8); Lymphocytes % (A) 2 %; MCH 28.3 pg (25.0-35.0); MCHC 32.7 g/dL (31.0-37.0); MCV 86.5 fL (80.0-100.0); Mean Platelet Volume 8.4; Monocytes # (A) 0.3 k/uL (0-1.0); Monocytes % (A) 3 %; Neutrophils # (A) 10.1 k/uL (1.3-7.7); Neutrophils % (A) 95 %; Platelet Count 259 k/uL (150-450); RBC 3.68 m/uL (4.30-5.90); WBC 10.7 k/uL (3.8-10.6)
[2019-09-04 06:48] LABS: INR 2.1 (<1.2)
[2019-09-04 07:05] LABS: ALT 24 U/L (4-49); AST 25 U/L (17-59); African American GFR (CKD) >90 (>60 ml/min/1.73 sqM); Alkaline Phosphatase 105 U/L (38-126); Anion Gap 11 mmol/L; Blood Urea Nitrogen 25 mg/dL (9-20); Calcium 8.9 mg/dL (8.4-10.2); Carbon Dioxide 23 mmol/L (22-30); Chloride 98 mmol/L (98-107); Glucose 225 mg/dL (74-99); Non-African American GFR(CKD) 84 (>60 ml/min/1.73 sqM); Potassium 5.2 mmol/L (3.5-5.1); Sodium 132 mmol/L (137-145); Total Bilirubin 0.8 mg/dL (0.2-1.3); Total Protein 5.6 g/dL (6.3-8.2)
[2019-09-04] MEDS ORDERED: PHYTONADIONE 1 MG in SODIUM CHLORIDE 0.9% 50 ML IVPB STA (07:51)
[2019-09-04] MEDS: BUDESONIDE 1 MG/2 ML NEBU INHALATION SCH ×2 (07:59→20:06)
[2019-09-04] MEDS: IPRATROPIUM 0.5 MG/2.5 ML NEBU INHALATION SCH ×4 (07:59→20:06)
[2019-09-04] MEDS ORDERED: REPAGLINIDE 1 MG TAB PO SCH (08:00)
--- NOTE | 2019-09-04 08:12 | P.GSCN ---
History of Present Illness Consult date: 09/04/19 Reason for Consult: Evaluation for placement of Pleurx catheter Requesting physician: Yasir Soriano History of present illness: This is an 83-year-old gentleman who is followed by Dr. Ray Corona on an outpatient basis. His past medical history is significant for coronary artery disease status post coronary artery bypass grafting surgery, hypertension, hyperlipidemia, congestive heart failure, persistent atrial fibrillation on Coumadin for anticoagulation, chronic obstructive pulmonary disease, remote history of nicotine dependence, peripheral neuropathy with left dropfoot, diabetes mellitus type 2, history of prostate cancer status post prostatectomy, vocal cord carcinoma in 2008, and recent large left pleural effusion with large mass on the left upper lobe status post bronchoscopy with biopsy on 08/15/2019 s howing poorly differentiated non-small cell carcinoma, consistent with poorly differentiated adenocarcinoma of the lung. He follows also with Dr. Rocha from pulmonary medicine and Dr. Nelson from oncology. Due to his recent diagnosis of lung cancer, he has been seen by oncology and it was scheduled to receive radiation treatment. The patient reports that he was scheduled to undergo a procedure today with markings for radiation treatments. Subsequently, the patient developed progressive shortness of breath over the last couple of days with increase oxygen requirements at home, hemoptysis and a cough with purulent yellow-green sputum. He denies any recent fevers, chills, diarrhea, constip ation, headache or recent trauma. A chest x-ray was completed in the emergency department which showed a large left-sided O pace the felt to reflect atelectasis and/or infiltrate with underlying pleural effusion. It also showed increasing right lower lobe infiltrate which may reflect pneumonia or aspiration pneumonia. For further evaluation and a computed tomography scan of his chest was completed which demonstrated a new right lower lobe patchy infiltrate concerning for pneumonia, a pleural based left upper lobe mass with surrounding consolidation and atelectasis and a left sided pleural effusion. An ultrasound of his chest was also completed which demonstrated a left pleural effusion p ocket size of 6.7 cm. The patient's labs on admission showed a WBC count of 10.4, hemoglobin 10.7, platelets 230, PT 110.3, INR greater than 10.0, PTT 52.9, BUN 28, creatinine 0.95 and a lactic acid level of 1.5. Due to the patient's history left pleural effusion, recent diagnosis of lung cancer, presenting symptoms and results found on his chest x-ray and CT scan of his chest a consult was placed to Dr. Roberto Nolasco for evaluation of a left Pleurx catheter. Review of Systems A 14 point review of systems was completed and was negative except as mentioned in HPI. Past Medical History Past Medical History: Atrial Fibrillation, Coronary Artery Disease (CAD), Cancer, Heart Failure, Diabetes Mellitus, Hyperlipidemia, Hypertension, Myocardial Infarction ([place]), Thyroid Disorder Additional Past Medical History / Comment(s): current hoarseness, dysphagia, hx vocal cord ca(tx with radiation) 2009 and PROSTATE CANCER 2001, varicose veins, Cobb's esophagus, wears brace on left ankle, uses a cane Last Myocardial Infarction Date:: unknown History of Any Multi-Drug Resistant Organisms: MRSA Year Discovered:: 01/15/2012 MDRO Source:: Unknown Past Surgical History: Coronary Bypass/CABG, Heart Catheterization With Stent, Prostate Surgery Additional Past Surgical History / Comment(s): vocal cord biopsy with vocal cord [id number], total 6-7 stents, philipp cataracts, cardioversion, bronchoscopy with biopsy. Past Anesthesia/Blood Transfusion Reactions: Previous Problems w/ Anesthesia Additional Past Anesthesia/Blood Transfusion Reaction / Comm: hx diff intubation with previous vocal cord surgery Date of Last Stent Placement:: ?2016 Past Psychological History: Anxiety Smoking Status: Former smoker Past Alcohol Use History: None Reported Past Drug Use History: None Reported - Past Family History Sister(s) Family Medical History: Cancer Additional Family Medical History / Comment(s): Patient has one sister that is 89 years old with history of breast cancer and osteoarthritis of the knees. Father Family Medical History: Deep Vein Thrombosis (DVT), Hypertension Additional Family Medical History / Comment(s): Father at age 75 with history of diabetes, coronary artery disease, pacemaker. Brother(s) Family Medical History: Coronary Artery Disease (CAD) Additional Family Medical History / Comment(s): He has one brother that has with history of coronary artery disease and alcohol abuse. Mother Family Medical History: Cancer Additional Family Medical History / Comment(s): Mother at age 39 from cervical cancer. Medications and Allergies Home Medications Medication Instructions Recorded Confirmed Type Levothyroxine Sodium [Synthroid] 88 mcg PO MOTUWETHFRSA 01/30/14 09/03/19 History Multivitamins, Thera [Multivitamin 1 tab PO DAILY@1700 01/30/14 09/03/19 History (formulary)] metFORMIN HCL [Glucophage] 1,000 mg PO DAILY@1700 01/30/14 09/03/19 History Fesoterodine Fumarate [Toviaz] 4 mg PO DAILY@1700 08/19/14 09/03/19 History hydrALAZINE HCL [Apresoline] 100 mg PO TID@0800,1700,2200 08/19/14 09/03/19 History ALPRAZolam [Xanax] 0.25 mg PO BID@0800,2200 08/28/15 09/03/19 History Furosemide [Lasix] 20 mg PO DAILY@0800 08/28/15 09/03/19 History metFORMIN HCL [Glucophage] 500 mg PO DAILY@0800 08/28/15 09/03/19 History Isosorbide Mononitrate ER [Imdur] 60 mg PO DAILY@1700 03/29/16 09/03/19 History Melatonin 5 mg PO HS@219903/29/16 09/03/19 History sitaGLIPtin [Januvia] 100 mg PO DAILY@0800 09/17/16 09/03/19 History Clopidogrel [Plavix] 75 mg PO DAILY #30 tab 09/20/16 09/03/19 Rx Warfarin [Coumadin] 7.5 mg PO DAILY@1700 06/17/18 09/03/19 History Repaglinide [Prandin] 1 mg PO DAILY@0800 01/22/19 09/03/19 History Atorvastatin [Lipitor] 40 mg PO HS@219908/12/19 09/03/19 History Metoprolol Tartrate [Lopressor] 50 mg PO BID@0800,1700 08/12/19 09/03/19 History Pantoprazole Sodium [Protonix] 40 mg PO DAILY@0800 08/12/19 09/03/19 History amLODIPine [Norvasc] 2.5 mg PO BID@0800,2200 08/12/19 09/03/19 History Doxazosin [Cardura] 4 mg PO DAILY@0800 09/03/19 09/03/19 History Allergies Allergy/AdvReac Type Severity Reaction Status Date / Time clonidine HCl [From Catapres] Allergy facial Verified 09/03/19 10:50 swelling hydrochlorothiazide Allergy Anaphylaxis Verified 09/03/19 10:50 levofloxacin [From Levaquin] Allergy facial and Verified 09/03/19 10:50 neck swelling losartan potassium Allergy Anaphylaxis Verified 09/03/19 10:50 [From Cozaar] albuterol AdvReac Severe tachycardia Verified 09/03/19 10:50 MELISSA Inhibitors AdvReac Angioedema Verified 09/03/19 10:50 aspirin AdvReac angioedema Verified 09/03/19 10:50 doxycycline AdvReac SHORTNESS Verified 09/03/19 10:50 OF BREATH flurbiprofen AdvReac angioedema Verified 09/03/19 10:50 ofloxacin AdvReac angioedema Verified 09/03/19 10:50 rivaroxaban [From Xarelto] AdvReac gi bleed Verified 09/03/19 10:50 Tetracyclines AdvReac Swelling Verified 09/03/19 10:50 FEATHERS AdvReac SINUS Uncoded 08/12/19 09:25 DRAINAGE NOSE AND EYES Surgical - Exam Vital Signs Temp Pulse Resp BP Pulse Ox 98.0 F 103 H 28 H 138/85 97 09/03/19 08:20 09/03/19 08:20 09/03/19 08:20 09/03/19 08:20 09/03/19 08:20 - General Cooperative, mild distress. cachectic, chronically ill - Eyes PERRL, normal ocular movement - ENT normal pinna, normal nares, normal mucosa, no congestion, decreased hearing, poor fdc - Neck Neck is supple, no lymphadenopathy. no masses, no bruits, trachea midline, no venous distension - Respiratory Lung sounds with few scattered crackles to his right lower lobe, essentially diminished to his left lobes. Respirations are symmetrical. - Cardiovascular Irregular rhythm with a tachycardic rate. S1 and S2 present, negative for S3, gallop or murmur. No edema present. Remote telemetry showing atrial fibrillation heart rate 118 BPM. - Abdomen Abdomen is soft, nontender and nondistended. Active bowel sounds present all 4 abdominal quadrants. No guarding or rigidity. No organomegaly appreciated. - Genitourinary Deferred - Rectum Deferred - Integumentary no rash, no growths, no abnormal pigmentation - Neurologic normal coordination, normal sensation - Musculoskeletal normal posture - Psychiatric oriented to time, oriented to person, oriented to place, speech is normal, memory intact Results - Labs 09/04/19 06:06 09/04/19 06:06 Abnormal Lab Results - Last 24 Hours (Table) 09/03/19 09/03/19 09/03/19 Range/Units 08:38 08:38 08:38 WBC (3.8-10.6) k/uL RBC 3.86 L (4.30-5.90) m/uL Hgb 10.7 L (13.0-17.5) gm/dL Hct 33.3 L (39.0-53.0) % RDW 16.4 H (11.5-15.5) % Neutrophils # 8.8 H (1.3-7.7) k/uL Lymphocytes # 0.4 L (1.0-4.8) k/uL PT 110.3 H (9.0-12.0) sec INR >10.0 H* (<1.2) APTT 52.9 H (22.0-30.0) sec VBG pH (7.31-7.41) VBG pCO2 (37-51) mmHg Sodium 133 L (137-145) mmol/L Potassium (3.5-5.1) mmol/L Chloride 95 L (98-107) mmol/L BUN 28 H (9-20) mg/dL Glucose 184 H (74-99) mg/dL POC Glucose (mg/dL) (75-99) mg/dL Magnesium 1.5 L (1.6-2.3) mg/dL Total Protein 5.9 L (6.3-8.2) g/dL Albumin 3.2 L (3.5-5.0) g/dL 09/03/19 09/03/19 09/03/19 Range/Units 08:57 16:33 19:59 WBC (3.8-10.6) k/uL RBC (4.30-5.90) m/uL Hgb (13.0-17.5) gm/dL Hct (39.0-53.0) % RDW (11.5-15.5) % Neutrophils # (1.3-7.7) k/uL Lymphocytes # (1.0-4.8) k/uL PT (9.0-12.0) sec INR (<1.2) APTT (22.0-30.0) sec VBG pH 7.29 L (7.31-7.41) VBG pCO2 61 H (37-51) mmHg Sodium (137-145) mmol/L Potassium (3.5-5.1) mmol/L Chloride (98-107) mmol/L BUN (9-20) mg/dL Glucose (74-99) mg/dL POC Glucose (mg/dL) 264 H 278 H (75-99) mg/dL Magnesium (1.6-2.3) mg/dL Total Protein (6.3-8.2) g/dL Albumin (3.5-5.0) g/dL 09/04/19 09/04/19 09/04/19 Range/Units 06:06 06:06 06:06 WBC 10.7 H (3.8-10.6) k/uL RBC 3.68 L (4.30-5.90) m/uL Hgb 10.4 L (13.0-17.5) gm/dL Hct 31.8 L (39.0-53.0) % RDW 16.0 H (11.5-15.5) % Neutrophils # 10.1 H (1.3-7.7) k/uL Lymphocytes # 0.2 L (1.0-4.8) k/uL PT 21.0 H (9.0-12.0) sec INR 2.1 H (<1.2) APTT (22.0-30.0) sec VBG pH (7.31-7.41) VBG pCO2 (37-51) mmHg Sodium 132 L (137-145) mmol/L Potassium 5.2 H (3.5-5.1) mmol/L Chloride (98-107) mmol/L BUN 25 H (9-20) mg/dL Glucose 225 H (74-99) mg/dL POC Glucose (mg/dL) (75-99) mg/dL Magnesium (1.6-2.3) mg/dL Total Protein 5.6 L (6.3-8.2) g/dL Albumin 3.0 L (3.5-5.0) g/dL 09/04/19 Range/Units 06:17 WBC (3.8-10.6) k/uL RBC (4.30-5.90) m/uL Hgb (13.0-17.5) gm/dL Hct (39.0-53.0) % RDW (11.5-15.5) % Neutrophils # (1.3-7.7) k/uL Lymphocytes # (1.0-4.8) k/uL PT (9.0-12.0) sec INR (<1.2) APTT (22.0-30.0) sec VBG pH (7.31-7.41) VBG pCO2 (37-51) mmHg Sodium (137-145) mmol/L Potassium (3.5-5.1) mmol/L Chloride (98-107) mmol/L BUN (9-20) mg/dL Glucose (74-99) mg/dL POC Glucose (mg/dL) 234 H (75-99) mg/dL Magnesium (1.6-2.3) mg/dL Total Protein (6.3-8.2) g/dL Albumin (3.5-5.0) g/dL Diabetes panel 09/03/19 09/04/19 Range/Units 08:38 06:06 Sodium 133 L 132 L (137-145) mmol/L Potassium 5.1 5.2 H (3.5-5.1) mmol/L Chloride 95 L 98 (98-107) mmol/L Carbon Dioxide 30 23 (22-30) mmol/L BUN 28 H 25 H (9-20) mg/dL Creatinine 0.95 0.74 (0.66-1.25) mg/dL Glucose 184 H 225 H (74-99) mg/dL Calcium 9.1 8.9 (8.4-10.2) mg/dL AST 27 25 (17-59) U/L ALT 21 24 (4-49) U/L Alkaline Phosphatase 93 105 (38-126) U/L Total Protein 5.9 L 5.6 L (6.3-8.2) g/dL Albumin 3.2 L 3.0 L (3.5-5.0) g/dL Calcium panel 09/03/19 09/04/19 Range/Units 08:38 06:06 Calcium 9.1 8.9 (8.4-10.2) mg/dL Albumin 3.2 L 3.0 L (3.5-5.0) g/dL Pituitary panel 09/03/19 09/04/19 Range/Units 08:38 06:06 Sodium 133 L 132 L (137-145) mmol/L Potassium 5.1 5.2 H (3.5-5.1) mmol/L Chloride 95 L 98 (98-107) mmol/L Carbon Dioxide 30 23 (22-30) mmol/L BUN 28 H 25 H (9-20) mg/dL Creatinine 0.95 0.74 (0.66-1.25) mg/dL Glucose 184 H 225 H (74-99) mg/dL Calcium 9.1 8.9 (8.4-10.2) mg/dL Adrenal panel 09/03/19 09/04/19 Range/Units 08:38 06:06 Sodium 133 L 132 L (137-145) mmol/L Potassium 5.1 5.2 H (3.5-5.1) mmol/L Chloride 95 L 98 (98-107) mmol/L Carbon Dioxide 30 23 (22-30) mmol/L BUN 28 H 25 H (9-20) mg/dL Creatinine 0.95 0.74 (0.66-1.25) mg/dL Glucose 184 H 225 H (74-99) mg/dL Calcium 9.1 8.9 (8.4-10.2) mg/dL Total Bilirubin 0.9 0.8 (0.2-1.3) mg/dL AST 27 25 (17-59) U/L ALT 21 24 (4-49) U/L Alkaline Phosphatase 93 105 (38-126) U/L Total Protein 5.9 L 5.6 L (6.3-8.2) g/dL Albumin 3.2 L 3.0 L (3.5-5.0) g/dL - Imaging Chest x-ray: report reviewed, image reviewed CT scan - chest: report reviewed, image reviewed Additional studies: Ultrasound of the chest results reviewed. Assessment and Plan Assessment: 1. Acute hypoxic respiratory failure secondary to large left-sided pleural effusion with left upper lobe mass positive for stage IV adenocarcinoma of the lung 2. Recurrent left pleural effusion 3. History of hypertension 4. History of hyperlipidemia 5. History of prostate cancer, status post prostatectomy 6. History of vocal cord cancer status post radiation treatment 7. History of coronary artery disease with multiple stent placements and history of coronary artery bypass grafting surgery 8. Chronic atrial fibrillation, on Coumadin for anticoagulation with supratherapeutic INR of 10.0 on admission 9. Remote history of nicotine dependence 10. Type 2 diabetes mellitus 11. Chronic obstructive pulmonary disease with home O2 dependence Plan: The patient was seen and examined on the cardiac stepdown unit. His chart and diagnostics reviewed. He was seen and examined by Dr. Roberto Nolasco from cardiothoracic surgery who discussed with the patient the results of the chest x-ray, computed tomography scan of his chest. Recommendations for left Pleurx catheter placement were discussed with the patient by Dr. Roberto Nolasco including the risks and benefits of the Pleurx catheter placement. The patient wishes to proceed with placement of left Pleurx catheter today and he will be scheduled fo r 3:30 PM this afternoon. He has been made nothing by mouth. His INR today is 2.1 and he will be treated with vitamin K 1 mg IV piggyback 1 now. Type and screen has been ordered. Encourage use of his incentive spirometry every hour while awake. Pulmonary management recommendations per Dr. Soriano. Medical management and other comorbidities per primary care service. Thank you Dr. Soriano for this consult and we look forward to working with you in the care of this patient. Time with Patient: Greater than 30
[2019-09-04] MEDS: amLODIPine 2.5 MG TAB PO SCH (09:04)
[2019-09-04] MEDS: FUROSEMIDE 20 MG TAB PO SCH (09:04)
[2019-09-04] MEDS: ALPRAZolam 0.25 MG TAB PO SCH ×2 (09:04→21:18)
[2019-09-04] MEDS: METOPROLOL TARTRATE 50 MG TAB PO SCH ×2 (09:04→18:50)
[2019-09-04] MEDS: hydrALAZINE HCL 50 MG TAB PO SCH ×3 (09:04→20:36)
[2019-09-04] MEDS: DOXAZOSIN 4 MG TAB PO SCH (09:04)
[2019-09-04] MEDS: LINAGLIPTIN 5 MG TABLET PO SCH (09:04)
--- NOTE | 2019-09-04 10:42 | P.PN ---
Subjective Progress Note Date: 09/04/19 Principal diagnosis: Dyspnea, large recurrent left pleural effusion, right lower lobe pneumonia, stage IV adenocarcinoma of the lung This is a very pleasant 83-year-old gentleman who follows with Dr. Corona as his primary care physician. He has a history of chronic atrial fibrillation anticoagulated with warfarin, coronary artery disease with previous coronary artery bypass grafting, multiple stent placements, focal cord cancer with surgery, prostate cancer, diabetes mellitus with peripheral neuropathy, hypothyroidism, hyperlipidemia, BPH, osteoarthritis, remote history of smoking. He was diagnosed with stage IV adenocarcinoma of the lung earlier this month. He had undergone biopsy of a pleural-based mass in the left upper lobe measuring 11 cm with associated hypermetabolic uptake SUV of 7. There is groundglass opacities in the right lower lobe as well. He had been seen and evaluated by Dr. Latham and was going to receive radiation treatment. He was due for a computed tomography scan with markings tomorrow. This morning however he developed worsening shortness of breath cough and congestion and presented here to the emergency room. Computed tomography scan shows a new right lower lobe patchy infiltrate suspicious for pneumonia. Small effusion. There is a left upper lobe mass again noted with surrounding consolidation and atelectatic tissue and left-sided pleural effusion. We were consulted for the same. He is seen today in the emergency room. He is currently sitting up on the stretcher. Awake and alert in mild respiratory distress. He is dyspneic with minimal exertion. He is requiring 6 L high flow nasal cannula to maintain O2 saturatio ns in the low 90s. He is afebrile. Slightly tachycardic. Blood pressure stable. White count 10.4. Hemoglobin 10.7. INR greater than 10.0. Sodium 133. Potassium 5.1. Creatinine 0.95. Lactic acid 1.5. Troponin 0.015. ProBNP 2190. He was given vitamin K 2.5 mg orally 1. He received 1 dose of Unasyn. On 09/04/2019 patient seen in follow-up on selective care unit, dyspneic, he is on Airvo at 55 l/min, and Fio2 75%. Occasionally bringing up some colored phlegm, afebrile, hemodynamically patient is stable, he is on a combination of Zosyn and vancomycin. Breathing treatments, and IV steroids, days INR is 2.1, patient has received a dose of vitamin K, he was evaluated by CT surgery, and his Pleurx catheter insertion has been scheduled for 3:30 this afternoon. Objective - Vital Signs Vital signs: Vital Signs Temp 97.3 F L 09/04/19 08:15 Pulse 102 H 09/04/19 08:16 Resp 18 09/04/19 08:15 BP 118/75 09/04/19 08:15 Pulse Ox 97 09/04/19 08:15 Intake & Output 09/03/19 09/04/19 09/04/19 18:59 06:59 18:59 Intake Total 120 120 Output Total 200 Balance 120 -200 120 Weight 77.564 kg Intake: Oral 120 120 Output: Urine 200 Other: Voiding Method Toilet # Voids 0 0 # Bowel Movements 1 - Exam GENERAL EXAM: Alert, very pleasant, 83-year-old frail looking male, on Airvo at 55l/min and Fio2 75%, dyspneic with conversation, but no acute distress HEAD: Normocephalic/atraumatic. EYES: Normal reaction of pupils, equal size. Conjunctiva pink, sclera white. NOSE: Clear with pink turbinates. THROAT: No erythema or exudates. NECK: No masses, no JVD, no thyroid enlargement, no adenopathy. CHEST: No chest wall deformity. Symmetrical expansion. LUNGS: Diminished air entry on the left side, dullness to percussion at the left lower and mid lung, coarse crackles and rhonchi and wheezes in the right lung CVS: Regular rate and rhythm, normal S1 and S2, no gallops, no murmurs, no rubs ABDOMEN: Soft, nontender. No hepatosplenomegaly, normal bowel sounds, no guarding or rigidity. EXTREMITIES: No clubbing, no edema, no cyanosis, 2+ pulses and upper and lower extremities. MUSCULOSKELETAL: Muscle strength and tone normal. SPINE: No scoliosis or deformity SKIN: No rashes CENTRAL NERVOUS SYSTEM: Alert and oriented -3. No focal deficits, tone is normal in all 4 extremities. PSYCHIATRIC: Alert and oriented -3. Appropriate affect. Intact judgment and insight. - Labs CBC & Chem 7: 09/04/19 06:06 09/04/19 06:06 Labs: Abnormal Lab Results - Last 24 Hours (Table) 09/03/19 09/03/19 09/04/19 Range/Units 16:33 19:59 06:06 WBC 10.7 H (3.8-10.6) k/uL RBC 3.68 L (4.30-5.90) m/uL Hgb 10.4 L (13.0-17.5) gm/dL Hct 31.8 L (39.0-53.0) % RDW 16.0 H (11.5-15.5) % Neutrophils # 10.1 H (1.3-7.7) k/uL Lymphocytes # 0.2 L (1.0-4.8) k/uL PT (9.0-12.0) sec INR (<1.2) Sodium (137-145) mmol/L Potassium (3.5-5.1) mmol/L BUN (9-20) mg/dL Glucose (74-99) mg/dL POC Glucose (mg/dL) 264 H 278 H (75-99) mg/dL Total Protein (6.3-8.2) g/dL Albumin (3.5-5.0) g/dL 09/04/19 09/04/19 09/04/19 Range/Units 06:06 06:06 06:17 WBC (3.8-10.6) k/uL RBC (4.30-5.90) m/uL Hgb (13.0-17.5) gm/dL Hct (39.0-53.0) % RDW (11.5-15.5) % Neutrophils # (1.3-7.7) k/uL Lymphocytes # (1.0-4.8) k/uL PT 21.0 H (9.0-12.0) sec INR 2.1 H (<1.2) Sodium 132 L (137-145) mmol/L Potassium 5.2 H (3.5-5.1) mmol/L BUN 25 H (9-20) mg/dL Glucose 225 H (74-99) mg/dL POC Glucose (mg/dL) 234 H (75-99) mg/dL Total Protein 5.6 L (6.3-8.2) g/dL Albumin 3.0 L (3.5-5.0) g/dL Assessment and Plan Plan: Assessment: 1 Acute hypoxic respiratory failure secondary to a large left-sided pleural effusion with left upper lobe mass positive for stage IV adenocarcinoma of the lung just diagnosed earlier this month with bronchoscopy and transbronchial biopsy on 08/15/2019 2 Pleural-based mass in the left upper lobe measuring approximately 11 cm with hypermetabolic uptake on PET scan and the plan was for radiation therapy 3 Recurrent left pleural effusion, may benefit from Pleurx catheter placement 4 Remote history of chronic tobacco dependence. 5 History of prostate cancer 6 History of vocal cord cancer with radiation 7 Coronary artery disease with multiple stent placements and coronary artery bypass grafting 8 Chronic atrial fibrillation, anticoagulated with warfarin, supra therapeutic with presenting INR greater than 10 Plan: Continue current antibiotics, send sputum for culture, continue IV steroids, nebulized bronchodilators, patient was evaluated by CT surgery and his Pleurx catheter insertion has been scheduled for 3:30 this afternoon. Patient has been given a dose of vitamin K. We'll continue to follow. I performed a history & physical examination of the patient and discussed their management with my nurse practitioner, Griselda Funez. I reviewed the nurse practitioner's note and agree with the documented findings and plan of care. Lung sounds are positive for vitamins sounds over left lung, and rhonchi, wheezing and rales over right lung. The findings and the impression was discussed with the patient. I attest to the documentation by the nurse practitioner. Time with Patient: Less than 30
[2019-09-04 12:03] LABS: Glucose,Whole Blood 281 mg/dL (75-99)
[2019-09-04] MEDS: PANTOPRAZOLE 40 MG TABLET PO SCH (12:37)
[2019-09-04] MEDS: SODIUM CHLORIDE 0.9% 1,000 ML IV SCH (12:38)
[2019-09-04 14:42] LABS: Hemoglobin A1C 9.1 % (4.0-6.0)
[2019-09-04] MEDS ORDERED: ACETAMINOPHEN TAB 500 MG TAB PO PRN (15:28)
--- NOTE | 2019-09-04 15:55 | XR ---
EXAMINATION TYPE: XR chest 1V portable DATE OF EXAM: 09/04/2019 COMPARISON: Prior chest x-ray 09/03/2019 HISTORY: Pleural catheter placement TECHNIQUE: Single frontal view of the chest is obtained. FINDINGS: Findings are similar to prior exam. Patient is post median sternotomy. Bibasilar increased densities present greater on the left with obscured left hemidiaphragm and heart border. No evident pneumothorax. There are coronary artery calcifications present. IMPRESSION: Pleural drainage catheter is not seen with certainty.
[2019-09-04] MEDS ORDERED: SODIUM CHLORIDE 0.9% 500 ML 500 ML IV ONE (16:09)
[2019-09-04] MEDS ORDERED: PROPOFOL 10 MG/ML 20 ML VIAL IV ONE (16:09)
[2019-09-04] MEDS ORDERED: LIDOCAINE 1% 20 ML VIAL (10MG/ML) FOR IV START SQ ONE ×2 (16:09→16:23)
--- NOTE | 2019-09-04 16:54 | P.OP ---
Date of Procedure: 09/04/19 Preoperative Diagnosis: Recurrent left pleural effusion Postoperative Diagnosis: same Procedure(s) Performed: Left Pleurx catheter placement with fluoroscopy Implants: Pleurx catheter left pleural space Anesthesia: MAC Surgeon: Roberto Nolasco Estimated Blood Loss (ml): 2 IV fluids (ml): 500 Pathology: none sent Condition: stable Disposition: PACU Indications for Procedure: 83-year-old male with recurrent symptomatic left pleural effusion and known stage IV lung cancer Operative Findings: Over 1600 mL of clear serous pleural fluid was drained Description of Procedure: Patient was brought to the operating room, placed supine on the operating table. Percussion was performed in the pleural fluid was identified and marked. The left chest and left upper quadrant were sterilely prepped and draped. Marked area was anesthetized with 1% lidocaine in the pleural fluid identified with a skinny needle. Lidocaine was used to anesthetize the necessary tract and an 18- gauge needle introduced into the left pleural space. Guidewire was threaded into the left pleural space positioned under fluoroscopy. Counterincision was made just below the costal margin in the left upper quadrant after appropriate anesthesia with lidocaine and Pleurx catheter was tunneled from the site posteriorly to the wire site. Wire sited then enlarged with a knife. The subcutaneous cuff was positioned just beneath the skin at the exit site. Introducer and dilator were placed over the guidewire under fluoroscopic guidance and the dilator and wire were removed and the Pleurx catheter placed through the introducer sheath into the left pleural space. Pleurx catheter was connected to suction and over a liter and a half of fluid was collected. The entry site was closed with 4-0 Vicryl and skin glue. The catheter was secured at the exit site with 2-0 silk. Pleurx dressing was applied after capping the catheter and the patient was transferred to recovery in stable condition.
--- NOTE | 2019-09-04 17:36 | XR ---
EXAMINATION TYPE: XR chest 1V portable DATE OF EXAM: 09/04/2019 COMPARISON: Today HISTORY: Catheter placement TECHNIQUE: Single view FINDINGS: There is improvement in the left pleural effusion compared to exam 2 hours ago. There is a chest tube apparently over the left diaphragm. There is also a second tube over the left midlung in u ncertain position. There are sternal wires. There is pulmonary vascular congestion. IMPRESSION: Decrease in the left pleural fluid compared to recent exam. Pulmonary congestion. Pulmona ry edema. No definite pneumothorax.
[2019-09-04] MEDS ORDERED: INSULIN ASPART (NovoLOG) 100 UNIT/ML VIAL SQ ONE (17:47)
[2019-09-04 17:50] LABS: Glucose,Whole Blood 260 mg/dL (75-99)
--- NOTE | 2019-09-04 17:54 | P.PN ---
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 Morgan, Dr. Tran . He had agitation treatment, August 26, cancer not amenable to chemotherapy at this time. He had recurrent pleural effusion, requires thoracentesis, last one was less than 08/13/2019 1 L exudative, negative fungal cultures, no growth. Currently Patient has hemoptysis, purulent yellow green cough, slight edema, no abdominal pain no diarrhea, he requires O2 2-4 L nasal cannula with increasing requirements, increasing respiratory distress, increasing weakness, requiring now ER evaluation On emergency room evaluation, he is at 7 L O2, chest x-ray shows large left body opacity, new right lower lobe patchy infiltrate concerning for pneumonia, thoracic ultrasound was requested, consult with Dr. Soriano, thoracic surgery for Pleurx catheter evaluation, IV antibiotics Zosyn and vancomycin, INR is over 10, needs to be reversed with vitamin K 09/04, patient is to undergo left Pleurx catheter today by Dr. Nolasco, still has shortness of breath, O2 sats at 3 L cannula patient has no palpitations, blood pressure 106/71 additional vitamin K was needed for the INR of 2.1 prior to procedure, no chest pain, still with shortness of breath, no headache, no palpitations, no leg swelling this time it has improved. Review of Systems Constitutional: Reports as per HPI, Reports fever, Reports malaise, Reports xu ght loss, Denies anorexia, Denies chills, Denies chronic headaches, Denies chronic pain, Denies daytime sleepiness, Denies fatigue, Denies lethargy, Denies night sweats, Denies poor appetite, Denies sweats, Denies weakness, Denies weight gain Ears, nose, mouth and throat: Reports as per HPI, Reports epistaxis, Reports hoarseness, Denies ant. neck pain, Denies bleeding gums, Denies dental pain, Denies dysphagia, Denies headache, Denies mouth pain, Denies nasal congestion, Denies nasal discharge, Denies neck fullness/pressure, Denies neck lump, Denies nose pain, Denies odynophagia, Denies post-nasal drip, Denies sinus pain, Denies sinus pressure, Denies swelling in mouth, Denies swelling in throat, Denies sore throat, Denies vertigo, Denies voice changes Cardiovascular: Reports as per HPI, Reports decreased exercise tolerance, Reports dyspnea on exertion, Reports shortness of breath, Denies chest pain, Denies claudication, Denies edema, Denies high blood pressure, Denies irregular heart beat, Denies leg edema, Denies lightheadedness, Denies orthopnea, Denies palpitations, Denies paroxysmal nocturnal dyspnea, Denies phlebitis, Denies r apid heart beat, Denies syncope Respiratory: Reports as per HPI, Reports cough with sputum Gastrointestinal: Reports as per HPI, Denies abdominal pain, Denies belching, Denies bloating, Denies BRBPR, Denies change in bowel habits, Denies coffee ground emesis, Denies constipation, Denies diarrhea, Denies dyspepsia, Denies early satiety, Denies excessive gas, Denies heartburn, Denies hematemesis, Denies hematochezia, Denies indigestion, Denies jaundice, Denies lactose intolerance, Denies loss of appetite, Denies melena, Denies nausea, Denies vomi ting Genitourinary: Reports as per HPI Musculoskeletal: Reports as per HPI, Denies arm numbness/tingling, Denies atrophy, Denies fractures, Denies frequent falls, Denies gait dysfunction, Denies hot joints, Denies leg numbness/tingling, Denies limitation of motion, Denies loss of height, Denies low back pain, Denies morning stiffness, Denies muscle cramps, Denies muscle weakness, Denies myalgias, Denies neck pain, Denies neck stiffness, Denies prior amputations, Denies redness of joints, Denies shooting arm pain, Denies shooting leg pain Integumentary: Reports as per HPI, Denies acne, Denies boils, Denies brittle nails, Denies change in hair/nails, Denies color changes, Denies darkening of skin, Denies depigmentation, Denies dryness, Denies foot/leg ulcers, Denies growths, Denies hirsutism, Denies lesions, Denies onychomycosis, Denies pruritus, Denies rash, Denies sores, Denies striae, Denies unusual bruising, D enies wounds Neurological: Reports as per HPI, Reports weakness, Denies aphasia, Denies ataxia, Denies balance difficulties, Denies burning pain, Denies change in mentation, Denies change in smell/taste, Denies change in speech, Denies confusion, Denies convulsions, Denies double vision, Denies gait dysfunction, Denies head injury, Denies headaches, Denies hearing difficulties, Denies lack of coordination, Denies loss of vision, Denies memory loss, Denies migraines, Denies motor disturbance, Denies numbness, Denies paralysis, Denies paresthesias, Denies seizures, Denies sensory deficit, Denies spasticity, Denies syncope, Denies tic, Denies tingling, Denies transient paralysis, Denies tremors, Denies vertigo, Denies visual changes Psychiatric: Reports as per HPI, Reports sleep disturbances Endocrine: Reports as per HPI, Denies cold intolerance, Denies deepening of the voice, Denies excessive sweating, Denies excessive thirst, Denies fatigue, Denies flushing, Denies heat intolerance, Denies high blood sugars, Denies increase in ring/shoe/hat size, Denies low blood sugars, Denies nocturia, Denies palpitations, Denies polydipsia, Denies polyphagia, Denies polyuria, Denies proptosis, Denies recent glucocorticoid use, Denies thyroid mass, Denies weight change Hematologic/Lymphatic: Reports as per HPI Allergic/Immunologic: Reports as per HPI Objective - Vital Signs Vital signs: Vital Signs Temp 97.1 F L 09/04/19 16:59 Pulse 70 09/04/19 17:30 Resp 16 09/04/19 17:30 BP 106/71 09/04/19 17:30 Pulse Ox 100 09/04/19 17:30 Intake & Output 09/03/19 09/04/19 09/04/19 18:59 06:59 18:59 Intake Total 120 370 Output Total 200 302 Balance 120 -200 68 Weight 77.564 kg 77.564 kg Intake: IV 250 Oral 120 120 Output: Urine 200 300 Estimated Blood Loss 2 Other: Voiding Method Toilet Toilet # Voids 0 0 # Bowel Movements 1 0 - Constitutional General appearance: Present: cooperative, mild distress - EENT Eyes: Present: anicteric sclerae, EOMI, PERRLA, dentition normal, normal appearance ENT: Present: hearing grossly normal, normal oropharynx - Neck Neck: Present: normal ROM - Respiratory Respiratory: bilateral: diminished, dullness - Cardiovascular Rhythm: regular Heart sounds: normal: S1, S2 Abnormal Heart Sounds: Present: systolic murmur - Gastrointestinal General gastrointestinal: Present: normal bowel sounds, soft - Integumentary Integumentary: Present: decreased turgor, normal - Neurologic Neurologic: Present: CNII-XII intact - Musculoskeletal Musculoskeletal: Present: gait normal, strength equal bilaterally - Psychiatric Psychiatric: Present: A&O x's 3, appropriate affect, intact judgment & insight - Allied health notes Allied health notes reviewed: case management - Labs CBC & Chem 7: 09/14/19 08:31 09/14/19 08:31 Labs: Abnormal Lab Results - Last 24 Hours (Table) 09/03/19 09/04/19 09/04/19 Range/Units 19:59 06:06 06:06 WBC 10.7 H (3.8-10.6) k/uL RBC 3.68 L (4.30-5.90) m/uL Hgb 10.4 L (13.0-17.5) gm/dL Hct 31.8 L (39.0-53.0) % RDW 16.0 H (11.5-15.5) % Neutrophils # 10.1 H (1.3-7.7) k/uL Lymphocytes # 0.2 L (1.0-4.8) k/uL PT (9.0-12.0) sec INR (<1.2) Sodium (137-145) mmol/L Potassium (3.5-5.1) mmol/L BUN (9-20) mg/dL Glucose (74-99) mg/dL POC Glucose (mg/dL) 278 H (75-99) mg/dL Hemoglobin A1c 9.1 H (4.0-6.0) % Total Protein (6.3-8.2) g/dL Albumin (3.5-5.0) g/dL 09/04/19 09/04/19 09/04/19 Range/Units 06:06 06:06 06:17 WBC (3.8-10.6) k/uL RBC (4.30-5.90) m/uL Hgb (13.0-17.5) gm/dL Hct (39.0-53.0) % RDW (11.5-15.5) % Neutrophils # (1.3-7.7) k/uL Lymphocytes # (1.0-4.8) k/uL PT 21.0 H (9.0-12.0) sec INR 2.1 H (<1.2) Sodium 132 L (137-145) mmol/L Potassium 5.2 H (3.5-5.1) mmol/L BUN 25 H (9-20) mg/dL Glucose 225 H (74-99) mg/dL POC Glucose (mg/dL) 234 H (75-99) mg/dL Hemoglobin A1c (4.0-6.0) % Total Protein 5.6 L (6.3-8.2) g/dL Albumin 3.0 L (3.5-5.0) g/dL 09/04/19 Range/Units 11:32 WBC (3.8-10.6) k/uL RBC (4.30-5.90) m/uL Hgb (13.0-17.5) gm/dL Hct (39.0-53.0) % RDW (11.5-15.5) % Neutrophils # (1.3-7.7) k/uL Lymphocytes # (1.0-4.8) k/uL PT (9.0-12.0) sec INR (<1.2) Sodium (137-145) mmol/L Potassium (3.5-5.1) mmol/L BUN (9-20) mg/dL Glucose (74-99) mg/dL POC Glucose (mg/dL) 281 H (75-99) mg/dL Hemoglobin A1c (4.0-6.0) % Total Protein (6.3-8.2) g/dL Albumin (3.5-5.0) g/dL Assessment and Plan Plan: 1 recurrent pleural effusion, left side with known malignancy, primary poorly differentiated adenocarcinoma of the lung, recent thoracentesis 08/13/2019, with recurrent pleural effusion causing worsening hypoxemia, new right-sided pneumonia, most likely gram-negative, IV Zosyn and IV vancomycin to be started, consult with pulmonary Dr. Soriano, consult with thoracic surgery for Pleurx catheter evaluation. O2 supplementation, nebulized treatment, unable to get to 1 amp secondary to severe tachycardia, would probably allow stat doses of albuterol, on maintenance ipratropium 4 times a day 3 left lobe poorly differentiated adenocarcinoma lung status post Bronch 08/16/[address] Tran and Bo, radiation treatment ongoing, per oncology, not a candidate for chemotherapy secondary to poor performance status 4 right lung acute gram-negative pneumonia suspected: Patient will be on double antibiotic with vancomycin and Zosyn empirically., consult pulmonary, sputum culture 5 A. fib with slight elevation of the heart rate, supratherapeutic INR over 10 hold Coumadin reversed with vitamin K, to allow for Pleurx catheter in thoracentesis. continue beta alexis 6 chronic systolic congestive heart failure: Seen cardiology regular basis still been treated for cardiomyopathy. Still on metoprolol 50 twice a day, furosemide 20 mg daily, isosorbide 60 mg a day and hydralazine 100 mg 3 times a day 7 type 2 diabetes A1c 9.1 continue patient on insulin continue Accu-Chek with sliding scale coverage, continue patient on metformin along with increasing doses Prandin 1 mg 3 times a day from a previous dose of one every morning and Januvia and insulin scale. 8 hypothyroidism: Continue levothyroxine 88 g daily. 9 hyperlipidemia: Remain on atorvastatin 40 mg daily. 10 hypertension: Remain on Cardura 40 mg a day, amlodipine 2.5 mg twice a day, metoprolol 50 mg twice a day, hydralazine 100 mg 3 times a day. 11 COPD, exacerbation, on nebulized Atrovent, now on Solu-Medrol 60 every 6 11 history of throat cancer: Has been in remission at this point. 12. Coumadin toxicity with INR over 10 on admission, vitamin K was given for reversal, goal INR between 2-3, Coumadin on hold for Pleurx catheter 13. Palliative Scoring is high, currently on oncologic management for new lung cancer, still undergoing breaks catheter, not a candidate for chemotherapy
[2019-09-04 18:18] LABS: Glucose,Whole Blood 243 mg/dL (75-99)
[2019-09-04] MEDS: ACETAMINOPHEN IV (For NPO) 1,000 MG in EMPTY BAG 1 BAG IVPB SCH ×2 (18:49→23:45)
[2019-09-04] MEDS: TROSPIUM CHLORIDE 20 MG TABLET PO SCH (18:49)
[2019-09-04] MEDS: MULTIVITAMINS, THERA 1 EACH TAB PO SCH (18:50)
[2019-09-04] MEDS: ISOSORBIDE MONONITRATE ER 60 MG TAB.ER.24H PO SCH (18:50)
[2019-09-04 20:00] LABS: Glucose,Whole Blood 354 mg/dL (75-99)
[2019-09-04] MEDS: ATORVASTATIN 40 MG TAB PO SCH (21:18)
[2019-09-04] MEDS: MELATONIN 5 MG TABLET PO SCH (21:19)
[2019-09-05 06:11] LABS: Glucose,Whole Blood 178 mg/dL (75-99)
[2019-09-05] MEDS: INSULIN ASPART (NovoLOG) 100 UNIT/ML VIAL SQ SCH ×4 (06:42→21:23)
[2019-09-05] MEDS: methylPREDNISolone SOD SUCCI 125 MG/2 ML VIAL IV SCH ×4 (06:42→22:41)
[2019-09-05] MEDS: REPAGLINIDE 1 MG TAB PO SCH ×3 (06:42→16:13)
[2019-09-05] MEDS: LEVOTHYROXINE 88 MCG TAB PO SCH (06:42)
--- NOTE | 2019-09-05 06:42 | XR ---
EXAMINATION TYPE: XR chest 2V DATE OF EXAM: 09/05/2019 COMPARISON: Chest x-ray from yesterday and older studies. CT chest from 2 days ago. HISTORY: Pleural catheter placement progress study. TECHNIQUE: Frontal and lateral views of the chest are obtained. FINDINGS: Overlying sternal wires and mediastinal clips are redemonstrated. There is persistent left basilar pleural drainage catheter. There is background chronic emphysematous change with left-sided v olume loss and worsening right basilar opacity with more dense left mid lung masslike consolidation a nd additional more patchy left basilar opacity all redemonstrated. Cardiomegaly with coronary artery stents in the left circumflex distribution is again seen. IMPRESSION: Persistent left basilar chest tube with dense left midlung masslike consolidation more p atchy left basilar atelectasis and/or infiltrate and likely residual small left pleural fluid collect ion. No significant interval change. Background chronic emphysematous change with worsening right low er lung acute infiltrate and/or atelectasis is noted.
[2019-09-05 06:47] LABS: Anisocytosis Slight; Basophils % (A) 0 %; Eosinophils % (A) 0 %; HCT 29.5 % (39.0-53.0); HGB 9.4 gm/dL (13.0-17.5); Lymphocytes # (A) 0.2 k/uL (1.0-4.8); Lymphocytes % (A) 2 %; MCH 27.5 pg (25.0-35.0); MCHC 31.7 g/dL (31.0-37.0); MCV 86.7 fL (80.0-100.0); Mean Platelet Volume 8.4; Monocytes # (A) 0.6 k/uL (0-1.0); Monocytes % (A) 5 %; Neutrophils # (A) 12.2 k/uL (1.3-7.7); Neutrophils % (A) 93 %; Platelet Count 265 k/uL (150-450); RBC 3.41 m/uL (4.30-5.90); RDW 16.3 % (11.5-15.5); WBC 13.1 k/uL (3.8-10.6)
--- NOTE | 2019-09-05 06:51 | FL ---
EXAMINATION TYPE: FL fluoroscopy <1hr DATE OF EXAM: 09/04/2019 CLINICAL HISTORY: Pleural fluid collection. TECHNIQUE: Fluoroscopy. COMPARISON: Chest CT from yesterday. FINDINGS: Fluoroscopic guidance was provided during Pleurx catheter insertion procedure performed by Dr. Nolasco. A total of 24 seconds of fluoroscopic time was utilized during the procedure and single spot fluoroscopic image is acquired. Single image acquired shows portion of left lung base with over lying sternal wires. Drainage catheter not well seen. IMPRESSION: As Above.
[2019-09-05 06:58] LABS: Albumin 2.5 g/dL (3.5-5.0); Calcium 8.4 mg/dL (8.4-10.2); Potassium 5.1 mmol/L (3.5-5.1); Total Bilirubin 0.6 mg/dL (0.2-1.3); Total Protein 4.8 g/dL (6.3-8.2)
[2019-09-05 07:15] LABS: INR 1.2 (<1.2); Prothrombin Time 12.5 sec (9.0-12.0)
[2019-09-05] MEDS: BUDESONIDE 1 MG/2 ML NEBU INHALATION SCH ×2 (07:42→19:21)
[2019-09-05] MEDS: IPRATROPIUM 0.5 MG/2.5 ML NEBU INHALATION SCH ×4 (07:42→19:21)
--- NOTE | 2019-09-05 09:17 | P.PN ---
Subjective Progress Note Date: 09/05/19 Principal diagnosis: Recurrent left pleural effusion, likely malignant, acute hypoxic respiratory failure, supratherapeutic INR on admission. Previous medical history of poorly differentiated adenocarcinoma diagnosed with recent endobronchial biopsies, COPD with home O2 dependence, previous tobacco dependence, coronary artery disease status post CABG, hypertension, hyperlipidemia, chronic systolic congestive heart failure, persistent atrial fibrillation on Coumadin for anticoagulation, type 2 diabetes mellitus, hypothyroid, prostate cancer status post prostatectomy, vocal cord carcinoma treated with radiation, and family history of coronary artery disease and cancer. POD #1 left Pleurx catheter placement with fluoroscopy. The patient is currently sitting up at the bedside on the cardiac stepdown unit in no acute distress, just finished breakfast. Denies any pain, states his breathing feels better than when he came in. Remains on Airvo at 55 L with FiO2 75%. No new concerns. Objective - Vital Signs Vital signs: Vital Signs Temp 97.8 F 09/05/19 04:00 Pulse 88 09/05/19 07:55 Resp 22 09/05/19 04:00 BP 106/72 09/05/19 04:00 Pulse Ox 96 09/05/19 04:15 Intake & Output 09/04/19 09/05/19 09/05/19 18:59 06:59 18:59 Intake Total 370 180 Output Total 302 300 Balance 68 -300 180 Weight 77.564 kg 77.7 kg Intake: IV 250 Oral 120 180 Output: Urine 300 300 Estimated Blood Loss 2 Other: Voiding Method Toilet Toilet # Voids 0 # Bowel Movements 0 - Constitutional General appearance: Present: cooperative, no acute distress - Respiratory Details: Lungs sounds diminished bilaterally. Respirations even, nonlabored. Currently on Airvo and 55 L with FiO2 of 75%. Oxygen saturation 96%. Strong cough. Left sided Pleurx catheter present. - Cardiovascular Details: S1, S2 present. Irregular rate and rhythm, atrial fibrillation on telemetry. Palpable peripheral pulses bilaterally. No edema present. No calf pain or tenderness noted. - Gastrointestinal Gastrointestinal Comment(s): Abdomen soft, nontender, nondistended. Active bowel sounds 4 quadrants. Tolerating diet. - Genitourinary Genitourinary Comment(s): Continues to void - Integumentary Integumentary Comment(s): Skin is warm and dry with evidence of good perfusion - Neurologic Neurologic: Present: CNII-XII intact - Musculoskeletal Musculoskeletal: Present: strength equal bilaterally - Psychiatric Psychiatric: Present: A&O x's 3, appropriate affect, intact judgment & insight - Allied health notes Allied health notes reviewed: nursing - Labs CBC & Chem 7: 09/05/19 06:01 09/05/19 06:01 Labs: Abnormal Lab Results - Last 24 Hours (Table) 09/04/19 09/04/19 09/04/19 Range/Units 06:06 11:32 17:39 WBC (3.8-10.6) k/uL RBC (4.30-5.90) m/uL Hgb (13.0-17.5) gm/dL Hct (39.0-53.0) % RDW (11.5-15.5) % Neutrophils # (1.3-7.7) k/uL Lymphocytes # (1.0-4.8) k/uL PT (9.0-12.0) sec INR (<1.2) Sodium (137-145) mmol/L BUN (9-20) mg/dL Glucose (74-99) mg/dL POC Glucose (mg/dL) 281 H 260 H (75-99) mg/dL Hemoglobin A1c 9.1 H (4.0-6.0) % Total Protein (6.3-8.2) g/dL Albumin (3.5-5.0) g/dL 09/04/19 09/04/19 09/05/19 Range/Units 17:58 19:58 06:01 WBC 13.1 H (3.8-10.6) k/uL RBC 3.41 L (4.30-5.90) m/uL Hgb 9.4 L (13.0-17.5) gm/dL Hct 29.5 L (39.0-53.0) % RDW 16.3 H (11.5-15.5) % Neutrophils # 12.2 H (1.3-7.7) k/uL Lymphocytes # 0.2 L (1.0-4.8) k/uL PT (9.0-12.0) sec INR (<1.2) Sodium (137-145) mmol/L BUN (9-20) mg/dL Glucose (74-99) mg/dL POC Glucose (mg/dL) 243 H 354 H (75-99) mg/dL Hemoglobin A1c (4.0-6.0) % Total Protein (6.3-8.2) g/dL Albumin (3.5-5.0) g/dL 09/05/19 09/05/19 09/05/19 Range/Units 06:01 06:01 06:10 WBC (3.8-10.6) k/uL RBC (4.30-5.90) m/uL Hgb (13.0-17.5) gm/dL Hct (39.0-53.0) % RDW (11.5-15.5) % Neutrophils # (1.3-7.7) k/uL Lymphocytes # (1.0-4.8) k/uL PT 12.5 H (9.0-12.0) sec INR 1.2 H (<1.2) Sodium 133 L (137-145) mmol/L BUN 36 H (9-20) mg/dL Glucose 147 H (74-99) mg/dL POC Glucose (mg/dL) 178 H (75-99) mg/dL Hemoglobin A1c (4.0-6.0) % Total Protein 4.8 L (6.3-8.2) g/dL Albumin 2.5 L (3.5-5.0) g/dL - Imaging and Cardiology Chest x-ray: report reviewed, image reviewed Assessment and Plan Assessment: 1. Recurrent left pleural effusion, likely malignant, status post left Pleurx catheter placement 2. Acute hypoxic respiratory failure 3. Supratherapeutic INR on admission 4. Previous medical history of poorly differentiated adenocarcinoma diagnosed with recent endobronchial biopsies 5. COPD with home O2 dependence 6. Previous tobacco dependence 7. Coronary artery disease status post CABG 8. Hypertension 9. Hyperlipidemia 10. Chronic systolic congestive heart failure 11. Persistent atrial fibrillation on Coumadin for anticoagulation 12. Type 2 diabetes 13. Hypothyroid 14. Prostate cancer status post prostatectomy 15. Vocal cord carcinoma status post radiation treatment 16. Family history of coronary artery disease and cancer Plan: 1. Will drain Pleurx catheter today once family is present in order to do teaching regarding the catheter. 2. Wean O2 as tolerated 3. Bronchodilators, steroids per pulmonology 4. Pain controlled current medication regimen 5. Okay to restart Coumadin from our standpoint. 6. Medical management of other comorbidities per primary care service. 7. May discharge to home with home care when patient stabilized and okay with other medical services. Pleurx catheter discharge instructions placed on discharge plan. 8. Will continue to see on an as-needed basis. Please call us with any questions. Time with Patient: Greater than 30
[2019-09-05] MEDS: MULTIVITAMINS, THERA 1 EACH TAB PO SCH (09:53)
[2019-09-05] MEDS: ALPRAZolam 0.25 MG TAB PO SCH ×2 (09:53→21:23)
[2019-09-05] MEDS: FUROSEMIDE 20 MG TAB PO SCH ×2 (09:53→16:14)
[2019-09-05] MEDS: DOXAZOSIN 4 MG TAB PO SCH (09:53)
[2019-09-05] MEDS: hydrALAZINE HCL 50 MG TAB PO SCH ×3 (09:53→21:19)
[2019-09-05] MEDS: PANTOPRAZOLE 40 MG TABLET PO SCH (09:53)
[2019-09-05] MEDS: METOPROLOL TARTRATE 50 MG TAB PO SCH ×2 (09:53→16:14)
[2019-09-05] MEDS: LINAGLIPTIN 5 MG TABLET PO SCH (09:53)
[2019-09-05] MEDS: PIPERACILLIN-TAZOBACTAM 3.375 GM in SODIUM CHLORIDE 0.9% 100 ML IVPB SCH ×3 (09:58→22:40)
--- NOTE | 2019-09-05 10:39 | P.PN ---
Subjective Progress Note Date: 09/05/19 Principal diagnosis: Dyspnea, large recurrent left pleural effusion, right lower lobe pneumonia, stage IV adenocarcinoma of the lung This is a very pleasant 83-year-old gentleman who follows with Dr. Corona as his primary care physician. He has a history of chronic atrial fibrillation anticoagulated with warfarin, coronary artery disease with previous coronary artery bypass grafting, multiple stent placements, focal cord cancer with surgery, prostate cancer, diabetes mellitus with peripheral neuropathy, hypothyroidism, hyperlipidemia, BPH, osteoarthritis, remote history of smoking. He was diagnosed with stage IV adenocarcinoma of the lung earlier this month. He had undergone biopsy of a pleural-based mass in the left upper lobe measuring 11 cm with associated hypermetabolic uptake SUV of 7. There is groundglass opacities in the right lower lobe as well. He had been seen and evaluated by Dr. Latham and was going to receive radiation treatment. He was due for a computed tomography scan with markings tomorrow. This morning however he developed worsening shortness of breath cough and congestion and presented here to the emergency room. Computed tomography scan shows a new right lower lobe patchy infiltrate suspicious for pneumonia. Small effusion. There is a left upper lobe mass again noted with surrounding consolidation and atelectatic tissue and left-sided pleural effusion. We were consulted for the same. He is seen today in the emergency room. He is currently sitting up on the stretcher. Awake and alert in mild respiratory distress. He is dyspneic with minimal exertion. He is requiring 6 L high flow nasal cannula to maintain O2 saturatio ns in the low 90s. He is afebrile. Slightly tachycardic. Blood pressure stable. White count 10.4. Hemoglobin 10.7. INR greater than 10.0. Sodium 133. Potassium 5.1. Creatinine 0.95. Lactic acid 1.5. Troponin 0.015. ProBNP 2190. He was given vitamin K 2.5 mg orally 1. He received 1 dose of Unasyn. On 09/04/2019 patient seen in follow-up on selective care unit, dyspneic, he is on Airvo at 55 l/min, and Fio2 75%. Occasionally bringing up some colored phlegm, afebrile, hemodynamically patient is stable, he is on a combination of Zosyn and vancomycin. Breathing treatments, and IV steroids, days INR is 2.1, patient has received a dose of vitamin K, he was evaluated by CT surgery, and his Pleurx catheter insertion has been scheduled for 3:30 this afternoon. On 09/05/2090 patient seen in follow-up on selective care unit, he remains on Airvo at 55l/min, and Fio2 73%. His pulse ox is 98, he states he is breathing easier today, yesterday he had left-sided Pleurx catheter inserted, and 1.5 L of pleural fluid drained. Today's chest x-ray shows persistent left mid lung consolidation, patchy left basilar atelectasis and residual small left pleural fluid collection, and there is worsening of the right lower lung acute infiltrates. Patient is on Zosyn and vancomycin for abiotic coverage, his been afebrile. He has a strong effective cough, but has not provided a sputum sp ecimen yet. Lung sounds reveal coarse basilar crackles. Patient is generally weak, but was able to walk with a walker in the room with physical therapy, tolerated activity fairly well. Objective - Vital Signs Vital signs: Vital Signs Temp 97.8 F 09/05/19 04:00 Pulse 83 09/05/19 08:00 Resp 20 09/05/19 08:00 BP 111/64 09/05/19 08:00 Pulse Ox 98 09/05/19 08:00 Intake & Output 09/04/19 09/05/19 09/05/19 18:59 06:59 18:59 Intake Total 370 180 Output Total 302 300 Balance 68 -300 180 Weight 77.564 kg 77.7 kg Intake: IV 250 Oral 120 180 Output: Urine 300 300 Estimated Blood Loss 2 Other: Voiding Method Toilet Toilet # Voids 0 # Bowel Movements 0 - Exam GENERAL EXAM: Alert, very pleasant, 83-year-old frail looking male, on Airvo at 55l/min and Fio2 75%, dyspneic with conversation, but no acute distress HEAD: Normocephalic/atraumatic. EYES: Normal reaction of pupils, equal size. Conjunctiva pink, sclera white. NOSE: Clear with pink turbinates. THROAT: No erythema or exudates. NECK: No masses, no JVD, no thyroid enlargement, no adenopathy. CHEST: No chest wall deformity. Symmetrical expansion. LUNGS: Coarse crackles at the bases, wheezes in the right lung. CVS: Regular rate and rhythm, normal S1 and S2, no gallops, no murmurs, no rubs ABDOMEN: Soft, nontender. No hepatosplenomegaly, normal bowel sounds, no guarding or rigidity. EXTREMITIES: No clubbing, no edema, no cyanosis, 2+ pulses and upper and lower extremities. MUSCULOSKELETAL: Muscle strength and tone normal. SPINE: No scoliosis or deformity SKIN: No rashes CENTRAL NERVOUS SYSTEM: Alert and oriented -3. No focal deficits, tone is normal in all 4 extremities. PSYCHIATRIC: Alert and oriented -3. Appropriate affect. Intact judgment and insight. - Labs CBC & Chem 7: 09/05/19 06:01 09/05/19 06:01 Labs: Abnormal Lab Results - Last 24 Hours (Table) 09/04/19 09/04/19 09/04/19 Range/Units 06:06 11:32 17:39 WBC (3.8-10.6) k/uL RBC (4.30-5.90) m/uL Hgb (13.0-17.5) gm/dL Hct (39.0-53.0) % RDW (11.5-15.5) % Neutrophils # (1.3-7.7) k/uL Lymphocytes # (1.0-4.8) k/uL PT (9.0-12.0) sec INR (<1.2) Sodium (137-145) mmol/L BUN (9-20) mg/dL Glucose (74-99) mg/dL POC Glucose (mg/dL) 281 H 260 H (75-99) mg/dL Hemoglobin A1c 9.1 H (4.0-6.0) % Total Protein (6.3-8.2) g/dL Albumin (3.5-5.0) g/dL 09/04/19 09/04/19 09/05/19 Range/Units 17:58 19:58 06:01 WBC 13.1 H (3.8-10.6) k/uL RBC 3.41 L (4.30-5.90) m/uL Hgb 9.4 L (13.0-17.5) gm/dL Hct 29.5 L (39.0-53.0) % RDW 16.3 H (11.5-15.5) % Neutrophils # 12.2 H (1.3-7.7) k/uL Lymphocytes # 0.2 L (1.0-4.8) k/uL PT (9.0-12.0) sec INR (<1.2) Sodium (137-145) mmol/L BUN (9-20) mg/dL Glucose (74-99) mg/dL POC Glucose (mg/dL) 243 H 354 H (75-99) mg/dL Hemoglobin A1c (4.0-6.0) % Total Protein (6.3-8.2) g/dL Albumin (3.5-5.0) g/dL 09/05/19 09/05/19 09/05/19 Range/Units 06:01 06:01 06:10 WBC (3.8-10.6) k/uL RBC (4.30-5.90) m/uL Hgb (13.0-17.5) gm/dL Hct (39.0-53.0) % RDW (11.5-15.5) % Neutrophils # (1.3-7.7) k/uL Lymphocytes # (1.0-4.8) k/uL PT 12.5 H (9.0-12.0) sec INR 1.2 H (<1.2) Sodium 133 L (137-145) mmol/L BUN 36 H (9-20) mg/dL Glucose 147 H (74-99) mg/dL POC Glucose (mg/dL) 178 H (75-99) mg/dL Hemoglobin A1c (4.0-6.0) % Total Protein 4.8 L (6.3-8.2) g/dL Albumin 2.5 L (3.5-5.0) g/dL Assessment and Plan Plan: Assessment: 1 Acute hypoxic respiratory failure secondary to a large left-sided pleural effusion with left upper lobe mass positive for stage IV adenocarcinoma of the lung just diagnosed earlier this month with bronchoscopy and transbronchial biopsy on 08/15/2019, status post left-sided Pleurx catheter insertion on 09/05/2019 and drainage of 1.5 L of pleural fluid 2 Pleural-based mass in the left upper lobe measuring approximately 11 cm with hypermetabolic uptake on PET scan and the plan was for radiation therapy 3 Recurrent left pleural effusion, may benefit from Pleurx catheter placement 4 Remote history of chronic tobacco dependence. 5 History of prostate cancer 6 History of vocal cord cancer with radiation 7 Coronary artery disease with multiple stent placements and coronary artery bypass grafting 8 Chronic atrial fibrillation, anticoagulated with warfarin, supra therapeutic with presenting INR greater than 10 Plan: Continue current medical treatment, send the sputum culture, patient has been afebrile, currently covered with the combination of Zosyn and vancomycin, a chest x-ray shows worsening of right lower lobe infiltrates, worse catheter has been inserted, and patient is breathing easier, wean FiO2. Continue with nebulized bronchodilators and IV steroids. We'll continue to follow I performed a history & physical examination of the patient and discussed their management with my nurse practitioner, Griselda Funez. I reviewed the nurse practitioner's note and agree with the documented findings and plan of care. Lung sounds are positive for vitamins sounds over left lung, and rhonchi, wheezing and rales over right lung. The findings and the impression was discussed with the patient. I attest to the documentation by the nurse practitioner. Time with Patient: Less than 30
[2019-09-05] MEDS: VANCOMYCIN 1,500 MG in SODIUM CHLORIDE 0.9% 250 ML IVPB SCH ×2 (11:49→22:40)
[2019-09-05] MEDS: SODIUM CHLORIDE 0.9% 1,000 ML IV SCH (11:49)
[2019-09-05 12:05] LABS: Glucose,Whole Blood 281 mg/dL (75-99)
[2019-09-05] MEDS: ACETAMINOPHEN TAB 500 MG TAB PO PRN (12:33)
--- NOTE | 2019-09-05 14:43 | P.PN ---
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 Morgan, Dr. Tran . He had agitation treatment, August 26, cancer not amenable to chemotherapy at this time. He had recurrent pleural effusion, requires thoracentesis, last one was less than 08/13/2019 1 L exudative, negative fungal cultures, no growth. Currently Patient has hemoptysis, purulent yellow green cough, slight edema, no abdominal pain no diarrhea, he requires O2 2-4 L nasal cannula with increasing requirements, increasing respiratory distress, increasing weakness, requiring now ER evaluation On emergency room evaluation, he is at 7 L O2, chest x-ray shows large left body opacity, new right lower lobe patchy infiltrate concerning for pneumonia, thoracic ultrasound was requested, consult with Dr. Soriano, thoracic surgery for Pleurx catheter evaluation, IV antibiotics Zosyn and vancomycin, INR is over 10, needs to be reversed with vitamin K 09/04, patient is to undergo left Pleurx catheter today by Dr. Nolasco, still has shortness of breath, O2 sats at 3 L cannula patient has no palpitations, blood pressure 106/71 additional vitamin K was needed for the INR of 2.1 prior to procedure, no chest pain, still with shortness of breath, no headache, no palpitations, no leg swelling this time it has improved. 09/05: Patient is still short of breath, but less, still with pleurisy no hemoptyis, 350 ml omayra was taken out today thru pleurx cathtetergerardo at 55l 75% fi02, was cleared by thoracic surgeon to initiate coumadin, first dose restarted at 7.5 mg today, so initate physical therpies today Review of Systems Constitutional: Reports as per HPI, Reports fever, Reports malaise, Reports weight loss, Denies anorexia, Denies chills, Denies chronic headaches, Denies chronic pain, Denies daytime sleepiness, Denies fatigue, Denies lethargy, Denies night sweats, Denies poor appetite, Denies sweats, Denies weakness, Denies weight gain Ears, nose, mouth and Reports as per HPI, Reports epistaxis, Reports hoarseness, Denies ant. neck pain, Denies bleeding gums, Denies dental pain, Denies dysphagia, Denies headache, Denies mouth pain, Denies nasal congestion, Denies nasal discharge, Denies neck fullness/pressure, Denies neck lump, Denies nose pain, Denies odynophagia, Denies post-nasal drip, Denies sinus pain, Denies sinus pressure, Denies swelling in mouth, Denies swelling in throat, Denies sore throat, Denies vertigo, Denies voice changes Cardiovascular: Reports as per HPI, Reports decreased exercise tolerance, Reports dyspnea on exertion, Reports shortness of breath, Denies chest pain, Denies claudication, Denies edema, Denies high blood pressure, Denies irregular heart beat, Denies leg edema, Denies lightheadedness, Denies orthopnea, Denies palpitations, Denies paroxysmal nocturnal dyspnea, Denies phlebitis, Denies rapid heart beat, Denies syncope Respiratory: Reports as per HPI, Reports cough with sputum Gastrointestinal: Reports as per HPI, Denies abdominal pain, Denies belching, Denies bloating, Denies BRBPR, Denies change in bowel habits, Denies coffee ground emesis, Denies constipation, Denies diarrhea, Denies dyspepsia, Denies early satiety, Denies excessive gas, Denies heartburn, Denies hematemesis, Denies hematochezia, Denies indigestion, Denies jaundice, Denies lactose intolerance, Denies loss of appetite, Denies melena, Denies nausea, Denies vomiting Genitourinary: Reports as per HPI Musculoskeletal: Reports as per HPI, Denies arm numbness/tingling, Denies atrophy, Denies fractures, Denies frequent falls, Denies gait dysfunction, Denies hot joints, Denies leg numbness/tingling, Denies limitation of motion, D enies loss of height, Denies low back pain, Denies morning stiffness, Denies muscle cramps, Denies muscle weakness, Denies myalgias, Denies neck pain, Denies neck stiffness, Denies prior amputations, Denies redness of joints, Denies shooting arm pain, Denies shooting leg pain Integumentary: Reports as per HPI, Denies acne, Denies boils, Denies brittle nails, Denies change in hair/nails, Denies color changes, Denies darkening of skin, Denies depigmentation, Denies dryness, Denies foot/leg ulcers, Denies growths, Denies hirsutism, Denies lesions, Denies onychomycosis, Denies pruritus, Denies rash, Denies sores, Denies striae, Denies unusual bruising, Denies wounds Neurological: Reports as per HPI, Reports weakness, Denies aphasia, Denies atax ia, Denies balance difficulties, Denies burning pain, Denies change in mentation, Denies change in smell/taste, Denies change in speech, Denies confusion, Denies convulsions, Denies double vision, Denies gait dysfunction, Denies head injury, Denies headaches, Denies hearing difficulties, Denies lack of coordination, Denies loss of vision, Denies memory loss, Denies migraines, Denies motor disturbance, Denies numbness, Denies paralysis, Denies paresthesias, Denies seizures, Denies sensory deficit, Denies spasticity, Denies syncope, Denies tic, Denies tingling, Denies transient paralysis, Denies tremors, Denies vertigo, Denies visual changes Psychiatric: Reports as per HPI, Reports sleep disturbances Endocrine: Reports as per HPI, Denies cold intolerance, Denies deepening of the voice, Denies excessive sweating, Denies excessive thirst, Denies fatigue, Denies flushing, Denies heat intolerance, Denies high blood sugars, Denies increase in ring/shoe/hat size, Denies low blood sugars, Denies nocturia, Denies palpitations, Denies polydipsia, Denies polyphagia, Denies polyuria, Denies proptosis, Denies recent glucocorticoid use, Denies thyroid mass, Denies weight change Hematologic/Lymphatic: Reports as per HPI Allergic/Immunologic: Reports as per HPI Objective - Vital Signs Vital signs: Vital Signs Temp 97.8 F 09/05/19 04:00 Pulse 88 09/05/19 07:55 Resp 22 09/05/19 04:00 BP 106/72 09/05/19 04:00 Pulse Ox 96 09/05/19 04:15 Intake & Output 09/04/19 09/05/19 09/05/19 18:59 06:59 18:59 Intake Total 370 180 Output Total 302 300 Balance 68 -300 180 Weight 77.564 kg 77.7 kg Intake: IV 250 Oral 120 180 Output: Urine 300 300 Estimated Blood Loss 2 Other: Voiding Method Toilet Toilet # Voids 0 # Bowel Movements 0 - Constitutional General appearance: Present: cooperative, no acute distress - EENT Eyes: Present: anicteric sclerae, PERRLA, dentition normal ENT: Present: NA/AT, normal oropharynx - Neck Neck: Present: normal ROM - Respiratory Respiratory: bilateral: CTA, diminished, prolonged expiration, negative: dullness, rales, prolonged inspiration - Cardiovascular Rhythm: regular Heart sounds: normal: S1, S2 - Gastrointestinal General gastrointestinal: Present: normal bowel sounds, soft - Integumentary Integumentary: Present: normal, normal turgor - Neurologic Neurologic: Present: CNII-XII intact - Musculoskeletal Musculoskeletal: Present: gait normal, generalized weakness, strength equal bilaterally - Psychiatric Psychiatric: Present: A&O x's 3, appropriate affect - Labs CBC & Chem 7: 09/14/19 08:31 09/14/19 08:31 Labs: Abnormal Lab Results - Last 24 Hours (Table) 09/04/19 09/04/19 09/04/19 Range/Units 06:06 11:32 17:39 WBC (3.8-10.6) k/uL RBC (4.30-5.90) m/uL Hgb (13.0-17.5) gm/dL Hct (39.0-53.0) % RDW (11.5-15.5) % Neutrophils # (1.3-7.7) k/uL Lymphocytes # (1.0-4.8) k/uL PT (9.0-12.0) sec INR (<1.2) Sodium (137-145) mmol/L BUN (9-20) mg/dL Glucose (74-99) mg/dL POC Glucose (mg/dL) 281 H 260 H (75-99) mg/dL Hemoglobin A1c 9.1 H (4.0-6.0) % Total Protein (6.3-8.2) g/dL Albumin (3.5-5.0) g/dL 09/04/19 09/04/19 09/05/19 Range/Units 17:58 19:58 06:01 WBC 13.1 H (3.8-10.6) k/uL RBC 3.41 L (4.30-5.90) m/uL Hgb 9.4 L (13.0-17.5) gm/dL Hct 29.5 L (39.0-53.0) % RDW 16.3 H (11.5-15.5) % Neutrophils # 12.2 H (1.3-7.7) k/uL Lymphocytes # 0.2 L (1.0-4.8) k/uL PT (9.0-12.0) sec INR (<1.2) Sodium (137-145) mmol/L BUN (9-20) mg/dL Glucose (74-99) mg/dL POC Glucose (mg/dL) 243 H 354 H (75-99) mg/dL Hemoglobin A1c (4.0-6.0) % Total Protein (6.3-8.2) g/dL Albumin (3.5-5.0) g/dL 09/05/19 09/05/19 09/05/19 Range/Units 06:01 06:01 06:10 WBC (3.8-10.6) k/uL RBC (4.30-5.90) m/uL Hgb (13.0-17.5) gm/dL Hct (39.0-53.0) % RDW (11.5-15.5) % Neutrophils # (1.3-7.7) k/uL Lymphocytes # (1.0-4.8) k/uL PT 12.5 H (9.0-12.0) sec INR 1.2 H (<1.2) Sodium 133 L (137-145) mmol/L BUN 36 H (9-20) mg/dL Glucose 147 H (74-99) mg/dL POC Glucose (mg/dL) 178 H (75-99) mg/dL Hemoglobin A1c (4.0-6.0) % Total Protein 4.8 L (6.3-8.2) g/dL Albumin 2.5 L (3.5-5.0) g/dL Assessment and Plan Plan: 1 recurrent pleural effusion, left side with known malignancy, primary poorly differentiated adenocarcinoma of the lung, recent thoracentesis 08/13/2019, with recurrent pleural effusion causing worsening hypoxemia, new right-sided pneumonia, most likely gram-negative, IV Zosyn and IV vancomycin to be started, consult with pulmonary Dr. Soriano, consult with thoracic surgery for Pleurx catheter evaluation. O2 supplementation, nebulized treatment, unable to get to 1 amp secondary to severe tachycardia, would probably allow stat doses of albuterol, on maintenance ipratropium 4 times a day 3 left lobe poorly differentiated adenocarcinoma lung status post Bronch 08/16/[address] Tran and Bo, radiation treatment ongoing, per oncology, not a candidate for chemotherapy secondary to poor performance status 4 right lung acute gram-negative pneumonia suspected: Patient will be on double antibiotic with vancomycin and Zosyn empirically., consult pulmonary, sputum culture 5 A. fib with slight elevation of the heart rate, supratherapeutic INR over 10 hold Coumadin reversed with vitamin K, to allow for Pleurx catheter in thoracentesis. continue beta alexis 6 chronic systolic congestive heart failure: Seen cardiology regular basis still been treated for cardiomyopathy. Still on metoprolol 50 twice a day, furosemide 20 mg daily, isosorbide 60 mg a day and hydralazine 100 mg 3 times a day 7 type 2 diabetes A1c 9.1 continue patient on insulin continue Accu-Chek with sliding scale coverage, continue patient on metformin along with increasing doses Prandin 1 mg 3 times a day from a previous dose of one every morning and Januvia and insulin scale. 8 hypothyroidism: Continue levothyroxine 88 g daily. 9 hyperlipidemia: Remain on atorvastatin 40 mg daily. 10 hypertension: Remain on Cardura 40 mg a day, amlodipine 2.5 mg twice a day, metoprolol 50 mg twice a day, hydralazine 100 mg 3 times a day. 11 COPD, exacerbation, on nebulized Atrovent, now on Solu-Medrol 60 every 6 11 history of throat cancer: Has been in remission at this point. 12. Coumadin toxicity with INR over 10 on admission, vitamin K was given for reversal, goal INR between 2-3, Coumadin on hold for Pleurx catheter, restarted coumadin 7.5 mg today 09/05, has dependednt eded 123. depenedent edema, in crase furosemide to 20 bid 13. Palliative Scoring is high, currently on oncologic management for new lung cancer, still undergoing breaks catheter, not a candidate for chemotherapy
--- NOTE | 2019-09-05 15:08 | P.CONS ---
History of Present Illness - Reason for Consult Consult date: 09/05/19 Lung Cancer Requesting physician: Yasir Soriano - Chief Complaint I am short of breath - History of Present Illness Lamont Mishra is a pleasant 83 year old with large recurrent left pleural effusion, right lower lobe pneumonia, stage IV adenocarcinoma of the lung. He was diagnosed with stage IV adenocarcinoma of the lung earlier this month. He had undergone biopsy of a pleural-based mass in the left upper lobe measuring 11 cm with associated hypermetabolic uptake SUV of 7. Secondary to worsening shortness of breath cough and congestion and presented here to the emergency room. Computed tomography scan shows a new right lower lobe patchy infiltrate suspicious for pneumonia. Small effusion. There is a left upper lobe mass again noted with surrounding consolidation and atelectatic tissue and left-sided pleural effusion. He required 6 L on high flow nasal cannula to maintain O2 saturations in the low 90s. he remains on Airvo at 55l/min, and Fio2 73%. His pulse ox is 98, he states he is breathing easier today, yesterday he had left-sided Pleurx catheter inserted, and 1.5 L of pleural fluid drained. Today he had 0.4L. Patient is generally weak, but was able to walk with a walker in the room with physical therapy. He denies nausea/vomiting/diarrhea. Past Medical History Past Medical History: Atrial Fibrillation, Coronary Artery Disease (CAD), Cancer, Heart Failure, Diabetes Mellitus, Hyperlipidemia, Hypertension, Myocardial Infarction (CT), Thyroid Disorder Additional Past Medical History / Comment(s): current hoarseness, dysphagia, hx vocal cord ca(tx with radiation) 2009 and PROSTATE CANCER 2001, varicose veins, Cobb's esophagus, wears brace on left ankle, uses a cane Last Myocardial Infarction Date:: unknown History of Any Multi-Drug Resistant Organisms: MRSA Year Discovered:: 01/15/2012 MDRO Source:: Unknown Past Surgical History: Coronary Bypass/CABG, Heart Catheterization With Stent, Prostate Surgery Additional Past Surgical History / Comment(s): vocal cord biopsy with vocal cord [id number], total 6-7 stents, philipp cataracts, cardioversion, bronchoscopy with biopsy. Past Anesthesia/Blood Transfusion Reactions: Previous Problems w/ Anesthesia Additional Past Anesthesia/Blood Transfusion Reaction / Comm: hx diff intubation with previous vocal cord surgery Date of Last Stent Placement:: ?2017 Past Psychological History: Anxiety Smoking Status: Former smoker Past Alcohol Use History: None Reported Past Drug Use History: None Reported - Past Family History Sister(s) Family Medical History: Cancer Additional Family Medical History / Comment(s): Patient has one sister that is 89 years old with history of breast cancer and osteoarthritis of the knees. Father Family Medical History: Deep Vein Thrombosis (DVT), Hypertension Additional Family Medical History / Comment(s): Father at age 75 with history of diabetes, coronary artery disease, pacemaker. Brother(s) Family Medical History: Coronary Artery Disease (CAD) Additional Family Medical History / Comment(s): He has one brother that has with history of coronary artery disease and alcohol abuse. Mother Family Medical History: Cancer Additional Family Medical History / Comment(s): Mother at age 39 from cervical cancer. Medications and Allergies Home Medications Medication Instructions Recorded Confirmed Type Levothyroxine Sodium [Synthroid] 88 mcg PO MOTUWETHFRSA 01/30/14 09/03/19 History Multivitamins, Thera [Multivitamin 1 tab PO DAILY@169901/30/14 09/03/19 History (formulary)] metFORMIN HCL [Glucophage] 1,000 mg PO DAILY@169901/30/14 09/03/19 History Fesoterodine Fumarate [Toviaz] 4 mg PO DAILY@169908/19/14 09/03/19 History hydrALAZINE HCL [Apresoline] 100 mg PO TID@0800,1700,2200 08/19/14 09/03/19 History ALPRAZolam [Xanax] 0.25 mg PO BID@0800,2200 08/28/15 09/03/19 History Furosemide [Lasix] 20 mg PO DAILY@0800 08/28/15 09/03/19 History metFORMIN HCL [Glucophage] 500 mg PO DAILY@0800 08/28/15 09/03/19 History Isosorbide Mononitrate ER [Imdur] 60 mg PO DAILY@1700 03/29/16 09/03/19 History Melatonin 5 mg PO HS@0 03/29/16 09/03/19 History sitaGLIPtin [Januvia] 100 mg PO DAILY@0800 09/17/16 09/03/19 History Clopidogrel [Plavix] 75 mg PO DAILY #30 tab 09/20/16 09/03/19 Rx Warfarin [Coumadin] 7.5 mg PO DAILY@1700 06/17/18 09/03/19 History Repaglinide [Prandin] 1 mg PO DAILY@0800 01/22/19 09/03/19 History Atorvastatin [Lipitor] 40 mg PO HS@2200 08/12/19 09/03/19 History Metoprolol Tartrate [Lopressor] 50 mg PO BID@0800,1700 08/12/19 09/03/19 History Pantoprazole Sodium [Protonix] 40 mg PO DAILY@0800 08/12/19 09/03/19 History amLODIPine [Norvasc] 2.5 mg PO BID@0800,2200 08/12/19 09/03/19 History Doxazosin [Cardura] 4 mg PO DAILY@0800 09/03/19 09/03/19 History Allergies Allergy/AdvReac Type Severity Reaction Status Date / Time clonidine HCl [From Catapres] Allergy facial Verified 09/03/19 10:50 swelling hydrochlorothiazide Allergy Anaphylaxis Verified 09/03/19 10:50 levofloxacin [From Levaquin] Allergy facial and Verified 09/03/19 10:50 neck swelling losartan potassium Allergy Anaphylaxis Verified 09/03/19 10:50 [From Cozaar] albuterol AdvReac Severe tachycardia Verified 09/03/19 10:50 MELISSA Inhibitors AdvReac Angioedema Verified 09/03/19 10:50 aspirin AdvReac angioedema Verified 09/03/19 10:50 doxycycline AdvReac SHORTNESS Verified 09/03/19 10:50 OF BREATH flurbiprofen AdvReac angioedema Verified 09/03/19 10:50 ofloxacin AdvReac angioedema Verified 09/03/19 10:50 rivaroxaban [From Xarelto] AdvReac gi bleed Verified 09/03/19 10:50 Tetracyclines AdvReac Swelling Verified 09/03/19 10:50 FEATHERS AdvReac SINUS Uncoded 08/12/19 09:25 DRAINAGE NOSE AND EYES Physical Exam Vitals: Vital Signs Temp Pulse Pulse Resp BP Pulse Ox 09/05/19 13:20 95 09/05/19 12:00 97.0 F L 95 20 104/83 97 09/05/19 11:10 84 09/05/19 10:59 85 09/05/19 08:00 83 20 111/64 98 09/05/19 07:55 88 09/05/19 07:43 84 09/05/19 04:15 96 09/05/19 04:00 97.8 F 93 22 106/72 96 09/05/19 00:00 98.2 F 83 20 95/57 100 09/04/19 20:26 77 09/04/19 20:09 62 98 09/04/19 20:00 98.0 F 79 20 96/64 95 09/04/19 18:50 92 95/62 09/04/19 18:25 86 18 105/76 99 09/04/19 18:11 99 09/04/19 18:10 92 18 105/71 98 09/04/19 17:45 72 15 111/70 100 09/04/19 17:30 70 16 106/71 100 09/04/19 17:15 80 16 99/64 09/04/19 16:59 97.1 F L 75 24 94/58 98 09/04/19 15:36 86 09/04/19 15:16 86 98 Intake and Output 09/05/19 09/05/19 09/05/19 06:59 14:59 22:59 Intake Total 420 Output Total 300 250 Balance -300 170 Intake: Oral 420 Output: Urine 300 250 Other: # Voids 1 Weight 77.7 kg - Constitutional General appearance: thin - EENT Eyes: EOMI ENT: hard of hearing - Neck History of RT; Fibrosis over neck - Respiratory Respiratory: right: wheezing, left: diminished - Cardiovascular Rhythm: regular Results CBC & Chem 7: 09/05/19 06:01 09/05/19 06:01 Labs: Abnormal Lab Results - Last 24 Hours (Table) 09/04/19 09/04/19 09/04/19 Range/Units 17:39 17:58 19:58 WBC (3.8-10.6) k/uL RBC (4.30-5.90) m/uL Hgb (13.0-17.5) gm/dL Hct (39.0-53.0) % RDW (11.5-15.5) % Neutrophils # (1.3-7.7) k/uL Lymphocytes # (1.0-4.8) k/uL PT (9.0-12.0) sec INR (<1.2) Sodium (137-145) mmol/L BUN (9-20) mg/dL Glucose (74-99) mg/dL POC Glucose (mg/dL) 260 H 243 H 354 H (75-99) mg/dL Total Protein (6.3-8.2) g/dL Albumin (3.5-5.0) g/dL 09/05/19 09/05/19 09/05/19 Range/Units 06:01 06:01 06:01 WBC 13.1 H (3.8-10.6) k/uL RBC 3.41 L (4.30-5.90) m/uL Hgb 9.4 L (13.0-17.5) gm/dL Hct 29.5 L (39.0-53.0) % RDW 16.3 H (11.5-15.5) % Neutrophils # 12.2 H (1.3-7.7) k/uL Lymphocytes # 0.2 L (1.0-4.8) k/uL PT 12.5 H (9.0-12.0) sec INR 1.2 H (<1.2) Sodium 133 L (137-145) mmol/L BUN 36 H (9-20) mg/dL Glucose 147 H (74-99) mg/dL POC Glucose (mg/dL) (75-99) mg/dL Total Protein 4.8 L (6.3-8.2) g/dL Albumin 2.5 L (3.5-5.0) g/dL 09/05/19 09/05/19 Range/Units 06:10 12:04 WBC (3.8-10.6) k/uL RBC (4.30-5.90) m/uL Hgb (13.0-17.5) gm/dL Hct (39.0-53.0) % RDW (11.5-15.5) % Neutrophils # (1.3-7.7) k/uL Lymphocytes # (1.0-4.8) k/uL PT (9.0-12.0) sec INR (<1.2) Sodium (137-145) mmol/L BUN (9-20) mg/dL Glucose (74-99) mg/dL POC Glucose (mg/dL) 178 H 281 H (75-99) mg/dL Total Protein (6.3-8.2) g/dL Albumin (3.5-5.0) g/dL Assessment and Plan Assessment: 83 year old with metastatic lung cancer and progressive shortness of breath secondary to recurrent pleural effusions, pneumonia,large central lung mass impinging airways. Plan: Lamont continues on antibiotic therapy and has had improvement in his SOB secondary to draining of his recurrent pleural effusions. Should Lamont continue to improve we will consider palliative radiation therapy to his large lung mass. Dr. Latham will re-evaluate Lamont as an inpatient /or outpatient on Sunday with plans for potential CT simulation and initiation of therapy at that time. Lamont was in agreement with this plan.
[2019-09-05] MEDS: TROSPIUM CHLORIDE 20 MG TABLET PO SCH (16:14)
[2019-09-05] MEDS: ISOSORBIDE MONONITRATE ER 60 MG TAB.ER.24H PO SCH (16:14)
[2019-09-05 16:45] LABS: Glucose,Whole Blood 330 mg/dL (75-99)
[2019-09-05] MEDS ORDERED: INSULIN ASPART (NovoLOG) 100 UNIT/ML VIAL SQ ONE (16:59)
[2019-09-05] MEDS ORDERED: WARFARIN 7.5 MG TAB PO SCH (17:00)
[2019-09-05] MEDS: INSULIN DETEMIR (LEVEMIR) 100 UNIT/ML SYR SQ SCH (17:53)
[2019-09-05 20:30] LABS: Glucose,Whole Blood 382 mg/dL (75-99)
[2019-09-05] MEDS: ATORVASTATIN 40 MG TAB PO SCH (21:23)
[2019-09-05] MEDS: MELATONIN 5 MG TABLET PO SCH (21:23)
[2019-09-06 05:56] LABS: Glucose,Whole Blood 165 mg/dL (75-99)
[2019-09-06] MEDS: INSULIN DETEMIR (LEVEMIR) 100 UNIT/ML SYR SQ SCH (06:13)
[2019-09-06] MEDS: LEVOTHYROXINE 88 MCG TAB PO SCH (06:13)
[2019-09-06] MEDS: methylPREDNISolone SOD SUCCI 125 MG/2 ML VIAL IV SCH ×4 (06:13→22:30)
[2019-09-06] MEDS: INSULIN ASPART (NovoLOG) 100 UNIT/ML VIAL SQ SCH ×4 (06:14→20:42)
[2019-09-06] MEDS: REPAGLINIDE 1 MG TAB PO SCH ×3 (06:14→17:23)
[2019-09-06 06:20] LABS: Anisocytosis Slight; Basophils % (A) 0 %; Eosinophils % (A) 0 %; HGB 9.8 gm/dL (13.0-17.5); Hypochromasia Slight; Lymphocytes # (A) 0.2 k/uL (1.0-4.8); Lymphocytes % (A) 1 %; MCH 27.7 pg (25.0-35.0); MCHC 31.7 g/dL (31.0-37.0); MCV 87.5 fL (80.0-100.0); Mean Platelet Volume 8.3; Monocytes # (A) 0.6 k/uL (0-1.0); Monocytes % (A) 5 %; Neutrophils # (A) 12.3 k/uL (1.3-7.7); Neutrophils % (A) 93 %; Platelet Count 287 k/uL (150-450); RBC 3.54 m/uL (4.30-5.90); RDW 16.5 % (11.5-15.5); WBC 13.2 k/uL (3.8-10.6)
[2019-09-06 06:28] LABS: INR 1.3 (<1.2); Prothrombin Time 13.7 sec (9.0-12.0)
--- NOTE | 2019-09-06 06:42 | XR ---
EXAMINATION TYPE: XR chest 2V DATE OF EXAM: 09/06/2019 COMPARISON: Chest x-ray from yesterday and older studies. CT chest September 03, 2019 HISTORY: Pleural catheter placement progress study. TECHNIQUE: Frontal and lateral views of the chest are obtained. FINDINGS: Overlying sternal wires and mediastinal clips are redemonstrated. There is persistent left basilar pleural drainage catheter. There is background chronic emphysematous change with left-sided volume loss and persistent right infrahilar opacity with more dense left mid lung masslike consolidat ion and additional more patchy left basilar opacity all redemonstrated. Stable cardiomegaly. Calcifie d or radiodense stent projects over the anterior left mid to lower lung on 2 views . IMPRESSION: 1. Chronic emphysematous change with left-sided volume loss. Left-sided midlung masslike consolidatio n. Left basilar pleural drainage catheter with residual small left pleural effusion and associated le ft lung atelectasis and/or infiltrate. Right infrahilar infiltrate and/or atelectasis. All findings s table. 2. Radiodense stent or tubing or catheter fragment left mid to lower lung on frontal view appears ext ernal to the cardiac silhouette, reviewing CT shows suggestion of fracture catheter fragment within t he pleural space axial images 52 through 54 and coronal images 68 through 70 along with sagittal imag e 110. This was prior to placing left basilar pleural drainage pigtail catheter. A Yellow level critical message alert has been initiated for Cony Reed MD via the [employer] Critical Results System on 09/06/2019 6:39 AM. This message alert has been sent to Cony Reed MD via the preferences provided by the clinician for the receipt of Radiology Critical Findings. Mess age ID [id number].
[2019-09-06] MEDS: ALPRAZolam 0.25 MG TAB PO SCH ×2 (08:03→20:42)
[2019-09-06] MEDS: DOXAZOSIN 4 MG TAB PO SCH (08:03)
[2019-09-06] MEDS: hydrALAZINE HCL 50 MG TAB PO SCH (08:03)
[2019-09-06] MEDS: METOPROLOL TARTRATE 50 MG TAB PO SCH ×2 (08:04→17:24)
[2019-09-06] MEDS: LINAGLIPTIN 5 MG TABLET PO SCH (08:04)
[2019-09-06] MEDS: PANTOPRAZOLE 40 MG TABLET PO SCH (08:04)
[2019-09-06] MEDS: FUROSEMIDE 20 MG TAB PO SCH (08:04)
[2019-09-06] MEDS: PIPERACILLIN-TAZOBACTAM 3.375 GM in SODIUM CHLORIDE 0.9% 100 ML IVPB SCH ×3 (08:04→22:30)
[2019-09-06] MEDS: metFORMIN 500 MG TAB PO SCH ×2 (08:04→17:24)
[2019-09-06] MEDS: IPRATROPIUM 0.5 MG/2.5 ML NEBU INHALATION SCH ×5 (09:29→22:01)
[2019-09-06] MEDS: BUDESONIDE 1 MG/2 ML NEBU INHALATION SCH ×2 (09:31→22:01)
[2019-09-06] MEDS: VANCOMYCIN 1,500 MG in SODIUM CHLORIDE 0.9% 250 ML IVPB SCH ×2 (11:26→22:30)
[2019-09-06] MEDS: SODIUM CHLORIDE 0.9% 1,000 ML IV SCH (11:26)
[2019-09-06 11:37] LABS: Glucose,Whole Blood 316 mg/dL (75-99)
--- NOTE | 2019-09-06 12:04 | P.PN ---
Subjective Progress Note Date: 09/06/19 Principal diagnosis: Large recurrent left pleural effusion, right lower lobe pneumonia, stage IV adenocarcinoma of the lung This is a very pleasant 83-year-old gentleman who follows with Dr. Corona as his primary care physician. He has a history of chronic atrial fibrillation an ticoagulated with warfarin, coronary artery disease with previous coronary artery bypass grafting, multiple stent placements, focal cord cancer with surgery, prostate cancer, diabetes mellitus with peripheral neuropathy, hypothyroidism, hyperlipidemia, BPH, osteoarthritis, remote history of smoking. He was diagnosed with stage IV adenocarcinoma of the lung earlier this month. He had undergone biopsy of a pleural-based mass in the left upper lobe measuring 11 cm with associated hypermetabolic uptake SUV of 7. There is groundglass opacities in the right lower lobe as well. He had been seen and evaluated by Dr. Latham and was going to receive radiation treatment. He was due for a computed tomography scan with markings tomorrow. This morning however he developed worsening shortness of breath cough and congestion and presented here to the emergency room. Computed tomography scan shows a new right lower lobe patchy infiltrate suspicious for pneumonia. Small effusion. There is a left upper lobe mass again noted with surrounding consolidation and atelectatic tissue and left-sided pleural effusion. We were consulted for the same. He is seen today in the emergency room. He is currently sitting up on the stretcher. Awake and alert in mild respiratory distress. He is dyspneic with minimal exertion. He is requiring 6 L high flow nasal cannula to maintain O2 saturations in the low 90s. He is afebrile. Slightly tachycardic. Blood pressure stable. White count 10.4. Hemoglobin 10.7. INR greater than 10.0. Sodium 133. Potassium 5.1. Creatinine 0.95. Lactic acid 1.5. Troponin 0.015. ProBNP 2190. He was given vitamin K 2.5 mg orally 1. He received 1 dose of Unasyn. On 09/04/2019 patient seen in follow-up on selective care unit, dyspneic, he is on Airvo at 55 l/min, and Fio2 75%. Occasionally bringing up some colored phlegm, afebrile, hemodynamically patient is stable, he is on a combination of Zosyn and vancomycin. Breathing treatments, and IV steroids, days INR is 2.1, patient has received a dose of vitamin K, he was evaluated by CT surgery, and hi s Pleurx catheter insertion has been scheduled for 3:30 this afternoon. On 09/05/2090 patient seen in follow-up on selective care unit, he remains on Airvo at 55l/min, and Fio2 73%. His pulse ox is 98, he states he is breathing easier today, yesterday he had left-sided Pleurx catheter inserted, and 1.5 L of pleural fluid drained. Today's chest x-ray shows persistent left mid lung consolidation, patchy left basilar atelectasis and residual small left pleural fluid collection, and there is worsening of the right lower lung acute infiltrates. Patient is on Zosyn and vancomycin for abiotic coverage, his been afebrile. He has a strong effective cough, but has not provided a sputum specimen yet. Lung sounds reveal coarse basilar crackles. Patient is generally weak, but was able to walk with a walker in the room with physical therapy, tolerated activity fairly well. The patient is seen today 09/06/2019 in follow-up on the selective care unit. He is currently sitting up in a chair at the bedside. Awake and alert in no acute distress. Breathing a bit easier today compared to yesterday. Still requiring the AirVo high flow oxygen device intermittently. He is currently on 8 L high flow nasal cannula. O2 saturations in the low 90s. He's been afebrile. Hemodynamically stable. White count 13.2. Hemoglobin 9.8. INR 1.3. He remains on bronchodilators, diuretics, IV Solu-Medrol and antibiotics in the form of vancomycin and Zosyn. Today's chest x-ray shows chronic emphysematous changes with left-sided volume loss. Left-sided midlung masslike consolidation. Left basilar pleural drainage catheter with residual small left pleural effusion and associated left lung atelectasis. Right infrahilar infiltrate/atelectasis. Findings are stable. There was a noted possible ca theter fragment left mid to lower lung that was noted prior to the left basilar pleural drainage catheter placement. Objective - Vital Signs Vital signs: Vital Signs Temp 97.8 F 09/06/19 07:55 Pulse 86 09/06/19 09:49 Resp 18 09/06/19 07:55 BP 104/58 09/06/19 07:55 Pulse Ox 93 L 09/06/19 07:55 Intake & Output 09/05/19 09/06/19 09/06/19 18:59 06:59 18:59 Intake Total 660 100 240 Output Total 250 800 Balance 410 -700 240 Weight 77.3 kg Intake: Oral 660 100 240 Output: Urine 250 800 Other: Voiding Method Toilet Urinal # Voids 1 2 - Exam GENERAL EXAM: Alert, pleasant, 83-year-old frail looking male patient, on 8 L high flow nasal cannula, dyspneic with conversation, but no acute distress HEAD: Normocephalic/atraumatic. EYES: Normal reaction of pupils, equal size. Conjunctiva pink, sclera white. NOSE: Clear with pink turbinates. THROAT: No erythema or exudates. NECK: No masses, no JVD, no thyroid enlargement, no adenopathy. CHEST: No chest wall deformity. Symmetrical expansion. LUNGS: Coarse crackles at the bases, wheezes in the right lung. CVS: Regular rate and rhythm, normal S1 and S2, no gallops, no murmurs, no rubs ABDOMEN: Soft, nontender. No hepatosplenomegaly, normal bowel sounds, no guarding or rigidity. EXTREMITIES: No clubbing, no edema, no cyanosis, 2+ pulses and upper and lower extremities. MUSCULOSKELETAL: Muscle strength and tone normal. SPINE: No scoliosis or deformity SKIN: No rashes CENTRAL NERVOUS SYSTEM: No focal deficits, tone is normal in all 4 extremities. PSYCHIATRIC: Alert and oriented -3. Appropriate affect. Intact judgment and insight. - Labs CBC & Chem 7: 09/06/19 05:36 09/05/19 06:01 Labs: Abnormal Lab Results - Last 24 Hours (Table) 09/05/19 09/05/19 09/05/19 Range/Units 12:04 16:44 20:28 WBC (3.8-10.6) k/uL RBC (4.30-5.90) m/uL Hgb (13.0-17.5) gm/dL Hct (39.0-53.0) % RDW (11.5-15.5) % Neutrophils # (1.3-7.7) k/uL Lymphocytes # (1.0-4.8) k/uL PT (9.0-12.0) sec INR (<1.2) POC Glucose (mg/dL) 281 H 330 H 382 H (75-99) mg/dL 09/06/19 09/06/19 09/06/19 Range/Units 05:36 05:36 05:55 WBC 13.2 H (3.8-10.6) k/uL RBC 3.54 L (4.30-5.90) m/uL Hgb 9.8 L (13.0-17.5) gm/dL Hct 31.0 L (39.0-53.0) % RDW 16.5 H (11.5-15.5) % Neutrophils # 12.3 H (1.3-7.7) k/uL Lymphocytes # 0.2 L (1.0-4.8) k/uL PT 13.7 H (9.0-12.0) sec INR 1.3 H (<1.2) POC Glucose (mg/dL) 165 H (75-99) mg/dL 09/06/19 Range/Units 11:37 WBC (3.8-10.6) k/uL RBC (4.30-5.90) m/uL Hgb (13.0-17.5) gm/dL Hct (39.0-53.0) % RDW (11.5-15.5) % Neutrophils # (1.3-7.7) k/uL Lymphocytes # (1.0-4.8) k/uL PT (9.0-12.0) sec INR (<1.2) POC Glucose (mg/dL) 316 H (75-99) mg/dL Assessment and Plan Assessment: 1 Acute hypoxic respiratory failure secondary to a large left-sided pleural effusion with left upper lobe mass positive for stage IV adenocarcinoma of the lung just diagnosed earlier this month with bronchoscopy and transbronchial biopsy on 08/15/2019. Status post left-sided Pleurx catheter placement on 09/04/2019 2 Pleural-based mass in the left upper lobe measuring approximately 11 cm with hypermetabolic uptake on PET scan and the plan was for radiation therapy 3 Recurrent left pleural effusion, may benefit from Pleurx catheter placement 4 Remote history of chronic tobacco dependence. 5 History of prostate cancer 6 History of vocal cord cancer with radiation 7 Coronary artery disease with multiple stent placements and coronary artery bypass grafting 8 Chronic atrial fibrillation, anticoagulated with warfarin, supra therapeutic with presenting INR greater than 10 Plan The patient was seen and evaluated by Dr. Soriano. Chest x-ray and labs reviewed Status post left-sided Pleurx catheter placement with residual DO NOT RESUSCITATE/DO NOT INTUBATE CODE STATUS as discussed with the patient and his Bronchodilators, IV Solu-Medrol, vancomycin and Zosyn The patient's overall prognosis is quite poor Possible palliative radiation once recovered from this acute episode I, the cosigning physician, performed a history & physical examination of the patient. Lungs sounds diminished in the left lung, crackles in the bases. Main taining good O2 saturations in the 90s on 8 L high flow nasal cannula. I discussed the assessment and plan of care with my nurse practitioner, Lissa Nichole. I attest to the above consultation as dictated by her.
[2019-09-06] MEDS ORDERED: INSULIN ASPART (NovoLOG) 100 UNIT/ML VIAL SQ ONE (12:23)
[2019-09-06] MEDS ORDERED: POLYETHYLENE GLYCOL 3350 17 GM POWD.PACK PO STA (13:39)
--- NOTE | 2019-09-06 13:40 | P.PN ---
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 Morgan, Dr. Tran . He had agitation treatment, August 26, cancer not amenable to chemotherapy at this time. He had recurrent pleural effusion, requires thoracentesis, last one was less than 08/13/2019 1 L exudative, negative fungal cultures, no growth. Currently Patient has hemoptysis, purulent yellow green cough, slight edema, no abdominal pain no diarrhea, he requires O2 2-4 L nasal cannula with increasing requirements, increasing respiratory distress, increasing weakness, requiring now ER evaluation On emergency room evaluation, he is at 7 L O2, chest x-ray shows large left body opacity, new right lower lobe patchy infiltrate concerning for pneumonia, thoracic ultrasound was requested, consult with Dr. Soriano, thoracic surgery for Pleurx catheter evaluation, IV antibiotics Zosyn and vancomycin, INR is over 10, needs to be reversed with vitamin K 09/04, patient is to undergo left Pleurx catheter today by Dr. Nolasco, still has shortness of breath, O2 sats at 3 L cannula patient has no palpitations, blood pressure 106/71 additional vitamin K was needed for the INR of 2.1 prior to procedure, no chest pain, still with shortness of breath, no headache, no palpitations, no leg swelling this time it has improved. 09/05: Patient is still short of breath, but less, still with pleurisy no hemoptyis, 350 ml omayra was taken out today thru pleurx cathtetergerardo at 55l 75% fi02, was cleared by thoracic surgeon to initiate coumadin, first dose restarted at 7.5 mg today, so initate physical therpies today 09/06: Patient is similar to yesterday, with symptoms, still with dyspnea and exertion, no palpitations, no fever no chills no headache, yellow flag x-ray report, possible fracture of the Pleurx catheter, we've requested thoracic surgeon be notified regarding these urgently, blood sugars are elevated, still on Solu-Medrol 60 mg every 6 hours, patient mentions about constipation, last bowel movement was 4 days ago, stool softeners currently are in place however this is not working. We'll going to start MiraLAX and Lisa-Colace in the morning at schedule twice a day. We will hold Coumadin today, possibly replacing the fractured Pleurx catheter, INR 1.3 sputum sentyet, increasePrandin to 2mg 3timesaday whileonprednisone started on [id number] bloodsugarsare 300-350range, increase Lasix 40 mg twice a day, decrease hydralazine 75 mg 3 times a day, to allow titration of diuretics, increasing bilateral lower extremity edema, compression stocks started Review of Systems Constitutional: Reports as per HPI, Reports fever, Reports malaise, Reports weight loss, Denies anorexia, Denies chills, Denies chronic headaches, Denies chronic pain, Denies daytime sleepiness, Denies fatigue, Denies lethargy, Denies night sweats, Denies poor appetite, Denies sweats, Denies weakness, Denies weight gain Ears, nose, mouth and Reports as per HPI, Reports epistaxis, Reports hoarseness, Denies ant. neck pain, Denies bleeding gums, Denies dental pain, Denies dysphagia, Denies headache, Denies mouth pain, Denies nasal congestion, Denies nasal discharge, Denies neck fullness/pressure, Denies neck lump, Denies nose pain, Denies odynophagia, Denies post-nasal drip, Denies sinus pain, Denies sinus pressure, Denies swelling in mouth, Denies swelling in throat, Denies sore throat, Denies vertigo, Denies voice changes Cardiovascular: Reports as per HPI, Reports decreased exercise tolerance, Reports dyspnea on exertion, Reports shortness of breath, Denies chest pain, Denies claudication, Denies edema, Denies high blood pressure, Denies irregular heart beat, Denies leg edema, Denies lightheadedness, Denies orthopnea, Denies palpitations, Denies paroxysmal nocturnal dyspnea, Denies phlebitis, Denies rapid heart beat, Denies syncope Respiratory: Reports as per HPI, Reports cough with sputum Gastrointestinal: Reports as per HPI, Denies abdominal pain, Denies belching, Denies bloating, Denies BRBPR, Denies change in bowel habits, Denies coffee ground emesis, Denies constipation, Denies diarrhea, Denies dyspepsia, Denies early satiety, Denies excessive gas, Denies heartburn, Denies hematemesis, Denies hematochezia, Denies indigestion, Denies jaundice, Denies lactose intolerance, Denies loss of appetite, Denies melena, Denies nausea, Denies vomiting Genitourinary: Reports as per HPI Musculoskeletal: Reports as per HPI, Denies arm numbness/tingling, Denies atrophy, Denies fractures, Denies frequent falls, Denies gait dysfunction, Denies hot joints, Denies leg numbness/tingling, Denies limitation of motion, Denies loss of height, Denies low back pain, Denies morning stiffness, Denies muscle cramps, Denies muscle weakness, Denies myalgias, Denies neck pain, Denies neck stiffness, Denies prior amputations, Denies redness of joints, Denies shooting arm pain, Denies shooting leg pain Integumentary: Reports as per HPI, Denies acne, Denies boils, Denies brittle nails, Denies change in hair/nails, Denies color changes, Denies darkening of skin, Denies depigmentation, Denies dryness, Denies foot/leg ulcers, Denies growths, Denies hirsutism, Denies lesions, Denies onychomycosis, Denies pruritus, Denies rash, Denies sores, Denies striae, Denies unusual bruising, Denies wounds Neurological: Reports as per HPI, Reports weakness, Denies aphasia, Denies ataxia, Denies balance difficulties, Denies burning pain, Denies change in mentation, Denies change in smell/taste, Denies change in speech, Denies confusion, Denies convulsions, Denies double vision, Denies gait dysfunction, Denies head injury, Denies headaches, Denies hearing difficulties, Denies lack of coordination, Denies loss of vision, Denies memory loss, Denies migraines, Denies motor disturbance, Denies numbness, Denies paralysis, Denies paresthesias, Denies seizures, Denies sensory deficit, Denies spasticity, Denies syncope, Denies tic, Denies tingling, Denies transient paralysis, Denies tremors, Denies vertigo, Denies visual changes Psychiatric: Reports as per HPI, Reports sleep disturbances Endocrine: Reports as per HPI, Denies cold intolerance, Denies deepening of the voice, Denies excessive sweating, Denies excessive thirst, Denies fatigue, Denies flushing, Denies heat intolerance, Denies high blood sugars, Denies increase in ring/shoe/hat size, Denies low blood sugars, Denies nocturia, Denies palpitations, Denies polydipsia, Denies polyphagia, Denies polyuria, Denies proptosis, Denies recent glucocorticoid use, Denies thyroid mass, Denies weight change Hematologic/Lymphatic: Reports as per HPI Allergic/Immunologic: Reports as per HPI Objective - Vital Signs Vital signs: Vital Signs Temp 97.8 F 09/06/19 07:55 Pulse 86 09/06/19 09:49 Resp 18 09/06/19 07:55 BP 104/58 09/06/19 07:55 Pulse Ox 93 L 09/06/19 07:55 Intake & Output 09/05/19 09/06/19 09/06/19 18:59 06:59 18:59 Intake Total 660 100 240 Output Total 250 800 Balance 410 -700 240 Weight 77.3 kg Intake: Oral 660 100 240 Output: Urine 250 800 Other: Voiding Method Toilet Urinal # Voids 1 2 - Constitutional General appearance: Present: cooperative, no acute distress - EENT Eyes: Present: anicteric sclerae, EOMI, PERRLA, dentition normal, normal appearance ENT: Present: NA/AT, normal oropharynx - Neck Neck: Present: normal ROM - Respiratory Respiratory: bilateral: CTA, diminished, prolonged expiration, prolonged inspiration, negative: dullness, rales, rhonchi - Cardiovascular Rhythm: regular - Peripheral edema leg Peripheral Edema: left: 2+ - Gastrointestinal General gastrointestinal: Present: normal bowel sounds, soft - Integumentary Integumentary: Present: normal, normal turgor - Neurologic Neurologic: Present: CNII-XII intact - Musculoskeletal Musculoskeletal: Present: gait normal, generalized weakness, strength equal bilaterally - Psychiatric Psychiatric: Present: A&O x's 3, appropriate affect - Labs CBC & Chem 7: 09/14/19 08:31 09/14/19 08:31 Labs: Abnormal Lab Results - Last 24 Hours (Table) 09/05/19 09/05/19 09/05/19 Range/Units 12:04 16:44 20:28 WBC (3.8-10.6) k/uL RBC (4.30-5.90) m/uL Hgb (13.0-17.5) gm/dL Hct (39.0-53.0) % RDW (11.5-15.5) % Neutrophils # (1.3-7.7) k/uL Lymphocytes # (1.0-4.8) k/uL PT (9.0-12.0) sec INR (<1.2) POC Glucose (mg/dL) 281 H 330 H 382 H (75-99) mg/dL 09/06/19 09/06/19 09/06/19 Range/Units 05:36 05:36 05:55 WBC 13.2 H (3.8-10.6) k/uL RBC 3.54 L (4.30-5.90) m/uL Hgb 9.8 L (13.0-17.5) gm/dL Hct 31.0 L (39.0-53.0) % RDW 16.5 H (11.5-15.5) % Neutrophils # 12.3 H (1.3-7.7) k/uL Lymphocytes # 0.2 L (1.0-4.8) k/uL PT 13.7 H (9.0-12.0) sec INR 1.3 H (<1.2) POC Glucose (mg/dL) 165 H (75-99) mg/dL 09/06/19 Range/Units 11:37 WBC (3.8-10.6) k/uL RBC (4.30-5.90) m/uL Hgb (13.0-17.5) gm/dL Hct (39.0-53.0) % RDW (11.5-15.5) % Neutrophils # (1.3-7.7) k/uL Lymphocytes # (1.0-4.8) k/uL PT (9.0-12.0) sec INR (<1.2) POC Glucose (mg/dL) 316 H (75-99) mg/dL Assessment and Plan Plan: 1 recurrent pleural effusion, left side with known malignancy, primary poorly differentiated adenocarcinoma of the lung, recent thoracentesis 08/13/2019, with recurrent pleural effusion causing worsening hypoxemia, new right-sided pneumonia, most likely gram-negative, IV Zosyn and IV vancomycin to be started, consult with pulmonary Dr. Soriano, consult with thoracic surgery for Pleurx catheter evaluation. O2 supplementation, nebulized treatment, unable to get to 1 amp secondary to severe tachycardia, would probably allow stat doses of albut christiano, on maintenance ipratropium 4 times a day. 2 Pleurx catheter possibly fractured, thoracic surgeon is to reevaluate this, hold Coumadin today September 06, INR 1.3, might need replacement 3 left lobe poorly differentiated adenocarcinoma lung status post Bronch 08/16/[address] Tran and Bo, radiation treatment ongoing, per oncology, not a candidate for chemotherapy secondary to poor performance status 4 right lung acute gram-negative pneumonia suspected: Patient will be on double antibiotic with vancomycin and Zosyn empirically., consult pulmonary, sputum culture 5 A. fib with slight elevation of the heart rate, supratherapeutic INR over 10 hold Coumadin reversed with vitamin K, to allow for Pleurx catheter in thoracentesis. continue beta alexis 6 chronic systolic congestive heart failure: Seen cardiology regular basis still been treated for cardiomyopathy. Still on metoprolol 50 twice a day, furosemide 20 mg daily, isosorbide 60 mg a day and hydralazine 100 mg 3 times a day 7 type 2 diabetes A1c 9.1 continue patient on insulin continue Accu-Chek with sliding scale coverage, continue patient on metformin along with increasing doses Prandin now to 2 mg 3 times a day from a previous home dose dose of one every morning and Januvia and insulin scale. 8 hypothyroidism: Continue levothyroxine 88 g daily. 9 hyperlipidemia: Remain on atorvastatin 40 mg daily. 10 hypertension: Remain on Cardura 40 mg a day, amlodipine 2.5 mg twice a day, metoprolol 50 mg twice a day, hydralazine 100 mg 3 times a day. We will decrease hydralazine 75 mg 3 times a day, to allow titration of diuretics, increase diuretics 40 mg twice a day 11 COPD, exacerbation, on nebulized Atrovent, now on Solu-Medrol 60 every 6 11 history of throat cancer: Has been in remission at this point. 12. Coumadin toxicity with INR over 10 on admission, vitamin K was given for reversal, goal INR between 2-3, Coumadin on hold for Pleurx catheter, restarted coumadin 7.5 mg today 09/05, hold September 06 with possibly a plantar insertion of Pleurx catheter and removal of the recent one which is possibly fractured 123. depenedent edema, increase furosemide to 40 bid 13. Palliative Scoring is high, currently on oncologic management for new lung cancer, still undergoing breaks catheter, not a candidate for chemotherapy 14. Constipation, start Lisa-Colace, twice a day scheduled, and one-time dose of MiraLAX when necessary
[2019-09-06] MEDS: FUROSEMIDE 40 MG TAB PO SCH (15:08)
[2019-09-06] MEDS: hydrALAZINE HCL 25 MG TAB PO SCH ×2 (15:08→20:42)
[2019-09-06 16:33] LABS: Glucose,Whole Blood 283 mg/dL (75-99)
[2019-09-06] MEDS: ISOSORBIDE MONONITRATE ER 60 MG TAB.ER.24H PO SCH (17:23)
[2019-09-06] MEDS: MULTIVITAMINS, THERA 1 EACH TAB PO SCH (17:23)
[2019-09-06] MEDS: TROSPIUM CHLORIDE 20 MG TABLET PO SCH (17:24)
[2019-09-06 20:25] LABS: Glucose,Whole Blood 290 mg/dL (75-99)
[2019-09-06] MEDS: ATORVASTATIN 40 MG TAB PO SCH (20:42)
[2019-09-06] MEDS: MELATONIN 5 MG TABLET PO SCH (20:42)
[2019-09-07 06:00] LABS: Glucose,Whole Blood 147 mg/dL (75-99)
[2019-09-07] MEDS: methylPREDNISolone SOD SUCCI 125 MG/2 ML VIAL IV SCH ×2 (06:14→12:48)
[2019-09-07] MEDS: REPAGLINIDE 1 MG TAB PO SCH ×3 (06:14→17:36)
[2019-09-07] MEDS: INSULIN ASPART (NovoLOG) 100 UNIT/ML VIAL SQ SCH ×4 (06:14→21:21)
[2019-09-07 07:23] LABS: Anisocytosis Slight; Basophils % (A) 0 %; Eosinophils % (A) 0 %; HCT 31.9 % (39.0-53.0); Lymphocytes # (A) 0.2 k/uL (1.0-4.8); Lymphocytes % (A) 2 %; MCH 27.1 pg (25.0-35.0); MCHC 31.3 g/dL (31.0-37.0); MCV 86.4 fL (80.0-100.0); Mean Platelet Volume 8.4; Monocytes # (A) 0.6 k/uL (0-1.0); Monocytes % (A) 5 %; Neutrophils # (A) 11.4 k/uL (1.3-7.7); Neutrophils % (A) 93 %; Platelet Count 287 k/uL (150-450); RBC 3.69 m/uL (4.30-5.90); RDW 16.3 % (11.5-15.5); WBC 12.2 k/uL (3.8-10.6)
[2019-09-07 07:42] LABS: Albumin 2.6 g/dL (3.5-5.0); Calcium 8.1 mg/dL (8.4-10.2); Potassium 4.2 mmol/L (3.5-5.1)
[2019-09-07] MEDS: INSULIN DETEMIR (LEVEMIR) 100 UNIT/ML SYR SQ SCH (08:10)
[2019-09-07] MEDS: hydrALAZINE HCL 25 MG TAB PO SCH ×3 (08:56→21:20)
[2019-09-07] MEDS: FUROSEMIDE 40 MG TAB PO SCH ×2 (08:56→16:23)
[2019-09-07] MEDS: metFORMIN 500 MG TAB PO SCH ×2 (08:56→17:35)
[2019-09-07] MEDS: METOPROLOL TARTRATE 50 MG TAB PO SCH ×2 (08:57→17:36)
[2019-09-07] MEDS: PANTOPRAZOLE 40 MG TABLET PO SCH (08:57)
[2019-09-07] MEDS: LINAGLIPTIN 5 MG TABLET PO SCH (08:57)
[2019-09-07] MEDS: SENNOSIDES-DOCUSATE SODIUM 1 EACH TAB PO SCH ×2 (08:57→21:21)
[2019-09-07] MEDS: PIPERACILLIN-TAZOBACTAM 3.375 GM in SODIUM CHLORIDE 0.9% 100 ML IVPB SCH ×2 (08:57→16:24)
[2019-09-07] MEDS: ALPRAZolam 0.25 MG TAB PO SCH ×2 (08:57→21:21)
[2019-09-07] MEDS: DOXAZOSIN 4 MG TAB PO SCH (08:57)
[2019-09-07] MEDS: BUDESONIDE 1 MG/2 ML NEBU INHALATION SCH ×2 (09:01→19:56)
[2019-09-07] MEDS: IPRATROPIUM 0.5 MG/2.5 ML NEBU INHALATION SCH ×4 (09:01→19:56)
[2019-09-07 11:33] LABS: Glucose,Whole Blood 200 mg/dL (75-99)
[2019-09-07] MEDS: VANCOMYCIN 1,500 MG in SODIUM CHLORIDE 0.9% 250 ML IVPB SCH ×2 (12:47→22:58)
[2019-09-07] MEDS: SODIUM CHLORIDE 0.9% 1,000 ML IV SCH (12:48)
--- NOTE | 2019-09-07 15:42 | P.PN ---
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 Chelsea Muniz . He had agitation treatment, August 26, cancer not amenable to chemotherapy at this time. He had recurrent pleural effusion, requires thoracentesis, last one was less than 08/13/2019 1 L exudative, negative fungal cultures, no growth. Currently Patient has hemoptysis, purulent yellow green cough, slight edema, no abdominal pain no diarrhea, he requires O2 2-4 L nasal cannula with increasing requirements, increasing respiratory distress, increasing weakness, requiring now ER evaluation On emergency room evaluation, he is at 7 L O2, chest x-ray shows large left body opacity, new right lower lobe patchy infiltrate concerning for pneumonia, thoracic ultrasound was requested, consult with Dr. 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 Chelsea Muniz . He had agitation treatment, August 26, cancer not amenable to chemotherapy at this time. He had recurrent pleural effusion, requires thoracentesis, last one was less than 08/13/2019 1 L exudative, negative fungal cultures, no growth. Currently Patient has hemoptysis, purulent yellow green cough, slight edema, no abdominal pain no diarrhea, he requires O2 2-4 L nasal cannula with increasing requirements, increasing respiratory distress, increasing weakness, requiring now ER evaluation On emergency room evaluation, he is at 7 L O2, chest x-ray shows large left body opacity, new right lower lobe patchy infiltrate concerning for pneumonia, thoracic ultrasound was requested, consult with Dr. Soriano, thoracic surgery for Pleurx catheter evaluation, IV antibiotics Zosyn and vancomycin, INR is over 10, needs to be reversed with vitamin K 09/04, patient is to undergo left Pleurx catheter today by Dr. Nolasco, still has shortness of breath, O2 sats at 3 L cannula patient has no palpitations, blood pressure 106/71 additional vitamin K was needed for the INR of 2.1 prior to procedure, no chest pain, still with shortness of breath, no headache, no palpitations, no leg swelling this time it has improved. 09/05: Patient is still short of breath, but less, still with pleurisy no hemoptyis, 350 ml omayra was taken out today thru pleurx cathteter, arivo at 55l 75% fi02, was cleared by thoracic surgeon to initiate coumadin, first dose restarted at 7.5 mg today, so initate physical therpies today 09/06: Patient is similar to yesterday, with symptoms, still with dyspnea and exertion, no palpitations, no fever no chills no headache, yellow flag x-ray report, possible fracture of the Pleurx catheter, we've requested thoracic surgeon be notified regarding these urgently, blood sugars are elevated, still on Solu-Medrol 60 mg every 6 hours, patient mentions about constipation, last bowel movement was 4 days ago, stool softeners currently are in place however this is not working. We'll going to start MiraLAX and Lisa-Colace in the morning at schedule twice a day. We will hold Coumadin today, possibly replacing the fractured Pleurx catheter, INR 1.3 sputum sentyet, increasePrandin to 2mg 3timesaday whileonprednisone started on [id number] bloodsugarsare 300-350range, increase Lasix 40 mg twice a day, decrease hydralazine 75 mg 3 times a day, to allow titration of diuretics, increasing bilateral lower extremity edema, compression stocks started 09/07: Pending recommendations from thoracic surgery is secondary to possible Pleurx catheter fracture, there services going to attempt to use them today, this is dysfunctional, prior to placing, Coumadin is currently on hold for possible replacement. Patient has insomnia, however he is taking coffee late in the afternoon, requesting to increase melatonin to 10 mg at bedtime. Blood sugars are between 140-280, has anemia, iron def lab workup, we'll decrease Solu-Medrol to 40 mg every 6 hours, no sputum cultures available for review, less wheezing, no hemoptysis improved cough, needed MARCIA hose, I don't see one in place, heparin subcu for DVT prophylaxis, has been off Coumadin 2 days INR will be rechecked Review of Systems Constitutional: Reports as per HPI, Reports fever, Reports malaise, Reports weight loss, Denies anorexia, Denies chills, Denies chronic headaches, Denies chronic pain, Denies daytime sleepiness, Denies fatigue, Denies lethargy, Denies night sweats, Denies poor appetite, Denies sweats, Denies weakness, Denies weight gain Ears, nose, mouth and Reports as per HPI, Reports epistaxis, Reports hoarseness, Denies ant. neck pain, Denies bleeding gums, Denies dental pain, Denies dysphagia, Denies headache, Denies mouth pain, Denies nasal congestion, Denies nasal discharge, Denies neck fullness/pressure, Denies neck lump, Denies nose pain, Denies odynophagia, Denies post-nasal drip, Denies sinus pain, Denies sinus pressure, Denies swelling in mouth, Denies swelling in throat, Denies sore throat, Denies vertigo, Denies voice changes Cardiovascular: Reports as per HPI, Reports decreased exercise tolerance, Reports dyspnea on exertion, Reports shortness of breath, Denies chest pain, Denies claudication, Denies edema, Denies high blood pressure, Denies irregular heart beat, Denies leg edema, Denies lightheadedness, Denies orthopnea, Denies palpitations, Denies paroxysmal nocturnal dyspnea, Denies phlebitis, Denies rapid heart beat, Denies syncope Respiratory: Reports as per HPI, Reports cough with sputum Gastrointestinal: Reports as per HPI, Denies abdominal pain, Denies belching, Denies bloating, Denies BRBPR, Denies change in bowel habits, Denies coffee ground emesis, Denies constipation, Denies diarrhea, Denies dyspepsia, Denies early satiety, Denies excessive gas, Denies heartburn, Denies hematemesis, Denies hematochezia, Denies indigestion, Denies jaundice, Denies lactose intolerance, Denies loss of appetite, Denies melena, Denies nausea, Denies vomiting Genitourinary: Reports as per HPI Musculoskeletal: Reports as per HPI, Denies arm numbness/tingling, Denies atrophy, Denies fractures, Denies frequent falls, Denies gait dysfunction, Denies hot joints, Denies leg numbness/tingling, Denies limitation of motion, Denies loss of height, Denies low back pain, Denies morning stiffness, Denies muscle cramps, Denies muscle weakness, Denies myalgias, Denies neck pain, Denies neck stiffness, Denies prior amputations, Denies redness of joints, Denies shooting arm pain, Denies shooting leg pain Integumentary: Reports as per HPI, Denies acne, Denies boils, Denies brittle nails, Denies change in hair/nails, Denies color changes, Denies darkening of skin, Denies depigmentation, Denies dryness, Denies foot/leg ulcers, Denies growths, Denies hirsutism, Denies lesions, Denies onychomycosis, Denies pruritu s, Denies rash, Denies sores, Denies striae, Denies unusual bruising, Denies wounds Neurological: Reports as per HPI, Reports weakness, Denies aphasia, Denies ataxia, Denies balance difficulties, Denies burning pain, Denies change in mentation, Denies change in smell/taste, Denies change in speech, Denies confusion, Denies convulsions, Denies double vision, Denies gait dysfunction, Denies head injury, Denies headaches, Denies hearing difficulties, Denies lack of coordination, Denies loss of vision, Denies memory loss, Denies migraines, Denies motor disturbance, Denies numbness, Denies paralysis, Denies paresthesias, Denies seizures, Denies sensory deficit, Denies spasticity, Denies syncope, Denies tic, Denies tingling, Denies transient paralysis, Denies tremors, Denies vertigo, Denies visual changes Psychiatric: Reports as per HPI, Reports sleep disturbances Endocrine: Reports as per HPI, Denies cold intolerance, Denies deepening of the voice, Denies excessive sweating, Denies excessive thirst, Denies fatigue, Denies flushing, Denies heat intolerance, Denies high blood sugars, Denies increase in ring/shoe/hat size, Denies low blood sugars, Denies nocturia, Denies palpitations, Denies polydipsia, Denies polyphagia, Denies polyuria, Denies proptosis, Denies recent glucocorticoid use, Denies thyroid mass, Denies weight change Hematologic/Lymphatic: Reports as per HPI Allergic/Immunologic: Reports as per HPI Objective - Vital Signs Vital signs: Vital Signs Temp 97.2 F L 09/06/19 20:00 Pulse 90 09/07/19 09:21 Resp 18 09/07/19 03:19 BP 115/67 09/07/19 03:19 Pulse Ox 95 09/07/19 03:19 Intake & Output 09/06/19 09/07/19 09/07/19 18:59 06:59 18:59 Intake Total 585 260 Output Total 650 700 Balance -65 -700 260 Weight 79.5 kg Intake: Oral 585 260 Output: Urine 650 700 Other: Voiding Method Urinal # Voids 1 1 # Bowel Movements 1 - Constitutional General appearance: Present: cooperative, mild distress - EENT Eyes: Present: anicteric sclerae, EOMI, PERRLA, dentition normal, normal appearance ENT: Present: NA/AT, normal oropharynx - Neck Neck: Present: normal ROM - Respiratory Respiratory: bilateral: CTA, negative: diminished, dullness, rales, rhonchi - Cardiovascular Rhythm: regular Heart sounds: normal: S1, S2 Abnormal Heart Sounds: Absent: systolic murmur, diastolic murmur, rub, S3 Gallop, S4 Gallop, click, other - Gastrointestinal General gastrointestinal: Present: normal bowel sounds, soft - Integumentary Integumentary: Present: decreased turgor, normal - Neurologic Neurologic: Present: CNII-XII intact - Musculoskeletal Musculoskeletal: Present: gait normal, strength equal bilaterally - Psychiatric Psychiatric: Present: A&O x's 3, appropriate affect, intact judgment & insight - Labs CBC & Chem 7: 09/07/19 05:45 09/07/19 05:45 Labs: Abnormal Lab Results - Last 24 Hours (Table) 09/06/19 09/06/19 09/07/19 Range/Units 16:32 20:23 05:45 WBC (3.8-10.6) k/uL RBC (4.30-5.90) m/uL Hgb (13.0-17.5) gm/dL Hct (39.0-53.0) % RDW (11.5-15.5) % Neutrophils # (1.3-7.7) k/uL Lymphocytes # (1.0-4.8) k/uL Carbon Dioxide 31 H (22-30) mmol/L BUN 25 H (9-20) mg/dL Glucose 116 H (74-99) mg/dL POC Glucose (mg/dL) 283 H 290 H (75-99) mg/dL Calcium 8.1 L (8.4-10.2) mg/dL Albumin 2.6 L (3.5-5.0) g/dL 09/07/19 09/07/19 09/07/19 Range/Units 05:45 05:58 11:32 WBC 12.2 H (3.8-10.6) k/uL RBC 3.69 L (4.30-5.90) m/uL Hgb 10.0 L (13.0-17.5) gm/dL Hct 31.9 L (39.0-53.0) % RDW 16.3 H (11.5-15.5) % Neutrophils # 11.4 H (1.3-7.7) k/uL Lymphocytes # 0.2 L (1.0-4.8) k/uL Carbon Dioxide (22-30) mmol/L BUN (9-20) mg/dL Glucose (74-99) mg/dL POC Glucose (mg/dL) 147 H 200 H (75-99) mg/dL Calcium (8.4-10.2) mg/dL Albumin (3.5-5.0) g/dL Assessment and Plan Plan: 1 recurrent pleural effusion, left side with known malignancy, primary poorly differentiated adenocarcinoma of the lung, recent thoracentesis 08/13/2019, with recurrent pleural effusion causing worsening hypoxemia, new right-sided pneumonia, most likely gram-negative, IV Zosyn and IV vancomycin to be started, consult with pulmonary Dr. Soriano, consult with thoracic surgery for Pleurx catheter evaluation. O2 supplementation, nebulized treatment, unable to get to 1 amp secondary to severe tachycardia, would probably allow stat doses of albuterol, on maintenance ipratropium 4 times a day., Possible fracture of Pleurx catheter, will be rechecked by thoracic surgeon, Coumadin is still on hold 2 Pleurx catheter possibly fractured, thoracic surgeon is to reevaluate this, hold Coumadin today September 06, INR 1.3, might need replacement 3 left lobe poorly differentiated adenocarcinoma lung status post Bronch 08/16/[address] Tran and Bo, radiation treatment ongoing, per oncology, not a candidate for chemotherapy secondary to poor performance status 4 right lung acute gram-negative pneumonia suspected: Patient will be on double antibiotic with vancomycin and Zosyn empirically., consult pulmonary, sputum culture 5 A. fib with slight elevation of the heart rate, supratherapeutic INR over 10 hold Coumadin reversed with vitamin K, to allow for Pleurx catheter in thoracentesis. continue beta alexis 6 chronic systolic congestive heart failure: Seen cardiology regular basis still been treated for cardiomyopathy. Still on metoprolol 50 twice a day, furosemide 20 mg daily, isosorbide 60 mg a day and hydralazine 100 mg 3 times a day 7 type 2 diabetes A1c 9.1 continue patient on insulin continue Accu-Chek with sliding scale coverage, continue patient on metformin along with increasing doses Prandin now to 2 mg 3 times a day from a previous home dose dose of one every morning and Januvia and insulin scale. 8 hypothyroidism: Continue levothyroxine 88 g daily. 9 hyperlipidemia: Remain on atorvastatin 40 mg daily. 10 hypertension: Remain on Cardura 40 mg a day, amlodipine 2.5 mg twice a day, metoprolol 50 mg twice a day, hydralazine 100 mg 3 times a day. 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 12. Coumadin toxicity with INR over 10 on admission, vitamin K was given for reversal, goal INR between 2-3, Coumadin on hold for Pleurx catheter, restarted coumadin 7.5 mg today 09/05, hold September 06 with possibly a plantar insertion of Pleurx catheter and removal of the recent one which is possibly fractured 123. depenedent edema, increase furosemide to 40 bid 13. Palliative Scoring is high, currently on oncologic management for new lung cancer, still undergoing breaks catheter, not a candidate for chemotherapy 14. Constipation, start Lisa-Colace, twice a day scheduled, and one-time dose of MiraLAX when necessary
[2019-09-07] MEDS ORDERED: methylPREDNISolone SOD SUCCI 40 MG/ML 1 ML VIAL IV SCH (16:00)
[2019-09-07] MEDS: methylPREDNISolone SOD SUCCI 40 MG/ML 1 ML VIAL IV SCH ×2 (16:23→21:21)
[2019-09-07 16:31] LABS: Glucose,Whole Blood 258 mg/dL (75-99)
[2019-09-07] MEDS: ISOSORBIDE MONONITRATE ER 60 MG TAB.ER.24H PO SCH (17:35)
[2019-09-07] MEDS: MULTIVITAMINS, THERA 1 EACH TAB PO SCH (17:36)
[2019-09-07] MEDS: TROSPIUM CHLORIDE 20 MG TABLET PO SCH (17:36)
[2019-09-07 20:40] LABS: Glucose,Whole Blood 294 mg/dL (75-99)
[2019-09-07] MEDS: HEPARIN SODIUM,PORCINE 5,000 UNIT/ML 1 ML VIAL SQ SCH (21:15)
[2019-09-07] MEDS: MELATONIN 5 MG TABLET PO SCH (21:20)
[2019-09-07] MEDS: ATORVASTATIN 40 MG TAB PO SCH (21:21)
[2019-09-08] MEDS: PIPERACILLIN-TAZOBACTAM 3.375 GM in SODIUM CHLORIDE 0.9% 100 ML IVPB SCH ×4 (01:12→23:38)
[2019-09-08] MEDS: methylPREDNISolone SOD SUCCI 40 MG/ML 1 ML VIAL IV SCH ×4 (03:14→21:35)
[2019-09-08 06:34] LABS: Anisocytosis Slight; Basophils % (A) 0 %; Eosinophils % (A) 0 %; HCT 31.9 % (39.0-53.0); HGB 10.7 gm/dL (13.0-17.5); Hypochromasia Slight; Lymphocytes # (A) 0.2 k/uL (1.0-4.8); Lymphocytes % (A) 2 %; MCH 28.6 pg (25.0-35.0); MCHC 33.4 g/dL (31.0-37.0); MCV 85.4 fL (80.0-100.0); Mean Platelet Volume 8.5; Monocytes # (A) 0.6 k/uL (0-1.0); Monocytes % (A) 5 %; Neutrophils # (A) 9.5 k/uL (1.3-7.7); Neutrophils % (A) 92 %; Platelet Count 327 k/uL (150-450); RBC 3.73 m/uL (4.30-5.90); RDW 16.2 % (11.5-15.5); WBC 10.4 k/uL (3.8-10.6)
[2019-09-08] MEDS: INSULIN ASPART (NovoLOG) 100 UNIT/ML VIAL SQ SCH ×4 (06:40→21:34)
[2019-09-08 06:41] LABS: INR 1.5 (<1.2); Prothrombin Time 14.8 sec (9.0-12.0)
[2019-09-08 06:42] LABS: Glucose,Whole Blood 140 mg/dL (75-99)
[2019-09-08] MEDS: LEVOTHYROXINE 88 MCG TAB PO SCH (06:49)
[2019-09-08] MEDS: INSULIN DETEMIR (LEVEMIR) 100 UNIT/ML SYR SQ SCH (06:49)
[2019-09-08] MEDS: REPAGLINIDE 1 MG TAB PO SCH ×3 (06:49→18:16)
[2019-09-08] MEDS: IPRATROPIUM 0.5 MG/2.5 ML NEBU INHALATION SCH ×4 (07:23→21:05)
[2019-09-08] MEDS: BUDESONIDE 1 MG/2 ML NEBU INHALATION SCH ×2 (07:23→21:05)
[2019-09-08 07:26] LABS: Calcium 8.2 mg/dL (8.4-10.2); Potassium 3.8 mmol/L (3.5-5.1)
[2019-09-08] MEDS: FUROSEMIDE 40 MG TAB PO SCH ×2 (09:55→18:18)
[2019-09-08] MEDS: SENNOSIDES-DOCUSATE SODIUM 1 EACH TAB PO SCH ×2 (09:55→21:34)
[2019-09-08] MEDS: LINAGLIPTIN 5 MG TABLET PO SCH (09:55)
[2019-09-08] MEDS: metFORMIN 500 MG TAB PO SCH ×2 (09:55→18:18)
[2019-09-08] MEDS: ALPRAZolam 0.25 MG TAB PO SCH ×2 (09:55→21:34)
[2019-09-08] MEDS: DOXAZOSIN 4 MG TAB PO SCH (09:55)
[2019-09-08] MEDS: METOPROLOL TARTRATE 50 MG TAB PO SCH ×2 (09:55→18:17)
[2019-09-08] MEDS: PANTOPRAZOLE 40 MG TABLET PO SCH (09:55)
[2019-09-08] MEDS: hydrALAZINE HCL 25 MG TAB PO SCH ×3 (09:55→21:34)
[2019-09-08] MEDS: HEPARIN SODIUM,PORCINE 5,000 UNIT/ML 1 ML VIAL SQ SCH ×2 (09:56→21:28)
[2019-09-08 11:58] LABS: Glucose,Whole Blood 183 mg/dL (75-99)
[2019-09-08] MEDS: VANCOMYCIN 1,500 MG in SODIUM CHLORIDE 0.9% 250 ML IVPB SCH ×2 (12:34→23:38)
[2019-09-08] MEDS ORDERED: BISACODYL 10 MG SUPP RECTAL STA (14:58)
[2019-09-08 16:52] LABS: Ferritin 109.4 ng/mL (22.0-322.0)
[2019-09-08 16:53] LABS: % Iron Saturation 8.72 (15.00-50.00)
[2019-09-08 16:58] LABS: Glucose,Whole Blood 177 mg/dL (75-99)
--- NOTE | 2019-09-08 18:00 | PN ---
PROGRESS NOTE PULMONARY/CRITICAL CARE: DATE OF SERVICE: 09/08/2019 This is an 83-year-old patient well known to me. He was initially seen by my partner, Dr. Soriano, and was diagnosed as having advanced lung cancer. The patient underwent both bronchoscopy and thoracentesis for a left lung mass. He apparently did test positive for stage IV adenocarcinoma of the lung. More recently, the patient has had a PleurX catheter placed. The patient is doing rather well. About 2 L of fluid has been drained off since a PleurX catheter was placed by the thoracic surgeon. He does have a history of prostate cancer, chronic tobacco dependence, and CAD with multiple stent placements. In addition, he has a history of chronic atrial fibrillation. His bronchoscopy was done on August 15, 2019. The patient is doing rather well, as I mentioned above. He states his breathing is much improved. His confirms that. He denies any pain or discomfort. PHYSICAL EXAMINATION: VITAL SIGNS: Current vital signs are reviewed. Temperature is 97.6, heart rate is 90, respiratory rate 18, blood pressure 126/85, mean 98, oxygen at 7 L high flow is showing a saturation of 92-94 percent. GENERAL: Appears no acute distress. There is no audible wheezing or use of accessory muscles or conversational dyspnea. HEENT examination is grossly unremarkable. Nasal O2 in place. NECK: Supple. Full range of motion. No adenopathy or thyromegaly. Neck veins are flat. CARDIOVASCULAR examination reveals regular rhythm and rate. S1, S2 normal. No S3, S4, or murmur. Heart sounds are distant. LUNGS: Reveal mostly a clear right lung. On the left side, breath sounds are diminished. There is some dullness at the left base. No crackles or wheezes. ABDOMEN: Soft. Bowel sounds are heard. EXTREMITIES are intact. No cyanosis, clubbing, or edema. SKIN: Without rash. NEUROLOGIC: Examination is brief but nonfocal. LABS: Reviewed. White count 10.4, hemoglobin 10.7, hematocrit 31.9, platelet count is 327,000. PT/INR 14.8 and 1.5 respectively. Sodium 139, potassium 3.8 chloride 101, CO2 is 29 anion gap is 9. BUN and creatinine were 29 and 0.93. Calcium 8.2. Microbiologic studies are negative. A chest x-ray shows left-sided pleural effusion with volume loss. There is a left lung mass as previously seen on prior x-rays and CAT scan. The right lung is mostly clear, although there may be some atelectasis at the right lung base. There may also be a small portion of a thoracentesis catheter in the left chest area. Currently not causing the patient any difficulties and at this point, given the patient's age and the advanced lung cancer, nothing to do about that. MEDICATIONS: Medications are reviewed. ASSESSMENT: 1. Acute hypoxemic respiratory failure secondary to a large left-sided pleural effusion with left upper lobe lung mass, positive for stage IV adenocarcinoma of the lung, diagnosed recently earlier this month with bronchoscopy and transbronchial biopsy. The patient is also status post thoracentesis on the left side and is status post PleurX catheter placement on September 04, 2019. 2. PET scan positive large left upper lobe mass, measuring 11 cm, with increased hypermetabolic uptake. 3. Recurrent left pleural effusion. 4. Remote history of chronic tobacco dependence. 5. History of prostate cancer. 6. History of vocal cord cancer with radiation. 7. Coronary artery disease with multiple stent placements and bypass grafting. 8. History of chronic atrial fibrillation. PLAN: The patient is a do not resuscitate. I think that is appropriate. He seems to be responding very nicely to about 2 L of fluid removed since the PleurX catheter was placed. We will continue to follow. No additional recommendations are made. His overall prognosis is guarded. The patient does feel better from the breathing standpoint. MMODL / IJN: [id number] /
--- NOTE | 2019-09-08 18:13 | P.PN ---
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 Morgan, Dr. Tran . He had agitation treatment, August 26, cancer not amenable to chemotherapy at this time. He had recurrent pleural effusion, requires thoracentesis, last one was less than 08/13/2019 1 L exudative, negative fungal cultures, no growth. Currently Patient has hemoptysis, purulent yellow green cough, slight edema, no abdominal pain no diarrhea, he requires O2 2-4 L nasal cannula with increasing requirements, increasing respiratory distress, increasing weakness, requiring now ER evaluation On emergency room evaluation, he is at 7 L O2, chest x-ray shows large left body opacity, new right lower lobe patchy infiltrate concerning for pneumonia, thoracic ultrasound was requested, consult with Dr. Soriano, thoracic surgery for Pleurx catheter evaluation, IV antibiotics Zosyn and vancomycin, INR is over 10, needs to be reversed with vitamin K 09/04, patient is to undergo left Pleurx catheter today by Dr. Nolasco, still has shortness of breath, O2 sats at 3 L cannula patient has no palpitations, blood pressure 106/71 additional vitamin K was needed for the INR of 2.1 prior to procedure, no chest pain, still with shortness of breath, no headache, no palpitations, no leg swelling this time it has improved. 09/05: Patient is still short of breath, but less, still with pleurisy no hemoptyis, 350 ml omayra was taken out today thru pleurx cathtetergerardo at 55l 75% fi02, was cleared by thoracic surgeon to initiate coumadin, first dose restarted at 7.5 mg today, so initate physical therpies today 09/06: Patient is similar to yesterday, with symptoms, still with dyspnea and exertion, no palpitations, no fever no chills no headache, yellow flag x-ray report, possible fracture of the Pleurx catheter, we've requested thoracic surgeon be notified regarding these urgently, blood sugars are elevated, still on Solu-Medrol 60 mg every 6 hours, patient mentions about constipation, last bowel movement was 4 days ago, stool softeners currently are in place however this is not working. We'll going to start MiraLAX and Lisa-Colace in the morning at schedule twice a day. We will hold Coumadin today, possibly replacing the fractured Pleurx catheter, INR 1.3 sputum sentyet, increasePrandin to 2mg 3timesaday whileonprednisone started on [id number] bloodsugarsare 300-350range, increase Lasix 40 mg twice a day, decrease hydralazine 75 mg 3 times a day, to allow titration of diuretics, increasing bilateral lower extremity edema, compression stocks started 09/07: Pending recommendations from thoracic surgery is secondary to possible Pleurx catheter fracture, there services going to attempt to use them today, this is dysfunctional, prior to placing, Coumadin is currently on hold for possible replacement. Patient has insomnia, however he is taking coffee late in the afternoon, requesting to increase melatonin to 10 mg at bedtime. Blood sugars are between 140-280, has anemia, iron def lab workup, we'll decrease Solu-Medrol to 40 mg every 6 hours, no sputum cultures available for review, less wheezing, no hemoptysis improved cough, needed MARCIA hose, I don't see one in place, heparin subcu for DVT prophylaxis, has been off Coumadin 2 days INR will be rechecked 09/08 patient was evaluated bedside is currently doing well has the Pleurx catheter in place with drainage of 500 mL from the left lower chest tube . He is currently on 6 L of high flow oxygen and is breathing comfortably. Patient denies any cough or chest pain. He does have constipation and will be given a dose of Dulcolax suppository today to help with constipation as he failed oral treatment. Vitals assessed suggest a hemoglobin of 10.7 INR 1.5 iron profile suggested a iron of 19 iron saturation 8.7 ferritin 109. One dose of ferrlicit given today. Patient needs to lay flat for the radiation, holding onto medical history stable. ROS Constitutional: Denies chills, Denies fever, endorses lethargy Eyes: denies decreased vision, denies diplopia, denies discharge, denies pain Ears: deny: decreased hearing Ears, nose, mouth and throat: Denies dental pain, Denies headache, Denies nasal discharge, Denies nose pain Cardiovascular: Denies chest pain, Denies decreased exercise tolerance, Denies edema, Denies high blood pressure, Denies irregular heart beat, Denies palpitations, Denies paroxysmal nocturnal dyspnea, Denies rapid heart beat, Denies shortness of breath Respiratory: Denies congestion, Denies cough, Denies cough with sputum, endorses dyspnea, endorses home oxygen, 2 L Denies wheezing Gastrointestinal: Denies abdominal pain, Denies change in bowel habits, Denies coffee ground emesis, Denies early satiety, Denies excessive gas, Denies heartburn, Denies hematemesis, Denies hematochezia, Denies loss of appetite, Denies nausea, Denies vomiting endorses constipation Genitourinary: Denies dysuria, Denies flank pain, Denies kidney stones, Denies menorrhagia, Denies urgency, Denies urinary frequency Musculoskeletal: Denies gait dysfunction, Denies limitation of motion, Denies morning stiffness, Denies muscle cramps Integumentary: Denies rash, Denies wounds, Denies brittle nails, Denies change in hair/nails, Denies darkening of skin Neurological: Denies balance difficulties, Denies change in speech, Denies double vision, Denies gait dysfunction, Denies loss of vision, Denies motor disturbance, Denies numbness, Denies paralysis, Denies paresthesias, Denies seizures Psychiatric: Denies anxiety, Denies depression Endocrine: Denies excessive sweating, Denies excessive thirst, Denies high blood sugars, Denies palpitations Hematologic/Lymphatic: Denies easy bruising, Denies lymphadenopathy Objective - Vital Signs Vital signs: Vital Signs Temp 97.6 F 09/08/19 08:45 Pulse 92 09/08/19 13:27 Resp 18 09/08/19 12:35 BP 126/85 09/08/19 12:35 Pulse Ox 92 L 09/08/19 12:35 Intake & Output 09/07/19 09/08/19 09/08/19 18:59 06:59 18:59 Intake Total 1330 480 Output Total 600 2025 Balance 730 -202 480 Weight 80.4 kg Intake: Intake, IV Titration 590 Amount Piperacillin-Tazobactam 3 100 .375 gm In Sodium Chloride 0.9% 100 ml @ 25 mls/hr IVPB Q8HR [facility] Rx# :[id number] Sodium Chloride 0.9% 1, 240 000 ml @ 20 mls/hr IV . Q24H [facility] Rx#:[id number] Vancomycin 1,500 mg In 250 Sodium Chloride 0.9% 250 ml @ 125 mls/hr IVPB Q12H [facility] Rx#:[id number] Oral 740 480 Output: Drainage 500 Left Lower Chest 500 Urine 600 1525 Other: Voiding Method Urinal # Voids 1 - Exam - Constitutional General appearance: cooperative, no acute distress, fragile-appearing - EENT Eyes: anicteric sclerae, PERRLA, normal appearance ENT: hearing grossly normal - Neck Neck: no lymphadenopathy, normal ROM, no other, no rigidity, no stridor, no thyromegaly - Respiratory Respiratory: bilateral: Decreased air entry bilaterally with crackles at the bases left Pleurx catheter in place with foreign body in the left lower part of the chest nontender on palpation - Cardiovascular Rhythm: regular Heart sounds: normal: S1, S2 Abnormal Heart Sounds: no systolic murmur, no diastolic murmur, no rub, no S3 Gallop, no S4 Gallop, no click, no other - Gastrointestinal General gastrointestinal: normal bowel sounds, soft nontender distended - Integumentary Integumentary: no rash - Neurologic Neurologic: CNII-XII intact - Musculoskeletal Musculoskeletal: gait normal, strength equal bilaterally - Psychiatric Psychiatric: A&O x's 3, appropriate affect - Labs CBC & Chem 7: 09/08/19 05:32 09/08/19 05:32 Labs: Abnormal Lab Results - Last 24 Hours (Table) 09/07/19 09/07/19 09/08/19 Range/Units 16:29 20:39 05:32 RBC 3.73 L (4.30-5.90) m/uL Hgb 10.7 L (13.0-17.5) gm/dL Hct 31.9 L (39.0-53.0) % RDW 16.2 H (11.5-15.5) % Neutrophils # 9.5 H (1.3-7.7) k/uL Lymphocytes # 0.2 L (1.0-4.8) k/uL PT (9.0-12.0) sec INR (<1.2) BUN (9-20) mg/dL Glucose (74-99) mg/dL POC Glucose (mg/dL) 258 H 294 H (75-99) mg/dL Calcium (8.4-10.2) mg/dL 09/08/19 09/08/19 09/08/19 Range/Units 05:32 05:32 06:39 RBC (4.30-5.90) m/uL Hgb (13.0-17.5) gm/dL Hct (39.0-53.0) % RDW (11.5-15.5) % Neutrophils # (1.3-7.7) k/uL Lymphocytes # (1.0-4.8) k/uL PT 14.8 H (9.0-12.0) sec INR 1.5 H (<1.2) BUN 29 H (9-20) mg/dL Glucose 114 H (74-99) mg/dL POC Glucose (mg/dL) 140 H (75-99) mg/dL Calcium 8.2 L (8.4-10.2) mg/dL 09/08/19 Range/Units 11:51 RBC (4.30-5.90) m/uL Hgb (13.0-17.5) gm/dL Hct (39.0-53.0) % RDW (11.5-15.5) % Neutrophils # (1.3-7.7) k/uL Lymphocytes # (1.0-4.8) k/uL PT (9.0-12.0) sec INR (<1.2) BUN (9-20) mg/dL Glucose (74-99) mg/dL POC Glucose (mg/dL) 183 H (75-99) mg/dL Calcium (8.4-10.2) mg/dL Assessment and Plan Plan: 1 Recurrent pleural effusion, left side with known malignancy, primary poorly differentiated adenocarcinoma of the lung, recent thoracentesis 08/13/2019, Pleurx catheter on 09/04. O2 supplementation, nebulized treatment, unable to get to 1 amp secondary to severe tachycardia, would probably allow stat doses of albuterol, on maintenance ipratropium 4 times a day., Possible fracture of Pleurx catheter, will be rechecked by thoracic surgeon, Coumadin is still on hold 2 Pleurx catheter possibly fractured, was seen prior to placement of initial Pleurx catheter, thoracic surgeon is to reevaluate this, Coumadin on hold since September 06, INR 1.3, might need replacement 3 left lobe poorly differentiated adenocarcinoma lung status post Bronch 08/16/[address] Tran and Bo, radiation treatment planned if medically stable, per oncology, not a candidate for chemotherapy secondary to poor performance status 4 right lung acute gram-negative pneumonia suspected: on vancomycin and Zosyn empirically., consult pulmonary, sputum culture 5 A. fib with slight elevation of the heart rate, supratherapeutic INR over 10 hold Coumadin reversed with vitamin K, to allow for Pleurx catheter in thoracentesis. continue beta alexis 6 chronic systolic congestive heart failure: Seen cardiology regular basis still been treated for cardiomyopathy. Still on metoprolol 50 twice a day, furosemide 20 mg daily, isosorbide 60 mg a day and hydralazine 100 mg 3 times a day 7 type 2 diabetes A1c 9.1 continue patient on insulin continue Accu-Chek with sliding scale coverage, continue patient on metformin along with increasing doses Prandin now to 2 mg 3 times a day from a previous home dose dose of one every morning and Januvia and insulin scale. 8 hypothyroidism: Continue levothyroxine 88 g daily. 9 hyperlipidemia: Remain on atorvastatin 40 mg daily. 10 hypertension: Remain on Cardura 40 mg a day, amlodipine 2.5 mg twice a day, metoprolol 50 mg twice a day, hydralazine 100 mg 3 times a day. 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 12. Coumadin toxicity with INR over 10 on admission, vitamin K was given for reversal, goal INR between 2-3, Coumadin on hold for Pleurx catheter, restarted coumadin 7.5 mg today 09/05, hold Jc 28 with possibly a plantar insertion of Pleurx catheter and removal of the recent one which is possibly fractured 123. depenedent edema, increase furosemide to 40 bid 13. Palliative Scoring is high, currently on oncologic management for new lung cancer, still undergoing breaks catheter, not a candidate for chemotherapy 14. Constipation, start Lisa-Colace, twice a day scheduled, and one-time dose of MiraLAX when necessary, dulcolax suppository given
[2019-09-08] MEDS: TROSPIUM CHLORIDE 20 MG TABLET PO SCH (18:15)
[2019-09-08] MEDS: MULTIVITAMINS, THERA 1 EACH TAB PO SCH (18:17)
[2019-09-08] MEDS: ISOSORBIDE MONONITRATE ER 60 MG TAB.ER.24H PO SCH (18:17)
[2019-09-08] MEDS: SODIUM CHLORIDE 0.9% 1,000 ML IV SCH (19:27)
[2019-09-08] MEDS: SODIUM FERRIC GLUCONAT-SUCROSE 125 MG in SODIUM CHLORIDE 0.9% 100 ML IVPB SCH (19:38)
[2019-09-08] MEDS ORDERED: WARFARIN 2.5 MG TAB PO STA (20:12)
[2019-09-08 20:59] LABS: Glucose,Whole Blood 260 mg/dL (75-99)
[2019-09-08] MEDS: ATORVASTATIN 40 MG TAB PO SCH (21:34)
[2019-09-08] MEDS: MELATONIN 5 MG TABLET PO SCH (21:34)
[2019-09-09] MEDS: methylPREDNISolone SOD SUCCI 40 MG/ML 1 ML VIAL IV SCH ×4 (04:19→23:19)
[2019-09-09 06:30] LABS: Anisocytosis Slight; Basophils % (A) 0 %; Eosinophils % (A) 0 %; HCT 31.6 % (39.0-53.0); HGB 10.2 gm/dL (13.0-17.5); Lymphocytes # (A) 0.2 k/uL (1.0-4.8); Lymphocytes % (A) 3 %; MCH 27.4 pg (25.0-35.0); MCHC 32.3 g/dL (31.0-37.0); MCV 84.9 fL (80.0-100.0); Monocytes # (A) 0.7 k/uL (0-1.0); Monocytes % (A) 7 %; Neutrophils # (A) 8.5 k/uL (1.3-7.7); Neutrophils % (A) 90 %; Platelet Count 318 k/uL (150-450); RBC 3.73 m/uL (4.30-5.90); RDW 16.6 % (11.5-15.5); WBC 9.5 k/uL (3.8-10.6)
[2019-09-09 06:48] LABS: Glucose,Whole Blood 148 mg/dL (75-99)
[2019-09-09] MEDS: LEVOTHYROXINE 88 MCG TAB PO SCH (06:50)
[2019-09-09] MEDS: INSULIN DETEMIR (LEVEMIR) 100 UNIT/ML SYR SQ SCH (06:50)
[2019-09-09] MEDS: REPAGLINIDE 1 MG TAB PO SCH ×3 (06:50→17:27)
[2019-09-09] MEDS: INSULIN ASPART (NovoLOG) 100 UNIT/ML VIAL SQ SCH ×4 (06:50→21:43)
[2019-09-09 06:52] LABS: INR 1.4 (<1.2)
[2019-09-09 06:53] LABS: Prothrombin Time 14.1 sec (9.0-12.0)
[2019-09-09 07:28] LABS: African American GFR (CKD) >90 (>60 ml/min/1.73 sqM); Anion Gap 9 mmol/L; Blood Urea Nitrogen 29 mg/dL (9-20); Calcium 8.1 mg/dL (8.4-10.2); Carbon Dioxide 30 mmol/L (22-30); Chloride 100 mmol/L (98-107); Glucose 112 mg/dL (74-99); Non-African American GFR(CKD) 80 (>60 ml/min/1.73 sqM); Potassium 3.5 mmol/L (3.5-5.1); Sodium 139 mmol/L (137-145)
--- NOTE | 2019-09-09 07:48 | P.PN ---
Subjective Progress Note Date: 09/08/19 Principal diagnosis: dyspnea 2/2 malignant effusion Since he underwent placement of the Pleurx catheter, the patient has noted improved breathing. He was able to ambulate in the patel today with a walker. He is still requiring 6L of high flow oxygen at this time, but this is a si gnificant improvement. Objective - Vital Signs Vital signs: Vital Signs Temp 97 F L 09/08/19 15:20 Pulse 98 09/09/19 04:00 Resp 19 09/09/19 04:00 BP 104/69 09/09/19 04:00 Pulse Ox 90 L 09/09/19 04:00 Intake & Output 09/08/19 09/09/19 09/09/19 18:59 06:59 18:59 Intake Total 840 Output Total 325 450 Balance 515 -450 Weight 79.1 kg Intake: Oral 840 Output: Urine 325 450 Other: Voiding Method Urinal Urinal # Voids 1 # Bowel Movements 1 - Constitutional General appearance: Present: no acute distress - EENT Eyes: Present: EOMI, PERRLA ENT: Present: NA/AT - Neck Neck: Absent: lymphadenopathy - Respiratory Respiratory: bilateral: CTA - Cardiovascular Rhythm: irregularly irregular - Integumentary Integumentary: Absent: calor, cellulitis - Neurologic Neurologic: Present: CNII-XII intact - Musculoskeletal Musculoskeletal: Absent: generalized weakness - Psychiatric Psychiatric: Present: A&O x's 3, appropriate affect - Labs CBC & Chem 7: 09/09/19 05:22 09/09/19 05:22 Labs: Abnormal Lab Results - Last 24 Hours (Table) 09/08/19 09/08/19 09/08/19 Range/Units 05:32 11:51 16:55 RBC (4.30-5.90) m/uL Hgb (13.0-17.5) gm/dL Hct (39.0-53.0) % RDW (11.5-15.5) % Neutrophils # (1.3-7.7) k/uL Lymphocytes # (1.0-4.8) k/uL PT (9.0-12.0) sec INR (<1.2) BUN (9-20) mg/dL Glucose (74-99) mg/dL POC Glucose (mg/dL) 183 H 177 H (75-99) mg/dL Calcium (8.4-10.2) mg/dL Iron 19 L (65-175) ug/dL TIBC 218 L (228-460) ug/dL % Saturation 8.72 L (15.00-50.00) 09/08/19 09/09/19 09/09/19 Range/Units 20:57 05:22 05:22 RBC 3.73 L (4.30-5.90) m/uL Hgb 10.2 L (13.0-17.5) gm/dL Hct 31.6 L (39.0-53.0) % RDW 16.6 H (11.5-15.5) % Neutrophils # 8.5 H (1.3-7.7) k/uL Lymphocytes # 0.2 L (1.0-4.8) k/uL PT 14.1 H (9.0-12.0) sec INR 1.4 H (<1.2) BUN (9-20) mg/dL Glucose (74-99) mg/dL POC Glucose (mg/dL) 260 H (75-99) mg/dL Calcium (8.4-10.2) mg/dL Iron (65-175) ug/dL TIBC (228-460) ug/dL % Saturation (15.00-50.00) 09/09/19 09/09/19 Range/Units 05:22 06:47 RBC (4.30-5.90) m/uL Hgb (13.0-17.5) gm/dL Hct (39.0-53.0) % RDW (11.5-15.5) % Neutrophils # (1.3-7.7) k/uL Lymphocytes # (1.0-4.8) k/uL PT (9.0-12.0) sec INR (<1.2) BUN 29 H (9-20) mg/dL Glucose 112 H (74-99) mg/dL POC Glucose (mg/dL) 148 H (75-99) mg/dL Calcium 8.1 L (8.4-10.2) mg/dL Iron (65-175) ug/dL TIBC (228-460) ug/dL % Saturation (15.00-50.00) - Imaging and Cardiology CT scan - chest: report reviewed, image reviewed Assessment and Plan Plan: The patient is an 83-year-old male with a history of a recently diagnosed adenocarcinoma of the left upper lung with ipsilateral malignant pleural effusion. The patient has had increased dyspnea owing to recurrent pleural effusion. He is now status post Pleurx catheter placement, and appears to be improving clinically. 1. Dyspnea: This is likely secondary to both the recurrent effusion, as well as a large 11 cm mass in the left upper lobe which has compression of the left upper and lingular bronchi. Now that the patient's effusion is under better control, the patient may benefit from a palliative course of radiotherapy to the left upper lobe lesion. I discussed this with the patient and his family this past week prior to his hospitalization. He is not currently on any systemic therapy. If the patient's oxygenation continues to improve, he will be brought down for a CT simulation for treatment planning. 2. 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 The patient has an outpatient oncology appointment in approximately 2 weeks. He has not yet been evaluated by medical oncology. Considering his medical comorbidities, I'm concerned the patient may not be a good candidate for systemic chemotherapy. However, the patient's tumor biopsy should be sent for testing for both PDL1 and targeted mutations to evaluate for other potential treatment options. The pa tient also should undergo an MRI of the brain for completion of his staging workup. Time with Patient: Less than 30
[2019-09-09] MEDS: BUDESONIDE 1 MG/2 ML NEBU INHALATION SCH ×2 (08:01→20:09)
[2019-09-09] MEDS: IPRATROPIUM 0.5 MG/2.5 ML NEBU INHALATION SCH ×4 (08:01→20:09)
[2019-09-09] MEDS: SODIUM FERRIC GLUCONAT-SUCROSE 125 MG in SODIUM CHLORIDE 0.9% 100 ML IVPB SCH (09:15)
[2019-09-09] MEDS: hydrALAZINE HCL 25 MG TAB PO SCH ×3 (09:15→21:44)
[2019-09-09] MEDS: HEPARIN SODIUM,PORCINE 5,000 UNIT/ML 1 ML VIAL SQ SCH ×2 (09:15→21:43)
[2019-09-09] MEDS: PIPERACILLIN-TAZOBACTAM 3.375 GM in SODIUM CHLORIDE 0.9% 100 ML IVPB SCH ×3 (09:15→23:20)
[2019-09-09] MEDS: METOPROLOL TARTRATE 50 MG TAB PO SCH ×2 (09:16→17:27)
[2019-09-09] MEDS: LINAGLIPTIN 5 MG TABLET PO SCH (09:16)
[2019-09-09] MEDS: FUROSEMIDE 40 MG TAB PO SCH (09:16)
[2019-09-09] MEDS: ALPRAZolam 0.25 MG TAB PO SCH ×2 (09:16→21:44)
[2019-09-09] MEDS: PANTOPRAZOLE 40 MG TABLET PO SCH (09:16)
[2019-09-09] MEDS: metFORMIN 500 MG TAB PO SCH ×2 (09:16→17:26)
[2019-09-09] MEDS: DOXAZOSIN 4 MG TAB PO SCH (09:16)
[2019-09-09] MEDS: SENNOSIDES-DOCUSATE SODIUM 1 EACH TAB PO SCH ×2 (09:16→21:44)
[2019-09-09] MEDS ORDERED: VANCOMYCIN TROUGH DUE 1 EACH MISC MISCELLANE ONE (11:00)
[2019-09-09 11:45] LABS: Glucose,Whole Blood 204 mg/dL (75-99)
[2019-09-09] MEDS: VANCOMYCIN 1,500 MG in SODIUM CHLORIDE 0.9% 250 ML IVPB SCH (12:18)
[2019-09-09] MEDS: SODIUM CHLORIDE 0.9% 1,000 ML IV SCH (12:26)
--- NOTE | 2019-09-09 13:28 | P.PN ---
Subjective Progress Note Date: 09/09/19 Principal diagnosis: Large recurrent left pleural effusion, right lower lobe pneumonia, stage IV adenocarcinoma of the lung This is a very pleasant 83-year-old gentleman who follows with Dr. Corona as his primary care physician. He has a history of chronic atrial fibrillation an ticoagulated with warfarin, coronary artery disease with previous coronary artery bypass grafting, multiple stent placements, focal cord cancer with surgery, prostate cancer, diabetes mellitus with peripheral neuropathy, hypothyroidism, hyperlipidemia, BPH, osteoarthritis, remote history of smoking. He was diagnosed with stage IV adenocarcinoma of the lung earlier this month. He had undergone biopsy of a pleural-based mass in the left upper lobe measuring 11 cm with associated hypermetabolic uptake SUV of 7. There is groundglass opacities in the right lower lobe as well. He had been seen and evaluated by Dr. Latham and was going to receive radiation treatment. He was due for a computed tomography scan with markings tomorrow. This morning however he developed worsening shortness of breath cough and congestion and presented here to the emergency room. Computed tomography scan shows a new right lower lobe patchy infiltrate suspicious for pneumonia. Small effusion. There is a left upper lobe mass again noted with surrounding consolidation and atelectatic tissue and left-sided pleural effusion. We were consulted for the same. He is seen today in the emergency room. He is currently sitting up on the stretcher. Awake and alert in mild respiratory distress. He is dyspneic with minimal exertion. He is requiring 6 L high flow nasal cannula to maintain O2 saturations in the low 90s. He is afebrile. Slightly tachycardic. Blood pressure stable. White count 10.4. Hemoglobin 10.7. INR greater than 10.0. Sodium 133. Potassium 5.1. Creatinine 0.95. Lactic acid 1.5. Troponin 0.015. ProBNP 2190. He was given vitamin K 2.5 mg orally 1. He received 1 dose of Unasyn. On 09/04/2019 patient seen in follow-up on selective care unit, dyspneic, he is on Airvo at 55 l/min, and Fio2 75%. Occasionally bringing up some colored phlegm, afebrile, hemodynamically patient is stable, he is on a combination of Zosyn and vancomycin. Breathing treatments, and IV steroids, days INR is 2.1, patient has received a dose of vitamin K, he was evaluated by CT surgery, and hi s Pleurx catheter insertion has been scheduled for 3:30 this afternoon. On 09/05/2090 patient seen in follow-up on selective care unit, he remains on Airvo at 55l/min, and Fio2 73%. His pulse ox is 98, he states he is breathing easier today, yesterday he had left-sided Pleurx catheter inserted, and 1.5 L of pleural fluid drained. Today's chest x-ray shows persistent left mid lung consolidation, patchy left basilar atelectasis and residual small left pleural fluid collection, and there is worsening of the right lower lung acute infiltrates. Patient is on Zosyn and vancomycin for abiotic coverage, his been afebrile. He has a strong effective cough, but has not provided a sputum specimen yet. Lung sounds reveal coarse basilar crackles. Patient is generally weak, but was able to walk with a walker in the room with physical therapy, tolerated activity fairly well. The patient is seen today 09/06/2019 in follow-up on the selective care unit. He is currently sitting up in a chair at the bedside. Awake and alert in no acute distress. Breathing a bit easier today compared to yesterday. Still requiring the AirVo high flow oxygen device intermittently. He is currently on 8 L high flow nasal cannula. O2 saturations in the low 90s. He's been afebrile. Hemodynamically stable. White count 13.2. Hemoglobin 9.8. INR 1.3. He remains on bronchodilators, diuretics, IV Solu-Medrol and antibiotics in the form of vancomycin and Zosyn. Today's chest x-ray shows chronic emphysematous changes with left-sided volume loss. Left-sided midlung masslike consolidation. Left basilar pleural drainage catheter with residual small left pleural effusion and associated left lung atelectasis. Right infrahilar infiltrate/atelectasis. Findings are stable. There was a noted possible ca theter fragment left mid to lower lung that was noted prior to the left basilar pleural drainage catheter placement. The patient is seen today 09/09/2019 in follow-up on the selective care unit. He is currently sitting up in a chair at the bedside. Awake and alert in no acute distress. He is down to 6 L high flow nasal cannula and maintaining O2 saturation in the 90s. Most recent chest x-ray had revealed chronic emphysema with left-sided volume loss. Left-sided midlung masslike consolidation. Left basilar small pleural effusion and associated left lung atelectasis/infiltrate. White count 9.5. Hemoglobin 10.2. INR 1.4. Creatinine 0.85. He remains on bronchodilators, IV Solu-Medrol, IV diuretics, antibiotics in the form of vancomycin and Zosyn. He has been seen and evaluated by radiation oncology for possible treatments to the left lung mass Objective - Vital Signs Vital signs: Vital Signs Temp 98 F 09/09/19 09:10 Pulse 123 H 09/09/19 09:10 Resp 18 09/09/19 09:10 BP 119/86 09/09/19 09:10 Pulse Ox 93 L 09/09/19 09:10 Intake & Output 09/08/19 09/09/19 09/09/19 18:59 06:59 18:59 Intake Total 840 600 Output Total 325 450 350 Balance 515 -450 250 Weight 79.1 kg Intake: Oral 840 600 Output: Urine 325 450 350 Other: Voiding Method Urinal Urinal # Voids 1 1 # Bowel Movements 1 - Exam GENERAL EXAM: Alert, pleasant, 83-year-old frail looking male patient, on 6 L high flow nasal cannula, dyspneic with conversation, but no acute distress HEAD: Normocephalic/atraumatic. EYES: Normal reaction of pupils, equal size. Conjunctiva pink, sclera white. NOSE: Clear with pink turbinates. THROAT: No erythema or exudates. NECK: No masses, no JVD, no thyroid enlargement, no adenopathy. CHEST: No chest wall deformity. Symmetrical expansion. LUNGS: Coarse crackles at the bases, wheezes in the left lung. CVS: Regular rate and rhythm, normal S1 and S2, no gallops, no murmurs, no rubs ABDOMEN: Soft, nontender. No hepatosplenomegaly, normal bowel sounds, no guarding or rigidity. EXTREMITIES: No clubbing, no edema, no cyanosis, 2+ pulses and upper and lower extremities. MUSCULOSKELETAL: Muscle strength and tone normal. SPINE: No scoliosis or deformity SKIN: No rashes CENTRAL NERVOUS SYSTEM: No focal deficits, tone is normal in all 4 extremities. PSYCHIATRIC: Alert and oriented -3. Appropriate affect. Intact judgment and insight. - Labs CBC & Chem 7: 09/09/19 05:22 09/09/19 05:22 Labs: Abnormal Lab Results - Last 24 Hours (Table) 09/08/19 09/08/19 09/08/19 Range/Units 05:32 16:55 20:57 RBC (4.30-5.90) m/uL Hgb (13.0-17.5) gm/dL Hct (39.0-53.0) % RDW (11.5-15.5) % Neutrophils # (1.3-7.7) k/uL Lymphocytes # (1.0-4.8) k/uL PT (9.0-12.0) sec INR (<1.2) BUN (9-20) mg/dL Glucose (74-99) mg/dL POC Glucose (mg/dL) 177 H 260 H (75-99) mg/dL Calcium (8.4-10.2) mg/dL Iron 19 L (65-175) ug/dL TIBC 218 L (228-460) ug/dL % Saturation 8.72 L (15.00-50.00) 09/09/19 09/09/19 09/09/19 Range/Units 05:22 05:22 05:22 RBC 3.73 L (4.30-5.90) m/uL Hgb 10.2 L (13.0-17.5) gm/dL Hct 31.6 L (39.0-53.0) % RDW 16.6 H (11.5-15.5) % Neutrophils # 8.5 H (1.3-7.7) k/uL Lymphocytes # 0.2 L (1.0-4.8) k/uL PT 14.1 H (9.0-12.0) sec INR 1.4 H (<1.2) BUN 29 H (9-20) mg/dL Glucose 112 H (74-99) mg/dL POC Glucose (mg/dL) (75-99) mg/dL Calcium 8.1 L (8.4-10.2) mg/dL Iron (65-175) ug/dL TIBC (228-460) ug/dL % Saturation (15.00-50.00) 09/09/19 09/09/19 Range/Units 06:47 11:37 RBC (4.30-5.90) m/uL Hgb (13.0-17.5) gm/dL Hct (39.0-53.0) % RDW (11.5-15.5) % Neutrophils # (1.3-7.7) k/uL Lymphocytes # (1.0-4.8) k/uL PT (9.0-12.0) sec INR (<1.2) BUN (9-20) mg/dL Glucose (74-99) mg/dL POC Glucose (mg/dL) 148 H 204 H (75-99) mg/dL Calcium (8.4-10.2) mg/dL Iron (65-175) ug/dL TIBC (228-460) ug/dL % Saturation (15.00-50.00) Assessment and Plan Assessment: 1 Acute hypoxic respiratory failure secondary to a large left-sided pleural effusion with left upper lobe mass positive for stage IV adenocarcinoma of the lung just diagnosed earlier this month with bronchoscopy and transbronchial biopsy on 08/15/2019. Status post left-sided Pleurx catheter placement on 2 Pleural-based mass in the left upper lobe measuring approximately 11 cm with hypermetabolic uptake on PET scan and the plan was for radiation therapy 3 Recurrent left pleural effusion, may benefit from Pleurx catheter placement 4 Remote history of chronic tobacco dependence. 5 History of prostate cancer 6 History of vocal cord cancer with radiation 7 Coronary artery disease with multiple stent placements and coronary artery bypass grafting 8 Chronic atrial fibrillation, anticoagulated with warfarin, supra therapeutic with presenting INR greater than 10 Plan The patient was seen and evaluated by Dr. Morgan. He is down to 6 L high flow nasal cannula. DO NOT RESUSCITATE/DO NOT INTUBATE CODE STATUS Bronchodilators, IV Solu-Medrol, vancomycin and Zosyn The patient's overall prognosis is quite poor Possible palliative radiation once recovered from this acute episode I, the cosigning physician, performed a history & physical examination of the patient. Lungs sounds wheezing in the left lung, crackles in the bases. Maintaining good O2 saturations in the 90s on 6 L high flow nasal cannula. I discussed the assessment and plan of care with my nurse practitioner, Lissa Nichole. I attest to the above note as dictated by her.
[2019-09-09] MEDS ORDERED: POTASSIUM CHLORIDE ER 20 MEQ TAB.ER PO STA (13:59)
[2019-09-09] MEDS: POLYETHYLENE GLYCOL 3350 17 GM POWD.PACK PO SCH (15:58)
[2019-09-09] MEDS: FUROSEMIDE 10 MG/ML 4 ML VIAL IV SCH ×2 (15:58→21:50)
[2019-09-09] MEDS: ISOSORBIDE MONONITRATE ER 60 MG TAB.ER.24H PO SCH (15:59)
--- NOTE | 2019-09-09 16:16 | P.PN ---
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 Morgan, Dr. Tran . He had agitation treatment, August 26, cancer not amenable to chemotherapy at this time. He had recurrent pleural effusion, requires thoracentesis, last one was less than 08/13/2019 1 L exudative, negative fungal cultures, no growth. Currently Patient has hemoptysis, purulent yellow green cough, slight edema, no abdominal pain no diarrhea, he requires O2 2-4 L nasal cannula with increasing requirements, increasing respiratory distress, increasing weakness, requiring now ER evaluation On emergency room evaluation, he is at 7 L O2, chest x-ray shows large left body opacity, new right lower lobe patchy infiltrate concerning for pneumonia, thoracic ultrasound was requested, consult with Dr. Soriano, thoracic surgery for Pleurx catheter evaluation, IV antibiotics Zosyn and vancomycin, INR is over 10, needs to be reversed with vitamin K 09/04, patient is to undergo left Pleurx catheter today by Dr. Nolasco, still has shortness of breath, O2 sats at 3 L cannula patient has no palpitations, blood pressure 106/71 additional vitamin K was needed for the INR of 2.1 prior to procedure, no chest pain, still with shortness of breath, no headache, no palpitations, no leg swelling this time it has improved. 09/05: Patient is still short of breath, but less, still with pleurisy no hemoptyis, 350 ml omayra was taken out today thru pleurx cathtetergerardo at 55l 75% fi02, was cleared by thoracic surgeon to initiate coumadin, first dose restarted at 7.5 mg today, so initate physical therpies today 09/06: Patient is similar to yesterday, with symptoms, still with dyspnea and exertion, no palpitations, no fever no chills no headache, yellow flag x-ray report, possible fracture of the Pleurx catheter, we've requested thoracic surgeon be notified regarding these urgently, blood sugars are elevated, still on Solu-Medrol 60 mg every 6 hours, patient mentions about constipation, last bowel movement was 4 days ago, stool softeners currently are in place however this is not working. We'll going to start MiraLAX and Lisa-Colace in the morning at schedule twice a day. We will hold Coumadin today, possibly replacing the fractured Pleurx catheter, INR 1.3 sputum sentyet, increasePrandin to 2mg 3timesaday whileonprednisone started on [id number] bloodsugarsare 300-350range, increase Lasix 40 mg twice a day, decrease hydralazine 75 mg 3 times a day, to allow titration of diuretics, increasing bilateral lower extremity edema, compression stocks started 09/07: Pending recommendations from thoracic surgery is secondary to possible Pleurx catheter fracture, there services going to attempt to use them today, this is dysfunctional, prior to placing, Coumadin is currently on hold for possible replacement. Patient has insomnia, however he is taking coffee late in the afternoon, requesting to increase melatonin to 10 mg at bedtime. Blood sugars are between 140-280, has anemia, iron def lab workup, we'll decrease Solu-Medrol to 40 mg every 6 hours, no sputum cultures available for review, less wheezing, no hemoptysis improved cough, needed MARCIA hose, I don't see one in place, heparin subcu for DVT prophylaxis, has been off Coumadin 2 days INR will be rechecked 09/08 patient was evaluated bedside is currently doing well has the Pleurx catheter in place with drainage of 500 mL from the left lower chest tube . He is currently on 6 L of high flow oxygen and is breathing comfortably. Patient denies any cough or chest pain. He does have constipation and will be given a dose of Dulcolax suppository today to help with constipation as he failed oral treatment. Vitals assessed suggest a hemoglobin of 10.7 INR 1.5 iron profile suggested a iron of 19 iron saturation 8.7 ferritin 109. One dose of ferrlicit given today. Patient needs to lay flat for the radiation, holding onto medical history stable. 09/09 patient is breathing more comfortably than yesterday. Still requiring 6 L of high flow nasal cannula. Patient was able to ambulate the patel today. Was evaluated by Marvin holguin today with plan for CT simulation and MRI of the brain for staging of the tumor. Since oncology has not come in to see the patient will put a consult in for the patient for to help with staging of the cancer. We will increase Lasix to 40 IV twice a day to help with pleural effusions. Creatinine and BUN stable currently. Solu-Medrol decreased to 40 every 8 hours. Vancomycin discontinued today. Pro-calcitonin ordered to evaluate for the need of further antibiotic ROS Constitutional: Denies chills, Denies fever, endorses lethargy Eyes: denies decreased vision, denies diplopia, denies discharge, denies pain Ears: deny: decreased hearing Ears, nose, mouth and throat: Denies dental pain, Denies headache, Denies nasal discharge, Denies nose pain Cardiovascular: Denies chest pain, Denies decreased exercise tolerance, Denies edema, Denies high blood pressure, Denies irregular heart beat, Denies palpitations, Denies paroxysmal nocturnal dyspnea, Denies rapid heart beat, Denies shortness of breath Respiratory: Denies congestion, Denies cough, Denies cough with sputum, endorses dyspnea, endorses home oxygen, 2 L Denies wheezing Gastrointestinal: Denies abdominal pain, Denies change in bowel habits, Denies coffee ground emesis, Denies early satiety, Denies excessive gas, Denies heartburn, Denies hematemesis, Denies hematochezia, Denies loss of appetite, Denies nausea, Denies vomiting endorses constipation Genitourinary: Denies dysuria, Denies flank pain, Denies kidney stones, Denies menorrhagia, Denies urgency, Denies urinary frequency Musculoskeletal: Denies gait dysfunction, Denies limitation of motion, Denies morning stiffness, Denies muscle cramps Integumentary: Denies rash, Denies wounds, Denies brittle nails, Denies change in hair/nails, Denies darkening of skin Neurological: Denies balance difficulties, Denies change in speech, Denies double vision, Denies gait dysfunction, Denies loss of vision, Denies motor disturbance, Denies numbness, Denies paralysis, Denies paresthesias, Denies seizures Psychiatric: Denies anxiety, Denies depression Endocrine: Denies excessive sweating, Denies excessive thirst, Denies high blood sugars, Denies palpitations Hematologic/Lymphatic: Denies easy bruising, Denies lymphadenopathy Objective - Vital Signs Vital signs: Vital Signs Temp 98 F 09/09/19 09:10 Pulse 106 H 09/09/19 16:07 Resp 18 09/09/19 11:35 BP 115/67 09/09/19 11:35 Pulse Ox 92 L 09/09/19 11:35 Intake & Output 09/08/19 09/09/19 09/09/19 18:59 06:59 18:59 Intake Total 840 600 Output Total 325 450 350 Balance 515 -450 250 Weight 79.1 kg Intake: Oral 840 600 Output: Urine 325 450 350 Other: Voiding Method Urinal Urinal Urinal # Voids 1 1 # Bowel Movements 1 - Exam - Constitutional General appearance: cooperative, no acute distress, fragile-appearing - EENT Eyes: anicteric sclerae, PERRLA, normal appearance ENT: hearing grossly normal - Neck Neck: no lymphadenopathy, normal ROM, no other, no rigidity, no stridor, no thyromegaly - Respiratory Respiratory: bilateral: Decreased air entry bilaterally with crackles at the bases left Pleurx catheter in place with foreign body in the left lower part of the chest nontender on palpation - Cardiovascular Rhythm: regular Heart sounds: normal: S1, S2 Abnormal Heart Sounds: no systolic murmur, no diastolic murmur, no rub, no S3 Ga llop, no S4 Gallop, no click, no other - Gastrointestinal General gastrointestinal: normal bowel sounds, soft nontender distended - Integumentary Integumentary: no rash - Neurologic Neurologic: CNII-XII intact - Musculoskeletal Musculoskeletal: gait normal, strength equal bilaterally - Psychiatric Psychiatric: A&O x's 3, appropriate affect - Labs CBC & Chem 7: 09/09/19 05:22 09/09/19 05:22 Labs: Abnormal Lab Results - Last 24 Hours (Table) 09/08/19 09/08/19 09/08/19 Range/Units 05:32 16:55 20:57 RBC (4.30-5.90) m/uL Hgb (13.0-17.5) gm/dL Hct (39.0-53.0) % RDW (11.5-15.5) % Neutrophils # (1.3-7.7) k/uL Lymphocytes # (1.0-4.8) k/uL PT (9.0-12.0) sec INR (<1.2) BUN (9-20) mg/dL Glucose (74-99) mg/dL POC Glucose (mg/dL) 177 H 260 H (75-99) mg/dL Calcium (8.4-10.2) mg/dL Iron 19 L (65-175) ug/dL TIBC 218 L (228-460) ug/dL % Saturation 8.72 L (15.00-50.00) 09/09/19 09/09/19 09/09/19 Range/Units 05:22 05:22 05:22 RBC 3.73 L (4.30-5.90) m/uL Hgb 10.2 L (13.0-17.5) gm/dL Hct 31.6 L (39.0-53.0) % RDW 16.6 H (11.5-15.5) % Neutrophils # 8.5 H (1.3-7.7) k/uL Lymphocytes # 0.2 L (1.0-4.8) k/uL PT 14.1 H (9.0-12.0) sec INR 1.4 H (<1.2) BUN 29 H (9-20) mg/dL Glucose 112 H (74-99) mg/dL POC Glucose (mg/dL) (75-99) mg/dL Calcium 8.1 L (8.4-10.2) mg/dL Iron (65-175) ug/dL TIBC (228-460) ug/dL % Saturation (15.00-50.00) 09/09/19 09/09/19 Range/Units 06:47 11:37 RBC (4.30-5.90) m/uL Hgb (13.0-17.5) gm/dL Hct (39.0-53.0) % RDW (11.5-15.5) % Neutrophils # (1.3-7.7) k/uL Lymphocytes # (1.0-4.8) k/uL PT (9.0-12.0) sec INR (<1.2) BUN (9-20) mg/dL Glucose (74-99) mg/dL POC Glucose (mg/dL) 148 H 204 H (75-99) mg/dL Calcium (8.4-10.2) mg/dL Iron (65-175) ug/dL TIBC (228-460) ug/dL % Saturation (15.00-50.00) Assessment and Plan Plan: 1 Recurrent pleural effusion, left side with known malignancy, primary poorly differentiated adenocarcinoma of the lung, recent thoracentesis 08/13/2019, Pleurx catheter on 09/04. O2 supplementation, nebulized treatment, unable to get to 1 amp secondary to severe tachycardia, would probably allow stat doses of albuterol, on maintenance ipratropium 4 times a day., Possible fracture of Pleurx catheter, will be rechecked by thoracic surgeon, Coumadin is still on hold 2 Pleurx catheter possibly fractured, was seen prior to placement of initial Pleurx catheter, thoracic surgeon is to reevaluate this, Coumadin on hold since September 06, INR 1.3, might need replacement 3 left lobe poorly differentiated adenocarcinoma lung status post Bronch 08/16/[address] Tran and Bo, radiation treatment planned if medically stable, per oncology, not a candidate for chemotherapy secondary to poor performance status 4 right lung acute gram-negative pneumonia suspected: Discontinue vancomycin and continue Zosyn empirically., consult pulmonary, sputum culture 5 A. fib with slight elevation of the heart rate, supratherapeutic INR over 10 hold Coumadin reversed with vitamin K, to allow for Pleurx catheter in thoracentesis. continue beta alexis 6 chronic systolic congestive heart failure: Seen cardiology regular basis still been treated for cardiomyopathy. Still on metoprolol 50 twice a day, furosemide 20 mg daily, isosorbide 60 mg a day and hydralazine 100 mg 3 times a day 7 type 2 diabetes A1c 9.1 continue patient on insulin continue Accu-Chek with sliding scale coverage, continue patient on metformin along with increasing doses Prandin now to 2 mg 3 times a day from a previous home dose dose of one every morning and Januvia and insulin scale. 8 hypothyroidism: Continue levothyroxine 88 g daily. 9 hyperlipidemia: Remain on atorvastatin 40 mg daily. 10 hypertension: Remain on Cardura 40 mg a day, amlodipine 2.5 mg twice a day, metoprolol 50 mg twice a day, hydralazine 100 mg 3 times a day. We will decrease hydralazine 75 mg 3 times a day, to allow titration of diuretics, increase diuretics 40 mg twice a day 11 COPD, exacerbation, on nebulized Atrovent, now on Solu-Medrol decreased to 40 mg every 8 hours 11 history of throat cancer: Has been in remission at this point. 12. Coumadin toxicity with INR over 10 on admission, vitamin K was given for r eversal, goal INR between 2-3, Coumadin on hold for Pleurx catheter, restarted coumadin 7.5 mg today 09/05, hold September 06 with possibly a plantar insertion of Pleurx catheter and removal of the recent one which is possibly fractured 123. depenedent edema, increase furosemide to 40 bid 13. Palliative Scoring is high, currently on oncologic management for new lung cancer, still undergoing breaks catheter, not a candidate for chemotherapy 14. Constipation, start Lisa-Colace, twice a day scheduled, and one-time dose of MiraLAX when necessary, dulcolax suppository given
--- NOTE | 2019-09-09 16:52 | P.CONS ---
History of Present Illness - Reason for Consult Consult date: 09/09/19 stage 4 adenoca lung - History of Present Illness The patient is an 83-year-old white male with multiple medical problems. He had presented in 07/29 with complains of increasing shortness of breath, as well as cough with expectoration. CT scan on 07/30/19 revealed a large area of consolidation in the left upper lobe, as well as a small left pleural effusion. Based on the appearance of the neoplasm causing obstruction cannot be ruled out. The patient was subsequently seen by pulmonary medicine, and ended up being admitted in early 08/28 because of increasing symptoms as noted above. During that admission pleural effusion was noted to have progressed. He had a thoracentesis as well as bronchoscopy on 08/15/19. Fluid as well as trust bronchial biopsies were positive for adenocarcinoma. The patient does appear to have stage IV disease. He subsequently had a PET scan that showed evidence of uptake in the left upper lobe mass, mediastinal lymph nodes, as well as pleural uptake in the left lung base. The patient was referred to Dr. Simmons, and was supposed to see him in the next 1-2 weeks. He was also seen by radiation oncology and is being evaluated for possible palliative radiation to the left upper lobe mass. He did require additional thoracentesis. He was then admitted this time with recurrent issues of shortness of breath, and cough productive of greenish sputum. Imaging rev ealed recurrence of pleural effusion on the left, as well as possible pneumonia on the right. The patient was seen by thoracic surgery and is status post Pleurx catheter placement. Consult was placed for further evaluation and recommendations. He has not been able to start radiation as he was unable to lay flat because of shortness of breath. The patient has a history of early-stage prostate cancer treated with surgery, as well as early-stage larynx cancer treated with radiation. Review of Systems Constitutional: Reports weakness, Reports weight loss Eyes: denies blurred vision, denies pain Ears: deny: decreased hearing, ear discharge, earache, tinnitus Ears, nose, mouth and throat: Denies headache, Denies sore throat Cardiovascular: Reports shortness of breath Respiratory: Reports cough with sputum, Reports dyspnea Gastrointestinal: Denies abdominal pain, Denies diarrhea, Denies nausea, Denies vomiting Genitourinary: Reports as per HPI, Reports urinary frequency Musculoskeletal: Reports muscle weakness Integumentary: Denies pruritus, Denies rash Neurological: Reports paresthesias (Diabetic neuh left foot drop), Reports tingling Psychiatric: Denies anxiety, Denies depression Endocrine: Reports fatigue Hematologic/Lymphatic: Reports as per HPI Past Medical History Past Medical History: Atrial Fibrillation, Coronary Artery Disease (CAD), Cancer, Heart Failure, Diabetes Mellitus, Hyperlipidemia, Hypertension, Myocardial Infarction ([place]), Thyroid Disorder Additional Past Medical History / Comment(s): current hoarseness, dysphagia, hx vocal cord ca(tx with radiation) 2009 and PROSTATE CANCER 2001, varicose veins, Cobb's esophagus, wears brace on left ankle, uses a cane Last Myocardial Infarction Date:: unknown History of Any Multi-Drug Resistant Organisms: MRSA Year Discovered:: 01/15/2012 MDRO Source:: Unknown Past Surgical History: Coronary Bypass/CABG, Heart Catheterization With Stent, Prostate Surgery Additional Past Surgical History / Comment(s): vocal cord biopsy with vocal cord [id number], total 6-7 stents, philipp cataracts, cardioversion, bronchoscopy with biopsy. Past Anesthesia/Blood Transfusion Reactions: Previous Problems w/ Anesthesia Additional Past Anesthesia/Blood Transfusion Reaction / Comm: hx diff intubation with previous vocal cord surgery Date of Last Stent Placement:: ?2017 Past Psychological History: Anxiety Smoking Status: Former smoker Past Alcohol Use History: None Reported Past Drug Use History: None Reported - Past Family History Sister(s) Family Medical History: Cancer Additional Family Medical History / Comment(s): Patient has one sister that is 89 years old with history of breast cancer and osteoarthritis of the knees. Father Family Medical History: Deep Vein Thrombosis (DVT), Hypertension Additional Family Medical History / Comment(s): Father at age 75 with history of diabetes, coronary artery disease, pacemaker. Brother(s) Family Medical History: Coronary Artery Disease (CAD) Additional Family Medical History / Comment(s): He has one brother that has with history of coronary artery disease and alcohol abuse. Mother Family Medical History: Cancer Additional Family Medical History / Comment(s): Mother at age 39 from cervical cancer. Medications and Allergies Home Medications Medication Instructions Recorded Confirmed Type Levothyroxine Sodium [Synthroid] 88 mcg PO MOTUWETHFRSA 01/30/14 09/03/19 History Multivitamins, Thera [Multivitamin 1 tab PO DAILY@1700 05/23/14 12/25/19 History (formulary)] metFORMIN HCL [Glucophage] 1,000 mg PO DAILY@1700 01/30/14 09/03/19 History Fesoterodine Fumarate [Toviaz] 4 mg PO DAILY@1700 08/19/14 09/03/19 History hydrALAZINE HCL [Apresoline] 100 mg PO TID@0800,1700,2200 08/19/14 09/03/19 History ALPRAZolam [Xanax] 0.25 mg PO BID@0800,2200 08/28/15 09/03/19 History Furosemide [Lasix] 20 mg PO DAILY@0800 08/28/15 09/03/19 History metFORMIN HCL [Glucophage] 500 mg PO DAILY@0800 08/28/15 09/03/19 History Isosorbide Mononitrate ER [Imdur] 60 mg PO DAILY@1700 03/29/16 09/03/19 History Melatonin 5 mg PO HS@219903/29/16 09/03/19 History sitaGLIPtin [Januvia] 100 mg PO DAILY@0800 09/17/16 09/03/19 History Clopidogrel [Plavix] 75 mg PO DAILY #30 tab 09/20/16 09/03/19 Rx Warfarin [Coumadin] 7.5 mg PO DAILY@1700 06/17/18 09/03/19 History Repaglinide [Prandin] 1 mg PO DAILY@0800 01/22/19 09/03/19 History Atorvastatin [Lipitor] 40 mg PO HS@219908/12/19 09/03/19 History Metoprolol Tartrate [Lopressor] 50 mg PO BID@0800,1700 08/12/19 09/03/19 History Pantoprazole Sodium [Protonix] 40 mg PO DAILY@0800 08/12/19 09/03/19 History amLODIPine [Norvasc] 2.5 mg PO BID@0800,2200 08/12/19 09/03/19 History Doxazosin [Cardura] 4 mg PO DAILY@0800 09/03/19 09/03/19 History Allergies Allergy/AdvReac Type Severity Reaction Status Date / Time clonidine HCl [From Catapres] Allergy facial Verified 09/03/19 10:50 swelling hydrochlorothiazide Allergy Anaphylaxis Verified 09/03/19 10:50 levofloxacin [From Levaquin] Allergy facial and Verified 09/03/19 10:50 neck swelling losartan potassium Allergy Anaphylaxis Verified 09/03/19 10:50 [From Cozaar] albuterol AdvReac Severe tachycardia Verified 09/03/19 10:50 MELISSA Inhibitors AdvReac Angioedema Verified 09/03/19 10:50 aspirin AdvReac angioedema Verified 09/03/19 10:50 doxycycline AdvReac SHORTNESS Verified 09/03/19 10:50 OF BREATH flurbiprofen AdvReac angioedema Verified 09/03/19 10:50 ofloxacin AdvReac angioedema Verified 09/03/19 10:50 rivaroxaban [From Xarelto] AdvReac gi bleed Verified 09/03/19 10:50 Tetracyclines AdvReac Swelling Verified 09/03/19 10:50 FEATHERS AdvReac SINUS Uncoded 08/12/19 09:25 DRAINAGE NOSE AND EYES Physical Exam Vitals: Vital Signs Temp Pulse Pulse Resp BP Pulse Ox 09/09/19 16:07 106 H 09/09/19 16:00 95 18 09/09/19 15:58 110 H 09/09/19 15:55 97.6 F 95 18 134/74 95 09/09/19 11:35 111 H 18 115/67 92 L 09/09/19 09:10 98 F 123 H 18 119/86 93 L 09/09/19 08:21 96 09/09/19 08:04 92 09/09/19 04:00 98 19 104/69 90 L 09/08/19 23:02 97 18 106/72 93 L 09/08/19 21:17 94 09/08/19 21:05 89 09/08/19 19:51 103 H 19 115/67 89 L Intake and Output 09/09/19 09/09/19 09/09/19 06:59 14:59 22:59 Intake Total 600 Output Total 450 350 Balance -450 250 Intake: Oral 600 Output: Urine 450 350 Other: Voiding Method Urinal Urinal Urinal # Voids 1 Weight 79.1 kg - Constitutional General appearance: no acute distress - EENT Eyes: EOMI, PERRLA ENT: hearing grossly normal, normal oropharynx - Neck Neck: no lymphadenopathy - Respiratory Respiratory: left: diminished (Overall poor air entry throughout lung [place].) - Cardiovascular Rhythm: regular Heart sounds: normal: S1, S2 - Gastrointestinal General gastrointestinal: normal bowel sounds, soft - Integumentary Integumentary: normal - Neurologic Neurologic: CNII-XII intact, focal deficits (left foot drop) - Musculoskeletal Musculoskeletal: generalized weakness, strength equal bilaterally - Psychiatric Psychiatric: A&O x's 3, appropriate affect Results CBC & Chem 7: 09/09/19 05:22 09/09/19 05:22 Labs: Abnormal Lab Results - Last 24 Hours (Table) 09/08/19 09/08/19 09/08/19 Range/Units 05:32 16:55 20:57 RBC (4.30-5.90) m/uL Hgb (13.0-17.5) gm/dL Hct (39.0-53.0) % RDW (11.5-15.5) % Neutrophils # (1.3-7.7) k/uL Lymphocytes # (1.0-4.8) k/uL PT (9.0-12.0) sec INR (<1.2) BUN (9-20) mg/dL Glucose (74-99) mg/dL POC Glucose (mg/dL) 177 H 260 H (75-99) mg/dL Calcium (8.4-10.2) mg/dL Iron 19 L (65-175) ug/dL TIBC 218 L (228-460) ug/dL % Saturation 8.72 L (15.00-50.00) 09/09/19 09/09/19 09/09/19 Range/Units 05:22 05:22 05:22 RBC 3.73 L (4.30-5.90) m/uL Hgb 10.2 L (13.0-17.5) gm/dL Hct 31.6 L (39.0-53.0) % RDW 16.6 H (11.5-15.5) % Neutrophils # 8.5 H (1.3-7.7) k/uL Lymphocytes # 0.2 L (1.0-4.8) k/uL PT 14.1 H (9.0-12.0) sec INR 1.4 H (<1.2) BUN 29 H (9-20) mg/dL Glucose 112 H (74-99) mg/dL POC Glucose (mg/dL) (75-99) mg/dL Calcium 8.1 L (8.4-10.2) mg/dL Iron (65-175) ug/dL TIBC (228-460) ug/dL % Saturation (15.00-50.00) 09/09/19 09/09/19 Range/Units 06:47 11:37 RBC (4.30-5.90) m/uL Hgb (13.0-17.5) gm/dL Hct (39.0-53.0) % RDW (11.5-15.5) % Neutrophils # (1.3-7.7) k/uL Lymphocytes # (1.0-4.8) k/uL PT (9.0-12.0) sec INR (<1.2) BUN (9-20) mg/dL Glucose (74-99) mg/dL POC Glucose (mg/dL) 148 H 204 H (75-99) mg/dL Calcium (8.4-10.2) mg/dL Iron (65-175) ug/dL TIBC (228-460) ug/dL % Saturation (15.00-50.00) Comments: Report of PET scan reviewed Pathology report and procedure notes reviewed Chest x-ray: report reviewed CT scan - chest: report reviewed Assessment and Plan (1) Adenocarcinoma of lung, stage 4 Narrative/Plan: The patient has a recent diagnosis of adenocarcinoma of the lung. Unfortunately this was stage IV at presentation, with malignant pleural effu jf. The patient was supposed to see medical oncology within the next couple of weeks, but since diagnosis his course has been completed by recurrent pleural effusions as well as pneumonia for which he has been treated this admission. The patient is now status post pelvis catheter placement. Shortness of breath is partially improved. He has already been seen by radiation oncology with plans for palliative radiation to the left upper lobe. However he has not been able to start that due to inability to lay flat. The patient's pathology and indications were discussed in detail with him and his family. He was advised that his cancer would not be considered curable, and the be systemic therapy with intention of prolonging life and palliating symptoms. The patient already has had NGS panel done as well as PDL 1, revealing no targetable biomarkers. He was thus advised that the main stay of systemic treatment in his case would be chemotherapy. The standard regimen would be carboplatin and Alimta ( With likely addition off PD 1 immunotherapy) which overall is generally well óscar erated. However in this older patient with multiple medical problems, poor tolerance can certainly be an issue. It was clarified with the patient that he does indeed desire active treatment. He would like to try treatment if his performance status improves sufficiently with palliative procedures such as the pelvis catheter placement and possible radiation and see how he does with it. Case was discussed with the admitting service, as well as radiation oncology. The latter feels that the Patient may now be able to tolerate radiation after relief of his pleural effusion symptoms. It was therefore agreed that the patient should attempt palliative radiation to try to optimize his lung function as much as possible. He would then be followed up in the office in systemic chemotherapy considered if his performance status is sufficient. Current Visit: Yes Status: Acute Code(s): C34.90 - MALIGNANT NEOPLASM OF UN SP PART OF UNSP BRONCHUS OR LUNG SNOMED Code(s): 590229019 (2) Pleural effusion Narrative/Plan: This is malignant in nature, with treatment as described. Hopefully patient's symptoms will improve with Pleurx catheter placement. Current Visit: Yes Status: Acute Code(s): J90 - PLEURAL EFFUSION, NOT ELSEWHERE CLASSIFIED SNOMED Code(s): 35015563 Plan: Defer to the admitting service and other consultants for management of his multiple other medical problems
[2019-09-09 16:57] LABS: Glucose,Whole Blood 182 mg/dL (75-99)
[2019-09-09] MEDS: TROSPIUM CHLORIDE 20 MG TABLET PO SCH (17:27)
[2019-09-09] MEDS: WARFARIN 5 MG TAB PO SCH (17:27)
[2019-09-09] MEDS: MULTIVITAMINS, THERA 1 EACH TAB PO SCH (17:27)
[2019-09-09 20:13] LABS: Glucose,Whole Blood 238 mg/dL (75-99)
[2019-09-09] MEDS: MELATONIN 5 MG TABLET PO SCH (21:44)
[2019-09-09] MEDS: DOCUSATE 100 MG CAP PO SCH (21:44)
[2019-09-09] MEDS: ATORVASTATIN 40 MG TAB PO SCH (21:44)
[2019-09-09] MEDS: ACETAMINOPHEN TAB 500 MG TAB PO PRN (23:18)
[2019-09-10] MEDS ORDERED: VANCOMYCIN 1,500 MG in SODIUM CHLORIDE 0.9% 250 ML IVPB SCH (06:00)
[2019-09-10 06:18] LABS: INR 1.4 (<1.2)
[2019-09-10 06:35] LABS: Glucose,Whole Blood 118 mg/dL (75-99)
[2019-09-10] MEDS: REPAGLINIDE 1 MG TAB PO SCH ×3 (06:47→17:29)
[2019-09-10] MEDS: INSULIN DETEMIR (LEVEMIR) 100 UNIT/ML SYR SQ SCH (06:47)
[2019-09-10] MEDS: LEVOTHYROXINE 88 MCG TAB PO SCH (06:48)
[2019-09-10] MEDS: INSULIN ASPART (NovoLOG) 100 UNIT/ML VIAL SQ SCH ×6 (06:51→21:59)
[2019-09-10] MEDS: ALPRAZolam 0.25 MG TAB PO SCH ×2 (07:58→22:00)
[2019-09-10] MEDS: DOXAZOSIN 4 MG TAB PO SCH (07:58)
[2019-09-10] MEDS: PANTOPRAZOLE 40 MG TABLET PO SCH (07:58)
[2019-09-10] MEDS: PIPERACILLIN-TAZOBACTAM 3.375 GM in SODIUM CHLORIDE 0.9% 100 ML IVPB SCH (07:59)
[2019-09-10] MEDS: METOPROLOL TARTRATE 50 MG TAB PO SCH ×2 (07:59→17:28)
[2019-09-10] MEDS: LINAGLIPTIN 5 MG TABLET PO SCH (07:59)
[2019-09-10] MEDS: methylPREDNISolone SOD SUCCI 40 MG/ML 1 ML VIAL IV SCH ×3 (07:59→23:19)
[2019-09-10] MEDS: metFORMIN 500 MG TAB PO SCH ×2 (07:59→17:28)
[2019-09-10] MEDS: DOCUSATE 100 MG CAP PO SCH ×2 (08:00→22:00)
[2019-09-10] MEDS: FUROSEMIDE 10 MG/ML 4 ML VIAL IV SCH ×2 (08:00→21:59)
[2019-09-10] MEDS: HEPARIN SODIUM,PORCINE 5,000 UNIT/ML 1 ML VIAL SQ SCH ×2 (08:00→21:58)
[2019-09-10] MEDS: hydrALAZINE HCL 25 MG TAB PO SCH ×3 (08:00→22:00)
[2019-09-10] MEDS: SENNOSIDES-DOCUSATE SODIUM 1 EACH TAB PO SCH ×2 (08:00→22:00)
[2019-09-10] MEDS: POLYETHYLENE GLYCOL 3350 17 GM POWD.PACK PO SCH (08:00)
[2019-09-10] MEDS: IPRATROPIUM 0.5 MG/2.5 ML NEBU INHALATION SCH ×4 (09:19→20:03)
[2019-09-10] MEDS: BUDESONIDE 1 MG/2 ML NEBU INHALATION SCH ×2 (09:19→20:03)
[2019-09-10] MEDS: SODIUM FERRIC GLUCONAT-SUCROSE 125 MG in SODIUM CHLORIDE 0.9% 100 ML IVPB SCH (10:24)
[2019-09-10] MEDS: SODIUM CHLORIDE 0.9% 1,000 ML IV SCH (10:25)
--- NOTE | 2019-09-10 12:05 | P.PN ---
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 Morgan, Dr. Tran . He had agitation treatment, August 26, cancer not amenable to chemotherapy at this time. He had recurrent pleural effusion, requires thoracentesis, last one was less than 08/13/2019 1 L exudative, negative fungal cultures, no growth. Currently Patient has hemoptysis, purulent yellow green cough, slight edema, no abdominal pain no diarrhea, he requires O2 2-4 L nasal cannula with increasing requirements, increasing respiratory distress, increasing weakness, requiring now ER evaluation On emergency room evaluation, he is at 7 L O2, chest x-ray shows large left body opacity, new right lower lobe patchy infiltrate concerning for pneumonia, thoracic ultrasound was requested, consult with Dr. Soriano, thoracic surgery for Pleurx catheter evaluation, IV antibiotics Zosyn and vancomycin, INR is over 10, needs to be reversed with vitamin K 09/04, patient is to undergo left Pleurx catheter today by Dr. Nolasco, still has shortness of breath, O2 sats at 3 L cannula patient has no palpitations, blood pressure 106/71 additional vitamin K was needed for the INR of 2.1 prior to procedure, no chest pain, still with shortness of breath, no headache, no palpitations, no leg swelling this time it has improved. 09/05: Patient is still short of breath, but less, still with pleurisy no hemoptyis, 350 ml omayra was taken out today thru pleurx cathtetergerardo at 55l 75% fi02, was cleared by thoracic surgeon to initiate coumadin, first dose restarted at 7.5 mg today, so initate physical therpies today 09/06: Patient is similar to yesterday, with symptoms, still with dyspnea and exertion, no palpitations, no fever no chills no headache, yellow flag x-ray report, possible fracture of the Pleurx catheter, we've requested thoracic surgeon be notified regarding these urgently, blood sugars are elevated, still on Solu-Medrol 60 mg every 6 hours, patient mentions about constipation, last bowel movement was 4 days ago, stool softeners currently are in place however this is not working. We'll going to start MiraLAX and Lisa-Colace in the morning at schedule twice a day. We will hold Coumadin today, possibly replacing the fractured Pleurx catheter, INR 1.3 sputum sentyet, increasePrandin to 2mg 3timesaday whileonprednisone started on [id number] bloodsugarsare 300-350range, increase Lasix 40 mg twice a day, decrease hydralazine 75 mg 3 times a day, to allow titration of diuretics, increasing bilateral lower extremity edema, compression stocks started 09/07: Pending recommendations from thoracic surgery is secondary to possible Pleurx catheter fracture, there services going to attempt to use them today, this is dysfunctional, prior to placing, Coumadin is currently on hold for possible replacement. Patient has insomnia, however he is taking coffee late in the afternoon, requesting to increase melatonin to 10 mg at bedtime. Blood sugars are between 140-280, has anemia, iron def lab workup, we'll decrease Solu-Medrol to 40 mg every 6 hours, no sputum cultures available for review, less wheezing, no hemoptysis improved cough, needed MARCIA hose, I don't see one in place, heparin subcu for DVT prophylaxis, has been off Coumadin 2 days INR will be rechecked 09/08 patient was evaluated bedside is currently doing well has the Pleurx catheter in place with drainage of 500 mL from the left lower chest tube . He is currently on 6 L of high flow oxygen and is breathing comfortably. Patient denies any cough or chest pain. He does have constipation and will be given a dose of Dulcolax suppository today to help with constipation as he failed oral treatment. Vitals assessed suggest a hemoglobin of 10.7 INR 1.5 iron profile suggested a iron of 19 iron saturation 8.7 ferritin 109. One dose of ferrlicit given today. Patient needs to lay flat for the radiation, holding onto medical history stable. 09/09 patient is breathing more comfortably than yesterday. Still requiring 6 L of high flow nasal cannula. Patient was able to ambulate the patel today. Was evaluated by Marvin holguin today with plan for CT simulation and MRI of the brain for staging of the tumor. Since oncology has not come in to see the patient will put a consult in for the patient for to help with staging of the cancer. We will increase Lasix to 40 IV twice a day to help with pleural effusions. Creatinine and BUN stable currently. Solu-Medrol decreased to 40 every 8 hours. Vancomycin discontinued today. Pro-calcitonin ordered to evaluate for the need of further antibiotic 2019 showing and examined bedside is comfortable breathing better. Vitals suggest a temp of 98.1 pulse rate 98 respiratory 18 blood pressure 101/59 c urrently on high flow cannula improved from yesterday patient is currently on 4 L. Will continue Lasix at 40 IV twice a day. Pro-calcitonin was ordered is completely negative. Patient has completed the course for pneumonia including vancomycin and Zosyn, which is henceforth discontinued. If patient is able to lie flat will be taken for CT stimulation. Warfarin initiated at 5 mg Coumadin level/INR still subtherapeutic 1.4. Incentive spirometer added for pulmonary prophylaxis ROS Constitutional: Denies chills, Denies fever, endorses lethargy Eyes: denies decreased vision, denies diplopia, denies discharge, denies pain Ears: deny: decreased hearing Ears, nose, mouth and throat: Denies dental pain, Denies headache, Denies nasal discharge, Denies nose pain Cardiovascular: Denies chest pain, Denies decreased exercise tolerance, Denies edema, Denies high blood pressure, Denies irregular heart beat, Denies palpitations, Denies paroxysmal nocturnal dyspnea, Denies rapid heart beat, Den ies shortness of breath Respiratory: Denies congestion, Denies cough, Denies cough with sputum, endorses dyspnea, endorses home oxygen, 2 L Denies wheezing Gastrointestinal: Denies abdominal pain, Denies change in bowel habits, Denies coffee ground emesis, Denies early satiety, Denies excessive gas, Denies heartburn, Denies hematemesis, Denies hematochezia, Denies loss of appetite, Denies nausea, Denies vomiting endorses constipation Genitourinary: Denies dysuria, Denies flank pain, Denies kidney stones, Denies menorrhagia, Denies urgency, Denies urinary frequency Musculoskeletal: Denies gait dysfunction, Denies limitation of motion, Denies morning stiffness, Denies muscle cramps Integumentary: Denies rash, Denies wounds, Denies brittle nails, Denies change in hair/nails, Denies darkening of skin Neurological: Denies balance difficulties, Denies change in speech, Denies double vision, Denies gait dysfunction, Denies loss of vision, Denies motor disturbance, Denies numbness, Denies paralysis, Denies paresthesias, Denies seizures Psychiatric: Denies anxiety, Denies depression Endocrine: Denies excessive sweating, Denies excessive thirst, Denies high blood sugars, Denies palpitations Hematologic/Lymphatic: Denies easy bruising, Denies lymphadenopathy Objective - Vital Signs Vital signs: Vital Signs Temp 98.1 F 09/10/19 07:55 Pulse 88 09/10/19 09:36 Resp 18 09/10/19 07:55 BP 101/59 09/10/19 07:55 Pulse Ox 92 L 09/10/19 04:00 Intake & Output 09/09/19 09/10/19 09/10/19 18:59 06:59 18:59 Intake Total 960 360 Output Total 350 1825 Balance 610 -1825 360 Weight 78.9 kg Intake: Oral 960 360 Output: Chest Tube Drainage 600 Pleural Catheter 600 Drainage 600 Left Lower Chest 600 Urine 350 625 Other: Voiding Method Urinal Urinal Urinal # Voids 1 1 - Exam - Constitutional General appearance: cooperative, no acute distress, fragile-appearing - EENT Eyes: anicteric sclerae, PERRLA, normal appearance ENT: hearing grossly normal - Neck Neck: no lymphadenopathy, normal ROM, no other, no rigidity, no stridor, no thyromegaly - Respiratory Respiratory: bilateral: Decreased air entry bilaterally with crackles at the bases left Pleurx catheter in place with foreign body in the left lower part of the chest nontender on palpation - Cardiovascular Rhythm: regular Heart sounds: normal: S1, S2 Abnormal Heart Sounds: no systolic murmur, no diastolic murmur, no rub, no S3 Gallop, no S4 Gallop, no click, no other - Gastrointestinal General gastrointestinal: normal bowel sounds, soft nontender distended - Integumentary Integumentary: no rash - Neurologic Neurologic: CNII-XII intact - Musculoskeletal Musculoskeletal: gait normal, strength equal bilaterally - Psychiatric Psychiatric: A&O x's 3, appropriate affect - Labs CBC & Chem 7: 09/09/19 05:22 09/10/19 05:25 Labs: Abnormal Lab Results - Last 24 Hours (Table) 09/09/19 09/09/19 09/09/19 Range/Units 11:37 16:53 20:12 PT (9.0-12.0) sec INR (<1.2) POC Glucose (mg/dL) 204 H 182 H 238 H (75-99) mg/dL 09/10/19 09/10/19 Range/Units 05:25 06:33 PT 14.0 H (9.0-12.0) sec INR 1.4 H (<1.2) POC Glucose (mg/dL) 118 H (75-99) mg/dL Assessment and Plan Plan: 1 Recurrent pleural effusion, left side with known malignancy, primary poorly differentiated adenocarcinoma of the lung, recent thoracentesis 08/13/2019, Pleurx catheter on 09/04. O2 supplementation, nebulized treatment, unable to get to 1 amp secondary to severe tachycardia, would probably allow stat doses of albuterol, on maintenance ipratropium 4 times a day., Possible fracture of Pleurx catheter, will be rechecked by thoracic surgeon, Coumadin is still on ho ld 2 Pleurx catheter possibly fractured, was seen prior to placement of initial Pleurx catheter, thoracic surgeon is to reevaluate this, Coumadin on hold since September 06, INR 1.3, might need replacement 3 left lobe poorly differentiated adenocarcinoma lung status post Bronch 08/16/[address] Tran and Bo, radiation treatment planned if medically stable, per oncology, not a candidate for chemotherapy secondary to poor performance status 4 right lung acute gram-negative pneumonia suspected: Completed vancomycin and Zosyn pro calcitonin negative sputum culture negative so far 5 A. fib with slight elevation of the heart rate, supratherapeutic INR over 10 hold Coumadin reversed with vitamin K, to allow for Pleurx catheter in thoracentesis. continue beta alexis 6 chronic systolic congestive heart failure: Seen cardiology regular basis still been treated for cardiomyopathy. Still on metoprolol 50 twice a day, furosemide 20 mg daily, isosorbide 60 mg a day and hydralazine 100 mg 3 times a day 7 type 2 diabetes A1c 9.1 continue patient on insulin continue Accu-Chek with sliding scale coverage, continue patient on metformin along with increasing doses Prandin now to 2 mg 3 times a day from a previous home dose dose of one every morning and Januvia and insulin scale. 8 hypothyroidism: Continue levothyroxine 88 g daily. 9 hyperlipidemia: Remain on atorvastatin 40 mg daily. 10 hypertension: Remain on Cardura 40 mg a day, amlodipine 2.5 mg twice a day, metoprolol 50 mg twice a day, hydralazine 100 mg 3 times a day. We will decrease hydralazine 75 mg 3 times a day, to allow titration of diuretics, increase diuretics 40 mg twice a day 11 COPD, exacerbation, on nebulized Atrovent, now on Solu-Medrol decreased to 40 mg every 8 hours 11 history of throat cancer: Has been in remission at this point. 12. Coumadin toxicity with INR over 10 on admission, vitamin K was given for reversal, goal INR between 2-3, Coumadin restarted at 5 mg daily INR 123. depenedent edema, increase furosemide to 40 bid 13. Palliative Scoring is high, currently on oncologic management for new lung cancer, still undergoing breaks catheter, not a candidate for chemotherapy 14. Constipation, start Lisa-Colace, twice a day scheduled, and one-time dose of MiraLAX when necessary, dulcolax suppository given
[2019-09-10 12:13] LABS: Glucose,Whole Blood 214 mg/dL (75-99)
--- NOTE | 2019-09-10 15:23 | P.PN ---
Subjective Progress Note Date: 09/10/19 Principal diagnosis: Large recurrent left pleural effusion, right lower lobe pneumonia, stage IV adenocarcinoma of the lung This is a very pleasant 83-year-old gentleman who follows with Dr. Corona as his primary care physician. He has a history of chronic atrial fibrillation an ticoagulated with warfarin, coronary artery disease with previous coronary artery bypass grafting, multiple stent placements, focal cord cancer with surgery, prostate cancer, diabetes mellitus with peripheral neuropathy, hypothyroidism, hyperlipidemia, BPH, osteoarthritis, remote history of smoking. He was diagnosed with stage IV adenocarcinoma of the lung earlier this month. He had undergone biopsy of a pleural-based mass in the left upper lobe measuring 11 cm with associated hypermetabolic uptake SUV of 7. There is groundglass opacities in the right lower lobe as well. He had been seen and evaluated by Dr. Latham and was going to receive radiation treatment. He was due for a computed tomography scan with markings tomorrow. This morning however he developed worsening shortness of breath cough and congestion and presented here to the emergency room. Computed tomography scan shows a new right lower lobe patchy infiltrate suspicious for pneumonia. Small effusion. There is a left upper lobe mass again noted with surrounding consolidation and atelectatic tissue and left-sided pleural effusion. We were consulted for the same. He is seen today in the emergency room. He is currently sitting up on the stretcher. Awake and alert in mild respiratory distress. He is dyspneic with minimal exertion. He is requiring 6 L high flow nasal cannula to maintain O2 saturations in the low 90s. He is afebrile. Slightly tachycardic. Blood pressure stable. White count 10.4. Hemoglobin 10.7. INR greater than 10.0. Sodium 133. Potassium 5.1. Creatinine 0.95. Lactic acid 1.5. Troponin 0.015. ProBNP 2190. He was given vitamin K 2.5 mg orally 1. He received 1 dose of Unasyn. On 09/04/2019 patient seen in follow-up on selective care unit, dyspneic, he is on Airvo at 55 l/min, and Fio2 75%. Occasionally bringing up some colored phlegm, afebrile, hemodynamically patient is stable, he is on a combination of Zosyn and vancomycin. Breathing treatments, and IV steroids, days INR is 2.1, patient has received a dose of vitamin K, he was evaluated by CT surgery, and hi s Pleurx catheter insertion has been scheduled for 3:30 this afternoon. On 09/05/2090 patient seen in follow-up on selective care unit, he remains on Airvo at 55l/min, and Fio2 73%. His pulse ox is 98, he states he is breathing easier today, yesterday he had left-sided Pleurx catheter inserted, and 1.5 L of pleural fluid drained. Today's chest x-ray shows persistent left mid lung consolidation, patchy left basilar atelectasis and residual small left pleural fluid collection, and there is worsening of the right lower lung acute infiltrates. Patient is on Zosyn and vancomycin for abiotic coverage, his been afebrile. He has a strong effective cough, but has not provided a sputum specimen yet. Lung sounds reveal coarse basilar crackles. Patient is generally weak, but was able to walk with a walker in the room with physical therapy, tolerated activity fairly well. The patient is seen today 09/06/2019 in follow-up on the selective care unit. He is currently sitting up in a chair at the bedside. Awake and alert in no acute distress. Breathing a bit easier today compared to yesterday. Still requiring the AirVo high flow oxygen device intermittently. He is currently on 8 L high flow nasal cannula. O2 saturations in the low 90s. He's been afebrile. Hemodynamically stable. White count 13.2. Hemoglobin 9.8. INR 1.3. He remains on bronchodilators, diuretics, IV Solu-Medrol and antibiotics in the form of vancomycin and Zosyn. Today's chest x-ray shows chronic emphysematous changes with left-sided volume loss. Left-sided midlung masslike consolidation. Left basilar pleural drainage catheter with residual small left pleural effusion and associated left lung atelectasis. Right infrahilar infiltrate/atelectasis. Findings are stable. There was a noted possible ca theter fragment left mid to lower lung that was noted prior to the left basilar pleural drainage catheter placement. The patient is seen today 09/09/2019 in follow-up on the selective care unit. He is currently sitting up in a chair at the bedside. Awake and alert in no acute distress. He is down to 6 L high flow nasal cannula and maintaining O2 saturation in the 90s. Most recent chest x-ray had revealed chronic emphysema with left-sided volume loss. Left-sided midlung masslike consolidation. Left basilar small pleural effusion and associated left lung atelectasis/infiltrate. White count 9.5. Hemoglobin 10.2. INR 1.4. Creatinine 0.85. He remains on bronchodilators, IV Solu-Medrol, IV diuretics, antibiotics in the form of vancomycin and Zosyn. He has been seen and evaluated by radiation oncology for possible treatments to the left lung mass. The patient is seen today 09/10/2019 in follow-up on the selective care unit. He is currently resting quite comfortably in bed. Able to lay flat. No worsening shortness of breath, cough or congestion. He is maintaining O2 saturation in the 90s on 4 L high flow nasal cannula. He is afebrile. INR 1.4. Creatinine 1.01. He remains on Pulmicort and Perforomist inhalations, IV Solu- Medrol and IV diuretics. Objective - Vital Signs Vital signs: Vital Signs Temp 98 F 09/10/19 12:00 Pulse 107 H 09/10/19 12:00 Resp 16 09/10/19 12:00 BP 103/79 09/10/19 12:00 Pulse Ox 93 L 09/10/19 12:00 Intake & Output 09/09/19 09/10/19 09/10/19 18:59 06:59 18:59 Intake Total 960 720 Output Total 350 1825 300 Balance 610 -1825 420 Weight 78.9 kg 78.9 kg Intake: Oral 960 720 Output: Chest Tube Drainage 600 Pleural Catheter 600 Drainage 600 Left Lower Chest 600 Urine 350 625 300 Other: Voiding Method Urinal Urinal Urinal # Voids 1 1 # Bowel Movements 2 - Exam GENERAL EXAM: Alert, pleasant, 83-year-old frail looking male patient, on 4 L high flow nasal cannula, dyspneic with conversation, but no acute distress HEAD: Normocephalic/atraumatic. EYES: Normal reaction of pupils, equal size. Conjunctiva pink, sclera white. NOSE: Clear with pink turbinates. THROAT: No erythema or exudates. NECK: No masses, no JVD, no thyroid enlargement, no adenopathy. CHEST: No chest wall deformity. Symmetrical expansion. Pleurx catheter in plac e to left chest. LUNGS: Coarse crackles at the bases, wheezes in the left lung. CVS: Regular rate and rhythm, normal S1 and S2, no gallops, no murmurs, no rubs ABDOMEN: Soft, nontender. No hepatosplenomegaly, normal bowel sounds, no guarding or rigidity. EXTREMITIES: No clubbing, no edema, no cyanosis, 2+ pulses and upper and lower extremities. MUSCULOSKELETAL: Muscle strength and tone normal. SPINE: No scoliosis or deformity SKIN: No rashes CENTRAL NERVOUS SYSTEM: No focal deficits, tone is normal in all 4 extremities. PSYCHIATRIC: Alert and oriented -3. Appropriate affect. Intact judgment and insight. - Labs CBC & Chem 7: 09/09/19 05:22 09/10/19 05:25 Labs: Abnormal Lab Results - Last 24 Hours (Table) 09/09/19 09/09/19 09/10/19 Range/Units 16:53 20:12 05:25 PT 14.0 H (9.0-12.0) sec INR 1.4 H (<1.2) POC Glucose (mg/dL) 182 H 238 H (75-99) mg/dL 09/10/19 09/10/19 Range/Units 06:33 11:50 PT (9.0-12.0) sec INR (<1.2) POC Glucose (mg/dL) 118 H 214 H (75-99) mg/dL Assessment and Plan Assessment: 1 Acute hypoxic respiratory failure secondary to a large left-sided pleural effusion with left upper lobe mass positive for stage IV adenocarcinoma of the lung just diagnosed earlier this month with bronchoscopy and transbronchial biopsy on 08/15/2019. Status post left-sided Pleurx catheter placement on 09/04/2019. There is noted radial didn't fragment in the left mid to lower lung [place] suggestive of catheter fragment that was seen prior to Pleurx catheter placement. 2 Pleural-based mass in the left upper lobe measuring approximately 11 cm with hypermetabolic uptake on PET scan and the plan was for radiation therapy 3 Recurrent left pleural effusion, status post Pleurx catheter placement 4 Remote history of chronic tobacco dependence. 5 History of prostate cancer 6 History of vocal cord cancer with radiation 7 Coronary artery disease with multiple stent placements and coronary artery bypass grafting 8 Chronic atrial fibrillation, anticoagulated with warfarin, supra therapeutic with presenting INR greater than 10 Plan The patient was seen and evaluated by Dr. Morgan. He is down to 4 L high flow nasal cannula. DO NOT RESUSCITATE/DO NOT INTUBATE CODE STATUS Bronchodilators, IV Solu-Medrol, IV diuretics The patient's overall prognosis is quite poor Possible palliative radiation once recovered from this acute episode I, the cosigning physician, performed a history & physical examination of the patient. Lungs sounds wheezing in the left lung, crackles in the bases. Maintaining good O2 saturations in the 90s on 4 L high flow nasal cannula. I discussed the assessment and plan of care with my nurse practitioner, Lissa Nichole. I attest to the above note as dictated by her.
[2019-09-10 15:53] LABS: Anisocytosis Slight; Basophils % (A) 0 %; Eosinophils % (A) 0 %; HCT 33.4 % (39.0-53.0); HGB 10.4 gm/dL (13.0-17.5); Hypochromasia Slight; Lymphocytes # (A) 0.3 k/uL (1.0-4.8); Lymphocytes % (A) 3 %; MCH 27.1 pg (25.0-35.0); MCV 87.5 fL (80.0-100.0); Mean Platelet Volume 9.5; Monocytes # (A) 0.6 k/uL (0-1.0); Monocytes % (A) 6 %; Neutrophils # (A) 8.7 k/uL (1.3-7.7); Neutrophils % (A) 90 %; Platelet Count 328 k/uL (150-450); RBC 3.82 m/uL (4.30-5.90); RDW 16.7 % (11.5-15.5); WBC 9.6 k/uL (3.8-10.6)
[2019-09-10 15:55] LABS: Calcium 8.2 mg/dL (8.4-10.2); Potassium 3.8 mmol/L (3.5-5.1)
[2019-09-10 16:50] LABS: Glucose,Whole Blood 172 mg/dL (75-99)
[2019-09-10] MEDS: MULTIVITAMINS, THERA 1 EACH TAB PO SCH (17:28)
[2019-09-10] MEDS: ISOSORBIDE MONONITRATE ER 60 MG TAB.ER.24H PO SCH (17:28)
[2019-09-10] MEDS: WARFARIN 5 MG TAB PO SCH (17:29)
[2019-09-10] MEDS: TROSPIUM CHLORIDE 20 MG TABLET PO SCH (17:29)
[2019-09-10 20:40] LABS: Glucose,Whole Blood 153 mg/dL (75-99)
[2019-09-10] MEDS: MELATONIN 5 MG TABLET PO SCH (21:59)
[2019-09-10] MEDS: ATORVASTATIN 40 MG TAB PO SCH (22:00)
[2019-09-11 06:47] LABS: Glucose,Whole Blood 147 mg/dL (75-99)
[2019-09-11] MEDS: REPAGLINIDE 1 MG TAB PO SCH ×3 (07:03→18:08)
[2019-09-11] MEDS: LEVOTHYROXINE 88 MCG TAB PO SCH (07:03)
[2019-09-11] MEDS: INSULIN DETEMIR (LEVEMIR) 100 UNIT/ML SYR SQ SCH (07:03)
[2019-09-11] MEDS: INSULIN ASPART (NovoLOG) 100 UNIT/ML VIAL SQ SCH ×8 (07:03→21:12)
[2019-09-11] MEDS: BUDESONIDE 1 MG/2 ML NEBU INHALATION SCH ×2 (08:15→19:39)
[2019-09-11] MEDS: IPRATROPIUM 0.5 MG/2.5 ML NEBU INHALATION SCH ×4 (08:15→19:39)
[2019-09-11] MEDS: METOPROLOL TARTRATE 50 MG TAB PO SCH ×3 (09:08→21:41)
[2019-09-11] MEDS: DOCUSATE 100 MG CAP PO SCH ×2 (09:08→21:41)
[2019-09-11] MEDS: SENNOSIDES-DOCUSATE SODIUM 1 EACH TAB PO SCH ×2 (09:08→21:41)
[2019-09-11] MEDS: ALPRAZolam 0.25 MG TAB PO SCH ×2 (09:08→23:05)
[2019-09-11] MEDS: metFORMIN 500 MG TAB PO SCH ×2 (09:08→18:09)
[2019-09-11] MEDS: LINAGLIPTIN 5 MG TABLET PO SCH (09:09)
[2019-09-11] MEDS: hydrALAZINE HCL 25 MG TAB PO SCH (09:09)
[2019-09-11] MEDS: FUROSEMIDE 10 MG/ML 4 ML VIAL IV SCH ×2 (09:10→21:41)
[2019-09-11] MEDS: HEPARIN SODIUM,PORCINE 5,000 UNIT/ML 1 ML VIAL SQ SCH ×2 (09:10→21:41)
[2019-09-11] MEDS: POLYETHYLENE GLYCOL 3350 17 GM POWD.PACK PO SCH (09:10)
[2019-09-11] MEDS: methylPREDNISolone SOD SUCCI 40 MG/ML 1 ML VIAL IV SCH ×3 (09:10→23:05)
[2019-09-11] MEDS: SODIUM FERRIC GLUCONAT-SUCROSE 125 MG in SODIUM CHLORIDE 0.9% 100 ML IVPB SCH (09:11)
[2019-09-11] MEDS: DOXAZOSIN 4 MG TAB PO SCH (09:32)
[2019-09-11 11:43] LABS: Glucose,Whole Blood 200 mg/dL (75-99)
--- NOTE | 2019-09-11 12:00 | ECHOF ---
Referral Reason:LVF MEASUREMENTS -------- HEIGHT: 182.9 cm WEIGHT: 78.5 kg BP: RVIDd: 3.3 cm (< 3.3) IVSd: 1.5 cm (0.6 - 1.1) LVIDd: 3.4 cm (3.9 - 5.3) LVPWd: 1.6 cm (0.6 - 1.1) IVSs: 1.5 cm LVIDs: 3.0 cm LVPWs: 1.4 cm LA Diam: 5.1 cm (2.7 - 3.8) LAESV Index (A-L): 44.75 ml/m Ao Diam: 3.7 cm (2.0 - 3.7) AV Cusp: 1.9 cm (1.5 - 2.6) LA Diam: 4.7 cm (2.7 - 3.8) MV EXCURSION: 22.560 mm (> 18.000) MV EF SLOPE: 103 mm/s (70 - 150) EPSS: 0.6 cm RAP: 5.00 mmHg RVSP: 68.30 mmHg FINDINGS -------- Atrial fibrillation. This was a technically adequate study. The left ventricular size is normal. There is moderate concentric left ventricular hypertrophy. O verall left ventricular systolic function is low-normal with, an EF between 50 - 55 %. The right ventricle is normal in size. LA is severely dilated >40 ml/m2 The right atrial size is normal. There is mild aortic valve sclerosis. There is no evidence of aortic regurgitation. Mild mitral annular calcification present. Mild mitral regurgitation is present. Moderate tricuspid regurgitation present. There is moderate to severe pulmonary hypertension. The right ventricular systolic pressure, as measured by Doppler, is 68.30mmHg. Trace/mild (physiologic) pulmonic regurgitation. The aortic root size is normal. There is no pericardial effusion. CONCLUSIONS -------- 1. Atrial fibrillation. 2. The left ventricular size is normal. 3. There is moderate concentric left ventricular hypertrophy. 4. Overall left ventricular systolic function is low-normal with, an EF between 50 - 55 %. 5. LA is severely dilated >40 ml/m2 6. There is mild aortic valve sclerosis. 7. Mild mitral annular calcification present. 8. Mild mitral regurgitation is present. 9. Moderate tricuspid regurgitation present. 10. There is moderate to severe pulmonary hypertension. 11. Trace/mild (physiologic) pulmonic regurgitation. 12. There is no pericardial effusion. NURSE LEADER: Leighann Sesay RDCS
--- NOTE | 2019-09-11 12:31 | P.PN ---
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 Morgan, Dr. Tran . He had agitation treatment, August 26, cancer not amenable to chemotherapy at this time. He had recurrent pleural effusion, requires thoracentesis, last one was less than 08/13/2019 1 L exudative, negative fungal cultures, no growth. Currently Patient has hemoptysis, purulent yellow green cough, slight edema, no abdominal pain no diarrhea, he requires O2 2-4 L nasal cannula with increasing requirements, increasing respiratory distress, increasing weakness, requiring now ER evaluation On emergency room evaluation, he is at 7 L O2, chest x-ray shows large left body opacity, new right lower lobe patchy infiltrate concerning for pneumonia, thoracic ultrasound was requested, consult with Dr. Soriano, thoracic surgery for Pleurx catheter evaluation, IV antibiotics Zosyn and vancomycin, INR is over 10, needs to be reversed with vitamin K 09/04, patient is to undergo left Pleurx catheter today by Dr. Nolasco, still has shortness of breath, O2 sats at 3 L cannula patient has no palpitations, blood pressure 106/71 additional vitamin K was needed for the INR of 2.1 prior to procedure, no chest pain, still with shortness of breath, no headache, no palpitations, no leg swelling this time it has improved. 09/05: Patient is still short of breath, but less, still with pleurisy no hemoptyis, 350 ml omayra was taken out today thru pleurx cathtetergerardo at 55l 75% fi02, was cleared by thoracic surgeon to initiate coumadin, first dose restarted at 7.5 mg today, so initate physical therpies today 09/06: Patient is similar to yesterday, with symptoms, still with dyspnea and exertion, no palpitations, no fever no chills no headache, yellow flag x-ray report, possible fracture of the Pleurx catheter, we've requested thoracic surgeon be notified regarding these urgently, blood sugars are elevated, still on Solu-Medrol 60 mg every 6 hours, patient mentions about constipation, last bowel movement was 4 days ago, stool softeners currently are in place however this is not working. We'll going to start MiraLAX and Lisa-Colace in the morning at schedule twice a day. We will hold Coumadin today, possibly replacing the fractured Pleurx catheter, INR 1.3 sputum sentyet, increasePrandin to 2mg 3timesaday whileonprednisone started on [id number] bloodsugarsare 300-350range, increase Lasix 40 mg twice a day, decrease hydralazine 75 mg 3 times a day, to allow titration of diuretics, increasing bilateral lower extremity edema, compression stocks started 09/07: Pending recommendations from thoracic surgery is secondary to possible Pleurx catheter fracture, there services going to attempt to use them today, this is dysfunctional, prior to placing, Coumadin is currently on hold for possible replacement. Patient has insomnia, however he is taking coffee late in the afternoon, requesting to increase melatonin to 10 mg at bedtime. Blood sugars are between 140-280, has anemia, iron def lab workup, we'll decrease Solu-Medrol to 40 mg every 6 hours, no sputum cultures available for review, less wheezing, no hemoptysis improved cough, needed MARCIA hose, I don't see one in place, heparin subcu for DVT prophylaxis, has been off Coumadin 2 days INR will be rechecked 09/08 patient was evaluated bedside is currently doing well has the Pleurx catheter in place with drainage of 500 mL from the left lower chest tube . He is currently on 6 L of high flow oxygen and is breathing comfortably. Patient denies any cough or chest pain. He does have constipation and will be given a dose of Dulcolax suppository today to help with constipation as he failed oral treatment. Vitals assessed suggest a hemoglobin of 10.7 INR 1.5 iron profile suggested a iron of 19 iron saturation 8.7 ferritin 109. One dose of ferrlicit given today. Patient needs to lay flat for the radiation, holding onto medical history stable. 09/09 patient is breathing more comfortably than yesterday. Still requiring 6 L of high flow nasal cannula. Patient was able to ambulate the patel today. Was evaluated by Marvin holguin today with plan for CT simulation and MRI of the brain for staging of the tumor. Since oncology has not come in to see the patient will put a consult in for the patient for to help with staging of the cancer. We will increase Lasix to 40 IV twice a day to help with pleural effusions. Creatinine and BUN stable currently. Solu-Medrol decreased to 40 every 8 hours. Vancomycin discontinued today. Pro-calcitonin ordered to evaluate for the need of further antibiotic 2019 showing and examined bedside is comfortable breathing better. Vitals suggest a temp of 98.1 pulse rate 98 respiratory 18 blood pressure 101/59 c urrently on high flow cannula improved from yesterday patient is currently on 4 L. Will continue Lasix at 40 IV twice a day. Pro-calcitonin was ordered is completely negative. Patient has completed the course for pneumonia including vancomycin and Zosyn, which is henceforth discontinued. If patient is able to lie flat will be taken for CT stimulation. Warfarin initiated at 5 mg Coumadin level/INR still subtherapeutic 1.4. Incentive spirometer added for pulmonary prophylaxis 09/11: The patient remains on the selective care unit. He is found to be hypotensive at this time and he did receive hydralazine and doxazosin this morning. We will plan to discontinue hydralazine and decrease Imdur to 30 mg daily. Heart rate is elevated for which Lopressor will be increased frequency to 3 times daily. Patient states that his breathing is okay today. Patient is afebrile, heart rate 120, blood pressure 89/62, pulse ox 91% on high flow nasal cannula 5 L. Creatinine 0.96. Blood sugars running between 147 and 214. Pleurx is to be drained today. Oncology is planning for palliative radiation to try to optimize his lung function and will follow-up in the office for systemic chemotherapy if performance status is sufficient. He has been continued on Solu-Medrol 40 mg IV every 8 hours. Echocardiogram will be ordered to evaluate LV function. Patient was resumed on Coumadin. INR will be checked in the morning. ROS Constitutional: Denies chills, Denies fever, endorses lethargy Eyes: denies decreased vision, denies diplopia, denies discharge, denies pain Ears: deny: decreased hearing Ears, nose, mouth and throat: Denies dental pain, Denies headache, Denies nasal discharge, Denies nose pain Cardiovascular: Denies chest pain, Denies decreased exercise tolerance, Denies edema, Denies high blood pressure, Denies irregular heart beat, Denies palpitations, Denies paroxysmal nocturnal dyspnea, Denies rapid heart beat, Denies shortness of breath Respiratory: Denies congestion, Denies cough, Denies cough with sputum, endorses dyspnea, endorses home oxygen, 2 L Denies wheezing Gastrointestinal: Denies abdominal pain, Denies change in bowel habits, Denies coffee ground emesis, Denies early satiety, Denies excessive gas, Denies heartburn, Denies hematemesis, Denies hematochezia, Denies loss of appetite, Denies nausea, Denies vomiting endorses constipation Genitourinary: Denies dysuria, Denies flank pain, Denies kidney stones, Denies menorrhagia, Denies urgency, Denies urinary frequency Musculoskeletal: Denies gait dysfunction, Denies limitation of motion, Denies morning stiffness, Denies muscle cramps Integumentary: Denies rash, Denies wounds, Denies brittle nails, Denies change in hair/nails, Denies darkening of skin Neurological: Denies balance difficulties, Denies change in speech, Denies double vision, Denies gait dysfunction, Denies loss of vision, Denies motor disturbance, Denies numbness, Denies paralysis, Denies paresthesias Psychiatric: Denies anxiety, Denies depression Endocrine: Denies excessive sweating, Denies excessive thirst, Denies high blood sugars, Denies palpitations Hematologic/Lymphatic: Denies easy bruising, Denies lymphadenopathy Objective - Vital Signs Vital signs: Vital Signs Temp 98.3 F 09/11/19 08:00 Pulse 120 H 09/11/19 08:26 Resp 24 09/11/19 08:00 BP 89/62 09/11/19 08:00 Pulse Ox 91 L 09/11/19 08:00 Intake & Output 09/10/19 09/11/19 09/11/19 18:59 06:59 18:59 Intake Total 1200 356 Output Total 300 470 Balance 900 -470 356 Weight 78.9 kg 78.9 kg Intake: Oral 1200 356 Output: Urine 300 470 Other: Voiding Method Urinal Urinal # Voids 1 # Bowel Movements 2 - Exam - Constitutional General appearance: cooperative, no acute distress, fragile-appearing, patient has mild dyspneic with speaking - EENT Eyes: anicteric sclerae, PERRLA, normal appearance ENT: hearing grossly normal - Neck Neck: no lymphadenopathy, normal ROM, no other, no rigidity, no stridor, no thyromegaly - Respiratory Respiratory: bilateral: Decreased air entry bilaterally with crackles at the bases left Pleurx catheter in place with foreign body in the left lower part of the chest nontender on palpation - Cardiovascular Rhythm: regular Heart sounds: normal: S1, S2 Abnormal Heart Sounds: no systolic murmur, no diastolic murmur, no rub, no S3 Gallop, no S4 Gallop, no click, no other - Gastrointestinal General gastrointestinal: normal bowel sounds, soft nontender distended - Integumentary Integumentary: no rash - Neurologic Neurologic: CNII-XII intact - Musculoskeletal Musculoskeletal: gait normal, strength equal bilaterally - Psychiatric Psychiatric: A&O x's 3, appropriate affect - Labs CBC & Chem 7: 09/10/19 05:25 09/11/19 05:46 Labs: Abnormal Lab Results - Last 24 Hours (Table) 09/10/19 09/10/19 09/10/19 Range/Units 05:25 05:25 11:50 RBC 3.82 L (4.30-5.90) m/uL Hgb 10.4 L (13.0-17.5) gm/dL Hct 33.4 L (39.0-53.0) % RDW 16.7 H (11.5-15.5) % Neutrophils # 8.7 H (1.3-7.7) k/uL Lymphocytes # 0.3 L (1.0-4.8) k/uL Carbon Dioxide 33 H (22-30) mmol/L BUN 32 H (9-20) mg/dL Glucose 111 H (74-99) mg/dL POC Glucose (mg/dL) 214 H (75-99) mg/dL Calcium 8.2 L (8.4-10.2) mg/dL 09/10/19 09/10/19 09/11/19 Range/Units 16:37 20:39 06:44 RBC (4.30-5.90) m/uL Hgb (13.0-17.5) gm/dL Hct (39.0-53.0) % RDW (11.5-15.5) % Neutrophils # (1.3-7.7) k/uL Lymphocytes # (1.0-4.8) k/uL Carbon Dioxide (22-30) mmol/L BUN (9-20) mg/dL Glucose (74-99) mg/dL POC Glucose (mg/dL) 172 H 153 H 147 H (75-99) mg/dL Calcium (8.4-10.2) mg/dL Assessment and Plan Plan: 1. Recurrent pleural effusion, left side with known malignancy, primary poorly differentiated adenocarcinoma of the lung, recent thoracentesis 08/13/2019, Pleurx catheter on 09/04. O2 supplementation, nebulized treatment, monitor Pleurx 2. Pleurx catheter for pleural effusion. 3. Left lobe poorly differentiated adenocarcinoma lung status post Bronch 08/16/[address] Nelson and Bo, radiation treatment planned. 4. Right lung acute gram-negative pneumonia suspected: Completed vancomycin and Zosyn pro calcitonin negative sputum culture negative so far 5. Chronic atrial fibrillation with mild RVR. Continue Coumadin, monitor INR, Lopressor increased to 3 times daily. 6. Chronic systolic heart failure. Continue metoprolol 50 mg 3 times daily, Lasix 40 mg IV every 12 hours, Imdur decreased to 30 mg daily. Discontinue hydralazine. 7. Diabetes mellitus2 with A1c 9.1 continue patient on insulin continue Accu- Chek with sliding scale coverage, continue patient on metformin along with increasing doses Prandin now to 2 mg 3 times a day from a previous home dose dose of one every morning and Januvia and insulin scale. 8. Hypothyroidism: Continue levothyroxine 88 g daily. 9. Hyperlipidemia: Remain on atorvastatin 40 mg daily. 10. Hypertension: Remain on Cardura 40 mg a day, metoprolol 50 mg 3x a day. 11. COPD, exacerbation, on nebulized Atrovent, now on Solu-Medrol 40 mg every 8 hours 12. History of throat cancer: Has been in remission at this point. 13. Coumadin toxicity with INR over 10 on admission, vitamin K was given for reversal, goal INR between 2-3, Coumadin restarted at 5 mg daily INR 14. Palliative Scoring is high, currently on oncologic management for new lung cancer. 15. Constipation, start Lisa-Colace, twice a day scheduled, and one-time dose of MiraLAX when necessary, dulcolax suppository given Discharge plan: Home with [facility] Impression and plan of care have been directed as dictated by the signing physician. Heather Bishop nurse practitioner acting as scribe for signing physic january.
[2019-09-11] MEDS ORDERED: CYANOCOBALAMIN 1,000 MCG/ML 1 ML VIAL IM ONE (12:55)
[2019-09-11] MEDS: PANTOPRAZOLE 40 MG TABLET PO SCH (12:56)
[2019-09-11] MEDS: SODIUM CHLORIDE 0.9% 1,000 ML IV SCH (12:58)
--- NOTE | 2019-09-11 14:20 | P.PN ---
Subjective Progress Note Date: 09/11/19 Principal diagnosis: Large recurrent left pleural effusion, right lower lobe pneumonia, stage IV adenocarcinoma of the lung This is a very pleasant 83-year-old gentleman who follows with Dr. Corona as his primary care physician. He has a history of chronic atrial fibrillation an ticoagulated with warfarin, coronary artery disease with previous coronary artery bypass grafting, multiple stent placements, focal cord cancer with surgery, prostate cancer, diabetes mellitus with peripheral neuropathy, hypothyroidism, hyperlipidemia, BPH, osteoarthritis, remote history of smoking. He was diagnosed with stage IV adenocarcinoma of the lung earlier this month. He had undergone biopsy of a pleural-based mass in the left upper lobe measuring 11 cm with associated hypermetabolic uptake SUV of 7. There is groundglass opacities in the right lower lobe as well. He had been seen and evaluated by Dr. Latham and was going to receive radiation treatment. He was due for a computed tomography scan with markings tomorrow. This morning however he developed worsening shortness of breath cough and congestion and presented here to the emergency room. Computed tomography scan shows a new right lower lobe patchy infiltrate suspicious for pneumonia. Small effusion. There is a left upper lobe mass again noted with surrounding consolidation and atelectatic tissue and left-sided pleural effusion. We were consulted for the same. He is seen today in the emergency room. He is currently sitting up on the stretcher. Awake and alert in mild respiratory distress. He is dyspneic with minimal exertion. He is requiring 6 L high flow nasal cannula to maintain O2 saturations in the low 90s. He is afebrile. Slightly tachycardic. Blood pressure stable. White count 10.4. Hemoglobin 10.7. INR greater than 10.0. Sodium 133. Potassium 5.1. Creatinine 0.95. Lactic acid 1.5. Troponin 0.015. ProBNP 2190. He was given vitamin K 2.5 mg orally 1. He received 1 dose of Unasyn. On 09/04/2019 patient seen in follow-up on selective care unit, dyspneic, he is on Airvo at 55 l/min, and Fio2 75%. Occasionally bringing up some colored phlegm, afebrile, hemodynamically patient is stable, he is on a combination of Zosyn and vancomycin. Breathing treatments, and IV steroids, days INR is 2.1, patient has received a dose of vitamin K, he was evaluated by CT surgery, and hi s Pleurx catheter insertion has been scheduled for 3:30 this afternoon. On 09/05/2090 patient seen in follow-up on selective care unit, he remains on Airvo at 55l/min, and Fio2 73%. His pulse ox is 98, he states he is breathing easier today, yesterday he had left-sided Pleurx catheter inserted, and 1.5 L of pleural fluid drained. Today's chest x-ray shows persistent left mid lung consolidation, patchy left basilar atelectasis and residual small left pleural fluid collection, and there is worsening of the right lower lung acute infiltrates. Patient is on Zosyn and vancomycin for abiotic coverage, his been afebrile. He has a strong effective cough, but has not provided a sputum specimen yet. Lung sounds reveal coarse basilar crackles. Patient is generally weak, but was able to walk with a walker in the room with physical therapy, tolerated activity fairly well. The patient is seen today 09/06/2019 in follow-up on the selective care unit. He is currently sitting up in a chair at the bedside. Awake and alert in no acute distress. Breathing a bit easier today compared to yesterday. Still requiring the AirVo high flow oxygen device intermittently. He is currently on 8 L high flow nasal cannula. O2 saturations in the low 90s. He's been afebrile. Hemodynamically stable. White count 13.2. Hemoglobin 9.8. INR 1.3. He remains on bronchodilators, diuretics, IV Solu-Medrol and antibiotics in the form of vancomycin and Zosyn. Today's chest x-ray shows chronic emphysematous changes with left-sided volume loss. Left-sided midlung masslike consolidation. Left basilar pleural drainage catheter with residual small left pleural effusion and associated left lung atelectasis. Right infrahilar infiltrate/atelectasis. Findings are stable. There was a noted possible ca theter fragment left mid to lower lung that was noted prior to the left basilar pleural drainage catheter placement. The patient is seen today 09/09/2019 in follow-up on the selective care unit. He is currently sitting up in a chair at the bedside. Awake and alert in no acute distress. He is down to 6 L high flow nasal cannula and maintaining O2 saturation in the 90s. Most recent chest x-ray had revealed chronic emphysema with left-sided volume loss. Left-sided midlung masslike consolidation. Left basilar small pleural effusion and associated left lung atelectasis/infiltrate. White count 9.5. Hemoglobin 10.2. INR 1.4. Creatinine 0.85. He remains on bronchodilators, IV Solu-Medrol, IV diuretics, antibiotics in the form of vancomycin and Zosyn. He has been seen and evaluated by radiation oncology for possible treatments to the left lung mass. The patient is seen today 09/10/2019 in follow-up on the selective care unit. He is currently resting quite comfortably in bed. Able to lay flat. No worsening shortness of breath, cough or congestion. He is maintaining O2 saturation in the 90s on 4 L high flow nasal cannula. He is afebrile. INR 1.4. Creatinine 1.01. He remains on Pulmicort and Perforomist inhalations, IV Solu- Medrol and IV diuretics. The patient is seen today 09/11/2019 in follow-up on the selective care unit. He is currently sitting up in a chair at the bedside. Awake and alert in no acute distress. Breathing easier today as compared to yesterday. He is currently on 5 L high flow nasal cannula and maintaining O2 saturations in the low 90s. He is afebrile. Slightly tachycardic. Creatinine 0.96. He remains on IV diuretics, IV Solu-Medrol, bronchodilators. Echocardiogram reveals preserved left ventricular systolic function. Objective - Vital Signs Vital signs: Vital Signs Temp 97.5 F L 09/11/19 12:00 Pulse 103 H 09/11/19 12:00 Resp 18 09/11/19 12:00 BP 92/67 09/11/19 12:00 Pulse Ox 93 L 09/11/19 12:00 Intake & Output 09/10/19 09/11/19 09/11/19 18:59 06:59 18:59 Intake Total 1200 596 Output Total 300 470 Balance 900 -470 596 Weight 78.9 kg 78.9 kg Intake: Oral 1200 596 Output: Urine 300 470 Other: Voiding Method Urinal Urinal # Voids 1 # Bowel Movements 2 1 - Exam GENERAL EXAM: Alert, pleasant, 83-year-old frail looking male patient, on 5 L high flow nasal cannula, dyspneic with conversation, but no acute distress HEAD: Normocephalic/atraumatic. EYES: Normal reaction of pupils, equal size. Conjunctiva pink, sclera white. NOSE: Clear with pink turbinates. THROAT: No erythema or exudates. NECK: No masses, no JVD, no thyroid enlargement, no adenopathy. CHEST: No chest wall deformity. Symmetrical expansion. Pleurx catheter in place to left chest. LUNGS: Coarse crackles at the bases, wheezes in the left lung. CVS: Regular rate and rhythm, normal S1 and S2, no gallops, no murmurs, no rubs ABDOMEN: Soft, nontender. No hepatosplenomegaly, normal bowel sounds, no guarding or rigidity. EXTREMITIES: No clubbing, no edema, no cyanosis, 2+ pulses and upper and lower extremities. MUSCULOSKELETAL: Muscle strength and tone normal. SPINE: No scoliosis or deformity SKIN: No rashes CENTRAL NERVOUS SYSTEM: No focal deficits, tone is normal in all 4 extremities. PSYCHIATRIC: Alert and oriented -3. Appropriate affect. Intact judgment and insight. - Labs CBC & Chem 7: 09/10/19 05:25 09/11/19 05:46 Labs: Abnormal Lab Results - Last 24 Hours (Table) 09/10/19 09/10/19 09/10/19 Range/Units 05:25 05:25 16:37 RBC 3.82 L (4.30-5.90) m/uL Hgb 10.4 L (13.0-17.5) gm/dL Hct 33.4 L (39.0-53.0) % RDW 16.7 H (11.5-15.5) % Neutrophils # 8.7 H (1.3-7.7) k/uL Lymphocytes # 0.3 L (1.0-4.8) k/uL Carbon Dioxide 33 H (22-30) mmol/L BUN 32 H (9-20) mg/dL Glucose 111 H (74-99) mg/dL POC Glucose (mg/dL) 172 H (75-99) mg/dL Calcium 8.2 L (8.4-10.2) mg/dL 09/10/19 09/11/19 09/11/19 Range/Units 20:39 06:44 11:42 RBC (4.30-5.90) m/uL Hgb (13.0-17.5) gm/dL Hct (39.0-53.0) % RDW (11.5-15.5) % Neutrophils # (1.3-7.7) k/uL Lymphocytes # (1.0-4.8) k/uL Carbon Dioxide (22-30) mmol/L BUN (9-20) mg/dL Glucose (74-99) mg/dL POC Glucose (mg/dL) 153 H 147 H 200 H (75-99) mg/dL Calcium (8.4-10.2) mg/dL Assessment and Plan Assessment: 1 Acute hypoxic respiratory failure secondary to a large left-sided pleural effusion with left upper lobe mass positive for stage IV adenocarcinoma of the lung just diagnosed earlier this month with bronchoscopy and transbronchial biopsy on 08/15/2019. Status post left-sided Pleurx catheter placement on 09/04/2019. There is noted fragment in the left mid to lower lung [place] suggestive of catheter fragment that was seen prior to Pleurx catheter placement. 2 Pleural-based mass in the left upper lobe measuring approximately 11 cm with hypermetabolic uptake on PET scan and the plan was for radiation therapy 3 Recurrent left pleural effusion, status post Pleurx catheter placement 4 Remote history of chronic tobacco dependence. 5 History of prostate cancer 6 History of vocal cord cancer with radiation 7 Coronary artery disease with multiple stent placements and coronary artery bypass grafting 8 Chronic atrial fibrillation, anticoagulated with warfarin, supra therapeutic with presenting INR greater than 10 Plan The patient was seen and evaluated by Dr. Morgan. He is currently on 5 L high flow nasal cannula. DO NOT RESUSCITATE/DO NOT INTUBATE CODE STATUS Bronchodilators, IV Solu-Medrol, IV diuretics The patient's overall prognosis is quite poor Possible palliative radiation once recovered from this acute episode Plan is for home with [facility] I, the cosigning physician, performed a history & physical examination of the patient. Lungs sounds wheezing in the left lung, crackles in the bases. Maintaining good O2 saturations in the 90s on 5 L high flow nasal cannula. I discussed the assessment and plan of care with my nurse practitioner, Lissa Nichole. I attest to the above note as dictated by her.
--- NOTE | 2019-09-11 16:15 | P.PN ---
Subjective Progress Note Date: 09/11/19 Principal diagnosis: lung adenocarcinoma with malignant effusion The patient reports he is feeling well today. He has been ambulatory in the patel with a walker. He notes decreased shortness of breath compared to upon admission. He reports that he had 600 mL drained from his Pleurx catheter yesterday. Objective - Vital Signs Vital signs: Vital Signs Temp 97.5 F L 09/11/19 12:00 Pulse 106 H 09/11/19 15:52 Resp 18 09/11/19 12:00 BP 92/67 09/11/19 12:00 Pulse Ox 95 09/11/19 15:42 Intake & Output 09/10/19 09/11/19 09/11/19 18:59 06:59 18:59 Intake Total 1200 816 Output Total 300 470 Balance 900 -470 816 Weight 78.9 kg 78.9 kg Intake: Intake, IV Titration 220 Amount Sodium Chloride 0.9% 1, 120 000 ml @ 20 mls/hr IV . Q24H [facility] Rx#:[id number] Sodium Ferric Gluconat- 100 Sucrose 125 mg In Sodium Chloride 0.9% 100 ml @ 100 mls/hr IVPB DAILY [facility] Rx#:[id number] Oral 1200 596 Output: Urine 300 470 Other: Voiding Method Urinal Urinal # Voids 1 # Bowel Movements 2 1 - Constitutional General appearance: Present: no acute distress - EENT Eyes: Present: EOMI, PERRLA ENT: Present: hearing grossly normal - Neck Neck: Absent: lymphadenopathy - Respiratory Respiratory: bilateral: rhonchi, negative: wheezing - Cardiovascular Rhythm: irregularly irregular - Gastrointestinal General gastrointestinal: Absent: distended, tenderness - Integumentary Integumentary: Absent: calor, cyanotic - Neurologic Neurologic: Present: CNII-XII intact - Psychiatric Psychiatric: Present: A&O x's 3, appropriate affect - Labs CBC & Chem 7: 09/10/19 05:25 09/11/19 05:46 Labs: Abnormal Lab Results - Last 24 Hours (Table) 09/10/19 09/10/19 09/11/19 Range/Units 16:37 20:39 06:44 POC Glucose (mg/dL) 172 H 153 H 147 H (75-99) mg/dL 09/11/19 Range/Units 11:42 POC Glucose (mg/dL) 200 H (75-99) mg/dL Assessment and Plan Plan: The patient is an 83-year-old male with a history of a recently diagnosed metastatic adenocarcinoma of the left lung with and ipsilateral malignant effusion. He initially presented with significant dyspnea, which is now i mproved with Pleurx catheter placement. He is having significant output of the Pleurx catheter. 1. Stage IV Adenocarcinoma of left lung: Unfortunately, next generation sequencing did not reveal any targetable mutations in the patient's PD-L1 is negative. He discussed with medical oncology that he is interested in attempting chemotherapy. Despite his catheter placement, the patient is still quite dyspneic requiring 5 L of high flow oxygen. This may be in part owing to be 11 cm mass within the left upper lobe. I discussed with the patient and his that we could perform a short course of palliative radiation in an attempt to decrease this mass. The patient is in agreement with this plan. We will bring the patient down for CT simulation tomorrow morning. I discussed with the patient potential side effects of this treatment which include, but are not limited to; fatigue, skin erythema, cough, dysphagia, odynophagia and low risk of long-term toxicity due to palliative dosing. Time with Patient: Less than 30
[2019-09-11 16:29] LABS: Glucose,Whole Blood 308 mg/dL (75-99)
[2019-09-11] MEDS: TROSPIUM CHLORIDE 20 MG TABLET PO SCH (18:08)
[2019-09-11] MEDS: ISOSORBIDE MONONITRATE ER 30 MG TAB.ER.24H PO SCH (18:09)
[2019-09-11] MEDS: MULTIVITAMINS, THERA 1 EACH TAB PO SCH (18:09)
[2019-09-11] MEDS: WARFARIN 5 MG TAB PO SCH (18:09)
[2019-09-11] MEDS: FOLIC ACID 1 MG TAB PO SCH (18:10)
[2019-09-11 21:11] LABS: Glucose,Whole Blood 116 mg/dL (75-99)
[2019-09-11] MEDS: ATORVASTATIN 40 MG TAB PO SCH (21:41)
[2019-09-11] MEDS: MELATONIN 5 MG TABLET PO SCH (23:05)
[2019-09-12] MEDS: INSULIN ASPART (NovoLOG) 100 UNIT/ML VIAL SQ SCH ×7 (06:36→21:48)
[2019-09-12 06:37] LABS: Glucose,Whole Blood 101 mg/dL (75-99)
[2019-09-12] MEDS: BUDESONIDE 1 MG/2 ML NEBU INHALATION SCH ×2 (06:46→18:59)
[2019-09-12] MEDS: IPRATROPIUM 0.5 MG/2.5 ML NEBU INHALATION SCH ×4 (06:46→18:59)
[2019-09-12] MEDS: REPAGLINIDE 1 MG TAB PO SCH ×3 (06:53→17:00)
[2019-09-12] MEDS: INSULIN DETEMIR (LEVEMIR) 100 UNIT/ML SYR SQ SCH (06:54)
[2019-09-12] MEDS: LEVOTHYROXINE 88 MCG TAB PO SCH (06:54)
[2019-09-12 07:49] LABS: Anisocytosis Slight; HCT 36.5 % (39.0-53.0); HGB 11.3 gm/dL (13.0-17.5); Hypochromasia Slight; MCH 26.7 pg (25.0-35.0); MCHC 30.9 g/dL (31.0-37.0); MCV 86.4 fL (80.0-100.0); Mean Platelet Volume 8.6; Platelet Count 358 k/uL (150-450); RBC 4.22 m/uL (4.30-5.90); RDW 16.6 % (11.5-15.5); WBC 15.6 k/uL (3.8-10.6)
[2019-09-12 07:58] LABS: Calcium 8.8 mg/dL (8.4-10.2)
[2019-09-12 07:59] LABS: Potassium 5.3 mmol/L (3.5-5.1)
[2019-09-12 08:00] LABS: INR 1.8 (<1.2)
[2019-09-12] MEDS: FUROSEMIDE 10 MG/ML 4 ML VIAL IV SCH ×2 (10:32→21:48)
[2019-09-12] MEDS: HEPARIN SODIUM,PORCINE 5,000 UNIT/ML 1 ML VIAL SQ SCH ×2 (10:32→21:48)
[2019-09-12] MEDS: POLYETHYLENE GLYCOL 3350 17 GM POWD.PACK PO SCH (10:32)
[2019-09-12] MEDS: ALPRAZolam 0.25 MG TAB PO SCH ×2 (10:33→21:47)
[2019-09-12] MEDS: PANTOPRAZOLE 40 MG TABLET PO SCH (10:33)
[2019-09-12] MEDS: DOCUSATE 100 MG CAP PO SCH ×2 (10:33→21:48)
[2019-09-12] MEDS: METOPROLOL TARTRATE 50 MG TAB PO SCH ×3 (10:33→21:48)
[2019-09-12] MEDS: metFORMIN 500 MG TAB PO SCH ×2 (10:34→16:57)
[2019-09-12] MEDS: LINAGLIPTIN 5 MG TABLET PO SCH (10:34)
[2019-09-12] MEDS: SENNOSIDES-DOCUSATE SODIUM 1 EACH TAB PO SCH ×2 (10:34→21:47)
[2019-09-12] MEDS: methylPREDNISolone SOD SUCCI 40 MG/ML 1 ML VIAL IV SCH ×3 (10:34→23:49)
[2019-09-12] MEDS: FOLIC ACID 1 MG TAB PO SCH (10:34)
[2019-09-12] MEDS: DOXAZOSIN 4 MG TAB PO SCH (10:34)
[2019-09-12 13:05] LABS: Glucose,Whole Blood 52 mg/dL (75-99)
[2019-09-12] MEDS: SODIUM FERRIC GLUCONAT-SUCROSE 125 MG in SODIUM CHLORIDE 0.9% 100 ML IVPB SCH (14:16)
--- NOTE | 2019-09-12 14:50 | P.PN ---
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 Morgan, Dr. Tran . He had agitation treatment, August 26, cancer not amenable to chemotherapy at this time. He had recurrent pleural effusion, requires thoracentesis, last one was less than 08/13/2019 1 L exudative, negative fungal cultures, no growth. Currently Patient has hemoptysis, purulent yellow green cough, slight edema, no abdominal pain no diarrhea, he requires O2 2-4 L nasal cannula with increasing requirements, increasing respiratory distress, increasing weakness, requiring now ER evaluation On emergency room evaluation, he is at 7 L O2, chest x-ray shows large left body opacity, new right lower lobe patchy infiltrate concerning for pneumonia, thoracic ultrasound was requested, consult with Dr. Soriano, thoracic surgery for Pleurx catheter evaluation, IV antibiotics Zosyn and vancomycin, INR is over 10, needs to be reversed with vitamin K 09/04, patient is to undergo left Pleurx catheter today by Dr. Nolasco, still has shortness of breath, O2 sats at 3 L cannula patient has no palpitations, blood pressure 106/71 additional vitamin K was needed for the INR of 2.1 prior to procedure, no chest pain, still with shortness of breath, no headache, no palpitations, no leg swelling this time it has improved. 09/05: Patient is still short of breath, but less, still with pleurisy no hemoptyis, 350 ml omayra was taken out today thru pleurx cathtetergerardo at 55l 75% fi02, was cleared by thoracic surgeon to initiate coumadin, first dose restarted at 7.5 mg today, so initate physical therpies today 09/06: Patient is similar to yesterday, with symptoms, still with dyspnea and exertion, no palpitations, no fever no chills no headache, yellow flag x-ray report, possible fracture of the Pleurx catheter, we've requested thoracic surgeon be notified regarding these urgently, blood sugars are elevated, still on Solu-Medrol 60 mg every 6 hours, patient mentions about constipation, last bowel movement was 4 days ago, stool softeners currently are in place however this is not working. We'll going to start MiraLAX and Lisa-Colace in the morning at schedule twice a day. We will hold Coumadin today, possibly replacing the fractured Pleurx catheter, INR 1.3 sputum sentyet, increasePrandin to 2mg 3timesaday whileonprednisone started on [id number] bloodsugarsare 300-350range, increase Lasix 40 mg twice a day, decrease hydralazine 75 mg 3 times a day, to allow titration of diuretics, increasing bilateral lower extremity edema, compression stocks started 09/07: Pending recommendations from thoracic surgery is secondary to possible Pleurx catheter fracture, there services going to attempt to use them today, this is dysfunctional, prior to placing, Coumadin is currently on hold for possible replacement. Patient has insomnia, however he is taking coffee late in the afternoon, requesting to increase melatonin to 10 mg at bedtime. Blood sugars are between 140-280, has anemia, iron def lab workup, we'll decrease Solu-Medrol to 40 mg every 6 hours, no sputum cultures available for review, less wheezing, no hemoptysis improved cough, needed MARCIA hose, I don't see one in place, heparin subcu for DVT prophylaxis, has been off Coumadin 2 days INR will be rechecked 09/08 patient was evaluated bedside is currently doing well has the Pleurx catheter in place with drainage of 500 mL from the left lower chest tube . He is currently on 6 L of high flow oxygen and is breathing comfortably. Patient denies any cough or chest pain. He does have constipation and will be given a dose of Dulcolax suppository today to help with constipation as he failed oral treatment. Vitals assessed suggest a hemoglobin of 10.7 INR 1.5 iron profile suggested a iron of 19 iron saturation 8.7 ferritin 109. One dose of ferrlicit given today. Patient needs to lay flat for the radiation, holding onto medical history stable. 09/09 patient is breathing more comfortably than yesterday. Still requiring 6 L of high flow nasal cannula. Patient was able to ambulate the patel today. Was evaluated by Marvin holguin today with plan for CT simulation and MRI of the brain for staging of the tumor. Since oncology has not come in to see the patient will put a consult in for the patient for to help with staging of the cancer. We will increase Lasix to 40 IV twice a day to help with pleural effusions. Creatinine and BUN stable currently. Solu-Medrol decreased to 40 every 8 hours. Vancomycin discontinued today. Pro-calcitonin ordered to evaluate for the need of further antibiotic 2019 showing and examined bedside is comfortable breathing better. Vitals suggest a temp of 98.1 pulse rate 98 respiratory 18 blood pressure 101/59 c urrently on high flow cannula improved from yesterday patient is currently on 4 L. Will continue Lasix at 40 IV twice a day. Pro-calcitonin was ordered is completely negative. Patient has completed the course for pneumonia including vancomycin and Zosyn, which is henceforth discontinued. If patient is able to lie flat will be taken for CT stimulation. Warfarin initiated at 5 mg Coumadin level/INR still subtherapeutic 1.4. Incentive spirometer added for pulmonary prophylaxis 09/11: The patient remains on the selective care unit. He is found to be hypotensive at this time and he did receive hydralazine and doxazosin this morning. We will plan to discontinue hydralazine and decrease Imdur to 30 mg daily. Heart rate is elevated for which Lopressor will be increased frequency to 3 times daily. Patient states that his breathing is okay today. Patient is afebrile, heart rate 120, blood pressure 89/62, pulse ox 91% on high flow nasal cannula 5 L. Creatinine 0.96. Blood sugars running between 147 and 214. Pleurx is to be drained today. Oncology is planning for palliative radiation to try to optimize his lung function and will follow-up in the office for systemic chemotherapy if performance status is sufficient. He has been continued on Solu-Medrol 40 mg IV every 8 hours. Echocardiogram will be ordered to evaluate LV function. Patient was resumed on Coumadin. INR will be checked in the morning. 09/12: Patient has been seen by Dr. Latham, radiation oncologist with plan for palliative radiation to start CAT scan simulation today. Echocardiogram reveals EF of 50-55%, mild mitral regurgitation, moderate tricuspid regurgitation, severe pulmonary hypertension. Patient has been afebrile, heart rate 110, blood pressure 88/34755/86, pulse ox 90% on 4 L high flow nasal cannula. Repeat lab work reveals W BC 15.6, hemoglobin 11.3, potassium 5.3, BUN 42 and creatinine 0.95, CO2 34. Blood sugar running between 63 and 308. Patient denies any difficulty with breathing. He states his breathing is good today. He is asking when he will be ready to go home. We will ask nursing to check with oncology for discharge plan. Patient will be able to go home on 4 L nasal cannula. Despite possible discharge the 4 hours. ROS Constitutional: Denies chills, Denies fever, endorses lethargy Eyes: denies decreased vision, denies diplopia, denies discharge, denies pain Ears: deny: decreased hearing Ears, nose, mouth and throat: Denies dental pain, Denies headache, Denies nasal discharge, Denies nose pain Cardiovascular: Denies chest pain, Denies decreased exercise tolerance, Denies edema, Denies high blood pressure, Denies irregular heart beat, Denies palpitations, Denies paroxysmal nocturnal dyspnea, Denies rapid heart beat, Denies shortness of breath Respiratory: Denies congestion, Denies cough, Denies cough with sputum, denies dyspnea, endorses home oxygen, 2 L Denies wheezing Gastrointestinal: Denies abdominal pain, Denies change in bowel habits, Denies coffee ground emesis, Denies early satiety, Denies excessive gas, Denies hea rtburn, Denies hematemesis, Denies hematochezia, Denies loss of appetite, Denies nausea, Denies vomiting endorses constipation Genitourinary: Denies dysuria, Denies flank pain, Denies kidney stones, Denies menorrhagia, Denies urgency, Denies urinary frequency Musculoskeletal: Denies gait dysfunction, Denies limitation of motion, Denies morning stiffness, Denies muscle cramps Integumentary: Denies rash, Denies wounds, Denies brittle nails, Denies change in hair/nails, Denies darkening of skin Neurological: Denies balance difficulties, Denies change in speech, Denies double vision, Denies gait dysfunction, Denies loss of vision, Denies motor disturbance, Denies numbness, Denies paralysis, Denies paresthesias Psychiatric: Denies anxiety, Denies depression Endocrine: Denies excessive sweating, Denies excessive thirst, Denies high blood sugars, Denies palpitations Hematologic/Lymphatic: Denies easy bruising, Denies lymphadenopathy Objective - Vital Signs Vital signs: Vital Signs Temp 97.6 F 09/12/19 08:00 Pulse 64 09/12/19 08:00 Resp 24 09/12/19 08:00 BP 124/86 09/12/19 08:00 Pulse Ox 91 L 09/12/19 08:00 Intake & Output 09/11/19 09/12/19 09/12/19 18:59 06:59 18:59 Intake Total 1816 240 Output Total 1325 750 Balance 491 -750 240 Weight 76.8 kg Intake: Intake, IV Titration 220 Amount Sodium Chloride 0.9% 1, 120 000 ml @ 20 mls/hr IV . Q24H [facility] Rx#:[id number] Sodium Ferric Gluconat- 100 Sucrose 125 mg In Sodium Chloride 0.9% 100 ml @ 100 mls/hr IVPB DAILY [facility] Rx#:[id number] Oral 1596 240 Output: Chest Tube Drainage 500 Pleural Catheter 500 Drainage 500 Left Lower Chest 500 Urine 325 750 Other: Voiding Method Urinal # Voids 1 # Bowel Movements 1 1 - Exam - Constitutional General appearance: cooperative, no acute distress, fragile-appearing, patient's and daughter at the bedside. - EENT Eyes: anicteric sclerae, PERRLA, normal appearance ENT: hearing grossly normal - Neck Neck: no lymphadenopathy, normal ROM, no other, no rigidity, no stridor, no thyromegaly - Respiratory Respiratory: bilateral: Decreased air entry bilaterally with crackles at the bases left Pleurx catheter in place with foreign body in the left lower part of the chest nontender on palpation - Cardiovascular Rhythm: regular Heart sounds: normal: S1, S2 Abnormal Heart Sounds: no systolic murmur, no diastolic murmur, no rub, no S3 Gallop, no S4 Gallop, no click, no other - Gastrointestinal General gastrointestinal: normal bowel sounds, soft nontender distended - Integumentary Integumentary: no rash - Neurologic Neurologic: CNII-XII intact - Musculoskeletal Musculoskeletal: gait normal, strength equal bilaterally - Psychiatric Psychiatric: A&O x's 3, appropriate affect - Labs CBC & Chem 7: 09/12/19 05:42 09/12/19 05:42 Labs: Abnormal Lab Results - Last 24 Hours (Table) 09/11/19 09/11/19 09/11/19 Range/Units 11:42 16:28 21:10 WBC (3.8-10.6) k/uL RBC (4.30-5.90) m/uL Hgb (13.0-17.5) gm/dL Hct (39.0-53.0) % MCHC (31.0-37.0) g/dL RDW (11.5-15.5) % PT (9.0-12.0) sec INR (<1.2) Potassium (3.5-5.1) mmol/L Carbon Dioxide (22-30) mmol/L BUN (9-20) mg/dL Glucose (74-99) mg/dL POC Glucose (mg/dL) 200 H 308 H 116 H (75-99) mg/dL 09/12/19 09/12/19 09/12/19 Range/Units 05:42 05:42 05:42 WBC 15.6 H (3.8-10.6) k/uL RBC 4.22 L (4.30-5.90) m/uL Hgb 11.3 L (13.0-17.5) gm/dL Hct 36.5 L (39.0-53.0) % MCHC 30.9 L (31.0-37.0) g/dL RDW 16.6 H (11.5-15.5) % PT 18.0 H (9.0-12.0) sec INR 1.8 H (<1.2) Potassium 5.3 H (3.5-5.1) mmol/L Carbon Dioxide 34 H (22-30) mmol/L BUN 42 H (9-20) mg/dL Glucose 63 L (74-99) mg/dL POC Glucose (mg/dL) (75-99) mg/dL 09/12/19 Range/Units 06:36 WBC (3.8-10.6) k/uL RBC (4.30-5.90) m/uL Hgb (13.0-17.5) gm/dL Hct (39.0-53.0) % MCHC (31.0-37.0) g/dL RDW (11.5-15.5) % PT (9.0-12.0) sec INR (<1.2) Potassium (3.5-5.1) mmol/L Carbon Dioxide (22-30) mmol/L BUN (9-20) mg/dL Glucose (74-99) mg/dL POC Glucose (mg/dL) 101 H (75-99) mg/dL Assessment and Plan Plan: 1. Recurrent pleural effusion, left side with known malignancy, primary poorly differentiated adenocarcinoma of the lung, recent thoracentesis 08/13/2019, Pleurx catheter on 09/04. O2 supplementation, nebulized treatment, monitor Pleurx 2. Pleurx catheter fragment that was seen prior to Pleurx catheter placement. 3. Left lobe poorly differentiated adenocarcinoma lung status post Bronch 08/16/[address] Nelson and Bo, radiation treatment planned. Patient to start palliative radiation therapy. Consult with Dr. Latham appreciated. 4. Right lung acute gram-negative pneumonia ruled out, pro calcitonin negative. IV antibiotics discontinued. 5. Chronic atrial fibrillation with mild RVR. Continue Coumadin, monitor INR, Lopressor increased to 3 times daily. 6. Chronic systolic heart failure. Continue metoprolol 50 mg 3 times daily, Lasix 40 mg IV every 12 hours, Imdur decreased to 30 mg daily. Discontinue hydralazine. 7. Diabetes mellitus2 with A1c 9.1 continue patient on insulin continue Accu- Chek with sliding scale coverage, continue patient on metformin along with increasing doses Prandin now to 2 mg 3 times a day from a previous home dose dose of one every morning and Januvia and insulin scale. 8. Hypothyroidism: Continue levothyroxine 88 g daily. 9. Hyperlipidemia: Remain on atorvastatin 40 mg daily. 10. Hypertension: Remain on Cardura 40 mg a day, metoprolol 50 mg 3x a day. 11. COPD, exacerbation, on nebulized Atrovent, now on Solu-Medrol 40 mg every 8 hours 12. History of throat cancer: Has been in remission at this point. 13. Coumadin toxicity with INR over 10 on admission, vitamin K was given for reversal, goal INR between 2-3, Coumadin restarted at 5 mg daily INR 14. Palliative Scoring is high, currently on oncologic management for new lung cancer. 15. Constipation, start Lisa-Colace, twice a day scheduled, and one-time dose of MiraLAX when necessary, dulcolax suppository given Discharge plan: Home with [facility] possibly on Sunday Impression and plan of care have been directed as dictated by the signing physician. Heather Bishop nurse practitioner acting as scribe for signing physician.
[2019-09-12 16:25] LABS: Glucose,Whole Blood 130 mg/dL (75-99)
[2019-09-12] MEDS: SODIUM CHLORIDE 0.9% 1,000 ML IV SCH (16:56)
[2019-09-12] MEDS: ISOSORBIDE MONONITRATE ER 30 MG TAB.ER.24H PO SCH (16:57)
[2019-09-12] MEDS: TROSPIUM CHLORIDE 20 MG TABLET PO SCH (16:58)
[2019-09-12] MEDS: MULTIVITAMINS, THERA 1 EACH TAB PO SCH (16:58)
[2019-09-12] MEDS: WARFARIN 5 MG TAB PO SCH (17:00)
[2019-09-12 20:19] LABS: Glucose,Whole Blood 98 mg/dL (75-99)
[2019-09-12] MEDS: MELATONIN 5 MG TABLET PO SCH (21:47)
[2019-09-12] MEDS: ATORVASTATIN 40 MG TAB PO SCH (21:48)
[2019-09-13 06:36] LABS: INR 1.9 (<1.2); Prothrombin Time 18.6 sec (9.0-12.0)
[2019-09-13 07:01] LABS: Glucose,Whole Blood 96 mg/dL (75-99)
[2019-09-13] MEDS: REPAGLINIDE 1 MG TAB PO SCH ×3 (07:11→17:52)
[2019-09-13] MEDS: INSULIN DETEMIR (LEVEMIR) 100 UNIT/ML SYR SQ SCH (07:11)
[2019-09-13] MEDS: LEVOTHYROXINE 88 MCG TAB PO SCH (07:11)
[2019-09-13] MEDS: INSULIN ASPART (NovoLOG) 100 UNIT/ML VIAL SQ SCH ×7 (07:12→22:03)
[2019-09-13] MEDS: IPRATROPIUM 0.5 MG/2.5 ML NEBU INHALATION SCH ×4 (08:06→21:10)
[2019-09-13] MEDS: BUDESONIDE 1 MG/2 ML NEBU INHALATION SCH ×2 (08:06→21:10)
[2019-09-13] MEDS: DOCUSATE 100 MG CAP PO SCH ×2 (08:46→22:02)
[2019-09-13] MEDS: ALPRAZolam 0.25 MG TAB PO SCH ×2 (08:46→22:02)
[2019-09-13] MEDS: PANTOPRAZOLE 40 MG TABLET PO SCH (08:46)
[2019-09-13] MEDS: metFORMIN 500 MG TAB PO SCH ×2 (08:46→17:58)
[2019-09-13] MEDS: METOPROLOL TARTRATE 50 MG TAB PO SCH ×3 (08:46→22:02)
[2019-09-13] MEDS: LINAGLIPTIN 5 MG TABLET PO SCH (08:46)
[2019-09-13] MEDS: DOXAZOSIN 4 MG TAB PO SCH (08:46)
[2019-09-13] MEDS: FOLIC ACID 1 MG TAB PO SCH (08:46)
[2019-09-13] MEDS: SENNOSIDES-DOCUSATE SODIUM 1 EACH TAB PO SCH ×2 (08:46→22:02)
[2019-09-13] MEDS: HEPARIN SODIUM,PORCINE 5,000 UNIT/ML 1 ML VIAL SQ SCH ×2 (08:47→22:03)
[2019-09-13] MEDS: POLYETHYLENE GLYCOL 3350 17 GM POWD.PACK PO SCH (08:47)
[2019-09-13] MEDS: FUROSEMIDE 10 MG/ML 4 ML VIAL IV SCH ×2 (08:47→22:03)
[2019-09-13] MEDS: methylPREDNISolone SOD SUCCI 40 MG/ML 1 ML VIAL IV SCH ×2 (08:47→17:59)
[2019-09-13] MEDS: SODIUM FERRIC GLUCONAT-SUCROSE 125 MG in SODIUM CHLORIDE 0.9% 100 ML IVPB SCH (09:51)
[2019-09-13 12:12] LABS: Glucose,Whole Blood 169 mg/dL (75-99)
[2019-09-13] MEDS: SODIUM CHLORIDE 0.9% 1,000 ML IV SCH (15:02)
--- NOTE | 2019-09-13 15:12 | P.PN ---
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 Morgan, Dr. Tran . He had agitation treatment, August 26, cancer not amenable to chemotherapy at this time. He had recurrent pleural effusion, requires thoracentesis, last one was less than 08/13/2019 1 L exudative, negative fungal cultures, no growth. Currently Patient has hemoptysis, purulent yellow green cough, slight edema, no abdominal pain no diarrhea, he requires O2 2-4 L nasal cannula with increasing requirements, increasing respiratory distress, increasing weakness, requiring now ER evaluation On emergency room evaluation, he is at 7 L O2, chest x-ray shows large left body opacity, new right lower lobe patchy infiltrate concerning for pneumonia, thoracic ultrasound was requested, consult with Dr. Soriano, thoracic surgery for Pleurx catheter evaluation, IV antibiotics Zosyn and vancomycin, INR is over 10, needs to be reversed with vitamin K 09/04, patient is to undergo left Pleurx catheter today by Dr. Nolasco, still has shortness of breath, O2 sats at 3 L cannula patient has no palpitations, blood pressure 106/71 additional vitamin K was needed for the INR of 2.1 prior to procedure, no chest pain, still with shortness of breath, no headache, no palpitations, no leg swelling this time it has improved. 09/05: Patient is still short of breath, but less, still with pleurisy no hemoptyis, 350 ml omayra was taken out today thru pleurx cathtetergerardo at 55l 75% fi02, was cleared by thoracic surgeon to initiate coumadin, first dose restarted at 7.5 mg today, so initate physical therpies today 09/06: Patient is similar to yesterday, with symptoms, still with dyspnea and exertion, no palpitations, no fever no chills no headache, yellow flag x-ray report, possible fracture of the Pleurx catheter, we've requested thoracic surgeon be notified regarding these urgently, blood sugars are elevated, still on Solu-Medrol 60 mg every 6 hours, patient mentions about constipation, last bowel movement was 4 days ago, stool softeners currently are in place however this is not working. We'll going to start MiraLAX and Lisa-Colace in the morning at schedule twice a day. We will hold Coumadin today, possibly replacing the fractured Pleurx catheter, INR 1.3 sputum sentyet, increasePrandin to 2mg 3timesaday whileonprednisone started on [id number] bloodsugarsare 300-350range, increase Lasix 40 mg twice a day, decrease hydralazine 75 mg 3 times a day, to allow titration of diuretics, increasing bilateral lower extremity edema, compression stocks started 09/07: Pending recommendations from thoracic surgery is secondary to possible Pleurx catheter fracture, there services going to attempt to use them today, this is dysfunctional, prior to placing, Coumadin is currently on hold for possible replacement. Patient has insomnia, however he is taking coffee late in the afternoon, requesting to increase melatonin to 10 mg at bedtime. Blood sugars are between 140-280, has anemia, iron def lab workup, we'll decrease Solu-Medrol to 40 mg every 6 hours, no sputum cultures available for review, less wheezing, no hemoptysis improved cough, needed MARCIA hose, I don't see one in place, heparin subcu for DVT prophylaxis, has been off Coumadin 2 days INR will be rechecked 09/08 patient was evaluated bedside is currently doing well has the Pleurx catheter in place with drainage of 500 mL from the left lower chest tube . He is currently on 6 L of high flow oxygen and is breathing comfortably. Patient denies any cough or chest pain. He does have constipation and will be given a dose of Dulcolax suppository today to help with constipation as he failed oral treatment. Vitals assessed suggest a hemoglobin of 10.7 INR 1.5 iron profile suggested a iron of 19 iron saturation 8.7 ferritin 109. One dose of ferrlicit given today. Patient needs to lay flat for the radiation, holding onto medical history stable. 09/09 patient is breathing more comfortably than yesterday. Still requiring 6 L of high flow nasal cannula. Patient was able to ambulate the patel today. Was evaluated by Marvin holguin today with plan for CT simulation and MRI of the brain for staging of the tumor. Since oncology has not come in to see the patient will put a consult in for the patient for to help with staging of the cancer. We will increase Lasix to 40 IV twice a day to help with pleural effusions. Creatinine and BUN stable currently. Solu-Medrol decreased to 40 every 8 hours. Vancomycin discontinued today. Pro-calcitonin ordered to evaluate for the need of further antibiotic 2019 showing and examined bedside is comfortable breathing better. Vitals suggest a temp of 98.1 pulse rate 98 respiratory 18 blood pressure 101/59 c urrently on high flow cannula improved from yesterday patient is currently on 4 L. Will continue Lasix at 40 IV twice a day. Pro-calcitonin was ordered is completely negative. Patient has completed the course for pneumonia including vancomycin and Zosyn, which is henceforth discontinued. If patient is able to lie flat will be taken for CT stimulation. Warfarin initiated at 5 mg Coumadin level/INR still subtherapeutic 1.4. Incentive spirometer added for pulmonary prophylaxis 09/11: The patient remains on the selective care unit. He is found to be hypotensive at this time and he did receive hydralazine and doxazosin this morning. We will plan to discontinue hydralazine and decrease Imdur to 30 mg daily. Heart rate is elevated for which Lopressor will be increased frequency to 3 times daily. Patient states that his breathing is okay today. Patient is afebrile, heart rate 120, blood pressure 89/62, pulse ox 91% on high flow nasal cannula 5 L. Creatinine 0.96. Blood sugars running between 147 and 214. Pleurx is to be drained today. Oncology is planning for palliative radiation to try to optimize his lung function and will follow-up in the office for systemic chemotherapy if performance status is sufficient. He has been continued on Solu-Medrol 40 mg IV every 8 hours. Echocardiogram will be ordered to evaluate LV function. Patient was resumed on Coumadin. INR will be checked in the morning. 09/12: Patient has been seen by Dr. Latham, radiation oncologist with plan for palliative radiation to start CAT scan simulation today. Echocardiogram reveals EF of 50-55%, mild mitral regurgitation, moderate tricuspid regurgitation, severe pulmonary hypertension. Patient has been afebrile, heart rate 110, blood pressure 88/84690/86, pulse ox 90% on 4 L high flow nasal cannula. Repeat lab work reveals W BC 15.6, hemoglobin 11.3, potassium 5.3, BUN 42 and creatinine 0.95, CO2 34. Blood sugar running between 63 and 308. Patient denies any difficulty with breathing. He states his breathing is good today. He is asking when he will be ready to go home. We will ask nursing to check with oncology for discharge plan. Patient will be able to go home on 4 L nasal cannula. Despite possible discharge the 4 hours. 09/13: Patient has been cleared for discharge by our consultants however patient does not have a nebulizer set up at home and he is currently on 7 L nasal cannula. We will provide prescription for nebulizer at home. Attempt to wean the patient down to at least 5 L nasal cannula. Patient states his breathing status is stable. Heart rate 97, blood pressure 116/76, afebrile. Patient will be transferred to Medr/oncology unit. ROS Constitutional: Denies chills, Denies fever, endorses lethargy Eyes: denies decreased vision, denies diplopia, denies discharge, denies pain Ears: deny: decreased hearing Ears, nose, mouth and throat: Denies dental pain, Denies headache, Denies nasal discharge, Denies nose pain Cardiovascular: Denies chest pain, Denies decreased exercise tolerance, Denies edema, Denies high blood pressure, Denies irregular heart beat, Denies palpitations, Denies paroxysmal nocturnal dyspnea, Denies rapid heart beat, Junito es shortness of breath Respiratory: Denies congestion, Denies cough, Denies cough with sputum, denies dyspnea, endorses home oxygen, 2 L Denies wheezing Gastrointestinal: Denies abdominal pain, Denies change in bowel habits, Denies coffee ground emesis, Denies early satiety, Denies excessive gas, Denies heartburn, Denies hematemesis, Denies hematochezia, Denies loss of appetite, Denies nausea, Denies vomiting endorses constipation Genitourinary: Denies dysuria, Denies flank pain, Denies kidney stones, Denies menorrhagia, Denies urgency, Denies urinary frequency Musculoskeletal: Denies gait dysfunction, Denies limitation of motion, Denies morning stiffness, Denies muscle cramps Integumentary: Denies rash, Denies wounds, Denies brittle nails, Denies change in hair/nails, Denies darkening of skin Neurological: Denies balance difficulties, Denies change in speech, Denies double vision, Denies gait dysfunction, Denies loss of vision, Denies motor disturbance, Denies numbness, Denies paralysis, Denies paresthesias Psychiatric: Denies anxiety, Denies depression Endocrine: Denies excessive sweating, Denies excessive thirst, Denies high blood sugars, Denies palpitations Hematologic/Lymphatic: Denies easy bruising, Denies lymphadenopathy Objective - Vital Signs Vital signs: Vital Signs Temp 97.8 F 09/13/19 04:00 Pulse 105 H 09/13/19 08:21 Resp 18 09/13/19 04:00 BP 125/69 09/13/19 04:00 Pulse Ox 91 L 09/13/19 08:07 Intake & Output 09/12/19 09/13/19 09/13/19 18:59 06:59 18:59 Intake Total 750 Output Total 200 900 Balance 550 -900 Weight 77.3 kg Intake: Intake, IV Titration 20 Amount Sodium Chloride 0.9% 1, 20 000 ml @ 20 mls/hr IV . Q24H [facility] Rx#:[id number] Oral 730 Output: Drainage 500 Left Lower Chest 500 Urine 200 400 Other: Voiding Method Toilet Toilet Urinal Urinal # Voids 500 1 - Exam - Constitutional General appearance: cooperative, no acute distress, fragile-appearing, resting in recliner - EENT Eyes: anicteric sclerae, PERRLA, normal appearance ENT: hearing grossly normal - Neck Neck: no lymphadenopathy, normal ROM, no other, no rigidity, no stridor, no thyromegaly - Respiratory Respiratory: bilateral: Decreased air entry bilaterally with crackles at the bases left Pleurx catheter in place with foreign body in the left lower part of the chest nontender on palpation - Cardiovascular Rhythm: regular Heart sounds: normal: S1, S2 Abnormal Heart Sounds: no systolic murmur, no diastolic murmur, no rub, no S3 Gallop, no S4 Gallop, no click, no other - Gastrointestinal General gastrointestinal: normal bowel sounds, soft nontender distended - Integumentary Integumentary: no rash - Neurologic Neurologic: CNII-XII intact - Musculoskeletal Musculoskeletal: gait normal, strength equal bilaterally - Psychiatric Psychiatric: A&O x's 3, appropriate affect - Labs CBC & Chem 7: 09/12/19 05:42 09/12/19 05:42 Labs: Abnormal Lab Results - Last 24 Hours (Table) 09/12/19 09/12/19 09/13/19 Range/Units 12:59 16:24 05:23 PT 18.6 H (9.0-12.0) sec INR 1.9 H (<1.2) POC Glucose (mg/dL) 52 L 130 H (75-99) mg/dL Assessment and Plan Plan: 1. Recurrent pleural effusion, left side with known malignancy, primary poorly differentiated adenocarcinoma of the lung, recent thoracentesis 08/13/2019, Pleurx catheter on 09/04. O2 supplementation, nebulized treatment, monitor Pleurx 2. Pleurx catheter fragment that was seen prior to Pleurx catheter placement. 3. Left lobe poorly differentiated adenocarcinoma lung status post Bronch 08/16/[address] Nelson and Bo, radiation treatment planned. Patient to start palliative radiation therapy. Consult with Dr. Latham appreciated. 4. Right lung acute gram-negative pneumonia ruled out, pro calcitonin negative. IV antibiotics discontinued. 5. Chronic atrial fibrillation with mild RVR. Continue Coumadin, monitor INR, Lopressor increased to 3 times daily. 6. Chronic systolic heart failure. Continue metoprolol 50 mg 3 times daily, Lasix 40 mg IV every 12 hours, Imdur decreased to 30 mg daily. Discontinue hydralazine. 7. Diabetes mellitus2 with A1c 9.1 continue patient on insulin continue Accu- Chek with sliding scale coverage, continue patient on metformin along with increasing doses Prandin now to 2 mg 3 times a day from a previous home dose dose of one every morning and Januvia and insulin scale. 8. Hypothyroidism: Continue levothyroxine 88 g daily. 9. Hyperlipidemia: Remain on atorvastatin 40 mg daily. 10. Hypertension: Remain on Cardura 40 mg a day, metoprolol 50 mg 3x a day. 11. COPD, exacerbation, on nebulized Atrovent, now on Solu-Medrol 40 mg every 8 hours 12. History of throat cancer: Has been in remission at this point. 13. Coumadin toxicity with INR over 10 on admission, vitamin K was given for reversal, goal INR between 2-3, Coumadin restarted at 5 mg daily INR 14. Palliative Scoring is high, currently on oncologic management for new lung cancer. 15. Constipation, start Lisa-Colace, twice a day scheduled, and one-time dose of MiraLAX when necessary, dulcolax suppository given Discharge plan: Home with [facility] Impression and plan of care have been directed as dictated by the signing physician. Heather Bishop nurse practitioner acting as scribe for signing physician.
--- NOTE | 2019-09-13 15:19 | P.PN ---
Subjective Progress Note Date: 09/13/19 Principal diagnosis: Large recurrent left pleural effusion, right lower lobe pneumonia, stage IV adenocarcinoma of the lung This is a very pleasant 83-year-old gentleman who follows with Dr. Corona as his primary care physician. He has a history of chronic atrial fibrillation an ticoagulated with warfarin, coronary artery disease with previous coronary artery bypass grafting, multiple stent placements, focal cord cancer with surgery, prostate cancer, diabetes mellitus with peripheral neuropathy, hypothyroidism, hyperlipidemia, BPH, osteoarthritis, remote history of smoking. He was diagnosed with stage IV adenocarcinoma of the lung earlier this month. He had undergone biopsy of a pleural-based mass in the left upper lobe measuring 11 cm with associated hypermetabolic uptake SUV of 7. There is groundglass opacities in the right lower lobe as well. He had been seen and evaluated by Dr. Latham and was going to receive radiation treatment. He was due for a computed tomography scan with markings tomorrow. This morning however he developed worsening shortness of breath cough and congestion and presented here to the emergency room. Computed tomography scan shows a new right lower lobe patchy infiltrate suspicious for pneumonia. Small effusion. There is a left upper lobe mass again noted with surrounding consolidation and atelectatic tissue and left-sided pleural effusion. We were consulted for the same. He is seen today in the emergency room. He is currently sitting up on the stretcher. Awake and alert in mild respiratory distress. He is dyspneic with minimal exertion. He is requiring 6 L high flow nasal cannula to maintain O2 saturations in the low 90s. He is afebrile. Slightly tachycardic. Blood pressure stable. White count 10.4. Hemoglobin 10.7. INR greater than 10.0. Sodium 133. Potassium 5.1. Creatinine 0.95. Lactic acid 1.5. Troponin 0.015. ProBNP 2190. He was given vitamin K 2.5 mg orally 1. He received 1 dose of Unasyn. On 09/04/2019 patient seen in follow-up on selective care unit, dyspneic, he is on Airvo at 55 l/min, and Fio2 75%. Occasionally bringing up some colored phlegm, afebrile, hemodynamically patient is stable, he is on a combination of Zosyn and vancomycin. Breathing treatments, and IV steroids, days INR is 2.1, patient has received a dose of vitamin K, he was evaluated by CT surgery, and hi s Pleurx catheter insertion has been scheduled for 3:30 this afternoon. On 09/05/2090 patient seen in follow-up on selective care unit, he remains on Airvo at 55l/min, and Fio2 73%. His pulse ox is 98, he states he is breathing easier today, yesterday he had left-sided Pleurx catheter inserted, and 1.5 L of pleural fluid drained. Today's chest x-ray shows persistent left mid lung consolidation, patchy left basilar atelectasis and residual small left pleural fluid collection, and there is worsening of the right lower lung acute infiltrates. Patient is on Zosyn and vancomycin for abiotic coverage, his been afebrile. He has a strong effective cough, but has not provided a sputum specimen yet. Lung sounds reveal coarse basilar crackles. Patient is generally weak, but was able to walk with a walker in the room with physical therapy, tolerated activity fairly well. The patient is seen today 09/06/2019 in follow-up on the selective care unit. He is currently sitting up in a chair at the bedside. Awake and alert in no acute distress. Breathing a bit easier today compared to yesterday. Still requiring the AirVo high flow oxygen device intermittently. He is currently on 8 L high flow nasal cannula. O2 saturations in the low 90s. He's been afebrile. Hemodynamically stable. White count 13.2. Hemoglobin 9.8. INR 1.3. He remains on bronchodilators, diuretics, IV Solu-Medrol and antibiotics in the form of vancomycin and Zosyn. Today's chest x-ray shows chronic emphysematous changes with left-sided volume loss. Left-sided midlung masslike consolidation. Left basilar pleural drainage catheter with residual small left pleural effusion and associated left lung atelectasis. Right infrahilar infiltrate/atelectasis. Findings are stable. There was a noted possible ca theter fragment left mid to lower lung that was noted prior to the left basilar pleural drainage catheter placement. The patient is seen today 09/09/2019 in follow-up on the selective care unit. He is currently sitting up in a chair at the bedside. Awake and alert in no acute distress. He is down to 6 L high flow nasal cannula and maintaining O2 saturation in the 90s. Most recent chest x-ray had revealed chronic emphysema with left-sided volume loss. Left-sided midlung masslike consolidation. Left basilar small pleural effusion and associated left lung atelectasis/infiltrate. White count 9.5. Hemoglobin 10.2. INR 1.4. Creatinine 0.85. He remains on bronchodilators, IV Solu-Medrol, IV diuretics, antibiotics in the form of vancomycin and Zosyn. He has been seen and evaluated by radiation oncology for possible treatments to the left lung mass. The patient is seen today 09/10/2019 in follow-up on the selective care unit. He is currently resting quite comfortably in bed. Able to lay flat. No worsening shortness of breath, cough or congestion. He is maintaining O2 saturation in the 90s on 4 L high flow nasal cannula. He is afebrile. INR 1.4. Creatinine 1.01. He remains on Pulmicort and Perforomist inhalations, IV Solu- Medrol and IV diuretics. The patient is seen today 09/11/2019 in follow-up on the selective care unit. He is currently sitting up in a chair at the bedside. Awake and alert in no acute distress. Breathing easier today as compared to yesterday. He is currently on 5 L high flow nasal cannula and maintaining O2 saturations in the low 90s. He is afebrile. Slightly tachycardic. Creatinine 0.96. He remains on IV diuretics, IV Solu-Medrol, bronchodilators. Echocardiogram reveals preserved left ventricular systolic function. The patient is seen today 09/13/2019 in follow-up on the regular medical floor. He is currently sitting up in a chair at the bedside. Awake and alert in no acute distress. He is still requiring 6 L high flow nasal cannula to maintain O2 saturations in the mid 90s. He is afebrile. Hemodynamically stable. INR 1.9. He is continued on Pulmicort and Perforomist inhalations, IV Solu-Medrol, IV Lasix and remains in a negative balance. Objective - Vital Signs Vital signs: Vital Signs Temp 97.6 F 09/13/19 13:11 Pulse 97 09/13/19 13:11 Resp 18 09/13/19 13:11 BP 116/76 09/13/19 13:11 Pulse Ox 95 09/13/19 13:11 Intake & Output 09/12/19 09/13/19 09/13/19 18:59 06:59 18:59 Intake Total 750 Output Total 200 900 825 Balance 550 -900 -825 Weight 77.3 kg Intake: Intake, IV Titration 20 Amount Sodium Chloride 0.9% 1, 20 000 ml @ 20 mls/hr IV . Q24H [facility] Rx#:[id number] Oral 730 Output: Drainage 500 500 Left Lower Chest 500 500 Urine 200 400 325 Other: Voiding Method Toilet Toilet Toilet Urinal Urinal Urinal # Voids 500 1 1 - Exam GENERAL EXAM: Alert, pleasant, 83-year-old frail looking male patient, on 6 L high flow nasal cannula, dyspneic with conversation, but no acute distress HEAD: Normocephalic/atraumatic. EYES: Normal reaction of pupils, equal size. Conjunctiva pink, sclera white. NOSE: Clear with pink turbinates. THROAT: No erythema or exudates. NECK: No masses, no JVD, no thyroid enlargement, no adenopathy. CHEST: No chest wall deformity. Symmetrical expansion. Pleurx catheter in place to left chest. LUNGS: Coarse crackles at the bases, wheezes in the left lung. CVS: Regular rate and rhythm, normal S1 and S2, no gallops, no murmurs, no rubs ABDOMEN: Soft, nontender. No hepatosplenomegaly, normal bowel sounds, no guarding or rigidity. EXTREMITIES: No clubbing, no edema, no cyanosis, 2+ pulses and upper and lower extremities. MUSCULOSKELETAL: Muscle strength and tone normal. SPINE: No scoliosis or deformity SKIN: No rashes CENTRAL NERVOUS SYSTEM: No focal deficits, tone is normal in all 4 extremities. PSYCHIATRIC: Alert and oriented -3. Appropriate affect. Intact judgment and insight. - Labs CBC & Chem 7: 09/12/19 05:42 09/12/19 05:42 Labs: Abnormal Lab Results - Last 24 Hours (Table) 09/12/19 09/13/19 09/13/19 Range/Units 16:24 05:23 11:40 PT 18.6 H (9.0-12.0) sec INR 1.9 H (<1.2) POC Glucose (mg/dL) 130 H 169 H (75-99) mg/dL Assessment and Plan Assessment: 1 Acute hypoxic respiratory failure secondary to a large left-sided pleural effusion with left upper lobe mass positive for stage IV adenocarcinoma of the lung just diagnosed earlier this month with bronchoscopy and transbronchial biopsy on 08/15/2019. Status post left-sided Pleurx catheter placement on 09/04/2019. There is noted fragment in the left mid to lower lung [place] suggestive of catheter fragment that was seen prior to Pleurx catheter placement. 2 Pleural-based mass in the left upper lobe measuring approximately 11 cm with hypermetabolic uptake on PET scan and the plan is for palliative radiation therapy 3 Recurrent left pleural effusion, status post Pleurx catheter placement 4 Remote history of chronic tobacco dependence. 5 History of prostate cancer 6 History of vocal cord cancer with radiation 7 Coronary artery disease with multiple stent placements and coronary artery bypass grafting 8 Chronic atrial fibrillation, anticoagulated with warfarin, supra therapeutic with presenting INR greater than 10 Plan The patient was seen and evaluated by Dr. Morgan. He is currently on 6 L high flow nasal cannula. DO NOT RESUSCITATE/DO NOT INTUBATE CODE STATUS Bronchodilators, IV Solu-Medrol, IV diuretics The patient's overall prognosis is quite poor Possible palliative radiation once recovered from this acute episode Plan is for home with [facility] I, the cosigning physician, performed a history & physical examination of the patient. Lungs sounds wheezing in the left lung, crackles in the bases. Maintaining good O2 saturations in the 90s on 6 L high flow nasal cannula. I di scussed the assessment and plan of care with my nurse practitioner, Lissa Nichole. I attest to the above note as dictated by her.
[2019-09-13 16:33] LABS: Glucose,Whole Blood 82 mg/dL (75-99)
[2019-09-13] MEDS: ISOSORBIDE MONONITRATE ER 30 MG TAB.ER.24H PO SCH (17:58)
[2019-09-13] MEDS: WARFARIN 5 MG TAB PO SCH (17:59)
[2019-09-13] MEDS: MULTIVITAMINS, THERA 1 EACH TAB PO SCH (17:59)
[2019-09-13] MEDS: TROSPIUM CHLORIDE 20 MG TABLET PO SCH (18:44)
[2019-09-13 21:55] LABS: Glucose,Whole Blood 98 mg/dL (75-99)
[2019-09-13] MEDS: MELATONIN 5 MG TABLET PO SCH (22:02)
[2019-09-13] MEDS: ATORVASTATIN 40 MG TAB PO SCH (22:04)
[2019-09-14] MEDS: methylPREDNISolone SOD SUCCI 40 MG/ML 1 ML VIAL IV SCH ×2 (00:30→08:04)
[2019-09-14 06:53] LABS: Glucose,Whole Blood 119 mg/dL (75-99)
[2019-09-14] MEDS: INSULIN ASPART (NovoLOG) 100 UNIT/ML VIAL SQ SCH ×7 (07:08→21:24)
[2019-09-14] MEDS: HEPARIN SODIUM,PORCINE 5,000 UNIT/ML 1 ML VIAL SQ SCH (07:48)
[2019-09-14] MEDS: FUROSEMIDE 10 MG/ML 4 ML VIAL IV SCH ×2 (07:48→21:23)
[2019-09-14] MEDS: FOLIC ACID 1 MG TAB PO SCH (07:49)
[2019-09-14] MEDS: INSULIN DETEMIR (LEVEMIR) 100 UNIT/ML SYR SQ SCH (07:49)
[2019-09-14] MEDS: REPAGLINIDE 1 MG TAB PO SCH ×3 (07:49→17:33)
[2019-09-14] MEDS: PANTOPRAZOLE 40 MG TABLET PO SCH (07:49)
[2019-09-14] MEDS: metFORMIN 500 MG TAB PO SCH ×2 (07:50→17:34)
[2019-09-14] MEDS: SENNOSIDES-DOCUSATE SODIUM 1 EACH TAB PO SCH ×2 (07:50→21:24)
[2019-09-14] MEDS: DOCUSATE 100 MG CAP PO SCH ×2 (07:50→21:23)
[2019-09-14] MEDS: METOPROLOL TARTRATE 50 MG TAB PO SCH ×3 (07:50→21:23)
[2019-09-14] MEDS: DOXAZOSIN 4 MG TAB PO SCH (07:50)
[2019-09-14] MEDS: LINAGLIPTIN 5 MG TABLET PO SCH (07:50)
[2019-09-14] MEDS: POLYETHYLENE GLYCOL 3350 17 GM POWD.PACK PO SCH (07:51)
[2019-09-14] MEDS: ALPRAZolam 0.25 MG TAB PO SCH ×2 (07:52→21:24)
[2019-09-14 08:53] LABS: Anisocytosis Slight; HCT 36.9 % (39.0-53.0); HGB 11.7 gm/dL (13.0-17.5); Hypochromasia Slight; MCH 27.4 pg (25.0-35.0); MCHC 31.7 g/dL (31.0-37.0); MCV 86.6 fL (80.0-100.0); Mean Platelet Volume 8.4; Platelet Count 284 k/uL (150-450); RBC 4.26 m/uL (4.30-5.90); RDW 16.6 % (11.5-15.5); WBC 22.2 k/uL (3.8-10.6)
[2019-09-14 08:58] LABS: INR 1.8 (<1.2); Prothrombin Time 18.1 sec (9.0-12.0)
[2019-09-14 09:09] LABS: African American GFR (CKD) >90 (>60 ml/min/1.73 sqM); Anion Gap 7 mmol/L; Blood Urea Nitrogen 38 mg/dL (9-20); Calcium 8.6 mg/dL (8.4-10.2); Carbon Dioxide 33 mmol/L (22-30); Chloride 97 mmol/L (98-107); Glucose 246 mg/dL (74-99); Non-African American GFR(CKD) 79 (>60 ml/min/1.73 sqM); Potassium 4.5 mmol/L (3.5-5.1); Sodium 137 mmol/L (137-145)
[2019-09-14] MEDS: BUDESONIDE 1 MG/2 ML NEBU INHALATION SCH ×2 (09:15→18:49)
[2019-09-14] MEDS: IPRATROPIUM 0.5 MG/2.5 ML NEBU INHALATION SCH ×4 (09:15→18:49)
[2019-09-14] MEDS: SODIUM FERRIC GLUCONAT-SUCROSE 125 MG in SODIUM CHLORIDE 0.9% 100 ML IVPB SCH (09:36)
[2019-09-14 11:23] LABS: Glucose,Whole Blood 231 mg/dL (75-99)
[2019-09-14] MEDS: SODIUM CHLORIDE 0.9% 1,000 ML IV SCH (11:24)
--- NOTE | 2019-09-14 13:26 | PN ---
PROGRESS NOTE PULMONARY/CRITICAL CARE PROGRESS NOTE: DATE OF SERVICE: 09/14/2019 83-year-old male with a history of stage IV adenocarcinoma of the lung. He was diagnosed earlier this month with bronchoscopy and transbronchial biopsy back in early August. He has a left-sided pleural effusion, which is malignant. He is status post PleurX catheter placement on September 04. He has been having a fair amount of drainage. In addition, he has a history of recurrent left-sided pleural effusion, remote history of chronic tobacco dependence, prostate cancer, vocal cord cancer with radiation, CAD with multiple stent placements for coronary artery disease and previous bypass grafting as well as history of chronic atrial fibrillation. I did have a long talk with one of the daughters and his today. They realize that his prognosis is very poor. We discussed a number of options including hospice and palliative care. I believe they wanted to just take Lamont home, make him comfortable and really forego any additional testing, scans, radiation, etc. Currently, the patient is very short of breath. PHYSICAL EXAMINATION: Current vital signs are reviewed. Temperature is 98, heart rate 110, respiratory rate about 24, blood pressure 117/71, mean 86, on 7 or 8 liters high flow, saturations are only about 83-91%. He appears mildly tachypneic. No suyapa respiratory distress. No wheezing. HEENT examination is grossly unremarkable. Nasal O2 noted. NECK: Supple. Full range of motion. No adenopathy. Neck veins flat. CARDIOVASCULAR examination reveals regular rhythm and rate. Heart rate about 110 beats per minute. Heart sounds are distant. LUNGS: Reveal diminished breath sounds on the left. There is some dullness on the left lung. A few scattered rhonchi noted as well. Right lung is relatively clear although I do hear a few scattered rhonchi. ABDOMEN: Soft. EXTREMITIES are intact. There is some edema. SKIN: Without rash. NEUROLOGIC examination is brief but nonfocal. LABORATORY DATA: Reviewed. White count 22.2, hemoglobin 11.7, hematocrit 36.9, platelet count 384. His PT, INR were 18.1 and 1.8 respectively. Sodium 137, potassium 4.5, chloride 97, CO2 33 anion gap 7. BUN and creatinine were 38 and 0.88. Calcium 8.6. No recent chest x-ray has been ordered. The patient is a NO CODE patient. Medications are reviewed. ASSESSMENT: 1. Acute hypoxemic respiratory failure secondary to a large left-sided malignant effusion, status post PleurX catheter placement on 09/04/2019. 2. Stage IV adenocarcinoma of the lung, diagnosed on 08/15/2019 via bronchoscopy and transbronchial biopsy. 3. Recurrent left-sided pleural effusion secondary to malignancy, status post PleurX catheter placement. 4. History of prostate cancer. 5. Remote history of chronic tobacco dependence. 6. History of vocal cord cancer status post radiation. 7. Coronary artery disease with multiple stent placements and bypass grafting. 8. History of chronic atrial fibrillation, currently on Coumadin. PLAN: Again I had a long conversation with the daughter and . They understand that Mr. Mishra's overall prognosis is very poor. They are very seriously thinking about palliative care or hospice. I think they really would like to get Mr. Mishra home. Additional testing, scanning, treatment is not something that they want. That is something that Mr. Mishra does not want either. Additional recommendations and suggestions are forthcoming. We will put in a hospice consultation. The patient is a DO NOT RESUSCITATE, DO NOT INTUBATE at this time. Unnecessary medications will be discontinued. MMODL / IJN: [id number] /
[2019-09-14] MEDS: ISOSORBIDE MONONITRATE ER 30 MG TAB.ER.24H PO SCH (14:41)
--- NOTE | 2019-09-14 15:32 | P.PN ---
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 Morgan, Dr. Tran . He had agitation treatment, August 26, cancer not amenable to chemotherapy at this time. He had recurrent pleural effusion, requires thoracentesis, last one was less than 08/13/2019 1 L exudative, negative fungal cultures, no growth. Currently Patient has hemoptysis, purulent yellow green cough, slight edema, no abdominal pain no diarrhea, he requires O2 2-4 L nasal cannula with increasing requirements, increasing respiratory distress, increasing weakness, requiring now ER evaluation On emergency room evaluation, he is at 7 L O2, chest x-ray shows large left body opacity, new right lower lobe patchy infiltrate concerning for pneumonia, thoracic ultrasound was requested, consult with Dr. Soriano, thoracic surgery for Pleurx catheter evaluation, IV antibiotics Zosyn and vancomycin, INR is over 10, needs to be reversed with vitamin K 09/04, patient is to undergo left Pleurx catheter today by Dr. Nolasco, still has shortness of breath, O2 sats at 3 L cannula patient has no palpitations, blood pressure 106/71 additional vitamin K was needed for the INR of 2.1 prior to procedure, no chest pain, still with shortness of breath, no headache, no palpitations, no leg swelling this time it has improved. 09/05: Patient is still short of breath, but less, still with pleurisy no hemoptyis, 350 ml omayra was taken out today thru pleurx cathtetergerardo at 55l 75% fi02, was cleared by thoracic surgeon to initiate coumadin, first dose restarted at 7.5 mg today, so initate physical therpies today 09/06: Patient is similar to yesterday, with symptoms, still with dyspnea and exertion, no palpitations, no fever no chills no headache, yellow flag x-ray report, possible fracture of the Pleurx catheter, we've requested thoracic surgeon be notified regarding these urgently, blood sugars are elevated, still on Solu-Medrol 60 mg every 6 hours, patient mentions about constipation, last bowel movement was 4 days ago, stool softeners currently are in place however this is not working. We'll going to start MiraLAX and Lisa-Colace in the morning at schedule twice a day. We will hold Coumadin today, possibly replacing the fractured Pleurx catheter, INR 1.3 sputum sentyet, increasePrandin to 2mg 3timesaday whileonprednisone started on [id number] bloodsugarsare 300-350range, increase Lasix 40 mg twice a day, decrease hydralazine 75 mg 3 times a day, to allow titration of diuretics, increasing bilateral lower extremity edema, compression stocks started 09/07: Pending recommendations from thoracic surgery is secondary to possible Pleurx catheter fracture, there services going to attempt to use them today, this is dysfunctional, prior to placing, Coumadin is currently on hold for possible replacement. Patient has insomnia, however he is taking coffee late in the afternoon, requesting to increase melatonin to 10 mg at bedtime. Blood sugars are between 140-280, has anemia, iron def lab workup, we'll decrease Solu-Medrol to 40 mg every 6 hours, no sputum cultures available for review, less wheezing, no hemoptysis improved cough, needed MARCIA hose, I don't see one in place, heparin subcu for DVT prophylaxis, has been off Coumadin 2 days INR will be rechecked 09/08 patient was evaluated bedside is currently doing well has the Pleurx catheter in place with drainage of 500 mL from the left lower chest tube . He is currently on 6 L of high flow oxygen and is breathing comfortably. Patient denies any cough or chest pain. He does have constipation and will be given a dose of Dulcolax suppository today to help with constipation as he failed oral treatment. Vitals assessed suggest a hemoglobin of 10.7 INR 1.5 iron profile suggested a iron of 19 iron saturation 8.7 ferritin 109. One dose of ferrlicit given today. Patient needs to lay flat for the radiation, holding onto medical history stable. 09/09 patient is breathing more comfortably than yesterday. Still requiring 6 L of high flow nasal cannula. Patient was able to ambulate the patel today. Was evaluated by Marvin holguin today with plan for CT simulation and MRI of the brain for staging of the tumor. Since oncology has not come in to see the patient will put a consult in for the patient for to help with staging of the cancer. We will increase Lasix to 40 IV twice a day to help with pleural effusions. Creatinine and BUN stable currently. Solu-Medrol decreased to 40 every 8 hours. Vancomycin discontinued today. Pro-calcitonin ordered to evaluate for the need of further antibiotic 2019 showing and examined bedside is comfortable breathing better. Vitals suggest a temp of 98.1 pulse rate 98 respiratory 18 blood pressure 101/59 c urrently on high flow cannula improved from yesterday patient is currently on 4 L. Will continue Lasix at 40 IV twice a day. Pro-calcitonin was ordered is completely negative. Patient has completed the course for pneumonia including vancomycin and Zosyn, which is henceforth discontinued. If patient is able to lie flat will be taken for CT stimulation. Warfarin initiated at 5 mg Coumadin level/INR still subtherapeutic 1.4. Incentive spirometer added for pulmonary prophylaxis 09/11: The patient remains on the selective care unit. He is found to be hypotensive at this time and he did receive hydralazine and doxazosin this morning. We will plan to discontinue hydralazine and decrease Imdur to 30 mg daily. Heart rate is elevated for which Lopressor will be increased frequency to 3 times daily. Patient states that his breathing is okay today. Patient is afebrile, heart rate 120, blood pressure 89/62, pulse ox 91% on high flow nasal cannula 5 L. Creatinine 0.96. Blood sugars running between 147 and 214. Pleurx is to be drained today. Oncology is planning for palliative radiation to try to optimize his lung function and will follow-up in the office for systemic chemotherapy if performance status is sufficient. He has been continued on Solu-Medrol 40 mg IV every 8 hours. Echocardiogram will be ordered to evaluate LV function. Patient was resumed on Coumadin. INR will be checked in the morning. 09/12: Patient has been seen by Dr. Latham, radiation oncologist with plan for palliative radiation to start CAT scan simulation today. Echocardiogram reveals EF of 50-55%, mild mitral regurgitation, moderate tricuspid regurgitation, severe pulmonary hypertension. Patient has been afebrile, heart rate 110, blood pressure 88/38243/86, pulse ox 90% on 4 L high flow nasal cannula. Repeat lab work reveals W BC 15.6, hemoglobin 11.3, potassium 5.3, BUN 42 and creatinine 0.95, CO2 34. Blood sugar running between 63 and 308. Patient denies any difficulty with breathing. He states his breathing is good today. He is asking when he will be ready to go home. We will ask nursing to check with oncology for discharge plan. Patient will be able to go home on 4 L nasal cannula. Despite possible discharge the 4 hours. 09/13: Patient has been cleared for discharge by our consultants however patient does not have a nebulizer set up at home and he is currently on 7 L nasal cannula. We will provide prescription for nebulizer at home. Attempt to wean the patient down to at least 5 L nasal cannula. Patient states his breathing status is stable. Heart rate 97, blood pressure 116/76, afebrile. Patient will be transferred to Medr/oncology unit. 09/14: Patient is now at 8 L nasal cannula with pulse ox of 91%. Repeat lab work reveals WBC 22.2, hemoglobin 0.7, CO2 33, creatinine 0.88. Blood sugars running between 246 and 82. Patient states he feels about the same from yesterday. The patient will need to be weaned down to 6 L nasal cannula in order to be d ischarged. Patient may benefit from palliative care hospice care. Dr. Parsons has put in a hospice consultation. ROS Constitutional: Denies chills, Denies fever, endorses lethargy Eyes: denies decreased vision, denies diplopia, denies discharge, denies pain Ears: decreased hearing Ears, nose, mouth and throat: Denies dental pain, Denies headache, Denies nasal discharge, Denies nose pain Cardiovascular: Denies chest pain, Denies decreased exercise tolerance, Denies edema, Denies high blood pressure, Denies irregular heart beat, Denies palpitations, Denies paroxysmal nocturnal dyspnea, Denies rapid heart beat, Denies shortness of breath Respiratory: Denies congestion, Denies cough, Denies cough with sputum, denies dyspnea, endorses home oxygen, 2 L Denies wheezing Gastrointestinal: Denies abdominal pain, Denies change in bowel habits, Denies coffee ground emesis, Denies early satiety, Denies excessive gas, Denies heartburn, Denies hematemesis, Denies hematochezia, Denies loss of appetite, Denies nausea, Denies vomiting endorses constipation Genitourinary: Denies dysuria, Denies flank pain, Denies kidney stones, Denies menorrhagia, Denies urgency, Denies urinary frequency Musculoskeletal: Denies gait dysfunction, Denies limitation of motion, Denies morning stiffness, Denies muscle cramps Integumentary: Denies rash, Denies wounds, Denies brittle nails, Denies change in hair/nails, Denies darkening of skin Neurological: Denies balance difficulties, Denies change in speech, Denies double vision, Denies gait dysfunction, Denies loss of vision, Denies motor disturbance, Denies numbness, Denies paralysis, Denies paresthesias Psychiatric: Denies anxiety, Denies depression Endocrine: Denies excessive sweating, Denies excessive thirst, Denies high blood sugars, Denies palpitations Hematologic/Lymphatic: Denies easy bruising, Denies lymphadenopathy Objective - Vital Signs Vital signs: Vital Signs Temp 98.0 F 09/14/19 06:05 Pulse 104 H 09/14/19 06:05 Resp 18 09/14/19 06:05 BP 117/71 09/14/19 06:05 Pulse Ox 91 L 09/14/19 06:10 Intake & Output 09/13/19 09/14/19 09/14/19 18:59 06:59 18:59 Output Total 825 1700 Balance -825 -1700 Output: Chest Tube Drainage 600 Pleural Catheter 600 Drainage 500 600 Left Lower Chest 500 600 Urine 325 500 Other: Voiding Method Toilet Urinal # Voids 1 - Exam - Constitutional General appearance: cooperative, no acute distress, fragile-appearing, sitting the edge of the bed - EENT Eyes: anicteric sclerae, PERRLA, normal appearance ENT: hearing grossly normal - Neck Neck: no lymphadenopathy, normal ROM, no other, no rigidity, no stridor, no t hyromegaly - Respiratory Respiratory: bilateral: Decreased air entry bilaterally with crackles at the bases left Pleurx catheter in place with foreign body in the left lower part of the chest nontender on palpation - Cardiovascular Rhythm: regular Heart sounds: normal: S1, S2 Abnormal Heart Sounds: no systolic murmur, no diastolic murmur, no rub, no S3 Gallop, no S4 Gallop, no click, no other - Gastrointestinal General gastrointestinal: normal bowel sounds, soft nontender distended - Integumentary Integumentary: no rash - Neurologic Neurologic: CNII-XII intact - Musculoskeletal Musculoskeletal: gait normal, strength equal bilaterally - Psychiatric Psychiatric: A&O x's 3, appropriate affect - Labs CBC & Chem 7: 09/14/19 08:31 09/14/19 08:31 Labs: Abnormal Lab Results - Last 24 Hours (Table) 09/13/19 09/14/19 Range/Units 11:40 06:43 POC Glucose (mg/dL) 169 H 119 H (75-99) mg/dL Assessment and Plan Plan: 1. Recurrent pleural effusion, left side with known malignancy, primary poorly differentiated adenocarcinoma of the lung, recent thoracentesis 08/13/2019, Pleurx catheter on 09/04. O2 supplementation, nebulized treatment, monitor Pleurx 2. Pleurx catheter fragment that was seen prior to Pleurx catheter placement. 3. Left lobe poorly differentiated adenocarcinoma lung status post Bronch 08/16/[address] Nelson and Bo, radiation treatment planned. Patient to start palliative radiation therapy. Consult with Dr. Yeison mayer reciated. 4. Right lung acute gram-negative pneumonia ruled out, pro calcitonin negative. IV antibiotics discontinued. 5. Chronic atrial fibrillation with mild RVR. Continue Coumadin, monitor INR, Lopressor increased to 3 times daily. 6. Chronic systolic heart failure. Continue metoprolol 50 mg 3 times daily, Lasix 40 mg IV every 12 hours, Imdur decreased to 30 mg daily. Discontinue hydr alazine. 7. Diabetes mellitus2 with A1c 9.1 continue patient on insulin continue Accu- Chek with sliding scale coverage, continue patient on metformin along with increasing doses Prandin now to 2 mg 3 times a day from a previous home dose dose of one every morning and Januvia and insulin scale. 8. Hypothyroidism: Continue levothyroxine 88 g daily. 9. Hyperlipidemia: Remain on atorvastatin 40 mg daily. 10. Hypertension: Remain on Cardura 40 mg a day, metoprolol 50 mg 3x a day. 11. COPD, exacerbation, on nebulized Atrovent, now on Solu-Medrol 40 mg every 8 hours 12. History of throat cancer: Has been in remission at this point. 13. Coumadin toxicity with INR over 10 on admission, vitamin K was given for reversal, goal INR between 2-3, Coumadin restarted at 5 mg daily INR 14. Palliative Scoring is high, currently on oncologic management for new lung cancer. 15. Constipation, start Lisa-Colace, twice a day scheduled, and one-time dose of MiraLAX when necessary, dulcolax suppository given Discharge plan: Home with [facility]. Hospice referral. Impression and plan of care have been directed as dictated by the signing physician. Heather Bishop nurse practitioner acting as scribe for signing physician.
[2019-09-14 16:35] LABS: Glucose,Whole Blood 210 mg/dL (75-99)
[2019-09-14] MEDS: WARFARIN 5 MG TAB PO SCH (17:34)
[2019-09-14] MEDS: MULTIVITAMINS, THERA 1 EACH TAB PO SCH (17:34)
[2019-09-14] MEDS: TROSPIUM CHLORIDE 20 MG TABLET PO SCH (17:34)
[2019-09-14] MEDS ORDERED: WARFARIN 0.5 MG TAB PO ONE (18:00)
[2019-09-14 20:49] LABS: Glucose,Whole Blood 112 mg/dL (75-99)
[2019-09-14] MEDS: MELATONIN 5 MG TABLET PO SCH (21:23)
[2019-09-15] MEDS: LEVOTHYROXINE 88 MCG TAB PO SCH (06:30)
[2019-09-15 07:07] LABS: Glucose,Whole Blood 74 mg/dL (75-99)
[2019-09-15] MEDS: IPRATROPIUM 0.5 MG/2.5 ML NEBU INHALATION SCH ×3 (07:19→15:45)
[2019-09-15] MEDS: BUDESONIDE 1 MG/2 ML NEBU INHALATION SCH (07:19)
[2019-09-15] MEDS: INSULIN ASPART (NovoLOG) 100 UNIT/ML VIAL SQ SCH ×4 (08:30→13:03)
[2019-09-15] MEDS: REPAGLINIDE 1 MG TAB PO SCH ×2 (08:31→13:03)
[2019-09-15] MEDS: DOCUSATE 100 MG CAP PO SCH (08:32)
[2019-09-15] MEDS: FUROSEMIDE 10 MG/ML 4 ML VIAL IV SCH (08:32)
[2019-09-15] MEDS: ALPRAZolam 0.25 MG TAB PO SCH (08:32)
[2019-09-15] MEDS: FOLIC ACID 1 MG TAB PO SCH (08:32)
[2019-09-15] MEDS: METOPROLOL TARTRATE 50 MG TAB PO SCH (08:32)
[2019-09-15] MEDS: DOXAZOSIN 4 MG TAB PO SCH (08:32)
[2019-09-15] MEDS: PANTOPRAZOLE 40 MG TABLET PO SCH (08:32)
[2019-09-15] MEDS: POLYETHYLENE GLYCOL 3350 17 GM POWD.PACK PO SCH (08:32)
[2019-09-15] MEDS: SENNOSIDES-DOCUSATE SODIUM 1 EACH TAB PO SCH (08:32)
[2019-09-15] MEDS: SODIUM FERRIC GLUCONAT-SUCROSE 125 MG in SODIUM CHLORIDE 0.9% 100 ML IVPB SCH (08:38)
[2019-09-15] MEDS: metFORMIN 500 MG TAB PO SCH (08:39)
[2019-09-15] MEDS: LINAGLIPTIN 5 MG TABLET PO SCH (08:39)
[2019-09-15] MEDS: INSULIN DETEMIR (LEVEMIR) 100 UNIT/ML SYR SQ SCH (08:39)
[2019-09-15 08:40] LABS: Glucose,Whole Blood 122 mg/dL (75-99)
[2019-09-15 09:38] VITALS: BMI 23.1
[2019-09-15] MEDS: SODIUM CHLORIDE 0.9% 1,000 ML IV SCH (12:22)
[2019-09-15 12:31] LABS: Glucose,Whole Blood 135 mg/dL (75-99)
--- NOTE | 2019-09-15 13:14 | XR ---
EXAMINATION TYPE: XR chest 1V portable DATE OF EXAM: 09/15/2019 COMPARISON: 08/29/2019 HISTORY: Hypoxemia TECHNIQUE: Single frontal view of the chest is obtained. FINDINGS: Post CABG changes are seen in the chest with enlarged cardiac mediastinal silhouette and c oronary artery stent. Radiopaque linear density seen on the prior CT within the pleural effusion is n ot well seen radiographically. Thoracostomy tube has been placed in the interim. Density along the le ft hemithorax relates to the patient's known mass and atelectasis. Right midlung and right lower lung airspace disease is again seen. IMPRESSION: Right midlung pneumonia, right lower lobe pneumonia and left-sided pleural-based mass ap pear similar. Linear radiopaque density seen on the prior CT is not well seen radiographically. Coron teresa artery stent is noted.
[2019-09-15 13:19] VITALS: BP 78/53; PULSE 110; RESP 20; TEMP 98.6
--- NOTE | 2019-09-15 15:20 | P.DS ---
Providers Date of admission: 09/03/19 11:16 Expected date of discharge: 09/15/19 Attending physician: Cony Reed Consults: 09/03/19 11:17 Consult Physician Routine Consulting Provider: Selene Garcia Consult Reason/Comments: pleurx cath? Do you want consulting provider notified?: Yes Consult Physician Routine Consulting Provider: Yasir Soriano Consult Reason/Comments: respiratory Do you want consulting provider notified?: Yes 09/05/19 12:59 Consult Physician Routine Consulting Provider: Dallin Latham Consult Reason/Comments: lung cancer Do you want consulting provider notified?: Yes 09/09/19 13:15 Consult Physician Routine Consulting Provider: Crow Mcfarlane Consult Reason/Comments: poorly differentiated adenocarcinoma, patient known Do you want consulting provider notified?: Yes Primary care physician: [facility] Course: 83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 Morgan, Dr. Tran . He had agitation treatment, August 26, cancer not amenable to chemotherapy at this time. He had recurrent pleural effusion, requires thoracentesis, last one was less than 08/13/2019 1 L exudative, negative fungal cultures, no growth. Currently Patient has hemoptysis, purulent yellow green cough, slight edema, no abdominal pain no diarrhea, he requires O2 2-4 L nasal cannula with increasing requirements, increasing respiratory distress, increasing weakness, requiring now ER evaluation On emergency room evaluation, he is at 7 L O2, chest x-ray shows large left body opacity, new right lower lobe patchy infiltrate concerning for pneumonia, thoracic ultrasound was requested, consult with Dr. Soriano, thoracic surgery for Pleurx catheter evaluation, IV antibiotics Zosyn and vancomycin, INR is over 10, needs to be reversed with vitamin K 09/04, patient is to undergo left Pleurx catheter today by Dr. Nolasco, still has shortness of breath, O2 sats at 3 L cannula patient has no palpitations, blood pressure 106/71 additional vitamin K was needed for the INR of 2.1 prior to procedure, no chest pain, still with shortness of breath, no headache, no palpitations, no leg swelling this time it has improved. 09/05: Patient is still short of breath, but less, still with pleurisy no hemoptyis, 350 ml omayra was taken out today thru pleurx cathtetergerardo at 55l 75% fi02, was cleared by thoracic surgeon to initiate coumadin, first dose restarted at 7.5 mg today, so initate physical therpies today 09/06: Patient is similar to yesterday, with symptoms, still with dyspnea and exertion, no palpitations, no fever no chills no headache, yellow flag x-ray report, possible fracture of the Pleurx catheter, we've requested thoracic surgeon be notified regarding these urgently, blood sugars are elevated, still on Solu-Medrol 60 mg every 6 hours, patient mentions about constipation, last bowel movement was 4 days ago, stool softeners currently are in place however this is not working. We'll going to start MiraLAX and Lisa-Colace in the morning at schedule twice a day. We will hold Coumadin today, possibly replacing the fractured Pleurx catheter, INR 1.3 sputum sentyet, increasePrandin to 2mg 3timesaday whileonprednisone started on [id number] blood sugarsare 300-350range, increase Lasix 40 mg twice a day, decrease hydralazine 75 mg 3 times a day, to allow titration of diuretics, increasing bilateral lower extremity edema, compression stocks started 09/07: Pending recommendations from thoracic surgery is secondary to possible Pleurx catheter fracture, there services going to attempt to use them today, this is dysfunctional, prior to placing, Coumadin is currently on hold for possible replacement. Patient has insomnia, however he is taking coffee late in the afternoon, requesting to increase melatonin to 10 mg at bedtime. Blood sugars are between 140-280, has anemia, iron def lab workup, we'll decrease Solu-Medrol to 40 mg every 6 hours, no sputum cultures available for review, less wheezing, no hemoptysis improved cough, needed MARCIA hose, I don't see one in place, heparin subcu for DVT prophylaxis, has been off Coumadin 2 days INR will be rechecked 09/08 patient was evaluated bedside is currently doing well has the Pleurx cath eter in place with drainage of 500 mL from the left lower chest tube . He is currently on 6 L of high flow oxygen and is breathing comfortably. Patient denies any cough or chest pain. He does have constipation and will be given a dose of Dulcolax suppository today to help with constipation as he failed oral treatment. Vitals assessed suggest a hemoglobin of 10.7 INR 1.5 iron profile suggested a iron of 19 iron saturation 8.7 ferritin 109. One dose of ferrlicit given today. Patient needs to lay flat for the radiation, holding onto medical history stable. 09/09 patient is breathing more comfortably than yesterday. Still requiring 6 L of high flow nasal cannula. Patient was able to ambulate the patel today. Was evaluated by Marvin holguin today with plan for CT simulation and MRI of the brain for staging of the tumor. Since oncology has not come in to see the patient will put a consult in for the patient for to help with staging of the cancer. We will increase Lasix to 40 IV twice a day to help with pleural effusions. Creatinine and BUN stable currently. Solu-Medrol decreased to 40 every 8 hours. Vancomycin discontinued today. Pro-calcitonin ordered to evaluate for the need of further antibiotic 2019 showing and examined bedside is comfortable breathing better. Vitals suggest a temp of 98.1 pulse rate 98 respiratory 18 blood pressure 101/59 currently on high flow cannula improved from yesterday patient is currently on 4 L. Will continue Lasix at 40 IV twice a day. Pro-calcitonin was ordered is completely negative. Patient has completed the course for pneumonia including vancomycin and Zosyn, which is henceforth discontinued. If patient is able to lie flat will be taken for CT stimulation. Warfarin initiated at 5 mg Coumadin level/INR still subtherapeutic 1.4. Incentive spirometer added for pulmonary prophylaxis 09/11: The patient remains on the selective care unit. He is found to be hypotensive at this time and he did receive hydralazine and doxazosin this morning. We will plan to discontinue hydralazine and decrease Imdur to 30 mg daily. Heart rate is elevated for which Lopressor will be increased frequency to 3 times daily. Patient states that his breathing is okay today. Patient is afebrile, heart rate 120, blood pressure 89/62, pulse ox 91% on high flow nasal cannula 5 L. Creatinine 0.96. Blood sugars running between 147 and 214. Pleurx is to be drained today. Oncology is planning for palliative radiation to try to optimize his lung function and will follow-up in the office for systemic chemotherapy if performance status is sufficient. He has been continued on Solu-Medrol 40 mg IV every 8 hours. Echocardiogram will be ordered to evaluate LV function. Patient was resumed on Coumadin. INR will be checked in the mo rning. 09/12: Patient has been seen by Dr. Latham, radiation oncologist with plan for palliative radiation to start CAT scan simulation today. Echocardiogram reveals EF of 50-55%, mild mitral regurgitation, moderate tricuspid regurgitation, severe pulmonary hypertension. Patient has been afebrile, heart rate 110, blood pressure 88/39891/86, pulse ox 90% on 4 L high flow nasal cannula. Repeat lab work reveals W BC 15.6, hemoglobin 11.3, potassium 5.3, BUN 42 and creatinine 0.95, CO2 34. Blood sugar running between 63 and 308. Patient denies any difficulty with breathing. He states his breathing is good today. He is asking when he will be ready to go home. We will ask nursing to check with oncology for discharge plan. Patient will be able to go home on 4 L nasal cannula. Despite possible discharge the 4 hours. 09/13: Patient has been cleared for discharge by our consultants however patient does not have a nebulizer set up at home and he is currently on 7 L nasal cannula. We will provide prescription for nebulizer at home. Attempt to wean the patient down to at least 5 L nasal cannula. Patient states his breathing status is stable. Heart rate 97, blood pressure 116/76, afebrile. Patient will be transferred to [facility]/oncology unit. 09/14: Patient is now at 8 L nasal cannula with pulse ox of 91%. Repeat lab work reveals WBC 22.2, hemoglobin 0.7, CO2 33, creatinine 0.88. Blood sugars running between 246 and 82. Patient states he feels about the same from yesterday. The patient will need to be weaned down to 6 L nasal cannula in order to be discharged. Patient may benefit from palliative care hospice care. Dr. Parsons has put in a hospice consultation. 09/15: Patient is seen today respiratory status is about the same. Family members are at the bedside. They're all in agreement to proceed with hospice care. Hospice is to meet with the patient and he will be discharged home once all arrangements are completed. Discharge diagnoses: 1. Recurrent pleural effusion, left side with known malignancy, primary poorly differentiated adenocarcinoma of the lung, recent thoracentesis 08/13/2019, Pleurx catheter on 09/04. 2. Pleurx catheter fragment that was seen prior to Pleurx catheter placement. 3. Left lobe poorly differentiated adenocarcinoma lung status post Bronch 08/16/[address] Nelson and Bo 4. Right lung acute gram-negative pneumonia ruled out, pro calcitonin negative. 5. Chronic atrial fibrillation with mild RVR. 6. Chronic systolic heart failure. 7. Diabetes mellitus2 with A1c 9.1 8. Hypothyroidism 9. Hyperlipidemia 10. Hypertension 11. COPD, exacerbation 12. History of throat cancer 13. Coumadin toxicity with INR over 10 on admission 14. Constipation Discharge plan: Home with [facility]. Hospice referral. Impression and plan of care have been directed as dictated by the signing physician. Heather Bishop nurse practitioner acting as scribe for signing physician. Patient Condition at Discharge: Stable Plan - Discharge Summary Discharge Rx Participant: No New Discharge Prescriptions: New LORazepam ORAL CONC [Ativan Intensol] 2 mg PO Q4HR PRN #30 ml PRN Reason: Anxiety MORPHINE ORAL AIDEN CONC 20mg/mL [Roxanol Oral Soln Conc 20MG/ML] 5 mg PO Q4H PRN #30 ml PRN Reason: Pain Docusate [Colace] 100 mg PO BID cap Isosorbide Mononitrate ER [Imdur] 30 mg PO DAILY@1700 #30 tab.er.24h Metoprolol Tartrate [Lopressor] 50 mg PO TID #90 tab Polyethylene Glycol 3350 [Miralax] 17 gm PO DAILY #30 powd.pack Budesonide [Pulmicort] 1 mg INHALATION RT-BID #60 nebu Sennosides-Docusate Sodium [Senokot-S] 1 each PO BID tab Continue Levothyroxine Sodium [Synthroid] 88 mcg PO MOTUWETHFRSA ALPRAZolam [Xanax] 0.25 mg PO BID@0800,2200 Melatonin 5 mg PO HS@2200 sitaGLIPtin [Januvia] 100 mg PO DAILY@0800 Changed Furosemide [Lasix] 40 mg PO DAILY@0800 #60 tab Discontinued metFORMIN HCL [Glucophage] 1,000 mg PO DAILY@1700 Multivitamins, Thera [Multivitamin (formulary)] 1 tab PO DAILY@1700 Fesoterodine Fumarate [Toviaz] 4 mg PO DAILY@1700 hydrALAZINE HCL [Apresoline] 100 mg PO TID@0800,1700,2200 metFORMIN HCL [Glucophage] 500 mg PO DAILY@0800 Isosorbide Mononitrate ER [Imdur] 60 mg PO DAILY@1700 Clopidogrel [Plavix] 75 mg PO DAILY #30 tab Warfarin [Coumadin] 7.5 mg PO DAILY@1700 Repaglinide [Prandin] 1 mg PO DAILY@0800 amLODIPine [Norvasc] 2.5 mg PO BID@0800,2200 Atorvastatin [Lipitor] 40 mg PO HS@2200 Metoprolol Tartrate [Lopressor] 50 mg PO BID@0800,1700 Pantoprazole Sodium [Protonix] 40 mg PO DAILY@0800 Doxazosin [Cardura] 4 mg PO DAILY@0800 Discharge Medication List Levothyroxine Sodium [Synthroid] 88 mcg PO MOTUWETHFRSA 01/30/14 [History] ALPRAZolam [Xanax] 0.25 mg PO BID@0800,2200 08/28/15 [History] Melatonin 5 mg PO HS@2200 03/29/16 [History] sitaGLIPtin [Januvia] 100 mg PO DAILY@0800 09/17/16 [History] Budesonide [Pulmicort] 1 mg INHALATION RT-BID #60 nebu 09/15/19 [Rx] Docusate [Colace] 100 mg PO BID cap 09/15/19 [Rx] Furosemide [Lasix] 40 mg PO DAILY@0800 #60 tab 09/15/19 [Rx] Isosorbide Mononitrate ER [Imdur] 30 mg PO DAILY@1700 #30 tab.er.24h 09/15/19 [Rx] LORazepam ORAL CONC [Ativan Intensol] 2 mg PO Q4HR PRN #30 ml 09/15/19 [Rx] MORPHINE ORAL AIDEN CONC 20mg/mL [Roxanol Oral Soln Conc 20MG/ML] 5 mg PO Q4H PRN #30 ml 09/15/19 [Rx] Metoprolol Tartrate [Lopressor] 50 mg PO TID #90 tab 09/15/19 [Rx] Polyethylene Glycol 3350 [Miralax] 17 gm PO DAILY #30 powd.pack 09/15/19 [Rx] Sennosides-Docusate Sodium [Senokot-S] 1 each PO BID tab 09/15/19 [Rx] Follow up Appointment(s)/Referral(s): Crow Mcfarlane MD [STAFF PHYSICIAN] - 09/25/19 4:30 pm Ray Corona MD [Primary Care Provider] - As Needed Wellington Morgan DO [Doctor of Osteopathic Medicine] - 09/15/19 1:45 pm [facility], [NON-STAFF] - Dallin Latham MD [STAFF PHYSICIAN] - 1 Week (MRI of Brain ordered for [facility] on Sunday, September 15, 2019 at 3:15pm. Please Make sure pt has envelope that has the order in it, that is in his chart to take with him. Has 1st Radiation Treatments Monday, September 16, 2019 at 4pm. Any questions, call [phone]) Activity/Diet/Wound Care/Special Instructions: 1. Hospice is ordered, they will obtain new bottles. 2. May shower after 24 hours, no tub baths/hot tubs. 3. Do not drain more than 1 liter or 1000 mL in 24 hours. 4. New drainage bottle needed with each drainage. 5. Drainage frequency dictated by patient symptoms, may be every day, every other day, weekly, or however often the patient is symptomatic. 6. Please notify DRILLER OPERATOR or office if temperature >101F, excessive pain at insertion site, drainage consistency changes to cloudy or smells bad, catheter falls out, or anything else that concerns you. 7. Contact surgery office with weekly drainage amounts. May fax the amounts. 8. Once drainage is less than 50 mL three times in a row, notify the surgery office for possible removal. LAST drained 1/6/20 600 cc removed Surgery office: , fax DRILLER OPERATOR: Gayathri , P[facility] hospice activity as tolerated consistent carb diet as tolerated Discharge Disposition: HOME WITH HOSPICE
--- NOTE | 2019-09-16 13:11 | CDI ---
Documentation Clarification Form Date: 09/16/19 From: Lamar Rodriguez Phone: If you have a question about this query, please contact Riya Funes, Mail Rider at [phone] between 8am and 5pm. Admit Date: 09/03/19 Discharge Date: 09/15/19 Patient Name: Lamont Mishra Visit Number: [id number] ATTENTION: The Clinical Documentation Specialists (CDI) and [facility] Coding Staff appreciate your assistance in clarifying documentation. Please respond to the clarification below the line at the bottom and electronically sign. The CDI & [facility] Coding staff will review the response and follow-up if needed. Please note: Queries are made part of the Legal Health Record. If you have any questions, please contact the author of this message via ITS. Dear Dr. Cony Reed, Documentation of emphysema is in 09/05 & 09/06 CXRs, PNs 09/06, 09/09, 09/10 & 09/11. Documentation states "Most recent chest x-ray had revealed chronic emphysema with left sided volume loss." History/Risk Factors: BHASKAR lung ca, malignant pleural effusion, gram-neg pneumonia, ac hypoxic resp failure, acidosis, chr systolic CHF w HTN, cardiomyopathy, hemoptysis, pul htn, DM w neuropathy Significant history of respiratory disorders/disease: lung ca and malignant pleural effusion Present or past smoker/PPD: history of smoking Home O2-2 L Clinical Indicators: SOB, labored, accessory muscle use, pursed lip 09/05 CXR: Background chronic emphysematous change with worsening right lower lung acute infiltrate and/or atelectasis is noted. Vital Signs/Pulse Oximetry: T-98.0, P-103, R-28, BP-138/85, O2 Sat-94 Treatment: nebulizer, IV antibiotics, IV Solu-Medrol O2 @4-15 liters In your professional opinion, can you please clarify if the above findings and treatment signify any of the following? Chronic obstructive pulmonary disease with acute lower respiratory infection Emphysema Other condition, please specify Unable to determine COPD exac with acute lower resp inf MTDD
== END 2019-09-15 15:59 | disposition hospice, home (50) | DRG 180 ==
LOC: EC 08:15 → 3SCARD 11:16 → 6NMEDSUR 09-13 12:33
PROVIDERS: ADMIT Family Medicine; ATTEND Family Medicine
PROC: 0W9B30Z Drainage of Left Pleural Cavity with Drainage Device, Percutaneous Approach (ICD-10-PCS; principal; 2019-09-04 11:00)
DX: C34.12 Malignant neoplasm of upper lobe, left bronchus or lung (principal); J15.6 Pneumonia due to other Gram-negative bacteria; J96.01 Acute respiratory failure with hypoxia; J91.0 Malignant pleural effusion; E87.2 Acidosis; J44.0 Chronic obstructive pulmonary disease with (acute) lower respiratory infection; I50.22 Chronic systolic (congestive) heart failure; I42.9 Cardiomyopathy, unspecified; R04.2 Hemoptysis; R64 Cachexia; C79.9 Secondary malignant neoplasm of unspecified site; I48.20 Chronic atrial fibrillation, unspecified; J98.11 Atelectasis; I27.20 Pulmonary hypertension, unspecified; Z66 Do not resuscitate; I11.0 Hypertensive heart disease with heart failure; E11.42 Type 2 diabetes mellitus with diabetic polyneuropathy; I95.9 Hypotension, unspecified; I08.1 Rheumatic disorders of both mitral and tricuspid valves; K22.70 Barrett's esophagus without dysplasia; I25.10 Atherosclerotic heart disease of native coronary artery without angina pectoris; E78.5 Hyperlipidemia, unspecified; R13.10 Dysphagia, unspecified; F41.9 Anxiety disorder, unspecified; I83.90 Asymptomatic varicose veins of unspecified lower extremity; R49.0 Dysphonia; E03.9 Hypothyroidism, unspecified; M21.372 Foot drop, left foot; I25.2 Old myocardial infarction; N40.0 Benign prostatic hyperplasia without lower urinary tract symptoms; G47.00 Insomnia, unspecified; M19.90 Unspecified osteoarthritis, unspecified site; R79.1 Abnormal coagulation profile; T45.515A Adverse effect of anticoagulants, initial encounter; K59.00 Constipation, unspecified; Z99.81 Dependence on supplemental oxygen; Z79.02 Long term (current) use of antithrombotics/antiplatelets; Z68.23 Body mass index [BMI] 23.0-23.9, adult; Z79.890 Hormone replacement therapy; Z79.84 Long term (current) use of oral hypoglycemic drugs; Z79.01 Long term (current) use of anticoagulants; Z79.899 Other long term (current) drug therapy; Z87.891 Personal history of nicotine dependence; Z85.21 Personal history of malignant neoplasm of larynx; Z85.46 Personal history of malignant neoplasm of prostate; Z92.3 Personal history of irradiation; Z86.14 Personal history of Methicillin resistant Staphylococcus aureus infection; Z95.5 Presence of coronary angioplasty implant and graft; Z95.1 Presence of aortocoronary bypass graft; Z86.74 Personal history of sudden cardiac arrest; Z90.79 Acquired absence of other genital organ(s); Z98.42 Cataract extraction status, left eye; Z98.41 Cataract extraction status, right eye; Z88.6 Allergy status to analgesic agent; Z88.1 Allergy status to other antibiotic agents; Z88.8 Allergy status to other drugs, medicaments and biological substances; Z80.3 Family history of malignant neoplasm of breast; Z82.61 Family history of arthritis; Z83.2 Family history of diseases of the blood and blood-forming organs and certain disorders involving the immune mechanism; Z83.3 Family history of diabetes mellitus; Z82.49 Family history of ischemic heart disease and other diseases of the circulatory system; Z81.1 Family history of alcohol abuse and dependence; Z80.49 Family history of malignant neoplasm of other genital organs
CPT/HCPCS: 36415; 71045; 71046; 71260; 76000; 76604; 77290; 77334; 80048; 80053; 80202; 82040; 82565; 82728; 82803; 83036; 83540; 83550; 83605; 83735; 83880; 84145; 84484; 85025; 85027; 85610; 85730; 86850; 86900; 86901; 93005; 93306; 94640; 94760; 96361; 96365; 96367; 99285